=== PATIENT | male | born 1950 | race Caucasian/White ===

== ENCOUNTER 2016-05-02 22:23 | Emergency (ER) | payer OTHER ==
[2016-05-02 22:32] VITALS: BP 125/80; PULSE 78; TEMP 98.3; BMI 25.0
--- NOTE | 2016-05-02 22:42 | PDOC ---
[id number] BACK PAIN Time Seen by Provider: 05/02/16 22:25 - History of Present Illness Initial Comments: This 66-year-old man presents with a history of falling and twisting his back while snow shoveling yesterday; he has a long history of back pain but states that it is much worse since falling yesterday. Patient is unclear exactly what he impacted with the fall but points to the lower midline/left side of the lumbar region. He denies any pain/paresthesias/numbness or weakness in his legs. No numbness in his groin and no difficulty with urination/defecation. He had no LOC/head trauma/neck trauma during his fall. Past History - Past Medical History Allergies/Adverse Reactions: Allergies Allergy/AdvReac Type Severity Reaction Status Date / Time ketorolac tromethamine Allergy Verified 05/02/16 23:14 [From Toradol] Home Medications: Ambulatory Orders NK [No Known Home Medication] 01/26/16 Other medical history: DENIES - Psycho/Social/Smoking Cessation Hx Anxiety: No Suicidal Ideation: No Smoking History: Current every day smoker Have you smoked in the past 12 months: Yes Number of Cigarettes Smoked Daily: 1 Information on smoking cessation initiated: Yes 'Breaking Loose' booklet given: 01/26/16 Hx Alcohol Use: No Drug/Substance Use Hx: No Substance Use Type: None Review of Systems - Review of Systems Able to Perform ROS?: Yes Comments:: 12 point review of systems is negative except for what is noted in the history of present illness *Physical Exam - Vital Signs Last Vital Signs Temp Pulse Resp BP Pulse Ox 98.3 F 78 16 125/80 98 05/02/16 22:27 05/02/16 22:27 05/02/16 22:27 05/02/16 22:27 05/02/16 22:27 - Physical Exam Comments: GENERAL: Adult male, in moderate distress secondary to lower back pain HEAD: Normal with no signs of trauma. EYES: PERRLA, EOMI, sclera anicteric, conjunctiva clear. ENT: Ears normal, nares patent, oropharynx clear without exudates. Dry mucous membranes. NECK: Normal range of motion, supple without lymphadenopathy, JVD, or masses. LUNGS: Breath sounds equal, clear to auscultation bilaterally. No wheezes, and no crackles. HEART:Regular rate and rhythm, normal S1 and S2 without murmur, rub or gallop. ABDOMEN:.normal bowel sounds No guarding,tenderness or rebound.No masses No distention. BACK: Moderate tenderness midline L3/L4 area; moderate tenderness left paraspinal in the lumbar region No pain on straight leg raising EXTREMITIES: Normal range of motion, no edema. No clubbing or cyanosis. No erythema, or tenderness. NEUROLOGICAL: Cranial nerves II through XII grossly intact. Normal speech. No focal neurological deficits. Motor 5/5, no sensory deficits SKIN: Warm, Dry, normal turgor, no rashes or lesions noted. Progress Note - Progress Note Progress Note: Because of patient's fall and point tenderness of his lower back, lumbosacral spine films will be performed to rule out fracture of the vertebrae. LS-spine films show extensive degenerative changes and wedging of the mid lumbar spine; both of those findings were seen on LS-spine film 11/29/15. Clinical presentation most consistent with lumbosacral strain; patient states that he has made an appointment with his general medical doctor as well as the orthopedic surgeon on May 06. Patient has ALLERGY to Toradol(facial swelling), therefore cannot use any anti- inflammatory medications. Patient asked for "a shot" for his pain. Patient will be given Dilaudid 1 mg IM. Patient observed for a short time and had no adverse effects from the IM narcotic. Patient is here alone but has called a taxi for a ride home. He will follow-up with his general doctor and orthopedic surgeon on the as planned. Meanwhile, he will take Tylenol as needed for pain. He should return to the emergency room if he has worsening pain or develops numbness/weakness of his lower extremities. *DC/Admit/Observation/Transfer Diagnosis at time of Disposition: Low back sprain Qualifiers: Encounter type: initial encounter Qualified Code(s): S33.9XXA - Sprain of unspecified parts of lumbar spine and pelvis, initial encounter - Discharge Dispostion Disposition: HOME Condition at time of disposition: Stable - Patient Instructions Printed Discharge Instructions: Low Back Pain Additional Instructions: tylenol as needed for pain avoid strenuous activity for the next week followup with your doctor(Glendy) on May 06 as scheduled return to ER if you persistent severe pain or leg weakness/numbness
[2016-05-02] MEDS ORDERED: HYDROmorphone HCL CARPU-JECT 1 MG/1 ML DISP.SYRIN IVPUSH ONE (23:23)
[2016-05-02] MEDS ORDERED: HYDROmorphone HCL CARPU-JECT 2 MG/1 ML DISP.SYRIN ONE (23:36)
[2016-05-02] MEDS ORDERED: HYDROmorphone HCL CARPU-JECT 1 MG/1 ML DISP.SYRIN IM ONE (23:36)
== END 2016-05-02 23:45 | disposition home or self-care (01) ==
LOC: FER 22:23
PROC: 3E023NZ Introduction of Analgesics, Hypnotics, Sedatives into Muscle, Percutaneous Approach (ICD-10-PCS; principal; 2016-05-02)
DX: M54.5 Low back pain (principal); S33.9XXA Sprain of unspecified parts of lumbar spine and pelvis, initial encounter; W18.30XA Fall on same level, unspecified, initial encounter; Y93.H1 Activity, digging, shoveling and raking; Y92.410 Unspecified street and highway as the place of occurrence of the external cause; F17.210 Nicotine dependence, cigarettes, uncomplicated
CPT/HCPCS: 72100-TC; 96372; 99282-25

== ENCOUNTER 2017-05-13 07:59 | Inpatient (IN) | payer OTHER ==
[2017-05-13 08:14] VITALS: BMI 22.6
--- NOTE | 2017-05-13 09:37 | HP ---
COWS - Scale Resting Pulse: 1= [place] 81-100 Sweatin= Chills/Flushing Restless Observation: 3= Extraneous Movement Pupil Size: 0= Normal to Room Light Bone or Joint Aches: 2= Severe Diffuse Aches Runny Nose/ Eye Tearin= Runny Nose/Eyes GI Upset > 30mins: 1= Stomach Cramp Tremor Observation: 2= Slight Tremor Visible Yawning Observation: 0= None Anxiety or Irritability: 2=Irritable/Anxious Goose Flesh Skin: 0=Smooth Skin COWS Score: 14 Admission ROS BHS - HPI Chief Complaint: I never thought I'd end up here, I'm done, I have to stop Allergies/Adverse Reactions: Allergies Allergy/AdvReac Type Severity Reaction Status Date / Time No Known Allergies Allergy Verified 05/13/17 08:53 History of Present Illness: 67 yo gentleman here for detox from opiates, also using cocaine. Denies seizures , does have black outs. States he has been in detox elsewhere 'lots of times' as well as rehab, was here in 2008. Never on methadone or suboxone - currently not interested in same. Exam Limitations: Clinical Condition - Ebola screening Have you traveled outside of the country in the last 21 days: No (N) Have you had contact with anyone from an Ebola affected area: No Have you been sick,other than usual withdrawal symptoms: No Do you have a fever: No Patient History - Patient Medical History Hx Asthma: No Hx Chronic Obstructive Pulmonary Disease (COPD): No Hx Cardiac Disorders: No Hx Hypertension: No Hx Hypercholesterolemia: No Hx Pacemaker: No HX Cerebrovascular Accident: No Hx Seizures: No Hx Diabetes: No Hx Gastrointestinal Disorders: No Hx Liver Disease: Yes (hep C) Hx Genitourinary Disorders: No Hx Sexually Transmitted Disorders: No Hx Renal Disease (ESRD): No Hx Hepatitis C: Yes (started Mavret in February 2017) Hx Depression: No Hx Suicide Attempt: No Hx Bipolar Disorder: No Hx Schizophrenia: No - Patient Surgical History Past Surgical History: No Hx Neurologic Surgery: No Hx Cataract Extraction: No Hx Cardiac Surgery: No Hx Lung Surgery: No Hx Breast Surgery: No Hx Breast Biopsy: No Hx Abdominal Surgery: No Hx Appendectomy: No Hx Cholecystectomy: No Hx Genitourinary Surgery: No Hx Section: No Hx Orthopedic Surgery: No - PPD History Previous Implant?: No Documented Results: Negative w/o proof Implanted On Prior [facility] Admission?: No PPD to be Administered?: Yes - Reproductive History Patient is a Female of Child Bearing Age (11 -55 yrs old): No (male) - Smoking Cessation Smoking history: Current every day smoker Have you smoked in the past 12 months: Yes Aproximately how many cigarettes per day: 5 Hx Chewing Tobacco Use: No Initiated information on smoking cessation: Yes 'Breaking Loose' booklet given: 05/13/17 (give on floor) - Substance & Tx. History Hx Alcohol Use: No Hx Substance Use: Yes Substance Use Type: Cocaine, Heroin Hx Substance Use Treatment: Yes (detox, rehab) - Substances Abused Heroin Route: Inhalation Frequency: Daily Amount used: 10-12 bags Age of first use: 40 Date of Last Use: 05/13/17 Cocaine Route: Inhalation Frequency: 1-2 times per week Amount used: 1/2 to 1 gram Age of first use: 40 Date of Last Use: 05/10/17 Family Disease History - Family Disease History Family Disease History: Other: Father (, etoh), Mother (age 92 - in [place]) , Brother (one - living - healthy), Sister (four - living - healthy) Admission Physical Exam S - Vital Signs Vital Signs: Vital Signs - 24 hr 05/13/17 08:13 Temperature 97 F L Pulse Rate 94 H Respiratory 18 Rate Blood Pressure 140/90 - Physical General Appearance: Yes: Nourished, Appropriately Dressed, Moderate Distress, Thin, Irritable, Anxious HEENTM: Yes: EOMI, Hearing grossly Normal, Normocephalic, Nasal Congestion, Rhinorrhea, Muffled/Hoarse Voice, Other (white coating on tongue) Respiratory: Yes: Normal Breath Sounds, No Respiratory Distress Neck: Yes: No masses,lesions,Nodules, Supple Breast: Yes: Breast Exam Deferred Cardiology: Yes: Regular Rhythm, Regular Rate Abdominal: Yes: Non Tender, Flat, Soft Genitourinary: Yes: Hesitency, Dysuria Back: Yes: Normal Inspection Musculoskeletal: Yes: full range of Motion, Gait Steady, Back pain, Muscle Pain Extremities: Yes: Normal Inspection, Normal Range of Motion Neurological: Yes: Fully Oriented, Alert, Normal Mood/Affect, Normal Response Integumentary: Yes: Normal Color, Dry, Warm, Other (fissure like dry cracks on both thumbs and left pointer finger (states has had about a month)) Lymphatic: Yes: Within Normal Limits - Diagnostic (1) Opioid dependence with withdrawal Current Visit: Yes Status: Acute (2) Cocaine dependence Current Visit: Yes Status: Acute Qualifiers: Substance use status: uncomplicated Qualified Code(s): F14.20 - Cocaine dependence, uncomplicated (3) Hepatitis C Current Visit: Yes Status: Acute Qualifiers: Viral hepatitis chronicity: chronic Comment: on treatment currently (4) Nicotine dependence Current Visit: Yes Status: Acute Qualifiers: Nicotine product type: cigarettes Substance use status: uncomplicated Qualified Code(s): F17.210 - Nicotine dependence, cigarettes, uncomplicated (5) Dehydration Current Visit: Yes Status: Acute (6) Skin fissure Current Visit: Yes Status: Chronic Comment: both thumbs and left pointer finger Cleared for Admission [facility] - Detox or Rehab [facility] Level of Care: Medically Managed Detox Regimen/Protocol: Methadone [facility] Breath Alcohol Content Breath Alcohol Content: 0 Urine Drug Screen - Results Drug Screen Negative: No Urine Drug Screen Results: CATALINO-Cocaine, OPI-Opiates
[2017-05-13] MEDS ORDERED: MENTHOL/PHENOL 1 EACH UD MM PRN (09:56)
[2017-05-13] MEDS ORDERED: LOPERAMIDE HCL 2 MG CAPSULE PO PRN (09:56)
[2017-05-13] MEDS ORDERED: MAGNESIUM CITRATE 300 ML BOTTLE PO PRN (09:56)
[2017-05-13] MEDS ORDERED: MAGNESIUM HYDROX 2400MG/30ML ORAL SUSPENSION 30 ML CUP PO PRN (09:56)
[2017-05-13] MEDS ORDERED: hydrOXYzine PAMOATE 50 MG CAPSULE (FP) PO PRN (09:56)
[2017-05-13] MEDS ORDERED: MAG HYDROX/AL HYDROX/SIMETH 30 ML UNIT-DOSE CUP PO PRN (09:56)
[2017-05-13] MEDS ORDERED: NICOTINE POLACRILEX 4 MG GUM BUC PRN (09:56)
[2017-05-13] MEDS ORDERED: IBUPROFEN 400 MG TABLET (FP) PO PRN (09:56)
[2017-05-13] MEDS ORDERED: P-EPHED 60MG/TRIPROLIDI 2.5MG TABLET PO PRN (09:56)
[2017-05-13] MEDS ORDERED: guaiFENesin/D-METHORPHAN HB 10 ML UNIT-DOSE CUPS PO PRN (09:56)
[2017-05-13] MEDS ORDERED: METHADONE HCL 10 MG TABLET (FOR DETOX USE ONLY) PO ONE ×2 (11:00→23:00)
[2017-05-13] MEDS: diazePAM 5 MG TABLET PO PRN (12:32)
[2017-05-13] MEDS: PRENATAL VITAMINS W/ FOLIC ACID TABLET (FP) PO SCH (12:34)
[2017-05-13 17:51] LABS: URINE APPEARANCE CLEAR; URINE BILIRUBIN NEGATIVE (<2.0 mg/dL); URINE BLOOD NEGATIVE (NEGATIVE); URINE COLOR LTYELLOW; URINE GLUCOSE (UA) NEGATIVE (NEGATIVE); URINE KETONE NEGATIVE (NEGATIVE); URINE LEUK ESTERASE NEGATIVE (NEGATIVE); URINE NITRITE NEGATIVE (NEGATIVE); URINE PROTEIN NEGATIVE (NEGATIVE); URINE UROBILINOGEN NEGATIVE mg/dL (0.2-1.0)
[2017-05-13] MEDS: PATIENT'S OWN MEDICATION (NON-FORMULARY) (Glecaprevir/Pibrentasvir [Mavyret 100-40 Mg Tabl PO SCH (20:44)
[2017-05-13] MEDS ORDERED: PATIENT'S OWN MEDICATION (NON-FORMULARY) (Glecaprevir/Pibrentasvir [Mavyret 100-40 Mg Tabl PO SCH (22:00)
[2017-05-13] MEDS: THIAMINE HCL 100 MG TABLET (FP) PO SCH (22:48)
[2017-05-13] MEDS: MELATONIN 5 MG TABLETS PO PRN (22:48)
[2017-05-13] MEDS: BACITRACIN 0.9 GM PACKET TP SCH (22:52)
[2017-05-14] MEDS ORDERED: METHADONE HCL 10 MG TABLET (FOR DETOX USE ONLY) PO ONE (10:00)
[2017-05-14] MEDS: PRENATAL VITAMINS W/ FOLIC ACID TABLET (FP) PO SCH (10:29)
[2017-05-14] MEDS: BACITRACIN 0.9 GM PACKET TP SCH ×2 (10:30→22:17)
[2017-05-14] MEDS: diazePAM 5 MG TABLET PO PRN ×2 (10:31→22:21)
--- NOTE | 2017-05-14 10:42 | PN ---
BHS COWS - Scale Resting Pulse: 0= [place] 80 or Below Sweatin=Flushed/Facial Moisture Restless Observation: 1= Difficult to Sit Still Pupil Size: 0= Normal to Room Light Bone or Joint Aches: 2= Severe Diffuse Aches Runny Nose/ Eye Tearin= Nasal Congestion GI Upset > 30mins: 0= None Tremor Observation of Outstretched Hands: 2= Slight Tremor Visible Yawning Observation: 2= >3x During Session Anxiety or Irritability: 2=Irritable/Anxious Goose Flesh Skin: 0=Smooth Skin COWS Score: 12 S Progress Note (SOAP) Subjective: irritable agitation restless sweats Objective: 05/14/17 10:41 Vital Signs Temperature 96.9 F L 05/14/17 06:11 Pulse Rate 79 05/14/17 06:11 Respiratory Rate 16 05/14/17 06:11 Blood Pressure 131/76 05/14/17 06:11 O2 Sat by Pulse Oximetry (%) Laboratory Tests 05/13/17 Unknown Urine Color Ltyellow Urine Appearance Clear Urine pH 6.0 Ur Specific [place] 1.016 Urine Protein Negative Urine Glucose (UA) Negative Urine Ketones Negative Urine Blood Negative Urine Nitrite Negative Urine Bilirubin Negative Urine Urobilinogen Negative Ur Leukocyte Esterase Negative rest of labs pending aaox3 ambulating no acute distress Assessment: 05/14/17 10:42 withdrawal sx Plan: continue detox increase fluids labs pending
[2017-05-14 10:57] LABS: HEMOGLOBIN 13.7 GM/dL (11.7-16.9); MCH 31.7 pg (25.7-33.7); MCHC 33.5 g/dl (32.0-35.9); MEAN CELL VOLUME 94.7 fl (80-96); MEAN PLT VOLUME 8.8 fl (7.5-11.1); PLATELET COUNT 223 K/MM3 (134-434); RBC 4.33 M/mm3 (4.00-5.60); RDW 13.3 % (11.9-15.9); WHITE BLOOD COUNT 6.2 K/mm3 (4.0-10.0)
[2017-05-14 11:07] LABS: CHLORIDE 103 mmol/L (98-107); POTASSIUM 4.1 mmol/L (3.5-5.1); SODIUM 138 mmol/L (136-145)
[2017-05-14 13:04] LABS: ALBUMIN 3.8 g/dl (3.4-5.0); ALK PHOS 156 U/L (45-117); ANION GAP 7 (8-16); BILIRUBIN,TOTAL 0.1 mg/dL (0.2-1.0); BLOOD UREA NITROGEN 12 mg/dL (7-18); CO2 28 mmol/L (21-32); CREATININE 0.7 mg/dL (0.7-1.3); GLUCOSE,RANDOM 104 mg/dL (74-106); SGOT/AST 43 U/L (15-37); SGPT/ALT 20 U/L (12-78); TOT PROT 7.5 g/dl (6.4-8.2)
--- NOTE | 2017-05-14 16:27 | EKG ---
Test Reason : Blood Pressure : / mmHG Vent. Rate : 089 BPM Atrial Rate : 089 BPM P-R Int : 202 ms QRS Dur : 092 ms QT Int : 370 ms P-R-T Axes : 082 057 073 degrees QTc Int : 450 ms NORMAL SINUS RHYTHM WITH FIRST DEGREE AV BLOCK LEFT ATRIAL ENLARGEMENT NONSPECIFIC ST ABNORMALITY ABNORMAL ECG Confirmed by MD EDWARDO, LENARD ([id number]) on 05/14/2017 4:26:53 PM Referred By: Confirmed By:LENARD BROOKE MD
[2017-05-14] MEDS: THIAMINE HCL 100 MG TABLET (FP) PO SCH (22:18)
[2017-05-14] MEDS: MELATONIN 5 MG TABLETS PO PRN (22:19)
[2017-05-14] MEDS: PATIENT'S OWN MEDICATION (NON-FORMULARY) (Glecaprevir/Pibrentasvir [Mavyret 100-40 Mg Tabl PO SCH (22:19)
[2017-05-15] MEDS ORDERED: METHADONE HCL 5 MG TABLET (FOR DETOX USE ONLY) PO ONE (10:00)
[2017-05-15] MEDS: PRENATAL VITAMINS W/ FOLIC ACID TABLET (FP) PO SCH (10:34)
[2017-05-15] MEDS: diazePAM 5 MG TABLET PO PRN ×3 (10:34→22:03)
[2017-05-15] MEDS: BACITRACIN 0.9 GM PACKET TP SCH ×2 (10:34→22:02)
--- NOTE | 2017-05-15 15:47 | PN ---
BHS COWS - Scale Resting Pulse: 1= [place] 81-100 Sweatin= Chills/Flushing Restless Observation: 0= Sits Still Pupil Size: 0= Normal to Room Light Bone or Joint Aches: 0= None Runny Nose/ Eye Tearin= Nasal Congestion GI Upset > 30mins: 0= None Tremor Observation of Outstretched Hands: 2= Slight Tremor Visible Yawning Observation: 2= >3x During Session Anxiety or Irritability: 2=Irritable/Anxious Goose Flesh Skin: 3=Piloerection COWS Score: 12 BHS Progress Note (SOAP) Subjective: Fatigue, Tremors, Anxious, Sweating. Objective: PATIENT A & O X 3. NO ACUTE DISTRESS. 05/15/17 15:45 Vital Signs Temperature 96.6 F L 05/15/17 13:21 Pulse Rate 102 H 05/15/17 13:21 Respiratory Rate 18 05/15/17 13:21 Blood Pressure 122/71 05/15/17 13:21 O2 Sat by Pulse Oximetry (%) Laboratory Tests 05/13/17 05/14/17 05/14/17 Unknown 06:00 06:00 WBC 6.2 RBC 4.33 Hgb 13.7 Hct 41.0 MCV 94.7 MCH 31.7 MCHC 33.5 RDW 13.3 Plt Count 223 MPV 8.8 Sodium 138 Potassium 4.1 Chloride 103 Carbon Dioxide 28 Anion Gap 7 L BUN 12 Creatinine 0.7 Creat Clearance w eGFR > 60 Random Glucose 104 Calcium 9.0 Total Bilirubin 0.1 L AST 43 H ALT 20 Alkaline Phosphatase 156 H Total Protein 7.5 Albumin 3.8 Urine Color Ltyellow Urine Appearance Clear Urine pH 6.0 Ur Specific [place] 1.016 Urine Protein Negative Urine Glucose (UA) Negative Urine Ketones Negative Urine Blood Negative Urine Nitrite Negative Urine Bilirubin Negative Urine Urobilinogen Negative Ur Leukocyte Esterase Negative RPR Titer 05/14/17 06:00 WBC RBC Hgb Hct MCV MCH MCHC RDW Plt Count MPV Sodium Potassium Chloride Carbon Dioxide Anion Gap BUN Creatinine Creat Clearance w eGFR Random Glucose Calcium Total Bilirubin AST ALT Alkaline Phosphatase Total Protein Albumin Urine Color Urine Appearance Urine pH Ur Specific [place] Urine Protein Urine Glucose (UA) Urine Ketones Urine Blood Urine Nitrite Urine Bilirubin Urine Urobilinogen Ur Leukocyte Esterase RPR Titer Nonreactive LABS NOTED. Assessment: 05/15/17 15:45 WITHDRAWAL SYMPTOMS. Plan: CONTINUE DETOX.
[2017-05-15] MEDS: ACETAMINOPHEN 325 MG TABLET (FP) PO PRN (17:20)
[2017-05-15] MEDS: THIAMINE HCL 100 MG TABLET (FP) PO SCH (22:02)
[2017-05-15] MEDS: PATIENT'S OWN MEDICATION (NON-FORMULARY) (Glecaprevir/Pibrentasvir [Mavyret 100-40 Mg Tabl PO SCH (22:03)
[2017-05-15] MEDS: MELATONIN 5 MG TABLETS PO PRN (22:04)
[2017-05-16] MEDS ORDERED: METHADONE HCL 5 MG TABLET (FOR DETOX USE ONLY) PO ONE (10:00)
[2017-05-16] MEDS: PRENATAL VITAMINS W/ FOLIC ACID TABLET (FP) PO SCH (10:26)
[2017-05-16] MEDS: BACITRACIN 0.9 GM PACKET TP SCH ×2 (10:26→22:19)
[2017-05-16] MEDS: diazePAM 5 MG TABLET PO PRN (10:27)
--- NOTE | 2017-05-16 11:22 | PN ---
S Progress Note (SOAP) Subjective: PT REPORTS WITHDRAWAL SX RESOLVING WITH MEDICATION. ALERT O X 3. OOB WITH STEADY GAIT. Objective: 05/16/17 11:22 Vital Signs Temperature 97.9 F 05/16/17 09:14 Pulse Rate 84 05/16/17 09:14 Respiratory Rate 20 05/16/17 09:14 Blood Pressure 118/69 05/16/17 09:14 O2 Sat by Pulse Oximetry (%) Laboratory Last Values WBC 6.2 K/mm3 (4.0-10.0) 05/14/17 06:00 RBC 4.33 M/mm3 (4.00-5.60) 05/14/17 06:00 Hgb 13.7 GM/dL (11.7-16.9) 05/14/17 06:00 Hct 41.0 % (35.4-49) 05/14/17 06:00 MCV 94.7 fl (80-96) 05/14/17 06:00 MCH 31.7 pg (25.7-33.7) 05/14/17 06:00 MCHC 33.5 g/dl (32.0-35.9) 05/14/17 06:00 RDW 13.3 % (11.9-15.9) 05/14/17 06:00 Plt Count 223 K/MM3 (134-434) 05/14/17 06:00 MPV 8.8 fl (7.5-11.1) 05/14/17 06:00 Sodium 138 mmol/L (136-145) 05/14/17 06:00 Potassium 4.1 mmol/L (3.5-5.1) 05/14/17 06:00 Chloride 103 mmol/L (98-107) 05/14/17 06:00 Carbon Dioxide 28 mmol/L (21-32) 05/14/17 06:00 Anion Gap 7 (8-16) L 05/14/17 06:00 BUN 12 mg/dL (7-18) 05/14/17 06:00 Creatinine 0.7 mg/dL (0.7-1.3) 05/14/17 06:00 Creat Clearance w eGFR > 60 (>60) 05/14/17 06:00 Random Glucose 104 mg/dL (74-106) 05/14/17 06:00 Calcium 9.0 mg/dL (8.5-10.1) 05/14/17 06:00 Total Bilirubin 0.1 mg/dL (0.2-1.0) L 05/14/17 06:00 AST 43 U/L (15-37) H 05/14/17 06:00 ALT 20 U/L (12-78) 05/14/17 06:00 Alkaline Phosphatase 156 U/L (45-117) H 05/14/17 06:00 Total Protein 7.5 g/dl (6.4-8.2) 05/14/17 06:00 Albumin 3.8 g/dl (3.4-5.0) 05/14/17 06:00 Urine Color Ltyellow 05/13/17 Unknown Urine Appearance Clear 05/13/17 Unknown Urine pH 6.0 (5.0-8.0) 05/13/17 Unknown Ur Specific [place] 1.016 (1.001-1.035) 05/13/17 Unknown Urine Protein Negative (NEGATIVE) 05/13/17 Unknown Urine Glucose (UA) Negative (NEGATIVE) 05/13/17 Unknown Urine Ketones Negative (NEGATIVE) 05/13/17 Unknown Urine Blood Negative (NEGATIVE) 05/13/17 Unknown Urine Nitrite Negative (NEGATIVE) 05/13/17 Unknown Urine Bilirubin Negative (<2.0 mg/dL) 05/13/17 Unknown Urine Urobilinogen Negative mg/dL (0.2-1.0) 05/13/17 Unknown Ur Leukocyte Esterase Negative (NEGATIVE) 05/13/17 Unknown RPR Titer Nonreactive (NONREACTIVE) 05/14/17 06:00 Assessment: 05/16/17 11:22 DECREASED WITHDRAWAL SX Plan: CONTINUE DETOX
[2017-05-16] MEDS: ACETAMINOPHEN 325 MG TABLET (FP) PO PRN (20:45)
[2017-05-16] MEDS: THIAMINE HCL 100 MG TABLET (FP) PO SCH (22:19)
[2017-05-16] MEDS: PATIENT'S OWN MEDICATION (NON-FORMULARY) (Glecaprevir/Pibrentasvir [Mavyret 100-40 Mg Tabl PO SCH (22:20)
[2017-05-16 22:32] VITALS: BP 152/85; PULSE 104; TEMP 97.5
--- NOTE | 2017-05-16 23:47 | PN ---
BHS Progress Note Note: INFORMED CLIENT SIGNED OUT AMA
--- NOTE | 2017-05-16 23:58 | DS ---
[facility] Detox Discharge Summary Admission Date: 05/13/17 Discharge Date: 05/16/17 - History Present History: Cocaine Dependence, Opioid Dependence Pertinent Past History: HEP C NICOTINE DEPENDENCE - Physical Exam Results Vital Signs: Vital Signs Temperature 97.5 F L 05/16/17 22:00 Pulse Rate 104 H 05/16/17 22:00 Respiratory Rate 20 05/16/17 22:00 Blood Pressure 152/85 05/16/17 22:00 O2 Sat by Pulse Oximetry (%) Pertinent Admission Physical Exam Findings: WITHDRAWAL SX'S - Treatment Hospital Course: Discharged Condition Good (INFORMED CLIENT LEFT UNIT IN STABLE CONDITION) - Medication Discharge Medications: Ambulatory Orders Glecaprevir/Pibrentasvir [Mavyret 100-40 mg Tablet] 1 each PO HS 05/13/17 - Diagnosis (1) Cocaine dependence Status: Chronic Qualifiers: Substance use status: uncomplicated Qualified Code(s): F14.20 - Cocaine dependence, uncomplicated (2) Dehydration Status: Acute (3) Nicotine dependence Status: Acute Qualifiers: Nicotine product type: cigarettes Substance use status: in withdrawal Qualified Code(s): F17.213 - Nicotine dependence, cigarettes, with withdrawal (4) Opioid dependence with withdrawal Status: Chronic (5) Hepatitis C Status: Chronic Qualifiers: Viral hepatitis chronicity: chronic Hepatic coma status: without hepatic coma Qualified Code(s): B18.2 - Chronic viral hepatitis C (6) Skin fissure Status: Chronic - AMA Did Patient Leave Against Medical Advice: Yes
[2017-05-17] MEDS ORDERED: METHADONE HCL 10 MG TABLET (FOR DETOX USE ONLY) PO ONE (10:00)
[2017-05-18] MEDS ORDERED: METHADONE HCL 5 MG TABLET (FOR DETOX USE ONLY) PO ONE (06:00)
== END 2017-05-16 23:05 | disposition left against medical advice (07) | DRG 894 ==
LOC: YASAS 07:59 → Y3N 10:32
PROVIDERS: ADMIT Internal Medicine; ATTEND Internal Medicine
PROC: HZ2ZZZZ Detoxification Services for Substance Abuse Treatment (ICD-10-PCS; principal; 2017-05-13)
DX: F10.230 Alcohol dependence with withdrawal, uncomplicated (principal); F14.20 Cocaine dependence, uncomplicated; F17.213 Nicotine dependence, cigarettes, with withdrawal; B18.2 Chronic viral hepatitis C; R23.4 Changes in skin texture
CPT/HCPCS: 36415; 80053; 81003; 85027; 86593; 93005; 93010

== ENCOUNTER 2017-06-28 08:37 | Emergency (ER) | payer OTHER ==
[2017-06-28 08:47] VITALS: BP 148/101; PULSE 84; TEMP 97.8; BMI 22.4
[2017-06-28] MEDS ORDERED: CEPHALEXIN MONOHYDRATE 500 MG CAPSULE (UD) PO ONE (09:45)
--- NOTE | 2017-06-28 09:46 | PDOC ---
History of Present Illness - General Chief Complaint: Foreign Body (FB) Stated Complaint: FB IN MY ARM Time Seen by Provider: 06/28/17 08:52 - History of Present Illness Initial Comments: 06/28/17 10:25 Chief complaint: Foreign body left arm History of present illness: Patient states that he was fixing his muffler this morning and that he somehow got a foreign body in his left forearm. The site is not painful but he is worried that "it will get into my bloodstream" Review of systems: Denies any distal numbness tingling pain or weakness of the wrist hand or digits. Denies chest pain, shortness of breath, abdominal pain, nausea, vomiting, diarrhea, visual or focal neurologic symptoms, unsteadiness of gait Past medical history: The patient denies any serious medical or surgical illnesses in the past. Specifically denies the use of intravenous drugs or alcohol, although these are noted in his past record. Social history: Patient is a local hazmat driver, however, is staying at a local motel. There is evidence of drug abuse including cocaine and opioids in his past record , though he denies this. Family history: Noncontributory Physical exam: Alert oriented well-developed well-nourished no acute distress. Afebrile, vital signs normal except for mildly elevated blood pressure in the 140/100 range. HEENT clear Neck supple without bruit mass or nodes Chest clear CV regular without murmur rub or gallop Abdomen benign Extremities: Multiple sclerosed veins in the antecubital areas, as well as multiple nodules which suggest intravenous drug use. There is an area of induration of approximately 2 cm in diameter, mildly tender, volar aspect of the mid forearm, left. There is no fluctuance and no suggestion of an abscess. Impression: Intravenous drug abuse, wound infection, rule out foreign body Plan: X-ray reveals what looks like part of a needle in the soft tissues of the forearm. There is no air or fluid visualized. No collection of pus is palpated and the foreign body is much too small to be easily removed without doing undue damage to the tissues. Warm soaks and antibiotics, with follow-up and monitoring of healing. The dangers of drug use or reemphasized. Patient fully ambulatory and in no pain or other distress upon discharge to follow-up as directed Past History - Past Medical History Allergies/Adverse Reactions: Allergies Allergy/AdvReac Type Severity Reaction Status Date / Time No Known Allergies Allergy Verified 06/28/17 08:38 Home Medications: Ambulatory Orders Cephalexin Monohydrate [Keflex] 500 mg PO Q6H #30 capsule 06/28/17 Asthma: No Cardiac Disorders: No CVA: No COPD: No DVT: No Diabetes: No GI Disorders: No Disorders: No HTN: No Hypercholesterolemia: No Kidney Stones: No Liver Disease: Yes (hep C) Seizures: No - Surgical History Abdominal Surgery: No Appendectomy: No Cardiac Surgery: No Cholecystectomy: No Lung Surgery: No Neurologic Surgery: No Orthopedic Surgery: No - Reproductive History Testicular Surgery: No - Suicide/Smoking/Psychosocial Hx Smoking History: Current every day smoker Have you smoked in the past 12 months: Yes Number of Cigarettes Smoked Daily: 5 Information on smoking cessation initiated: Yes 'Breaking Loose' booklet given: 06/28/17 Hx Alcohol Use: No Drug/Substance Use Hx: Yes Substance Use Type: Cocaine, Heroin Hx Substance Use Treatment: Yes (detox, rehab) *Physical Exam - Vital Signs Last Vital Signs Temp Pulse Resp BP Pulse Ox 97.8 F 84 18 148/101 96 06/28/17 08:38 06/28/17 08:38 06/28/17 08:38 06/28/17 08:38 06/28/17 08:38 ED Treatment Course - RADIOLOGY Radiology Studies Ordered: Category Date Time Status FOREARM- LEFT [RAD] Stat Radiology 06/28/17 08:48 Completed *DC/Admit/Observation/Transfer Diagnosis at time of Disposition: Wound infection - Discharge Dispostion Disposition: HOME Condition at time of disposition: Stable Decision to Admit order: No - Prescriptions Prescriptions: Cephalexin Monohydrate [Keflex] 500 mg PO Q6H #30 capsule - Referrals Referrals: Calderon Worthington MD [Staff Physician] - 1 week - Patient Instructions Printed Discharge Instructions: DI for Wound Infection Additional Instructions: Warm compresses 3 or 4 times daily. Antibiotics as directed. If there is increased redness swelling or pain despite antibiotic treatment, the wound may have to be drained. There is a foreign body in the soft tissues of the arm, but removal would be difficult and destructive to the surrounding tissue, and if the infection can be controlled the foreign body can remain in the skin for now , and may be extruded by normal body defenses at a future time. See primary physician for recheck in one week, or sooner if the infection worsens. - Post Discharge Activity
[2017-06-28] MEDS ORDERED: CEPHALEXIN MONOHYDRATE 500 MG CAPSULE (UD) ONE (09:51)
== END 2017-06-28 09:54 | disposition home or self-care (01) ==
LOC: FER 08:37
DX: L08.9 Local infection of the skin and subcutaneous tissue, unspecified (principal); B19.20 Unspecified viral hepatitis C without hepatic coma; F19.10 Other psychoactive substance abuse, uncomplicated; F17.210 Nicotine dependence, cigarettes, uncomplicated
CPT/HCPCS: 73090-TC-LT-FY; 99281-25

== ENCOUNTER 2017-07-19 09:21 | Inpatient (IN) | payer OTHER ==
[2017-07-19 10:59] VITALS: BMI 21.0
--- NOTE | 2017-07-19 11:01 | HP ---
COWS - Scale Resting Pulse: 1= [place] 81-100 Sweatin=Flushed/Facial Moisture Restless Observation: 0= Sits Still Pupil Size: 1= Pupils >than Normal Bone or Joint Aches: 2= Severe Diffuse Aches Runny Nose/ Eye Tearin= Nasal Congestion GI Upset > 30mins: 2= Nausea/Diarrhea Tremor Observation: 2= Slight Tremor Visible Yawning Observation: 0= None Anxiety or Irritability: 2=Irritable/Anxious Goose Flesh Skin: 0=Smooth Skin COWS Score: 13 Admission [facility] Chief Complaint: Patient presents with Heroin withdrawal symptoms. Allergies/Adverse Reactions: Allergies Allergy/AdvReac Type Severity Reaction Status Date / Time No Known Allergies Allergy Verified 07/19/17 10:42 History of Present Illness: Patient presents with Heroin withdrawal symptoms. Patient started sniffing Heroin at age 37. Occasionally injects heroin as well. Uses 10 bags of heroin daily. Also sniffs cocaine up to 50 dollars daily 4x per week. Last time patient used both substances was 8am this morning. Patient completed detox at [facility] 05/2016. Quickly relapse upon discharge within one week. [facility] chronic Low back pain. Treated in ER 07/05/17 and given Percocet for 3 days. Patient denies having pain management MD. Also has history of treated Hep C. Denies SI/HI and suicide attempts. Exam Limitations: No Limitations - Ebola screening Have you traveled outside of the country in the last 21 days: No Have you had contact with anyone from an Ebola affected area: No Do you have a fever: No - Review of Systems Constitutional: Chills, Changes in sleep, Unexplained wgt Loss EENT: reports: Tearing, Nose Congestion Respiratory: reports: No Symptoms reported Cardiac: reports: No Symptoms Reported GI: reports: Diarrhea, Nausea, Poor Fluid Intake, Abdominal cramping : reports: No Symptoms Reported Musculoskeletal: reports: Back Pain, Muscle Pain Integumentary: reports: Flushing, Sweating Neuro: reports: Headache, Tremors Endocrine: reports: Flushing, Unexplained Weight Loss Hematology: reports: No Symptoms Reported Psychiatric: reports: Orientated x3, Anxious, Depressed Patient History - Patient Medical History Hx Anemia: No Hx Asthma: No Hx Chronic Obstructive Pulmonary Disease (COPD): No Hx Cancer: No Hx Cardiac Disorders: No Hx Congestive Heart Failure: No Hx Hypertension: No Hx Hypercholesterolemia: No Hx Pacemaker: No HX Cerebrovascular Accident: No Hx Seizures: No Hx Dementia: No Hx Diabetes: No Hx Gastrointestinal Disorders: No Hx Liver Disease: Yes (hep C) Hx Genitourinary Disorders: No Hx Sexually Transmitted Disorders: No Hx Renal Disease (ESRD): No Hx Thyroid Disease: No Hx Human Immunodeficiency Virus (HIV): No (States being tested a few months ago and negative. Refused testing) Hx Hepatitis C: Yes (started Mavret in February 2017) Hx Depression: No Hx Suicide Attempt: No Hx Bipolar Disorder: No Hx Schizophrenia: No - Patient Surgical History Past Surgical History: No Hx Neurologic Surgery: No Hx Cataract Extraction: No Hx Cardiac Surgery: No Hx Lung Surgery: No Hx Breast Surgery: No Hx Breast Biopsy: No Hx Abdominal Surgery: No Hx Appendectomy: No Hx Cholecystectomy: No Hx Genitourinary Surgery: No Hx Orthopedic Surgery: No Anesthesia Reaction: No - PPD History Previous Implant?: Yes Documented Results: Negative w/o proof Date: 05/15/17 PPD to be Administered?: No - Smoking Cessation Smoking history: Current every day smoker Have you smoked in the past 12 months: Yes Aproximately how many cigarettes per day: 5 Hx Chewing Tobacco Use: No Initiated information on smoking cessation: Yes 'Breaking Loose' booklet given: 07/19/17 - Substance & Tx. History Hx Alcohol Use: No Hx Substance Use: Yes Substance Use Type: Cocaine, Heroin Hx Substance Use Treatment: Yes - Substances Abused Heroin Route: Inhalation Frequency: Daily Amount used: 10 bags Age of first use: 47 Date of Last Use: 07/19/17 Cocaine Route: Inhalation Frequency: 3-6 times per week Amount used: $150-200 Age of first use: 27 Date of Last Use: 07/15/17 Family Disease History - Family Disease History Family Disease History: Other: Father (, etoh), Mother (age 92 - in [place]) , Brother (one - living - healthy), Sister (four - living - healthy) Admission Physical Exam [facility] - Physical General Appearance: Yes: Appropriately Dressed, Thin, Tremorous, Sweating, Anxious HEENTM: Yes: EOMI, Hearing grossly Normal, Normal ENT Inspection, Normocephalic , Normal Voice, CEE, Pharynx Normal, Nasal Congestion Respiratory: Yes: Chest Non-Tender, Lungs Clear, Normal Breath Sounds, No Respiratory Distress, No Accessory Muscle Use Neck: Yes: No masses,lesions,Nodules, Supple Breast: Yes: Breast Exam Deferred Cardiology: Yes: Regular Rhythm, Regular Rate, S1, S2 Abdominal: Yes: Normal Bowel Sounds, Non Tender, Flat, Soft Genitourinary: Yes: Within Normal Limits Back: Yes: Normal Inspection, Muscle Spasm Musculoskeletal: Yes: full range of Motion, Gait Steady, Back pain, Muscle Pain Extremities: Yes: Normal Inspection, Normal Range of Motion, Non-Tender, Tremors Neurological: Yes: hourly shift manager II-XII NML intact, Fully Oriented, Alert, Motor Strength 5/5, Normal Response, Depressed Affect Integumentary: Yes: Normal Color, Warm, Moist, Track Manuel Lymphatic: Yes: Within Normal Limits - Diagnostic (1) Chronic bilateral low back pain Current Visit: Yes Status: Chronic Qualifiers: Sciatica laterality: sciatica laterality unspecified (2) Nicotine dependence Current Visit: Yes Status: Acute Qualifiers: Nicotine product type: cigarettes Substance use status: unspecified nicotine-induced disorder Qualified Code(s): F17.219 - Nicotine dependence, cigarettes, with unspecified nicotine-induced disorders (3) Cocaine dependence Current Visit: Yes Status: Acute Qualifiers: Substance use status: uncomplicated Qualified Code(s): F14.20 - Cocaine dependence, uncomplicated (4) Opioid dependence with withdrawal Current Visit: Yes Status: Acute (5) Depressed affect Current Visit: Yes Status: Acute Cleared for Admission [facility] - Detox or Rehab [facility] Level of Care: Medically Managed Detox Regimen/Protocol: Methadone [facility] Breath Alcohol Content Breath Alcohol Content: 0 Urine Drug Screen - Results Drug Screen Negative: No Urine Drug Screen Results: CATALINO-Cocaine, OPI-Opiates
[2017-07-19] MEDS ORDERED: MAG HYDROX/AL HYDROX/SIMETH 30 ML UNIT-DOSE CUP PO PRN (11:17)
[2017-07-19] MEDS ORDERED: MAGNESIUM HYDROX 2400MG/30ML ORAL SUSPENSION 30 ML CUP PO PRN (11:17)
[2017-07-19] MEDS ORDERED: ACETAMINOPHEN 325 MG TABLET (FP) PO PRN (11:17)
[2017-07-19] MEDS ORDERED: guaiFENesin/D-METHORPHAN HB 10 ML UNIT-DOSE CUPS PO PRN (11:17)
[2017-07-19] MEDS ORDERED: P-EPHED 60MG/TRIPROLIDI 2.5MG TABLET PO PRN (11:17)
[2017-07-19] MEDS ORDERED: LOPERAMIDE HCL 2 MG CAPSULE PO PRN (11:17)
[2017-07-19] MEDS ORDERED: MENTHOL/PHENOL 1 EACH UD MM PRN (11:17)
[2017-07-19] MEDS ORDERED: NICOTINE POLACRILEX 2 MG GUM BUC PRN (11:17)
[2017-07-19] MEDS ORDERED: MAGNESIUM CITRATE 300 ML BOTTLE PO PRN (11:17)
[2017-07-19] MEDS ORDERED: METHADONE HCL 10 MG TABLET (FOR DETOX USE ONLY) PO ONE ×2 (11:45→23:00)
[2017-07-19] MEDS: diazePAM 5 MG TABLET PO PRN ×2 (13:15→22:21)
--- NOTE | 2017-07-19 14:52 | EKG ---
Test Reason : Blood Pressure : / mmHG Vent. Rate : 090 BPM Atrial Rate : 090 BPM P-R Int : 186 ms QRS Dur : 084 ms QT Int : 372 ms P-R-T Axes : 087 020 065 degrees QTc Int : 455 ms POOR DATA QUALITY, INTERPRETATION MAY BE ADVERSELY AFFECTED SINUS RHYTHM WITH PREMATURE ATRIAL COMPLEXES OTHERWISE NORMAL ECG WHEN COMPARED WITH ECG OF 13-MAY-2017 12:27, PREMATURE ATRIAL COMPLEXES ARE NOW PRESENT Confirmed by ANDREW WILLIAM, FUENTES ([id number]) on 07/19/2017 2:52:21 PM Referred By: Confirmed By:FUENTES MORALES MD
--- NOTE | 2017-07-19 16:40 | CONSULT ---
[facility] Psychiatric Consult - Data Date of interview: 07/19/17 Admission source: [facility] Identifying data: Patient is a 67 year old single male, without kids, unemployed , homeless, and supported on SSI benefits. This is one of multiple admissions for patient. Patient admitted to for opiate and cocaine dependence. Substance Abuse History: - Smoking Cessation. Smoking history: Current every day smoker. Have you smoked in the past 12 months: Yes. Aproximately how many cigarettes per day: 5. Hx Chewing Tobacco Use: No. Initiated information on smoking cessation: Yes. 'Breaking Loose' booklet given: 07/19/17. - Substance & Tx. History. Hx Alcohol Use: No. Hx Substance Use: Yes. Substance Use Type : Cocaine, Heroin. Hx Substance Use Treatment: Yes. - Substances Abused. Heroin. Route: Inhalation. Frequency: Daily. Amount used: 10 bags. Age of first use: 47. Date of Last Use: 07/19/17. Cocaine. Route: Inhalation. Frequency: 3-6 times per week. Amount used: $150-200. Age of first use: 27. Date of Last Use: 07/15/17 Medical History: Hep C Psychiatric History: Patient denies h/o psychiatric hospitalization, outpatient care, and suicide attempt. Physical/Sexual Abuse/Trauma History: Denies. Mental Status Exam - Mental Status Exam Alert and Oriented to: Time, Place, Person Cognitive Function: Good Patient Appearance: Well Groomed Mood: Hopeful Affect: Mood Congruent Patient Behavior: Cooperative Speech Pattern: Clear, Appropriate Voice Loudness: Normal Thought Process: Intact, Goal Oriented Thought Disorder: Not Present Hallucinations: Denies Suicidal Ideation: Denies Homicidal Ideation: Denies Insight/Judgement: Poor Sleep: Fair Appetite: Good Muscle strength/Tone: Normal Gait/Station: Normal Psychiatric Findings - Problem List ([place] 1, 2,3) (1) Cocaine dependence Current Visit: Yes Status: Acute Qualifiers: Substance use status: uncomplicated Qualified Code(s): F14.20 - Cocaine dependence, uncomplicated (2) Nicotine dependence Current Visit: Yes Status: Chronic Qualifiers: Nicotine product type: cigarettes Substance use status: unspecified nicotine-induced disorder Qualified Code(s): F17.219 - Nicotine dependence, cigarettes, with unspecified nicotine-induced disorders (3) Opioid dependence with withdrawal Current Visit: Yes Status: Acute - Initial Treatment Plan Initial Treatment Plan: Psychoeducation provided. Detoxification in progress. Observation.
[2017-07-19 17:23] LABS: URINE COLOR YELLOW
[2017-07-19 17:24] LABS: URINE APPEARANCE CLEAR; URINE BILIRUBIN NEGATIVE (<2.0 mg/dL); URINE BLOOD NEGATIVE (NEGATIVE); URINE GLUCOSE (UA) NEGATIVE (NEGATIVE); URINE KETONE NEGATIVE (NEGATIVE); URINE LEUK ESTERASE NEGATIVE (NEGATIVE); URINE NITRITE NEGATIVE (NEGATIVE); URINE PROTEIN NEGATIVE (NEGATIVE); URINE UROBILINOGEN NORMAL mg/dL (0.2-1.0)
[2017-07-19] MEDS: THIAMINE HCL 100 MG TABLET (FP) PO SCH (22:21)
[2017-07-19] MEDS: MELATONIN 5 MG TABLETS PO PRN (22:22)
[2017-07-20] MEDS ORDERED: METHADONE HCL 10 MG TABLET (FOR DETOX USE ONLY) PO ONE (10:00)
[2017-07-20] MEDS: PRENATAL VITAMINS W/ FOLIC ACID TABLET (FP) PO SCH (10:10)
[2017-07-20] MEDS: NICOTINE 21 MG/24 HOURS TOPICAL PATCH TD SCH (10:11)
[2017-07-20] MEDS: diazePAM 5 MG TABLET PO PRN ×2 (10:14→17:36)
[2017-07-20 10:33] LABS: HEMATOCRIT 39.9 % (35.4-49); HEMOGLOBIN 13.6 GM/dL (11.7-16.9); MCH 31.7 pg (25.7-33.7); MEAN CELL VOLUME 93.1 fl (80-96); MEAN PLT VOLUME 9.3 fl (7.5-11.1); PLATELET COUNT 219 K/MM3 (134-434); RBC 4.29 M/mm3 (4.00-5.60); RDW 13.5 % (11.9-15.9)
[2017-07-20 10:41] LABS: CHLORIDE 103 mmol/L (98-107); POTASSIUM 4.3 mmol/L (3.5-5.1); SODIUM 140 mmol/L (136-145)
[2017-07-20 11:31] LABS: ANION GAP 7 (8-16); BLOOD UREA NITROGEN 17 mg/dL (7-18); CALCIUM 9.7 mg/dL (8.5-10.1); CO2 30 mmol/L (21-32); GLUCOSE,RANDOM 74 mg/dL (74-106)
[2017-07-20 11:35] LABS: ALK PHOS 120 U/L (45-117); BILIRUBIN,TOTAL 0.3 mg/dL (0.2-1.0); CREATININE 0.7 mg/dL (0.7-1.3); SGOT/AST 82 U/L (15-37); SGPT/ALT 33 U/L (12-78); TOT PROT 7.5 g/dl (6.4-8.2)
--- NOTE | 2017-07-20 12:03 | PN ---
S COWS - Scale Resting Pulse: 1= [place] 81-100 Sweatin= Chills/Flushing Restless Observation: 1= Difficult to Sit Still Pupil Size: 1= Pupils >than Normal Bone or Joint Aches: 2= Severe Diffuse Aches Runny Nose/ Eye Tearin= Nasal Congestion GI Upset > 30mins: 2= Nausea/Diarrhea Tremor Observation of Outstretched Hands: 1= Tremor [place], Not Seen Yawning Observation: 1= 1-2x During Session Anxiety or Irritability: 1=Feels Anxious/Irritable Goose Flesh Skin: 0=Smooth Skin COWS Score: 12 S Progress Note (SOAP) Subjective: joint pain body ache sweat tremor trouble sleep at night stuffy nose Objective: 07/20/17 12:35 Vital Signs Temperature 98 F 07/20/17 09:03 Pulse Rate 84 07/20/17 09:03 Respiratory Rate 20 07/20/17 09:03 Blood Pressure 132/72 07/20/17 09:03 O2 Sat by Pulse Oximetry (%) Laboratory Last Values WBC 6.0 K/mm3 (4.0-10.0) 07/20/17 06:00 RBC 4.29 M/mm3 (4.00-5.60) 07/20/17 06:00 Hgb 13.6 GM/dL (11.7-16.9) 07/20/17 06:00 Hct 39.9 % (35.4-49) 07/20/17 06:00 MCV 93.1 fl (80-96) 07/20/17 06:00 MCH 31.7 pg (25.7-33.7) 07/20/17 06:00 MCHC 34.0 g/dl (32.0-35.9) 07/20/17 06:00 RDW 13.5 % (11.9-15.9) 07/20/17 06:00 Plt Count 219 K/MM3 (134-434) 07/20/17 06:00 MPV 9.3 fl (7.5-11.1) 07/20/17 06:00 Sodium 140 mmol/L (136-145) 07/20/17 06:00 Potassium 4.3 mmol/L (3.5-5.1) 07/20/17 06:00 Chloride 103 mmol/L (98-107) 07/20/17 06:00 Carbon Dioxide 30 mmol/L (21-32) 07/20/17 06:00 Anion Gap 7 (8-16) L 07/20/17 06:00 BUN 17 mg/dL (7-18) D 07/20/17 06:00 Creatinine 0.7 mg/dL (0.7-1.3) 07/20/17 06:00 Creat Clearance w eGFR > 60 (>60) 07/20/17 06:00 Random Glucose 74 mg/dL (74-106) D 07/20/17 06:00 Calcium 9.7 mg/dL (8.5-10.1) 07/20/17 06:00 Total Bilirubin 0.3 mg/dL (0.2-1.0) D 07/20/17 06:00 AST 82 U/L (15-37) H D 07/20/17 06:00 ALT 33 U/L (12-78) D 07/20/17 06:00 Alkaline Phosphatase 120 U/L (45-117) H D 07/20/17 06:00 Total Protein 7.5 g/dl (6.4-8.2) 07/20/17 06:00 Albumin 4.0 g/dl (3.4-5.0) 07/20/17 06:00 Urine Color Yellow 07/19/17 14:00 Urine Appearance Clear 07/19/17 14:00 Urine pH 5.0 (5.0-8.0) 07/19/17 14:00 Ur Specific [place] 1.014 (1.001-1.035) 07/19/17 14:00 Urine Protein Negative (NEGATIVE) 07/19/17 14:00 Urine Glucose (UA) Negative (NEGATIVE) 07/19/17 14:00 Urine Ketones Negative (NEGATIVE) 07/19/17 14:00 Urine Blood Negative (NEGATIVE) 07/19/17 14:00 Urine Nitrite Negative (NEGATIVE) 07/19/17 14:00 Urine Bilirubin Negative (<2.0 mg/dL) 07/19/17 14:00 Urine Urobilinogen Normal mg/dL (0.2-1.0) 07/19/17 14:00 Ur Leukocyte Esterase Negative (NEGATIVE) 07/19/17 14:00 lab noted Assessment: withdrawal sx Plan: continue detox
[2017-07-20] MEDS: THIAMINE HCL 100 MG TABLET (FP) PO SCH (22:32)
[2017-07-20] MEDS: MELATONIN 5 MG TABLETS PO PRN (22:32)
[2017-07-21] MEDS: diazePAM 5 MG TABLET PO PRN ×4 (05:49→22:33)
[2017-07-21] MEDS ORDERED: METHADONE HCL 5 MG TABLET (FOR DETOX USE ONLY) PO ONE (10:00)
[2017-07-21] MEDS: PRENATAL VITAMINS W/ FOLIC ACID TABLET (FP) PO SCH (11:01)
[2017-07-21] MEDS: NICOTINE 21 MG/24 HOURS TOPICAL PATCH TD SCH (11:04)
--- NOTE | 2017-07-21 13:26 | PN ---
S COWS - Scale Resting Pulse: 2= [place] 101-120 Sweatin= Chills/Flushing Restless Observation: 3= Extraneous Movement Pupil Size: 1= Pupils >than Normal Bone or Joint Aches: 2= Severe Diffuse Aches Runny Nose/ Eye Tearin= Runny Nose/Eyes GI Upset > 30mins: 2= Nausea/Diarrhea Tremor Observation of Outstretched Hands: 2= Slight Tremor Visible Yawning Observation: 1= 1-2x During Session Anxiety or Irritability: 1=Feels Anxious/Irritable Goose Flesh Skin: 0=Smooth Skin COWS Score: 17 S Progress Note (SOAP) Subjective: alert,irritable,anxious,interrupted sleep,tremor,pain in the body and back Objective: 07/21/17 13:23 Vital Signs Temperature 97.7 F 07/21/17 11:20 Pulse Rate 91 H 07/21/17 11:20 Respiratory Rate 18 07/21/17 11:20 Blood Pressure 133/71 07/21/17 11:20 O2 Sat by Pulse Oximetry (%) Laboratory Last Values WBC 6.0 K/mm3 (4.0-10.0) 07/20/17 06:00 RBC 4.29 M/mm3 (4.00-5.60) 07/20/17 06:00 Hgb 13.6 GM/dL (11.7-16.9) 07/20/17 06:00 Hct 39.9 % (35.4-49) 07/20/17 06:00 MCV 93.1 fl (80-96) 07/20/17 06:00 MCH 31.7 pg (25.7-33.7) 07/20/17 06:00 MCHC 34.0 g/dl (32.0-35.9) 07/20/17 06:00 RDW 13.5 % (11.9-15.9) 07/20/17 06:00 Plt Count 219 K/MM3 (134-434) 07/20/17 06:00 MPV 9.3 fl (7.5-11.1) 07/20/17 06:00 Sodium 140 mmol/L (136-145) 07/20/17 06:00 Potassium 4.3 mmol/L (3.5-5.1) 07/20/17 06:00 Chloride 103 mmol/L (98-107) 07/20/17 06:00 Carbon Dioxide 30 mmol/L (21-32) 07/20/17 06:00 Anion Gap 7 (8-16) L 07/20/17 06:00 BUN 17 mg/dL (7-18) D 07/20/17 06:00 Creatinine 0.7 mg/dL (0.7-1.3) 07/20/17 06:00 Creat Clearance w eGFR > 60 (>60) 07/20/17 06:00 Random Glucose 74 mg/dL (74-106) D 07/20/17 06:00 Calcium 9.7 mg/dL (8.5-10.1) 07/20/17 06:00 Total Bilirubin 0.3 mg/dL (0.2-1.0) D 07/20/17 06:00 AST 82 U/L (15-37) H D 07/20/17 06:00 ALT 33 U/L (12-78) D 07/20/17 06:00 Alkaline Phosphatase 120 U/L (45-117) H D 07/20/17 06:00 Total Protein 7.5 g/dl (6.4-8.2) 07/20/17 06:00 Albumin 4.0 g/dl (3.4-5.0) 07/20/17 06:00 Urine Color Yellow 07/19/17 14:00 Urine Appearance Clear 07/19/17 14:00 Urine pH 5.0 (5.0-8.0) 07/19/17 14:00 Ur Specific [place] 1.014 (1.001-1.035) 07/19/17 14:00 Urine Protein Negative (NEGATIVE) 07/19/17 14:00 Urine Glucose (UA) Negative (NEGATIVE) 07/19/17 14:00 Urine Ketones Negative (NEGATIVE) 07/19/17 14:00 Urine Blood Negative (NEGATIVE) 07/19/17 14:00 Urine Nitrite Negative (NEGATIVE) 07/19/17 14:00 Urine Bilirubin Negative (<2.0 mg/dL) 07/19/17 14:00 Urine Urobilinogen Normal mg/dL (0.2-1.0) 07/19/17 14:00 Ur Leukocyte Esterase Negative (NEGATIVE) 07/19/17 14:00 RPR Titer Nonreactive (NONREACTIVE) 07/20/17 06:00 Assessment: 07/21/17 13:25 withdrawal symptom Plan: continue detox
[2017-07-21] MEDS: CYCLOBENZAPRINE HCL 10 MG TABLET (FP) PO PRN (17:55)
[2017-07-21] MEDS: IBUPROFEN 400 MG TABLET (FP) PO PRN (17:55)
[2017-07-21] MEDS: THIAMINE HCL 100 MG TABLET (FP) PO SCH (22:32)
[2017-07-21] MEDS: MELATONIN 5 MG TABLETS PO PRN (22:33)
[2017-07-21] MEDS: cloNIDine HCL 0.1 MG TABLET PO SCH (22:33)
[2017-07-22] MEDS ORDERED: METHADONE HCL 5 MG TABLET (FOR DETOX USE ONLY) PO ONE (10:00)
[2017-07-22] MEDS: cloNIDine HCL 0.1 MG TABLET PO SCH ×2 (10:04→22:11)
[2017-07-22] MEDS: diazePAM 5 MG TABLET PO PRN (10:04)
[2017-07-22] MEDS: PRENATAL VITAMINS W/ FOLIC ACID TABLET (FP) PO SCH (10:04)
[2017-07-22] MEDS: NICOTINE 21 MG/24 HOURS TOPICAL PATCH TD SCH (10:04)
--- NOTE | 2017-07-22 13:20 | PN ---
[facility] Progress Note (SOAP) Subjective: alert,irritable,anxious,interrupted sleep Objective: 07/22/17 13:19 Vital Signs Temperature 100 F H 07/22/17 10:42 Pulse Rate 90 07/22/17 10:42 Respiratory Rate 20 07/22/17 10:42 Blood Pressure 128/64 07/22/17 10:42 O2 Sat by Pulse Oximetry (%) Assessment: 07/22/17 13:19 withdrawal symptom Plan: continue detox
[2017-07-22] MEDS: hydrOXYzine PAMOATE 50 MG CAPSULE (FP) PO PRN (18:00)
[2017-07-22] MEDS: CYCLOBENZAPRINE HCL 10 MG TABLET (FP) PO PRN (18:02)
[2017-07-22] MEDS: IBUPROFEN 400 MG TABLET (FP) PO PRN (18:24)
[2017-07-22] MEDS: THIAMINE HCL 100 MG TABLET (FP) PO SCH (22:11)
[2017-07-22] MEDS: MELATONIN 5 MG TABLETS PO PRN (22:11)
[2017-07-23] MEDS ORDERED: METHADONE HCL 10 MG TABLET (FOR DETOX USE ONLY) PO ONE (10:00)
[2017-07-23] MEDS: NICOTINE 21 MG/24 HOURS TOPICAL PATCH TD SCH (10:27)
[2017-07-23] MEDS: cloNIDine HCL 0.1 MG TABLET PO SCH ×2 (10:27→22:21)
[2017-07-23] MEDS: PRENATAL VITAMINS W/ FOLIC ACID TABLET (FP) PO SCH (10:27)
--- NOTE | 2017-07-23 12:50 | PN ---
[facility] Progress Note (SOAP) Subjective: feeling better less sweat no tremor mild body ache Objective: 07/23/17 12:50 Vital Signs Temperature 98.0 F 07/23/17 09:58 Pulse Rate 100 H 07/23/17 09:58 Respiratory Rate 20 07/23/17 09:58 Blood Pressure 138/64 07/23/17 09:58 O2 Sat by Pulse Oximetry (%) Laboratory Last Values WBC 6.0 K/mm3 (4.0-10.0) 07/20/17 06:00 RBC 4.29 M/mm3 (4.00-5.60) 07/20/17 06:00 Hgb 13.6 GM/dL (11.7-16.9) 07/20/17 06:00 Hct 39.9 % (35.4-49) 07/20/17 06:00 MCV 93.1 fl (80-96) 07/20/17 06:00 MCH 31.7 pg (25.7-33.7) 07/20/17 06:00 MCHC 34.0 g/dl (32.0-35.9) 07/20/17 06:00 RDW 13.5 % (11.9-15.9) 07/20/17 06:00 Plt Count 219 K/MM3 (134-434) 07/20/17 06:00 MPV 9.3 fl (7.5-11.1) 07/20/17 06:00 Sodium 140 mmol/L (136-145) 07/20/17 06:00 Potassium 4.3 mmol/L (3.5-5.1) 07/20/17 06:00 Chloride 103 mmol/L (98-107) 07/20/17 06:00 Carbon Dioxide 30 mmol/L (21-32) 07/20/17 06:00 Anion Gap 7 (8-16) L 07/20/17 06:00 BUN 17 mg/dL (7-18) D 07/20/17 06:00 Creatinine 0.7 mg/dL (0.7-1.3) 07/20/17 06:00 Creat Clearance w eGFR > 60 (>60) 07/20/17 06:00 Random Glucose 74 mg/dL (74-106) D 07/20/17 06:00 Calcium 9.7 mg/dL (8.5-10.1) 07/20/17 06:00 Total Bilirubin 0.3 mg/dL (0.2-1.0) D 07/20/17 06:00 AST 82 U/L (15-37) H D 07/20/17 06:00 ALT 33 U/L (12-78) D 07/20/17 06:00 Alkaline Phosphatase 120 U/L (45-117) H D 07/20/17 06:00 Total Protein 7.5 g/dl (6.4-8.2) 07/20/17 06:00 Albumin 4.0 g/dl (3.4-5.0) 07/20/17 06:00 Urine Color Yellow 07/19/17 14:00 Urine Appearance Clear 07/19/17 14:00 Urine pH 5.0 (5.0-8.0) 07/19/17 14:00 Ur Specific [place] 1.014 (1.001-1.035) 07/19/17 14:00 Urine Protein Negative (NEGATIVE) 07/19/17 14:00 Urine Glucose (UA) Negative (NEGATIVE) 07/19/17 14:00 Urine Ketones Negative (NEGATIVE) 07/19/17 14:00 Urine Blood Negative (NEGATIVE) 07/19/17 14:00 Urine Nitrite Negative (NEGATIVE) 07/19/17 14:00 Urine Bilirubin Negative (<2.0 mg/dL) 07/19/17 14:00 Urine Urobilinogen Normal mg/dL (0.2-1.0) 07/19/17 14:00 Ur Leukocyte Esterase Negative (NEGATIVE) 07/19/17 14:00 RPR Titer Nonreactive (NONREACTIVE) 07/20/17 06:00 lab noted Assessment: 07/23/17 12:51 mild withdrawal sx Plan: medically supervised detox
[2017-07-23] MEDS: IBUPROFEN 400 MG TABLET (FP) PO PRN (13:56)
[2017-07-23] MEDS: CYCLOBENZAPRINE HCL 10 MG TABLET (FP) PO PRN ×2 (13:56→22:30)
[2017-07-23] MEDS: THIAMINE HCL 100 MG TABLET (FP) PO SCH (22:21)
[2017-07-23] MEDS: hydrOXYzine PAMOATE 50 MG CAPSULE (FP) PO PRN (22:21)
[2017-07-23] MEDS: MELATONIN 5 MG TABLETS PO PRN (22:21)
[2017-07-24] MEDS ORDERED: METHADONE HCL 5 MG TABLET (FOR DETOX USE ONLY) PO ONE (06:00)
--- NOTE | 2017-07-24 08:43 | DS ---
[facility] Detox Discharge Summary Admission Date: 07/19/17 Discharge Date: 07/24/17 - History Present History: Opioid Dependence Additional Comments: 67 years old male admitted 07/19/17 for opiate withdrawal sx completed opiate detox regimen tolerated well denies opiate withdrawal sx alert oriented x 3 no acute distress aftercare [facility] patient [facility] brief motivation al intervention on sobriety and relapse prevention discussed opiate misuse related health issues - Physical Exam Results Vital Signs: Vital Signs Temperature 97.7 F 07/24/17 07:41 Pulse Rate 80 07/24/17 07:41 Respiratory Rate 18 07/24/17 07:41 Blood Pressure 125/73 07/24/17 07:41 O2 Sat by Pulse Oximetry (%) Pertinent Admission Physical Exam Findings: opiate withdrawal sx Vital Signs Temperature 97.7 F 07/24/17 07:41 Pulse Rate 80 07/24/17 07:41 Respiratory Rate 18 07/24/17 07:41 Blood Pressure 125/73 07/24/17 07:41 O2 Sat by Pulse Oximetry (%) Laboratory Last Values WBC 6.0 K/mm3 (4.0-10.0) 07/20/17 06:00 RBC 4.29 M/mm3 (4.00-5.60) 07/20/17 06:00 Hgb 13.6 GM/dL (11.7-16.9) 07/20/17 06:00 Hct 39.9 % (35.4-49) 07/20/17 06:00 MCV 93.1 fl (80-96) 07/20/17 06:00 MCH 31.7 pg (25.7-33.7) 07/20/17 06:00 MCHC 34.0 g/dl (32.0-35.9) 07/20/17 06:00 RDW 13.5 % (11.9-15.9) 07/20/17 06:00 Plt Count 219 K/MM3 (134-434) 07/20/17 06:00 MPV 9.3 fl (7.5-11.1) 07/20/17 06:00 Sodium 140 mmol/L (136-145) 07/20/17 06:00 Potassium 4.3 mmol/L (3.5-5.1) 07/20/17 06:00 Chloride 103 mmol/L (98-107) 07/20/17 06:00 Carbon Dioxide 30 mmol/L (21-32) 07/20/17 06:00 Anion Gap 7 (8-16) L 07/20/17 06:00 BUN 17 mg/dL (7-18) D 07/20/17 06:00 Creatinine 0.7 mg/dL (0.7-1.3) 07/20/17 06:00 Creat Clearance w eGFR > 60 (>60) 07/20/17 06:00 Random Glucose 74 mg/dL (74-106) D 07/20/17 06:00 Calcium 9.7 mg/dL (8.5-10.1) 07/20/17 06:00 Total Bilirubin 0.3 mg/dL (0.2-1.0) D 07/20/17 06:00 AST 82 U/L (15-37) H D 07/20/17 06:00 ALT 33 U/L (12-78) D 07/20/17 06:00 Alkaline Phosphatase 120 U/L (45-117) H D 07/20/17 06:00 Total Protein 7.5 g/dl (6.4-8.2) 07/20/17 06:00 Albumin 4.0 g/dl (3.4-5.0) 07/20/17 06:00 Urine Color Yellow 07/19/17 14:00 Urine Appearance Clear 07/19/17 14:00 Urine pH 5.0 (5.0-8.0) 07/19/17 14:00 Ur Specific [place] 1.014 (1.001-1.035) 07/19/17 14:00 Urine Protein Negative (NEGATIVE) 07/19/17 14:00 Urine Glucose (UA) Negative (NEGATIVE) 07/19/17 14:00 Urine Ketones Negative (NEGATIVE) 07/19/17 14:00 Urine Blood Negative (NEGATIVE) 07/19/17 14:00 Urine Nitrite Negative (NEGATIVE) 07/19/17 14:00 Urine Bilirubin Negative (<2.0 mg/dL) 07/19/17 14:00 Urine Urobilinogen Normal mg/dL (0.2-1.0) 07/19/17 14:00 Ur Leukocyte Esterase Negative (NEGATIVE) 07/19/17 14:00 RPR Titer Nonreactive (NONREACTIVE) 07/20/17 06:00 lab noted - Treatment Hospital Course: Detox Protocol Followed, Detoxed Safely, Responded well, Discharged Condition Good, Rehab Referral Accepted Patient has Accepted a Rehab Referral to: [facility] as per counselor - Medication Discharge Medications: Ambulatory Orders NK [No Known Home Medication] 07/19/17 - Diagnosis (1) Hepatitis C Current Visit: No Status: Chronic Qualifiers: Viral hepatitis chronicity: chronic Hepatic coma status: without hepatic coma Qualified Code(s): B18.2 - Chronic viral hepatitis C (2) Opioid dependence with withdrawal Current Visit: Yes Status: Acute (3) Nicotine dependence Current Visit: Yes Status: Acute Qualifiers: Nicotine product type: cigarettes Substance use status: in withdrawal Qualified Code(s): F17.213 - Nicotine dependence, cigarettes, with withdrawal - AMA Did Patient Leave Against Medical Advice: No
[2017-07-24] MEDS: CYCLOBENZAPRINE HCL 10 MG TABLET (FP) PO PRN (09:53)
[2017-07-24] MEDS: IBUPROFEN 400 MG TABLET (FP) PO PRN (09:53)
[2017-07-24] MEDS: NICOTINE 21 MG/24 HOURS TOPICAL PATCH TD SCH (10:13)
[2017-07-24] MEDS: hydrOXYzine PAMOATE 50 MG CAPSULE (FP) PO PRN (10:13)
[2017-07-24] MEDS: cloNIDine HCL 0.1 MG TABLET PO SCH (10:13)
[2017-07-24] MEDS: PRENATAL VITAMINS W/ FOLIC ACID TABLET (FP) PO SCH (10:13)
[2017-07-24 10:22] VITALS: BP 110/63; PULSE 87; TEMP 98.1
== END 2017-07-24 12:50 | disposition home or self-care (01) | DRG 897 ==
LOC: YASAS 09:21 → Y6N 11:37
PROVIDERS: ADMIT Surgery; ATTEND Surgery
PROC: HZ2ZZZZ Detoxification Services for Substance Abuse Treatment (ICD-10-PCS; principal; 2017-07-19)
DX: F19.230 Other psychoactive substance dependence with withdrawal, uncomplicated (principal); F14.20 Cocaine dependence, uncomplicated; F11.23 Opioid dependence with withdrawal; F17.213 Nicotine dependence, cigarettes, with withdrawal; F32.9 Major depressive disorder, single episode, unspecified; B18.2 Chronic viral hepatitis C; M54.5 Low back pain; G89.29 Other chronic pain; E86.0 Dehydration; Z59.0 Homelessness
CPT/HCPCS: 36415; 80053; 81003; 85027; 86593; 93005; 93010; J0735

== ENCOUNTER 2017-07-24 19:40 | Inpatient (IN) | payer OTHER ==
[2017-07-24 20:52] VITALS: BMI 22.1
--- NOTE | 2017-07-24 21:10 | HP ---
[facility] Rehab Assess/Revision - Admission History [facility] Date of Admission to Rehab: 07/24/2017 - Vital signs Vital Signs: Vital Signs Period Temp Pulse Resp BP Sys/Bena Pulse Ox Last 24 Hr 97.7 F 100 18 140/80 - Findings Detox History & Physical reviewed: Yes Concur with findings: Yes Comments/Additional Findings: RETURNS FOR REHAB TODAY AFTER COMPLETING DETOX TODAY
[2017-07-24] MEDS ORDERED: LOPERAMIDE HCL 2 MG CAPSULE PO PRN (21:11)
[2017-07-24] MEDS ORDERED: MAGNESIUM HYDROX 2400MG/30ML ORAL SUSPENSION 30 ML CUP PO PRN (21:11)
[2017-07-24] MEDS ORDERED: P-EPHED 60MG/TRIPROLIDI 2.5MG TABLET PO PRN (21:11)
[2017-07-24] MEDS ORDERED: MAGNESIUM CITRATE 300 ML BOTTLE PO PRN (21:11)
[2017-07-24] MEDS ORDERED: IBUPROFEN 400 MG TABLET (FP) PO PRN (21:11)
[2017-07-24] MEDS ORDERED: MENTHOL/PHENOL 1 EACH UD MM PRN (21:11)
[2017-07-24] MEDS ORDERED: guaiFENesin/D-METHORPHAN HB 10 ML UNIT-DOSE CUPS PO PRN (21:11)
[2017-07-24] MEDS ORDERED: NICOTINE POLACRILEX 2 MG GUM BUC PRN (21:11)
[2017-07-25] MEDS: MELATONIN 5 MG TABLETS PO PRN ×2 (01:20→21:25)
[2017-07-25] MEDS: hydrOXYzine PAMOATE 50 MG CAPSULE (FP) PO PRN ×3 (01:20→21:25)
[2017-07-25] MEDS: ACETAMINOPHEN 325 MG TABLET (FP) PO PRN ×2 (06:06→17:34)
--- NOTE | 2017-07-25 06:28 | HP ---
Psychiatrist Admission - Data Date of interview: 07/25/17 Admission source: [facility] Identifying data: This is the first [facility] admission for this 67 years old single male, unemployed on SSI, homeless Medical History: Significant for low back pain and history of treatment for hepatitis C and surgeryfor peptic ulcer perf. Smokes 5 cigarettes daily Psychiatric History: Denies history of previous psychiatric treatment Physical/Sexual Abuse/Trauma History: Denies history of emotional, physical or sexual abuse as well as DV relationship. No service Additional Comment: Denies history of a few misdemeanor arrests Vital Signs: Vital Signs - 24 hr 07/24/17 20:49 Temperature 97.7 F Pulse Rate 100 H Respiratory 18 Rate Blood Pressure 140/80 Allergies/Adverse Reactions: Allergies Allergy/AdvReac Type Severity Reaction Status Date / Time No Known Allergies Allergy Verified 07/24/17 21:52 Date of last physical exam: 07/24/17 Concur with the findings of this exam: Yes - Substance Abuse/Tx History Hx Alcohol Use: No Hx Substance Use: Yes Substance Use Type: Cocaine (Started using cocaine at age 27, consumes $150-200 worth 3-6 times weekly. Last used on 07/15/17), Heroin (Started using heroin at age 47, consumes 10 bags daily. Last used on 07/19/17) Hx Substance Use Treatment: Yes (2 previous inpt detox @ [facility]) Mental Status Exam - Mental Status Exam Alert and Oriented to: Time, Place, Person Cognitive Function: Fair Patient Appearance: Well Groomed Mood: Anxious Affect: Appropriate Speech Pattern: Clear Voice Loudness: Normal Thought Process: Intact, Goal Oriented Hallucinations: Denies Suicidal Ideation: Denies Homicidal Ideation: Denies Insight/Judgement: Fair Sleep: Poorly Appetite: Good Muscle strength/Tone: Normal Gait/Station: Normal Psychiatric Findings - Problem List ([place] 1, 2,3) (1) Opioid dependence Current Visit: Yes Status: Acute (2) Cocaine dependence Current Visit: No Status: Acute Qualifiers: Substance use status: uncomplicated Qualified Code(s): F14.20 - Cocaine dependence, uncomplicated (3) Nicotine dependence Current Visit: No Status: Acute Qualifiers: (4) Substance-induced anxiety disorder Current Visit: Yes Status: Acute (5) Substance-induced sleep disorder Current Visit: Yes Status: Acute (6) Chronic bilateral low back pain Current Visit: No Status: Chronic Qualifiers: Sciatica laterality: sciatica laterality unspecified - Initial Treatment Plan Initial Treatment Plan: Monitor progress
[2017-07-25] MEDS: PRENATAL VITAMINS W/ FOLIC ACID TABLET (FP) PO SCH (09:51)
[2017-07-25] MEDS: NICOTINE 14 MG/24 HOURS TOPICAL PATCH TD SCH (09:51)
[2017-07-25] MEDS: THIAMINE HCL 100 MG TABLET (FP) PO SCH ×2 (21:23)
[2017-07-26] MEDS: NICOTINE 14 MG/24 HOURS TOPICAL PATCH TD SCH (10:07)
[2017-07-26] MEDS: PRENATAL VITAMINS W/ FOLIC ACID TABLET (FP) PO SCH (10:07)
[2017-07-26] MEDS: ACETAMINOPHEN 325 MG TABLET (FP) PO PRN ×2 (10:09→21:35)
[2017-07-26] MEDS: hydrOXYzine PAMOATE 50 MG CAPSULE (FP) PO PRN (10:09)
--- NOTE | 2017-07-26 14:13 | PN ---
[facility] Progress Note Note: PATIENT PRESENTS WITH LOW BACK PAIN AND URINARY HESITANCY. DENIES BURNING UPON URINATION AND URINARY FREQUENCY. STATES PAIN SHARP AND NON-RADIATING LEVEL 7/ 10. Vital Signs Temperature 98.3 F 07/26/17 07:08 Pulse Rate 88 07/26/17 07:08 Respiratory Rate 18 07/26/17 07:08 Blood Pressure 137/83 07/26/17 07:08 O2 Sat by Pulse Oximetry (%) OBJ: GENERAL: ALERT AND ORIENTED X 3, IN NO ACUTE DISTRESS. SKIN: WARM AND DRY MS: + RIGHT SIDE LOW BACK PAIN, NO CVAT. EXT: FULL ROM, GAIT STEADY A/P: LBP URINARY HESITANCY UA FROM 07/19/17 NEGATIVE ENCOURAGE ORAL FLUIDS START FLOMAX 0.4MG DAILY LIDOCAINE PATCH FOR LBP CONTINUE TO MONITOR CLINICALLY
[2017-07-26] MEDS: THIAMINE HCL 100 MG TABLET (FP) PO SCH (21:36)
[2017-07-26] MEDS: LIDOCAINE PATCH REMOVAL MC SCH (23:14)
[2017-07-27] MEDS: MELATONIN 5 MG TABLETS PO PRN ×2 (00:44→23:59)
[2017-07-27] MEDS: hydrOXYzine PAMOATE 50 MG CAPSULE (FP) PO PRN (00:44)
[2017-07-27] MEDS: LIDOCAINE 5% TOPICAL PATCH TP SCH (10:33)
[2017-07-27] MEDS: TAMSULOSIN HCL 0.4 MG CAP.ER.24H (FP) PO SCH (10:33)
[2017-07-27] MEDS: PRENATAL VITAMINS W/ FOLIC ACID TABLET (FP) PO SCH (10:33)
[2017-07-27] MEDS: ACETAMINOPHEN 325 MG TABLET (FP) PO PRN (10:34)
[2017-07-27] MEDS: NICOTINE 14 MG/24 HOURS TOPICAL PATCH TD SCH (11:00)
--- NOTE | 2017-07-27 15:14 | PN ---
[facility] Progress Note Note: Patient c/o of difficulty sleeping, agitation and headache x 2 days. Denies vision changes, paresthesia or other pains. Vital Signs Temperature 98.3 F 07/26/17 07:08 Pulse Rate 88 07/26/17 07:08 Respiratory Rate 18 07/26/17 07:08 Blood Pressure 137/83 07/26/17 07:08 O2 Sat by Pulse Oximetry (%) Labs reviewed AST elevated, tylenol d/c, Ammonia levels ordered Plan: Patient AOx3, agitated but cooperative in no distress no adventitious breath sounds + headache b/l, negative neuro full ROM ambulating in the unit skin intact, no edema , erythema - Headache - Possible insomnia Plan: Patient to follow up with psych regarding insomnia Ibuprofen 800mg TID increase fluids rest continue to monitor
[2017-07-27] MEDS: THIAMINE HCL 100 MG TABLET (FP) PO SCH (22:22)
[2017-07-27] MEDS: LIDOCAINE PATCH REMOVAL MC SCH (22:22)
[2017-07-28] MEDS: TAMSULOSIN HCL 0.4 MG CAP.ER.24H (FP) PO SCH (07:59)
[2017-07-28] MEDS: LIDOCAINE 5% TOPICAL PATCH TP SCH (10:14)
[2017-07-28] MEDS: PRENATAL VITAMINS W/ FOLIC ACID TABLET (FP) PO SCH (10:14)
[2017-07-28] MEDS: NICOTINE 14 MG/24 HOURS TOPICAL PATCH TD SCH (10:15)
--- NOTE | 2017-07-28 14:07 | PN ---
[facility] Progress Note Note: Ammonia level 55.9. Will start Lactulose 20gm TID and repeat level on 07/31/17. Will continue to monitor clinically.
[2017-07-28] MEDS: THIAMINE HCL 100 MG TABLET (FP) PO SCH (22:07)
[2017-07-28] MEDS: LACTULOSE 20 GM/30 ML UDC (FOR ORAL USE ONLY) PO SCH (22:07)
[2017-07-28] MEDS: MELATONIN 5 MG TABLETS PO PRN (22:07)
[2017-07-28] MEDS: LIDOCAINE PATCH REMOVAL MC SCH (22:08)
[2017-07-28] MEDS: IBUPROFEN 400 MG TABLET (FP) PO PRN (22:09)
[2017-07-29] MEDS: LACTULOSE 20 GM/30 ML UDC (FOR ORAL USE ONLY) PO SCH ×3 (06:49→21:23)
[2017-07-29] MEDS: TAMSULOSIN HCL 0.4 MG CAP.ER.24H (FP) PO SCH (07:49)
[2017-07-29] MEDS: NICOTINE 14 MG/24 HOURS TOPICAL PATCH TD SCH (09:43)
[2017-07-29] MEDS: LIDOCAINE 5% TOPICAL PATCH TP SCH (09:43)
[2017-07-29] MEDS: PRENATAL VITAMINS W/ FOLIC ACID TABLET (FP) PO SCH (09:44)
[2017-07-29] MEDS: IBUPROFEN 400 MG TABLET (FP) PO PRN (21:24)
[2017-07-29] MEDS: THIAMINE HCL 100 MG TABLET (FP) PO SCH (21:25)
[2017-07-29] MEDS: LIDOCAINE PATCH REMOVAL MC SCH (23:23)
[2017-07-30] MEDS: MELATONIN 5 MG TABLETS PO PRN (00:43)
[2017-07-30] MEDS: LACTULOSE 20 GM/30 ML UDC (FOR ORAL USE ONLY) PO SCH ×3 (06:58→21:46)
[2017-07-30] MEDS: TAMSULOSIN HCL 0.4 MG CAP.ER.24H (FP) PO SCH (07:32)
[2017-07-30] MEDS: LIDOCAINE 5% TOPICAL PATCH TP SCH (10:05)
[2017-07-30] MEDS: PRENATAL VITAMINS W/ FOLIC ACID TABLET (FP) PO SCH (10:05)
[2017-07-30] MEDS: NICOTINE 14 MG/24 HOURS TOPICAL PATCH TD SCH (10:05)
[2017-07-30] MEDS: MAG HYDROX/AL HYDROX/SIMETH 30 ML UNIT-DOSE CUP PO PRN (19:42)
[2017-07-30] MEDS: LIDOCAINE PATCH REMOVAL MC SCH (21:46)
[2017-07-30] MEDS: THIAMINE HCL 100 MG TABLET (FP) PO SCH (21:47)
[2017-07-31] MEDS: hydrOXYzine PAMOATE 50 MG CAPSULE (FP) PO PRN ×2 (00:48→21:44)
[2017-07-31] MEDS: MELATONIN 5 MG TABLETS PO PRN ×2 (00:48→21:43)
[2017-07-31] MEDS: LACTULOSE 20 GM/30 ML UDC (FOR ORAL USE ONLY) PO SCH ×3 (06:53→21:43)
[2017-07-31] MEDS: LIDOCAINE 5% TOPICAL PATCH TP SCH (10:57)
[2017-07-31] MEDS: PRENATAL VITAMINS W/ FOLIC ACID TABLET (FP) PO SCH (10:57)
[2017-07-31] MEDS: TAMSULOSIN HCL 0.4 MG CAP.ER.24H (FP) PO SCH (10:57)
[2017-07-31] MEDS: NICOTINE 14 MG/24 HOURS TOPICAL PATCH TD SCH (10:57)
[2017-07-31] MEDS: IBUPROFEN 400 MG TABLET (FP) PO PRN (21:43)
[2017-07-31] MEDS: THIAMINE HCL 100 MG TABLET (FP) PO SCH (21:43)
[2017-07-31] MEDS: LIDOCAINE PATCH REMOVAL MC SCH (21:45)
[2017-08-01] MEDS: LACTULOSE 20 GM/30 ML UDC (FOR ORAL USE ONLY) PO SCH ×4 (06:00→21:43)
[2017-08-01] MEDS: TAMSULOSIN HCL 0.4 MG CAP.ER.24H (FP) PO SCH (08:31)
[2017-08-01] MEDS: NICOTINE 14 MG/24 HOURS TOPICAL PATCH TD SCH (10:31)
[2017-08-01] MEDS: LIDOCAINE 5% TOPICAL PATCH TP SCH (10:31)
[2017-08-01] MEDS: PRENATAL VITAMINS W/ FOLIC ACID TABLET (FP) PO SCH (10:31)
--- NOTE | 2017-08-01 15:08 | PN ---
S Progress Note Note: Vital Signs Temperature 99.3 F 08/01/17 07:09 Pulse Rate 103 H 08/01/17 07:09 Respiratory Rate 20 08/01/17 07:09 Blood Pressure 134/63 08/01/17 07:09 O2 Sat by Pulse Oximetry (%) Laboratory Last Values Ammonia 77.6 umol/L (11-32) H 07/31/17 06:25 asymptomatic elevated ammonia levels lactulose 20 mg QID increase fluids repeat ammonia levels continue to monitor
[2017-08-01] MEDS: MAG HYDROX/AL HYDROX/SIMETH 30 ML UNIT-DOSE CUP PO PRN (19:23)
[2017-08-01] MEDS: IBUPROFEN 400 MG TABLET (FP) PO PRN (21:41)
[2017-08-01] MEDS: THIAMINE HCL 100 MG TABLET (FP) PO SCH (21:41)
[2017-08-01] MEDS: MELATONIN 5 MG TABLETS PO PRN (21:41)
[2017-08-01] MEDS: hydrOXYzine PAMOATE 50 MG CAPSULE (FP) PO PRN (21:42)
[2017-08-01] MEDS: LIDOCAINE PATCH REMOVAL MC SCH (21:42)
[2017-08-02] MEDS: hydrOXYzine PAMOATE 50 MG CAPSULE (FP) PO PRN ×2 (01:27→21:53)
[2017-08-02] MEDS ORDERED: CYCLOBENZAPRINE HCL 5 MG TABLET PO ONE (02:14)
[2017-08-02] MEDS: TAMSULOSIN HCL 0.4 MG CAP.ER.24H (FP) PO SCH (09:00)
[2017-08-02] MEDS: NICOTINE 14 MG/24 HOURS TOPICAL PATCH TD SCH (10:24)
[2017-08-02] MEDS: PRENATAL VITAMINS W/ FOLIC ACID TABLET (FP) PO SCH (10:24)
[2017-08-02] MEDS: LIDOCAINE 5% TOPICAL PATCH TP SCH (10:24)
[2017-08-02] MEDS: LACTULOSE 20 GM/30 ML UDC (FOR ORAL USE ONLY) PO SCH ×4 (10:24→21:53)
--- NOTE | 2017-08-02 14:10 | PN ---
[facility] Progress Note Note: PATIENT PRESENTS WITH LEFT HIP LOWER BACK PAIN. STATES FLEXERIL HELPED THE PAIN ALONG WITH LIDOCAINE PATCH. HE WAS GIVEN ONE TIME DOSE. MEDICALLY STABLE. WILL ORDER FLEXERIL 10MG TID AND CONTINUE LIDOCAINE PATCH ORDERED. CONTINUE TO MONITOR CLINICALLY. AMMONIA LEVEL DECREASED TO 55. WILL REPEAT LEVEL ON .
[2017-08-02] MEDS: CYCLOBENZAPRINE HCL 10 MG TABLET (FP) PO SCH (21:53)
[2017-08-02] MEDS: THIAMINE HCL 100 MG TABLET (FP) PO SCH (21:53)
[2017-08-02] MEDS: MELATONIN 5 MG TABLETS PO PRN (21:53)
[2017-08-02] MEDS: LIDOCAINE PATCH REMOVAL MC SCH (21:54)
[2017-08-03] MEDS: IBUPROFEN 400 MG TABLET (FP) PO PRN (04:12)
[2017-08-03] MEDS: CYCLOBENZAPRINE HCL 10 MG TABLET (FP) PO SCH ×3 (06:40→21:44)
[2017-08-03] MEDS: TAMSULOSIN HCL 0.4 MG CAP.ER.24H (FP) PO SCH (07:56)
[2017-08-03] MEDS: PRENATAL VITAMINS W/ FOLIC ACID TABLET (FP) PO SCH (10:16)
[2017-08-03] MEDS: LIDOCAINE 5% TOPICAL PATCH TP SCH (10:17)
[2017-08-03] MEDS: NICOTINE 14 MG/24 HOURS TOPICAL PATCH TD SCH (10:17)
[2017-08-03] MEDS: LACTULOSE 20 GM/30 ML UDC (FOR ORAL USE ONLY) PO SCH ×4 (10:17→21:44)
[2017-08-03] MEDS: MAG HYDROX/AL HYDROX/SIMETH 30 ML UNIT-DOSE CUP PO PRN ×2 (18:52)
[2017-08-03] MEDS: THIAMINE HCL 100 MG TABLET (FP) PO SCH (21:44)
[2017-08-03] MEDS: LIDOCAINE PATCH REMOVAL MC SCH (21:44)
[2017-08-03] MEDS: hydrOXYzine PAMOATE 50 MG CAPSULE (FP) PO PRN (21:44)
[2017-08-04] MEDS: CYCLOBENZAPRINE HCL 10 MG TABLET (FP) PO SCH ×3 (06:48→22:31)
[2017-08-04] MEDS: TAMSULOSIN HCL 0.4 MG CAP.ER.24H (FP) PO SCH (10:13)
[2017-08-04] MEDS: PRENATAL VITAMINS W/ FOLIC ACID TABLET (FP) PO SCH (10:13)
[2017-08-04] MEDS: LIDOCAINE 5% TOPICAL PATCH TP SCH (10:13)
[2017-08-04] MEDS: LACTULOSE 20 GM/30 ML UDC (FOR ORAL USE ONLY) PO SCH ×4 (10:13→22:31)
[2017-08-04] MEDS: NICOTINE 14 MG/24 HOURS TOPICAL PATCH TD SCH (10:13)
[2017-08-04] MEDS: THIAMINE HCL 100 MG TABLET (FP) PO SCH (22:31)
[2017-08-04] MEDS: LIDOCAINE PATCH REMOVAL MC SCH (22:32)
[2017-08-04] MEDS: MELATONIN 5 MG TABLETS PO PRN (22:32)
[2017-08-05] MEDS: CYCLOBENZAPRINE HCL 10 MG TABLET (FP) PO SCH ×3 (06:17→21:49)
[2017-08-05] MEDS: TAMSULOSIN HCL 0.4 MG CAP.ER.24H (FP) PO SCH (08:23)
[2017-08-05] MEDS: LACTULOSE 20 GM/30 ML UDC (FOR ORAL USE ONLY) PO SCH ×4 (10:23→21:49)
[2017-08-05] MEDS: PRENATAL VITAMINS W/ FOLIC ACID TABLET (FP) PO SCH (10:23)
[2017-08-05] MEDS: LIDOCAINE 5% TOPICAL PATCH TP SCH (10:23)
[2017-08-05] MEDS: NICOTINE 14 MG/24 HOURS TOPICAL PATCH TD SCH (10:23)
[2017-08-05] MEDS: MELATONIN 5 MG TABLETS PO PRN (21:49)
[2017-08-05] MEDS: THIAMINE HCL 100 MG TABLET (FP) PO SCH (21:49)
[2017-08-05] MEDS: hydrOXYzine PAMOATE 50 MG CAPSULE (FP) PO PRN (21:49)
[2017-08-05] MEDS: LIDOCAINE PATCH REMOVAL MC SCH (21:50)
[2017-08-06] MEDS: CYCLOBENZAPRINE HCL 10 MG TABLET (FP) PO SCH ×3 (06:40→21:46)
[2017-08-06] MEDS: TAMSULOSIN HCL 0.4 MG CAP.ER.24H (FP) PO SCH (08:06)
[2017-08-06] MEDS: NICOTINE 14 MG/24 HOURS TOPICAL PATCH TD SCH (10:06)
[2017-08-06] MEDS: LACTULOSE 20 GM/30 ML UDC (FOR ORAL USE ONLY) PO SCH ×4 (10:06→21:45)
[2017-08-06] MEDS: PRENATAL VITAMINS W/ FOLIC ACID TABLET (FP) PO SCH (10:06)
[2017-08-06] MEDS: LIDOCAINE 5% TOPICAL PATCH TP SCH (10:07)
[2017-08-06] MEDS: MAG HYDROX/AL HYDROX/SIMETH 30 ML UNIT-DOSE CUP PO PRN (19:41)
[2017-08-06] MEDS: hydrOXYzine PAMOATE 50 MG CAPSULE (FP) PO PRN (21:45)
[2017-08-06] MEDS: MELATONIN 5 MG TABLETS PO PRN (21:45)
[2017-08-06] MEDS: THIAMINE HCL 100 MG TABLET (FP) PO SCH (21:45)
[2017-08-06] MEDS: LIDOCAINE PATCH REMOVAL MC SCH (21:46)
[2017-08-07] MEDS: CYCLOBENZAPRINE HCL 10 MG TABLET (FP) PO SCH ×3 (06:14→21:55)
[2017-08-07] MEDS: TAMSULOSIN HCL 0.4 MG CAP.ER.24H (FP) PO SCH (07:56)
[2017-08-07] MEDS: LACTULOSE 20 GM/30 ML UDC (FOR ORAL USE ONLY) PO SCH ×4 (11:01→21:55)
[2017-08-07] MEDS: NICOTINE 14 MG/24 HOURS TOPICAL PATCH TD SCH (11:02)
[2017-08-07] MEDS: LIDOCAINE 5% TOPICAL PATCH TP SCH (11:02)
[2017-08-07] MEDS: PRENATAL VITAMINS W/ FOLIC ACID TABLET (FP) PO SCH (11:03)
--- NOTE | 2017-08-07 15:59 | PN ---
[facility] Progress Note Note: PATIENT'S LABS REVIEWED. AMMONIA LEVEL 46.1. WILL CONTINUE LACTULOSE ORDERED. REPEAT LEVEL IN 48 HOURS. CONTINUE TO MONITOR CLINICALLY.
[2017-08-07] MEDS: hydrOXYzine PAMOATE 50 MG CAPSULE (FP) PO PRN (21:55)
[2017-08-07] MEDS: MELATONIN 5 MG TABLETS PO PRN (21:55)
[2017-08-07] MEDS: THIAMINE HCL 100 MG TABLET (FP) PO SCH (21:55)
[2017-08-07] MEDS: LIDOCAINE PATCH REMOVAL MC SCH (21:56)
[2017-08-08] MEDS: MAG HYDROX/AL HYDROX/SIMETH 30 ML UNIT-DOSE CUP PO PRN (02:17)
[2017-08-08] MEDS: CYCLOBENZAPRINE HCL 10 MG TABLET (FP) PO SCH ×3 (06:29→22:15)
[2017-08-08] MEDS: TAMSULOSIN HCL 0.4 MG CAP.ER.24H (FP) PO SCH (07:52)
[2017-08-08] MEDS: NICOTINE 14 MG/24 HOURS TOPICAL PATCH TD SCH (10:45)
[2017-08-08] MEDS: LACTULOSE 20 GM/30 ML UDC (FOR ORAL USE ONLY) PO SCH ×4 (10:45→22:15)
[2017-08-08] MEDS: PRENATAL VITAMINS W/ FOLIC ACID TABLET (FP) PO SCH (10:45)
[2017-08-08] MEDS: IBUPROFEN 400 MG TABLET (FP) PO PRN (10:46)
[2017-08-08] MEDS: LIDOCAINE 5% TOPICAL PATCH TP SCH (10:46)
[2017-08-08] MEDS: THIAMINE HCL 100 MG TABLET (FP) PO SCH (22:15)
[2017-08-08] MEDS: LIDOCAINE PATCH REMOVAL MC SCH (22:15)
[2017-08-08] MEDS: MELATONIN 5 MG TABLETS PO PRN (22:16)
[2017-08-08] MEDS: hydrOXYzine PAMOATE 50 MG CAPSULE (FP) PO PRN (22:16)
[2017-08-09] MEDS: CYCLOBENZAPRINE HCL 10 MG TABLET (FP) PO SCH ×3 (06:25→21:35)
[2017-08-09] MEDS: TAMSULOSIN HCL 0.4 MG CAP.ER.24H (FP) PO SCH (09:35)
[2017-08-09] MEDS: LACTULOSE 20 GM/30 ML UDC (FOR ORAL USE ONLY) PO SCH ×4 (10:20→21:35)
[2017-08-09] MEDS: NICOTINE 14 MG/24 HOURS TOPICAL PATCH TD SCH (10:20)
[2017-08-09] MEDS: PRENATAL VITAMINS W/ FOLIC ACID TABLET (FP) PO SCH (10:20)
[2017-08-09] MEDS: LIDOCAINE 5% TOPICAL PATCH TP SCH (10:20)
[2017-08-09] MEDS: IBUPROFEN 400 MG TABLET (FP) PO PRN (10:21)
[2017-08-09] MEDS: hydrOXYzine PAMOATE 50 MG CAPSULE (FP) PO PRN (21:35)
[2017-08-09] MEDS: MELATONIN 5 MG TABLETS PO PRN (21:35)
[2017-08-09] MEDS: THIAMINE HCL 100 MG TABLET (FP) PO SCH (21:35)
[2017-08-09] MEDS: LIDOCAINE PATCH REMOVAL MC SCH (21:36)
[2017-08-10] MEDS: CYCLOBENZAPRINE HCL 10 MG TABLET (FP) PO SCH ×3 (06:49→21:02)
[2017-08-10] MEDS: TAMSULOSIN HCL 0.4 MG CAP.ER.24H (FP) PO SCH (09:30)
[2017-08-10] MEDS: LACTULOSE 20 GM/30 ML UDC (FOR ORAL USE ONLY) PO SCH ×4 (10:22→21:02)
[2017-08-10] MEDS: NICOTINE 14 MG/24 HOURS TOPICAL PATCH TD SCH (10:22)
[2017-08-10] MEDS: PRENATAL VITAMINS W/ FOLIC ACID TABLET (FP) PO SCH (10:22)
[2017-08-10] MEDS: LIDOCAINE 5% TOPICAL PATCH TP SCH (10:22)
--- NOTE | 2017-08-10 11:08 | PN ---
Psychiatric Progress Note Vital Signs: Vital Signs Period Temp Pulse Resp BP Sys/Bean Pulse Ox Last 24 Hr 98.3 F 96 18-20 129/77 Date of Session: 08/10/17 Chief Complaint:: Discharge Note HPI: Patient addressing Opioid and Cocaine Dependence comorbid with Nicotine Dependence, Substance-Induced Anxiety Disorder and Substance-Induced Sleep Disorder ROS: Chronic bilateral low back pain Current Medications: Active Medications Generic Name Dose Route Start Last Admin Trade Name Freq PRN Reason Stop Dose Admin Al Hydroxide/Mg Hydroxide 30 ml 07/24/17 21:11 08/08/17 02:17 Mylanta Oral Suspension - PO 30 ml Q6H PRN Administration DYSPEPSIA Cyclobenzaprine HCl 10 mg 08/02/17 22:00 08/10/17 06:49 Flexeril - PO 10 mg TID STEPHANIE Administration Eucalyptus/Menthol/Phenol/Sorbitol 1 each 07/24/17 21:11 Cepastat Lozenge - MM Q4H PRN SORE THROAT Guaifenesin 10 ml 07/24/17 21:11 Robitussin Dm - PO Q6H PRN COUGH Hydroxyzine Pamoate 50 mg 07/24/17 21:11 08/09/17 21:35 Vistaril - PO 50 mg Q4H PRN Administration AGITATION Ibuprofen 800 mg 07/27/17 14:48 08/09/17 10:21 Motrin - PO 800 mg TID PRN Administration PAIN LEVEL 6-10 Lactulose 20 gm 08/01/17 18:00 08/10/17 10:22 Cephulac (Oral Use) PO 20 gm QID STEPHANIE Administration Lidocaine 1 patch 07/27/17 10:00 08/10/17 10:22 Lidoderm Patch - TP 1 patch DAILY STEPHANIE Administration Loperamide HCl 4 mg 07/24/17 21:11 Imodium - PO Q6H PRN DIARRHEA Melatonin 5 mg 07/24/17 22:00 08/09/17 21:35 Melatonin PO 5 mg HS PRN Administration INSOMNIA Miscellaneous 1 each 07/26/17 22:00 08/09/17 21:36 Lidoderm Patch Removal MC 1 each DAILY@2200 STEPHANIE Administration Nicotine 14 mg 07/25/17 10:00 08/10/17 10:22 Nicoderm Patch - TD Not Given DAILY STEPHANIE Nicotine Polacrilex 2 mg 07/24/17 21:11 Nicorette Gum - BUC Q2H PRN NICOTINE REPLACEMENT RX Multivit/Folic Acid/Iron 1 tab 07/25/17 10:00 08/10/17 10:22 Vitamins (Sjr) - PO 1 tab DAILY STEPHANIE Administration Pseudoephedrine/Triprolidine 1 combo 07/24/17 21:11 Actifed - PO TID PRN NASAL CONGESTION Tamsulosin HCl 0.4 mg 07/27/17 08:30 08/10/17 09:30 Flomax - PO 0.4 mg DAILY@0830 STEPHANIE Administration Thiamine HCl 100 mg 07/24/17 22:00 08/09/17 21:35 Vitamin B1 - PO 100 mg HS STEPHANIE Administration Current Side Effect: No Lab tests ordered: Yes Lab tests reviewed: Yes Provider note:: Patient will complete this program on 08/11/17. He has met his treatment goals and will continue to address his issues in terminal [facility] residential treatment at [facility]. Told insurance underwriter sales that from his participation in this program, he has learned the importance of making meetings and have a sponsor. He is stable for discharge on 08/11/17 Total face to face time:: 35 Mental Status Exam - Mental Status Exam Alert and Oriented to: Time, Place, Person Cognitive Function: Fair Patient Appearance: Well Groomed Mood: Hopeful, Euthymic Affect: Appropriate Patient Behavior: Cooperative Speech Pattern: Clear Voice Loudness: Normal Thought Process: Intact, Goal Oriented Thought Disorder: Not Present Hallucinations: Denies Suicidal Ideation: Denies Homicidal Ideation: Denies Insight/Judgement: Fair Sleep: Well Appetite: Good Muscle strength/Tone: Normal Gait/Station: Normal Psychiatric Treatment Plan - Problem List (2) Cocaine dependence Qualifiers: Substance use status: uncomplicated Qualified Code(s): F14.20 - Cocaine dependence, uncomplicated (3) Nicotine dependence Qualifiers: (6) Chronic bilateral low back pain Qualifiers: Sciatica laterality: sciatica laterality unspecified Initial treatment plan: Patient will be discharged tomorrow and referred to [facility] for [facility] residential treatment
--- NOTE | 2017-08-10 17:16 | PN ---
S Progress Note Note: Vital Signs Temperature 98.3 F 08/10/17 07:10 Pulse Rate 96 H 08/10/17 07:10 Respiratory Rate 20 08/10/17 07:10 Blood Pressure 129/77 08/10/17 07:10 O2 Sat by Pulse Oximetry (%) Laboratory Last Values Ammonia 28.28 umol/L (11-32) 08/09/17 08:15 Patient currently stable. Schedule for d/c tomorrow. Ammonia levels normal. Patient to follow up with PMD.
[2017-08-10] MEDS: MELATONIN 5 MG TABLETS PO PRN (21:02)
[2017-08-10] MEDS: IBUPROFEN 400 MG TABLET (FP) PO PRN (21:03)
[2017-08-10] MEDS: hydrOXYzine PAMOATE 50 MG CAPSULE (FP) PO PRN (21:03)
[2017-08-10] MEDS: LIDOCAINE PATCH REMOVAL MC SCH (21:04)
[2017-08-10] MEDS: THIAMINE HCL 100 MG TABLET (FP) PO SCH (21:04)
[2017-08-11] MEDS: CYCLOBENZAPRINE HCL 10 MG TABLET (FP) PO SCH (06:18)
[2017-08-11 06:59] VITALS: BP 138/78; PULSE 97; TEMP 98.2
[2017-08-11] MEDS: LIDOCAINE 5% TOPICAL PATCH TP SCH (09:07)
[2017-08-11] MEDS: LACTULOSE 20 GM/30 ML UDC (FOR ORAL USE ONLY) PO SCH (09:07)
[2017-08-11] MEDS: PRENATAL VITAMINS W/ FOLIC ACID TABLET (FP) PO SCH (09:07)
[2017-08-11] MEDS: TAMSULOSIN HCL 0.4 MG CAP.ER.24H (FP) PO SCH (09:07)
[2017-08-11] MEDS: NICOTINE 14 MG/24 HOURS TOPICAL PATCH TD SCH (09:08)
== END 2017-08-11 09:12 | disposition home or self-care (01) | DRG 895 ==
LOC: YASAS 19:40 → Y3W 21:54
PROVIDERS: ADMIT Psychiatry & Neurology Psychiatry; ATTEND Psychiatry & Neurology Psychiatry
PROC: HZ42ZZZ Group Counseling for Substance Abuse Treatment, Cognitive-Behavioral (ICD-10-PCS; principal; 2017-07-24)
DX: F11.20 Opioid dependence, uncomplicated (principal); F14.20 Cocaine dependence, uncomplicated; F19.280 Other psychoactive substance dependence with psychoactive substance-induced anxiety disorder; F19.282 Other psychoactive substance dependence with psychoactive substance-induced sleep disorder; F17.210 Nicotine dependence, cigarettes, uncomplicated; B18.2 Chronic viral hepatitis C; M54.5 Low back pain; G89.29 Other chronic pain; G44.219 Episodic tension-type headache, not intractable; G47.9 Sleep disorder, unspecified; R33.8 Other retention of urine; Z59.0 Homelessness
CPT/HCPCS: 36415; 80053; 81003; 82140; 85027; 86593; 93005; 93010; J0735

== ENCOUNTER 2017-09-18 02:30 | Inpatient (IN) | payer OTHER ==
--- NOTE | 2017-09-18 02:10 | HP ---
COWS - Scale Resting Pulse: 1= [place] 81-100 Sweatin=Flushed/Facial Moisture Restless Observation: 0= Sits Still Pupil Size: 0= Normal to Room Light Bone or Joint Aches: 4=Acute Joint/Muscle Pain Runny Nose/ Eye Tearin= Nasal Congestion GI Upset > 30mins: 3= Vomiting/Diarrhea (VOMITING X 3) Tremor Observation: 2= Slight Tremor Visible Yawning Observation: 1= 1-2x During Session Anxiety or Irritability: 4=Extreme Anxiety Goose Flesh Skin: 0=Smooth Skin COWS Score: 18 Admission [facility] Chief Complaint: Heroin withdrawal symptoms Allergies/Adverse Reactions: Allergies Allergy/AdvReac Type Severity Reaction Status Date / Time No Known Allergies Allergy Verified 07/24/17 21:52 History of Present Illness: 67 years old male with a long history of heroin dependence is seeking admission to detox. Patient has been in previous detox and reports insignificant period of sobriety. He has medical history of anxiety, Hep C (treated) and denies suicide attempt or suicidal ideation at this time. Exam Limitations: No Limitations - Ebola screening Have you traveled outside of the country in the last 21 days: No Have you had contact with anyone from an Ebola affected area: No Have you been sick,other than usual withdrawal symptoms: No Do you have a fever: No - Review of Systems Constitutional: Chills, Loss of Appetite, Malaise, Changes in sleep EENT: reports: No Symptoms Reported, Nose Congestion Respiratory: reports: No Symptoms reported Cardiac: reports: No Symptoms Reported GI: reports: Poor Appetite, Poor Fluid Intake, Abdominal cramping : reports: No Symptoms Reported Musculoskeletal: reports: No Symptoms Reported Integumentary: reports: Dryness Neuro: reports: Tremors Endocrine: reports: No Symptoms Reported Hematology: reports: No Symptoms Reported Psychiatric: reports: Orientated x3, Anxious Other Systems: Reviewed and Negative Patient History - Patient Medical History Hx Anemia: No Hx Asthma: No Hx Chronic Obstructive Pulmonary Disease (COPD): No Hx Cancer: No Hx Cardiac Disorders: No Hx Congestive Heart Failure: No Hx Hypertension: No Hx Hypercholesterolemia: No Hx Pacemaker: No HX Cerebrovascular Accident: No Hx Seizures: No Hx Dementia: No Hx Diabetes: No Hx Gastrointestinal Disorders: No Hx Liver Disease: Yes (hep C) Hx Genitourinary Disorders: No Hx Sexually Transmitted Disorders: No Hx Renal Disease (ESRD): No Hx Thyroid Disease: No Hx Human Immunodeficiency Virus (HIV): No (States being tested a few months ago and negative. Refused testing) Hx Hepatitis C: Yes (started Mavret in February 2017) Hx Depression: No Hx Suicide Attempt: No Hx Bipolar Disorder: No Hx Schizophrenia: No Other Medical History: Anxiety- Not on medication - Patient Surgical History Past Surgical History: No Hx Neurologic Surgery: No Hx Cataract Extraction: No Hx Cardiac Surgery: No Hx Lung Surgery: No Hx Abdominal Surgery: No Hx Appendectomy: No Hx Cholecystectomy: No Hx Genitourinary Surgery: No Hx Section: No Hx Orthopedic Surgery: No Anesthesia Reaction: No - PPD History Documented Results: Negative w/proof Implanted On Prior [facility] Admission?: Yes Date: 05/15/17 Results: 0 mm PPD to be Administered?: No - Reproductive History Patient is a Female of Child Bearing Age (11 -55 yrs old): No (MALE) - Smoking Cessation Smoking history: Current every day smoker Have you smoked in the past 12 months: Yes Aproximately how many cigarettes per day: 5 Hx Chewing Tobacco Use: No Initiated information on smoking cessation: Yes 'Breaking Loose' booklet given: 09/18/17 - Substance & Tx. History Hx Substance Use: Yes Substance Use Type: Cocaine, Heroin, Marijuana, Opiates Hx Substance Use Treatment: Yes ([facility]) - Substances Abused Heroin Route: Inhalation Frequency: Daily Amount used: $100 Age of first use: 37 Date of Last Use: 09/18/17 Cocaine Route: Inhalation Frequency: 3-6 times per week Amount used: $50 Age of first use: 27 Date of Last Use: 09/18/17 Family Disease History - Family Disease History Family Disease History: Other: Father (, etoh), Mother (age 92 - in [place]) , Brother (one - living - healthy), Sister (four - living - healthy) Admission Physical Exam [facility] - Physical General Appearance: Yes: Moderate Distress, Tremorous, Irritable, Sweating, Anxious HEENTM: Yes: EOMI, Normal ENT Inspection, Normocephalic, Normal Voice Respiratory: Yes: Lungs Clear, Normal Breath Sounds, No Respiratory Distress Neck: Yes: Supple Breast: Yes: Breast Exam Deferred Cardiology: Yes: Regular Rhythm, Regular Rate Abdominal: Yes: Normal Bowel Sounds, Soft Genitourinary: Yes: Within Normal Limits Back: Yes: Normal Inspection Musculoskeletal: Yes: Within Normal Limits Extremities: Yes: Tremors Neurological: Yes: Fully Oriented, Normal Mood/Affect Integumentary: Yes: Warm Lymphatic: Yes: Within Normal Limits - Diagnostic (1) Cocaine dependence, uncomplicated Status: Chronic (2) Eczema Status: Chronic (3) Nicotine dependence Status: Chronic Qualifiers: (4) Hepatitis C Status: Chronic Qualifiers: Viral hepatitis chronicity: chronic Hepatic coma status: without hepatic coma Qualified Code(s): B18.2 - Chronic viral hepatitis C Comment: on treatment currently Cleared for Admission S - Detox or Rehab [facility] Level of Care: Medically Managed Detox Regimen/Protocol: Methadone S Breath Alcohol Content Breath Alcohol Content: 0 Vital Signs - Vital Signs Vital Signs Refused: No Temperature: 98.2 F Temperature Source: Oral Pulse Rate: 87 Respiratory Rate: 16 Blood Pressure: 136/76 BP Location: Left Arm Blood Pressure Position: Sitting - Height Height: 6 ft 2 in - Weight Weight: 166 lb Weight Measurement Method: Standing Scale Body Mass Index (BMI): 21.3 - Bowel Function Bowel Movement: Yes Urine Drug Screen - Test Device Lot Number: [id number] Expiration Date: 05/14/19 - Control Is Test Valid: Yes - Results Drug Screen Negative: Yes Urine Drug Screen Results: CATALINO-Cocaine, OPI-Opiates, MDMA-Ecstasy, OXY-Oxycodone
[2017-09-18 02:11] VITALS: BMI 21.3
[~2017-09-18 02:30] MED LIST: ACETAMINOPHEN 325 MG TABLET (FP) PO PRN; IBUPROFEN 400 MG TABLET (FP) PO PRN; LOPERAMIDE HCL 2 MG CAPSULE PO PRN; MAG HYDROX/AL HYDROX/SIMETH 30 ML UNIT-DOSE CUP PO PRN; MAGNESIUM CITRATE 300 ML BOTTLE PO PRN; MAGNESIUM HYDROX 2400MG/30ML ORAL SUSPENSION 30 ML CUP PO PRN; MENTHOL/PHENOL 1 EACH UD MM PRN; METHADONE HCL 10 MG TABLET (FOR DETOX USE ONLY) PO ONE; NICOTINE POLACRILEX 2 MG GUM BC PRN; P-EPHED 60MG/TRIPROLIDI 2.5MG TABLET PO PRN; guaiFENesin/D-METHORPHAN HB 10 ML UNIT-DOSE CUPS PO PRN
[2017-09-18] MEDS: diazePAM 5 MG TABLET PO PRN ×3 (03:33→18:58)
--- NOTE | 2017-09-18 07:40 | CONSULT ---
[facility] Psychiatric Consult - Data Date of interview: 09/18/17 Admission source: [facility] Identifying data: This is 67 years old male, sigle, homeless, unemployed, with no pablic support, with no psychiatric hospitalization history, with a long history of heroin, cocaine, nicotine dependence , positive for Ecstasy today as well, is seeking admission to detox, reporting Alcohol withdrawal symp[toms. Patient has been in previous detox and reports insignificant period of sobriety. Substance Abuse History: Urine Drug Screen Results: CATALINO-Cocaine, OPI-Opiates, MDMA-Ecstasy, OXY-Oxycodone. - Smoking Cessation. Smoking history: Current every day smoker. Have you smoked in the past 12 months: Yes. Aproximately how many cigarettes per day: 5. Hx Chewing Tobacco Use: No. Initiated information on smoking cessation: Yes. 'Breaking Loose' booklet given: . - Substance & Tx. History. Hx Substance Use: Yes. Substance Use Type: Cocaine, Heroin, Marijuana, Opiates. Hx Substance Use Treatment: Yes ([facility]). - Substances Abused. Heroin. Route: Inhalation. Frequency: Daily. Amount used: $100. Age of first use: 37. Date of Last Use: 09/18/17. Cocaine. Route: Inhalation. Frequency: 3-6 times per week. Amount used: $50. Age of first use: 27. Date of Last Use: 09/18/17 Medical History: Eczema, HepC+, LBP, Headache Psychiatric History: Patient reports no psychiatric admissions history, no medications taking prior to admission. Physical/Sexual Abuse/Trauma History: Denies Additional Comment: Urine Drug Screen Results: CATALINO-Cocaine, OPI-Opiates, MDMA- Ecstasy, OXY-Oxycodone. Observation Mental Status Exam - Mental Status Exam Alert and Oriented to: Person Cognitive Function: Fair Patient Appearance: Well Groomed Mood: Apprehensive Affect: Mood Congruent Patient Behavior: Cooperative Speech Pattern: Appropriate Voice Loudness: Normal Thought Process: Goal Oriented Thought Disorder: Being Controlled Hallucinations: Denies Suicidal Ideation: Denies Homicidal Ideation: Denies Insight/Judgement: Fair Sleep: Difficulty falling asleep Appetite: Fair Muscle strength/Tone: Normal Gait/Station: Normal Additional Comments: Urine Drug Screen Results: CATALINO-Cocaine, OPI-Opiates, MDMA- Ecstasy, OXY-Oxycodone. Observation Psychiatric Findings - Problem List ([place] 1, 2,3) (1) Cocaine dependence Current Visit: No Status: Acute Qualifiers: Substance use status: uncomplicated Qualified Code(s): F14.20 - Cocaine dependence, uncomplicated (2) Opioid dependence Current Visit: No Status: Acute (3) Opioid dependence with withdrawal Current Visit: No Status: Acute (4) Substance-induced anxiety disorder Current Visit: No Status: Acute (5) Substance-induced sleep disorder Current Visit: No Status: Acute (6) Uncomplicated opioid dependence Current Visit: No Status: Acute (7) Cocaine dependence, uncomplicated Current Visit: No Status: Chronic (8) Nicotine dependence Current Visit: No Status: Chronic Qualifiers: - Initial Treatment Plan Initial Treatment Plan: Detox Unit Care Protocol. Observation
[2017-09-18] MEDS ORDERED: METHADONE HCL 10 MG TABLET (FOR DETOX USE ONLY) PO ONE ×2 (10:00→23:00)
[2017-09-18] MEDS: PRENATAL VITAMINS W/ FOLIC ACID TABLET (FP) PO SCH (10:36)
[2017-09-18] MEDS: NICOTINE 14 MG/24 HOURS TOPICAL PATCH TD SCH (10:37)
[2017-09-18 11:10] LABS: HEMATOCRIT 38.1 % (35.4-49); MCH 31.8 pg (25.7-33.7); MCHC 34.2 g/dl (32.0-35.9); MEAN PLT VOLUME 8.3 fl (7.5-11.1); PLATELET COUNT 190 K/MM3 (134-434); RBC 4.09 M/mm3 (4.00-5.60); RDW 13.4 % (11.9-15.9); WHITE BLOOD COUNT 6.5 K/mm3 (4.0-10.0)
[2017-09-18 11:38] LABS: ALBUMIN 3.4 g/dl (3.4-5.0); ANION GAP 5 (8-16); BILIRUBIN,TOTAL 0.2 mg/dL (0.2-1.0); BLOOD UREA NITROGEN 19 mg/dL (7-18); CALCIUM 9.2 mg/dL (8.5-10.1); CHLORIDE 105 mmol/L (98-107); CO2 33 mmol/L (21-32); CREATININE 0.9 mg/dL (0.7-1.3); GLUCOSE,RANDOM 96 mg/dL (74-106); POTASSIUM 4.2 mmol/L (3.5-5.1); SGOT/AST 45 U/L (15-37); SGPT/ALT 27 U/L (12-78); SODIUM 143 mmol/L (136-145); TOT PROT 6.4 g/dl (6.4-8.2)
[2017-09-18 11:39] LABS: ALK PHOS 113 U/L (45-117)
[2017-09-18] MEDS ORDERED: PNEUMOC 13-VAL CONJ-DIP CRM/PF 0.5 ML DISP.SYRIN IM ONE (12:00)
--- NOTE | 2017-09-18 12:24 | PN ---
S COWS - Scale Resting Pulse: 0= [place] 80 or Below Sweatin= Chills/Flushing Restless Observation: 3= Extraneous Movement Pupil Size: 1= Pupils >than Normal Bone or Joint Aches: 2= Severe Diffuse Aches Runny Nose/ Eye Tearin= Runny Nose/Eyes GI Upset > 30mins: 2= Nausea/Diarrhea Tremor Observation of Outstretched Hands: 2= Slight Tremor Visible Yawning Observation: 1= 1-2x During Session Anxiety or Irritability: 2=Irritable/Anxious Goose Flesh Skin: 0=Smooth Skin COWS Score: 16 S Progress Note (SOAP) Subjective: alert,irritable,anxious,interrupted sleep,pain in the body and back,tremor Objective: 09/18/17 12:22 Vital Signs Temperature 98.2 F 09/18/17 09:52 Pulse Rate 76 09/18/17 09:52 Respiratory Rate 18 09/18/17 09:52 Blood Pressure 111/61 09/18/17 09:52 O2 Sat by Pulse Oximetry (%) 09/18/17 12:27 Laboratory Last Values WBC 6.5 K/mm3 (4.0-10.0) 09/18/17 07:00 RBC 4.09 M/mm3 (4.00-5.60) 09/18/17 07:00 Hgb 13.0 GM/dL (11.7-16.9) 09/18/17 07:00 Hct 38.1 % (35.4-49) 09/18/17 07:00 MCV 93.0 fl (80-96) 09/18/17 07:00 MCH 31.8 pg (25.7-33.7) 09/18/17 07:00 MCHC 34.2 g/dl (32.0-35.9) 09/18/17 07:00 RDW 13.4 % (11.9-15.9) 09/18/17 07:00 Plt Count 190 K/MM3 (134-434) 09/18/17 07:00 MPV 8.3 fl (7.5-11.1) D 09/18/17 07:00 Sodium 143 mmol/L (136-145) 09/18/17 07:00 Potassium 4.2 mmol/L (3.5-5.1) 09/18/17 07:00 Chloride 105 mmol/L (98-107) 09/18/17 07:00 Carbon Dioxide 33 mmol/L (21-32) H 09/18/17 07:00 Anion Gap 5 (8-16) L 09/18/17 07:00 BUN 19 mg/dL (7-18) H 09/18/17 07:00 Creatinine 0.9 mg/dL (0.7-1.3) 09/18/17 07:00 Creat Clearance w eGFR > 60 (>60) 09/18/17 07:00 Random Glucose 96 mg/dL (74-106) D 09/18/17 07:00 Calcium 9.2 mg/dL (8.5-10.1) 09/18/17 07:00 Total Bilirubin 0.2 mg/dL (0.2-1.0) 09/18/17 07:00 AST 45 U/L (15-37) H D 09/18/17 07:00 ALT 27 U/L (12-78) 09/18/17 07:00 Alkaline Phosphatase 113 U/L (45-117) 09/18/17 07:00 Total Protein 6.4 g/dl (6.4-8.2) 09/18/17 07:00 Albumin 3.4 g/dl (3.4-5.0) 09/18/17 07:00 Assessment: 09/18/17 12:28 withdrawal symptom Plan: continue detox
--- NOTE | 2017-09-18 16:48 | EKG ---
Test Reason : Blood Pressure : / mmHG Vent. Rate : 076 BPM Atrial Rate : 076 BPM P-R Int : 184 ms QRS Dur : 090 ms QT Int : 396 ms P-R-T Axes : 055 036 066 degrees QTc Int : 445 ms NORMAL SINUS RHYTHM NORMAL ECG WHEN COMPARED WITH ECG OF 19-JUL-2017 12:57, PREMATURE ATRIAL COMPLEXES ARE NO LONGER PRESENT Confirmed by OCTAVIO ORR MD ([id number]) on 09/18/2017 4:47:28 PM Referred By: Confirmed By:OCTAVIO ORR MD
[2017-09-18] MEDS: THIAMINE HCL 100 MG TABLET (FP) PO SCH (22:27)
[2017-09-19] MEDS: diazePAM 5 MG TABLET PO PRN ×3 (00:56→22:05)
[2017-09-19] MEDS ORDERED: METHADONE HCL 10 MG TABLET (FOR DETOX USE ONLY) PO ONE (10:00)
[2017-09-19] MEDS: NICOTINE 14 MG/24 HOURS TOPICAL PATCH TD SCH (10:49)
[2017-09-19] MEDS: PRENATAL VITAMINS W/ FOLIC ACID TABLET (FP) PO SCH (10:49)
--- NOTE | 2017-09-19 14:45 | PN ---
[facility] COWS - Scale Resting Pulse: 0= [place] 80 or Below Sweatin= Chills/Flushing Restless Observation: 3= Extraneous Movement Pupil Size: 1= Pupils >than Normal Bone or Joint Aches: 2= Severe Diffuse Aches Runny Nose/ Eye Tearin= Runny Nose/Eyes GI Upset > 30mins: 3= Vomiting/Diarrhea Tremor Observation of Outstretched Hands: 2= Slight Tremor Visible Yawning Observation: 1= 1-2x During Session Anxiety or Irritability: 2=Irritable/Anxious Goose Flesh Skin: 0=Smooth Skin COWS Score: 17 S Progress Note (SOAP) Subjective: alert,irritable,anxious,interrupted sleep,tremor,pain in the body and back Objective: 09/19/17 14:44 Vital Signs Temperature 97.9 F 09/19/17 11:28 Pulse Rate 68 09/19/17 13:24 Respiratory Rate 18 09/19/17 13:24 Blood Pressure 121/94 09/19/17 13:24 O2 Sat by Pulse Oximetry (%) 09/19/17 14:47 ekg repot nsr,normal ecg qt/qtc 396/445 Laboratory Last Values WBC 6.5 K/mm3 (4.0-10.0) 09/18/17 07:00 RBC 4.09 M/mm3 (4.00-5.60) 09/18/17 07:00 Hgb 13.0 GM/dL (11.7-16.9) 09/18/17 07:00 Hct 38.1 % (35.4-49) 09/18/17 07:00 MCV 93.0 fl (80-96) 09/18/17 07:00 MCH 31.8 pg (25.7-33.7) 09/18/17 07:00 MCHC 34.2 g/dl (32.0-35.9) 09/18/17 07:00 RDW 13.4 % (11.9-15.9) 09/18/17 07:00 Plt Count 190 K/MM3 (134-434) 09/18/17 07:00 MPV 8.3 fl (7.5-11.1) D 09/18/17 07:00 Sodium 143 mmol/L (136-145) 09/18/17 07:00 Potassium 4.2 mmol/L (3.5-5.1) 09/18/17 07:00 Chloride 105 mmol/L (98-107) 09/18/17 07:00 Carbon Dioxide 33 mmol/L (21-32) H 09/18/17 07:00 Anion Gap 5 (8-16) L 09/18/17 07:00 BUN 19 mg/dL (7-18) H 09/18/17 07:00 Creatinine 0.9 mg/dL (0.7-1.3) 09/18/17 07:00 Creat Clearance w eGFR > 60 (>60) 09/18/17 07:00 Random Glucose 96 mg/dL (74-106) D 09/18/17 07:00 Calcium 9.2 mg/dL (8.5-10.1) 09/18/17 07:00 Total Bilirubin 0.2 mg/dL (0.2-1.0) 09/18/17 07:00 AST 45 U/L (15-37) H D 09/18/17 07:00 ALT 27 U/L (12-78) 09/18/17 07:00 Alkaline Phosphatase 113 U/L (45-117) 09/18/17 07:00 Total Protein 6.4 g/dl (6.4-8.2) 09/18/17 07:00 Albumin 3.4 g/dl (3.4-5.0) 09/18/17 07:00 RPR Titer Nonreactive (NONREACTIVE) 09/18/17 07:00 Assessment: 09/19/17 14:48 withdrawal symptom Plan: continue detox
[2017-09-19] MEDS: THIAMINE HCL 100 MG TABLET (FP) PO SCH (22:04)
[2017-09-19] MEDS: MELATONIN 5 MG TABLETS PO PRN (22:04)
[2017-09-19 22:21] LABS: URINE APPEARANCE SLCLOUDY; URINE BILIRUBIN NEGATIVE (<2.0 mg/dL); URINE COLOR LTYELLOW; URINE GLUCOSE (UA) NEGATIVE (NEGATIVE); URINE KETONE NEGATIVE (NEGATIVE); URINE LEUK ESTERASE NEGATIVE (NEGATIVE); URINE NITRITE NEGATIVE (NEGATIVE); URINE PROTEIN NEGATIVE (NEGATIVE); URINE UROBILINOGEN NEGATIVE mg/dL (0.2-1.0)
[2017-09-20] MEDS: diazePAM 5 MG TABLET PO PRN ×5 (02:30→22:41)
[2017-09-20] MEDS ORDERED: METHADONE HCL 5 MG TABLET (FOR DETOX USE ONLY) PO ONE (10:00)
[2017-09-20] MEDS: PRENATAL VITAMINS W/ FOLIC ACID TABLET (FP) PO SCH (10:06)
[2017-09-20] MEDS: NICOTINE 14 MG/24 HOURS TOPICAL PATCH TD SCH (10:06)
--- NOTE | 2017-09-20 13:34 | PN ---
[facility] Progress Note (SOAP) Subjective: alert,irritable,anxious,interrupted sleep,tremor pain in the body Objective: 09/20/17 13:33 Vital Signs Temperature 97.9 F 09/20/17 09:31 Pulse Rate 81 09/20/17 09:31 Respiratory Rate 19 09/20/17 09:31 Blood Pressure 111/62 09/20/17 09:31 O2 Sat by Pulse Oximetry (%) Assessment: 09/20/17 13:33 withdrawal symptom Plan: continue detox
[2017-09-20] MEDS: THIAMINE HCL 100 MG TABLET (FP) PO SCH (22:08)
[2017-09-20] MEDS: MELATONIN 5 MG TABLETS PO PRN (22:09)
[2017-09-21] MEDS: diazePAM 5 MG TABLET PO PRN (02:12)
[2017-09-21] MEDS ORDERED: METHADONE HCL 5 MG TABLET (FOR DETOX USE ONLY) PO ONE (10:00)
[2017-09-21] MEDS: PRENATAL VITAMINS W/ FOLIC ACID TABLET (FP) PO SCH (10:30)
[2017-09-21] MEDS: NICOTINE 14 MG/24 HOURS TOPICAL PATCH TD SCH (10:30)
[2017-09-21] MEDS ORDERED: CYCLOBENZAPRINE HCL 10 MG TABLET (FP) PO ONE (11:15)
[2017-09-21] MEDS ORDERED: cloNIDine HCL 0.1 MG TABLET PO ONE (11:15)
[2017-09-21] MEDS: hydrOXYzine PAMOATE 50 MG CAPSULE (FP) PO PRN ×2 (11:43→23:58)
--- NOTE | 2017-09-21 11:56 | PN ---
[facility] Progress Note (SOAP) Subjective: pt requesting vistaril for anxiety/sleep Objective: 09/21/17 11:53 Vital Signs - 24 hr 09/20/17 09/20/17 09/20/17 15:03 18:49 22:32 Temperature 98.4 F 98.2 F 98.2 F Pulse Rate 104 H 90 70 Respiratory 18 18 18 Rate Blood Pressure 119/73 120/70 109/66 09/21/17 09/21/17 09/21/17 00:30 07:20 10:35 Temperature 98.1 F 97.5 F L Pulse Rate 84 88 Respiratory 18 18 18 Rate Blood Pressure 129/68 118/70 Laboratory Tests 09/18/17 09/18/17 09/18/17 07:00 07:00 07:00 WBC 6.5 RBC 4.09 Hgb 13.0 Hct 38.1 MCV 93.0 MCH 31.8 MCHC 34.2 RDW 13.4 Plt Count 190 MPV 8.3 D Sodium 143 Potassium 4.2 Chloride 105 Carbon Dioxide 33 H Anion Gap 5 L BUN 19 H Creatinine 0.9 Creat Clearance w eGFR > 60 Random Glucose 96 D Calcium 9.2 Total Bilirubin 0.2 AST 45 H D ALT 27 Alkaline Phosphatase 113 Total Protein 6.4 Albumin 3.4 Urine Color Urine Appearance Urine pH Ur Specific [place] Urine Protein Urine Glucose (UA) Urine Ketones Urine Blood Urine Nitrite Urine Bilirubin Urine Urobilinogen Ur Leukocyte Esterase RPR Titer Nonreactive 09/19/17 15:12 WBC RBC Hgb Hct MCV MCH MCHC RDW Plt Count MPV Sodium Potassium Chloride Carbon Dioxide Anion Gap BUN Creatinine Creat Clearance w eGFR Random Glucose Calcium Total Bilirubin AST ALT Alkaline Phosphatase Total Protein Albumin Urine Color Ltyellow Urine Appearance Slcloudy Urine pH 6.0 Ur Specific [place] 1.016 Urine Protein Negative Urine Glucose (UA) Negative Urine Ketones Negative Urine Blood Negative Urine Nitrite Negative Urine Bilirubin Negative Urine Urobilinogen Negative Ur Leukocyte Esterase Negative RPR Titer nl VS and labs Assessment: 67 years old male with a long history of heroin dependence on detox protocol Plan: continue detox protocol, vistaril ordered prn
[2017-09-21] MEDS: cloNIDine HCL 0.1 MG TABLET PO SCH (23:22)
[2017-09-21] MEDS: THIAMINE HCL 100 MG TABLET (FP) PO SCH (23:23)
[2017-09-21] MEDS: CYCLOBENZAPRINE HCL 10 MG TABLET (FP) PO PRN (23:58)
[2017-09-22] MEDS ORDERED: METHADONE HCL 10 MG TABLET (FOR DETOX USE ONLY) PO ONE (10:00)
[2017-09-22] MEDS: cloNIDine HCL 0.1 MG TABLET PO SCH ×2 (10:13→22:35)
[2017-09-22] MEDS: hydrOXYzine PAMOATE 50 MG CAPSULE (FP) PO PRN (10:13)
[2017-09-22] MEDS: CYCLOBENZAPRINE HCL 10 MG TABLET (FP) PO PRN (10:13)
[2017-09-22] MEDS: NICOTINE 14 MG/24 HOURS TOPICAL PATCH TD SCH (10:13)
[2017-09-22] MEDS: PRENATAL VITAMINS W/ FOLIC ACID TABLET (FP) PO SCH (10:13)
--- NOTE | 2017-09-22 14:17 | PN ---
[facility] Progress Note (SOAP) Objective: 09/22/17 14:16 pt states doing OK VS stable Vital Signs - 24 hr 09/21/17 09/21/17 09/22/17 17:31 22:41 00:30 Temperature 98.2 F 97.7 F Pulse Rate 85 86 Respiratory 18 18 18 Rate Blood Pressure 113/63 129/73 09/22/17 09/22/17 09/22/17 03:30 06:25 10:00 Temperature 97.7 F 96.1 F L Pulse Rate 79 88 Respiratory 18 16 18 Rate Blood Pressure 132/64 120/62 ass/plan: continue detox protocol to meet with counselor for disposition after detox
[2017-09-22] MEDS: THIAMINE HCL 100 MG TABLET (FP) PO SCH (22:35)
[2017-09-22] MEDS: MELATONIN 5 MG TABLETS PO PRN (22:35)
[2017-09-23] MEDS: METHADONE HCL 5 MG TABLET (FOR DETOX USE ONLY) PO ONE ×2 (05:38→05:40)
[2017-09-23 09:43] VITALS: BP 121/67; PULSE 83; TEMP 97.3
[2017-09-23] MEDS: PRENATAL VITAMINS W/ FOLIC ACID TABLET (FP) PO SCH (11:03)
[2017-09-23] MEDS: cloNIDine HCL 0.1 MG TABLET PO SCH (11:03)
[2017-09-23] MEDS: NICOTINE 14 MG/24 HOURS TOPICAL PATCH TD SCH (11:03)
--- NOTE | 2017-09-23 14:08 | PN ---
S Progress Note (SOAP) Subjective: Denies any complaints Objective: 09/23/17 14:01 A & O x 3 Vital Signs Temperature 97.3 F L 09/23/17 09:42 Pulse Rate 83 09/23/17 09:42 Respiratory Rate 20 09/23/17 09:42 Blood Pressure 121/67 09/23/17 09:42 O2 Sat by Pulse Oximetry (%) Assessment: 09/23/17 14:07 detox safely completed Plan: For discharge
--- NOTE | 2017-09-23 14:13 | DS ---
[facility] Detox Discharge Summary Admission Date: 09/18/17 Discharge Date: 09/23/17 - History Additional Comments: Pt A & O x 3 For discharge. Counselor was asking to have pt stay a day extra for safe discharge. Pt states his cousin is being d/c too and he "cannot let him be on the street by himself", declines offer to stay. States he will go home. Pt in no distress, safely completed detox - Physical Exam Results Vital Signs: Vital Signs Temperature 97.3 F L 09/23/17 09:42 Pulse Rate 83 09/23/17 09:42 Respiratory Rate 20 09/23/17 09:42 Blood Pressure 121/67 09/23/17 09:42 O2 Sat by Pulse Oximetry (%) Pertinent Admission Physical Exam Findings: withdrawal sx - Treatment Hospital Course: Detox Protocol Followed, Detoxed Safely, Responded well, Discharged Condition Good Patient has Accepted a Rehab Referral to: Out patient Meetings - Medication Discharge Medications: Ambulatory Orders NK [No Known Home Medication] 07/19/17 - AMA Did Patient Leave Against Medical Advice: No
== END 2017-09-23 11:17 | disposition home or self-care (01) | DRG 897 ==
LOC: YASAS 02:30 → Y6N 02:34
PROVIDERS: ADMIT Surgery; ATTEND Surgery
PROC: HZ2ZZZZ Detoxification Services for Substance Abuse Treatment (ICD-10-PCS; principal; 2017-09-18)
DX: F19.230 Other psychoactive substance dependence with withdrawal, uncomplicated (principal); F14.20 Cocaine dependence, uncomplicated; F19.280 Other psychoactive substance dependence with psychoactive substance-induced anxiety disorder; F19.282 Other psychoactive substance dependence with psychoactive substance-induced sleep disorder; F11.23 Opioid dependence with withdrawal; F17.210 Nicotine dependence, cigarettes, uncomplicated; F32.9 Major depressive disorder, single episode, unspecified; B18.2 Chronic viral hepatitis C; M41.26 Other idiopathic scoliosis, lumbar region; E86.0 Dehydration; L40.9 Psoriasis, unspecified; M54.5 Low back pain; Z59.0 Homelessness
CPT/HCPCS: 36415; 80053; 81003; 85027; 86593; 93005; 93010; J0735

== ENCOUNTER 2017-11-05 08:22 | Inpatient (IN) | payer OTHER ==
[2017-11-05 09:27] VITALS: BMI 22.8
--- NOTE | 2017-11-05 11:13 | HP ---
COWS - Scale Resting Pulse: 1= [place] 81-100 Sweatin=Flushed/Facial Moisture Restless Observation: 1= Difficult to Sit Still Pupil Size: 0= Normal to Room Light Bone or Joint Aches: 1= Mild Discomfort Runny Nose/ Eye Tearin= Nasal Congestion GI Upset > 30mins: 0= None Tremor Observation: 2= Slight Tremor Visible Yawning Observation: 1= 1-2x During Session Anxiety or Irritability: 2=Irritable/Anxious Goose Flesh Skin: 0=Smooth Skin COWS Score: 11 Admission ROS S - HPI Chief Complaint: "I want to cook pickled meat the pieces and just start again" Allergies/Adverse Reactions: Allergies Allergy/AdvReac Type Severity Reaction Status Date / Time No Known Allergies Allergy Verified 11/05/17 09:18 History of Present Illness: 67 y/o male with a long hx of heroin addiction here today to detox from heroin. Pt is known to the center and was last here in September. Admits to a 40day sober period s/p being in [facility] and [facility], but started to use about 3 days after he got out. Last used heroin last night. Smokes 4 - 6 cigarretes a day but decline nicotine patch nor the gum. Utox positive for fentanyl; pt denies Fentanyl use, states "it may have been cut with the dope" Denies past nor current SI. Denies any medical nor psych hx. Declines psych consult. Exam Limitations: No Limitations - Ebola screening Have you traveled outside of the country in the last 21 days: No Have you had contact with anyone from an Ebola affected area: No Have you been sick,other than usual withdrawal symptoms: No Do you have a fever: No - Review of Systems Constitutional: Changes in sleep EENT: reports: Blurred Vision (wears glasses), Dental Problems (wears full dentures) Respiratory: reports: No Symptoms reported Cardiac: reports: No Symptoms Reported GI: reports: No Symptoms Reported : reports: No Symptoms Reported Musculoskeletal: reports: Other (leg cramping s/p walking for a long time last night) Integumentary: reports: Dryness Neuro: reports: Headache, Tremors Endocrine: reports: No Symptoms Reported Hematology: reports: No Symptoms Reported Psychiatric: reports: Orientated x3, Agitated, Anxious Other Systems: Reviewed and Negative Patient History - Patient Medical History Hx Anemia: No Hx Asthma: No Hx Chronic Obstructive Pulmonary Disease (COPD): No Hx Cancer: No Hx Cardiac Disorders: No Hx Congestive Heart Failure: No Hx Hypertension: No Hx Hypercholesterolemia: No Hx Pacemaker: No HX Cerebrovascular Accident: No Hx Seizures: No Hx Dementia: No Hx Diabetes: No Hx Gastrointestinal Disorders: No Hx Liver Disease: Yes (hep C, states his Hep C result always says 'non-reactive' ) Hx Genitourinary Disorders: No Hx Sexually Transmitted Disorders: No Hx Renal Disease (ESRD): No Hx Thyroid Disease: No Hx Human Immunodeficiency Virus (HIV): No (States being tested a few months ago and negative. Refused testing) Hx Hepatitis C: Yes (started Mavret in February 2017) Hx Depression: Yes (not on any psychotropic medication) Hx Suicide Attempt: No Hx Bipolar Disorder: No Hx Schizophrenia: No - Patient Surgical History Past Surgical History: No Hx Neurologic Surgery: No Hx Cataract Extraction: No Hx Cardiac Surgery: No Hx Lung Surgery: No Hx Breast Surgery: (n/a) Hx Breast Biopsy: (n/a) Hx Abdominal Surgery: Yes (intestinal sx to repair "perforated abd ulcers") Hx Appendectomy: No Hx Cholecystectomy: No Hx Genitourinary Surgery: No Hx Section: No Hx Orthopedic Surgery: No Anesthesia Reaction: No - PPD History Previous Implant?: Yes Documented Results: Negative w/proof Implanted On Prior [facility] Admission?: Yes Date: 05/15/17 Results: 0.0 PPD to be Administered?: No - Reproductive History Patient is a Female of Child Bearing Age (11 -55 yrs old): No Patient : (n/a) - Smoking Cessation Smoking history: Current every day smoker Have you smoked in the past 12 months: Yes Aproximately how many cigarettes per day: 6 Hx Chewing Tobacco Use: No Initiated information on smoking cessation: Yes 'Breaking Loose' booklet given: 11/05/17 - Substances Abused Heroin Route: Inhalation Frequency: Daily Amount used: 10-15 bags Age of first use: 40 Date of Last Use: 11/05/17 Family Disease History - Family Disease History Family Disease History: Other: Father (, etoh, alzheimers), Mother (age 92 - in [place]), Brother (one - living - healthy), Sister (four - living - healthy) Admission Physical Exam BHS - Vital Signs Vital Signs: Vital Signs - 24 hr 09/23/18 09:19 Temperature 98.4 F Pulse Rate 96 H Respiratory 20 Rate Blood Pressure 117/82 - Physical General Appearance: Yes: Mild Distress, Anxious, Other (dishevelled) HEENTM: Yes: Other (wers glasses, top and bottom dentures) Respiratory: Yes: Chest Non-Tender, No Respiratory Distress, No Accessory Muscle Use Neck: Yes: Within Normal Limits, No masses,lesions,Nodules, Trachea in good position Breast: Yes: Breast Exam Deferred Cardiology: Yes: Regular Rate Abdominal: Yes: Non Tender, Soft, Surgical Scar (healed vertical scar) Genitourinary: Yes: Within Normal Limits Back: Yes: Normal Inspection Musculoskeletal: Yes: full range of Motion, Gait Steady Extremities: Yes: Normal Capillary Refill, Normal Inspection, Normal Range of Motion, Tremors Neurological: Yes: Within Normal Limits, Fully Oriented, Alert, Motor Strength 5 /5 Integumentary: Yes: Normal Color, Dry, Warm Lymphatic: Yes: Within Normal Limits - Diagnostic (1) Uncomplicated opioid dependence Current Visit: Yes Status: Acute (2) Nicotine dependence Current Visit: Yes Status: Chronic Qualifiers: (3) History of abdominal surgery Current Visit: Yes Status: Resolved (4) Hx of hepatitis C Current Visit: Yes Status: Suspected (5) Depressed affect Current Visit: Yes Status: Suspected (6) Dry skin Current Visit: Yes Status: Acute Cleared for Admission [facility] - Detox or Rehab [facility] Level of Care: Medically Managed Detox Regimen/Protocol: Methadone [facility] Breath Alcohol Content Breath Alcohol Content: 0 Urine Drug Screen - Results Drug Screen Negative: No Urine Drug Screen Results: OPI-Opiates, FEN-Fentanyl
[2017-11-05] MEDS ORDERED: MAGNESIUM HYDROX 2400MG/30ML ORAL SUSPENSION 30 ML CUP PO PRN (11:45)
[2017-11-05] MEDS ORDERED: LOPERAMIDE HCL 2 MG CAPSULE PO PRN (11:45)
[2017-11-05] MEDS ORDERED: P-EPHED 60MG/TRIPROLIDI 2.5MG TABLET PO PRN (11:45)
[2017-11-05] MEDS ORDERED: MENTHOL/PHENOL 1 EACH UD MM PRN (11:45)
[2017-11-05] MEDS ORDERED: MAGNESIUM CITRATE 300 ML BOTTLE PO PRN (11:45)
[2017-11-05] MEDS ORDERED: ACETAMINOPHEN 325 MG TABLET (FP) PO PRN (11:45)
[2017-11-05] MEDS ORDERED: guaiFENesin/D-METHORPHAN HB 10 ML UNIT-DOSE CUPS PO PRN (11:45)
[2017-11-05] MEDS ORDERED: MAG HYDROX/AL HYDROX/SIMETH 30 ML UNIT-DOSE CUP PO PRN (11:45)
[2017-11-05] MEDS ORDERED: METHADONE HCL 10 MG TABLET (FOR DETOX USE ONLY) PO ONE ×2 (11:45→23:00)
[2017-11-05] MEDS ORDERED: COLLOIDAL OATMEAL 1 BAR EACH TP PRN (11:47)
[2017-11-05] MEDS: diazePAM 5 MG TABLET PO PRN ×2 (12:52→22:17)
[2017-11-05] MEDS ORDERED: AMMONIUM LACTATE 12% LOTION 225 GM BOTTLE TP PRN (13:23)
--- NOTE | 2017-11-05 17:08 | EKG ---
Test Reason : Blood Pressure : / mmHG Vent. Rate : 087 BPM Atrial Rate : 087 BPM P-R Int : 200 ms QRS Dur : 088 ms QT Int : 386 ms P-R-T Axes : 073 033 077 degrees QTc Int : 464 ms NORMAL SINUS RHYTHM MINIMAL VOLTAGE CRITERIA FOR LVH, MAY BE NORMAL VARIANT BORDERLINE ECG WHEN COMPARED WITH ECG OF 18-SEP-2017 02:58, NO SIGNIFICANT CHANGE WAS FOUND Confirmed by MD Watson, Reggie ([id number]) on 11/05/2017 5:08:26 PM Referred By: NIK GARCIA Confirmed By:Reggie Chaudhari MD
[2017-11-05 21:26] LABS: URINE APPEARANCE TURBID; URINE BILIRUBIN NEGATIVE (<2.0 mg/dL); URINE COLOR YELLOW; URINE GLUCOSE (UA) NEGATIVE (NEGATIVE); URINE KETONE NEGATIVE (NEGATIVE); URINE LEUK ESTERASE NEGATIVE (NEGATIVE); URINE NITRITE NEGATIVE (NEGATIVE); URINE PROTEIN NEGATIVE (NEGATIVE); URINE UROBILINOGEN NEGATIVE mg/dL (0.2-1.0)
[2017-11-05] MEDS: THIAMINE HCL 100 MG TABLET (FP) PO SCH (22:14)
[2017-11-05] MEDS: MELATONIN 5 MG TABLETS PO PRN (22:17)
[2017-11-06] MEDS ORDERED: METHADONE HCL 10 MG TABLET (FOR DETOX USE ONLY) PO ONE (10:00)
[2017-11-06 10:10] LABS: HEMATOCRIT 37.4 % (35.4-49); HEMOGLOBIN 12.6 GM/dL (11.7-16.9); MCH 31.3 pg (25.7-33.7); MCHC 33.7 g/dl (32.0-35.9); MEAN CELL VOLUME 92.8 fl (80-96); MEAN PLT VOLUME 8.2 fl (7.5-11.1); PLATELET COUNT 215 K/MM3 (134-434); RBC 4.03 M/mm3 (4.00-5.60); RDW 13.1 % (11.9-15.9)
[2017-11-06] MEDS: PRENATAL VITAMINS W/ FOLIC ACID TABLET (FP) PO SCH (10:37)
[2017-11-06] MEDS: diazePAM 5 MG TABLET PO PRN ×3 (10:37→22:06)
[2017-11-06 10:40] LABS: ALBUMIN 3.4 g/dl (3.4-5.0); ALK PHOS 143 U/L (45-117); ANION GAP 6 MMOL/L (8-16); BILIRUBIN,TOTAL 0.2 mg/dL (0.2-1); BLOOD UREA NITROGEN 27 mg/dL (7-18); CALCIUM 8.6 mg/dL (8.5-10.1); CHLORIDE 102 mmol/L (98-107); CO2 28 mmol/L (21-32); CREATININE 0.7 mg/dL (0.55-1.3); GLUCOSE,RANDOM 78 mg/dL (74-106); POTASSIUM 4.3 mmol/L (3.5-5.1); SGOT/AST 145 U/L (15-37); SGPT/ALT 46 U/L (13-61); SODIUM 136 mmol/L (136-145); TOT PROT 6.9 g/dl (6.4-8.2)
--- NOTE | 2017-11-06 15:53 | PN ---
BHS COWS - Scale Resting Pulse: 1= [place] 81-100 Sweatin=Flushed/Facial Moisture Restless Observation: 1= Difficult to Sit Still Pupil Size: 0= Normal to Room Light Bone or Joint Aches: 1= Mild Discomfort Runny Nose/ Eye Tearin= Nasal Congestion GI Upset > 30mins: 1= Stomach Cramp Tremor Observation of Outstretched Hands: 1= Tremor [place], Not Seen Yawning Observation: 1= 1-2x During Session Anxiety or Irritability: 1=Feels Anxious/Irritable Goose Flesh Skin: 0=Smooth Skin COWS Score: 10 S Progress Note (SOAP) Subjective: shakes sweats diarrhea Objective: 11/06/17 15:48 A & O x 3 Ambulating steadily on unit Vital Signs Temperature 97.6 F 11/06/17 14:03 Pulse Rate 60 11/06/17 14:03 Respiratory Rate 18 11/06/17 14:03 Blood Pressure 119/64 11/06/17 14:03 O2 Sat by Pulse Oximetry (%) Laboratory Last Values WBC 7.0 K/mm3 (4.0-10.0) 11/06/17 07:00 RBC 4.03 M/mm3 (4.00-5.60) 11/06/17 07:00 Hgb 12.6 GM/dL (11.7-16.9) 11/06/17 07:00 Hct 37.4 % (35.4-49) 11/06/17 07:00 MCV 92.8 fl (80-96) 11/06/17 07:00 MCH 31.3 pg (25.7-33.7) 11/06/17 07:00 MCHC 33.7 g/dl (32.0-35.9) 11/06/17 07:00 RDW 13.1 % (11.9-15.9) 11/06/17 07:00 Plt Count 215 K/MM3 (134-434) 11/06/17 07:00 MPV 8.2 fl (7.5-11.1) 11/06/17 07:00 Sodium 136 mmol/L (136-145) 11/06/17 07:00 Potassium 4.3 mmol/L (3.5-5.1) 11/06/17 07:00 Chloride 102 mmol/L (98-107) 11/06/17 07:00 Carbon Dioxide 28 mmol/L (21-32) 11/06/17 07:00 Anion Gap 6 MMOL/L (8-16) L 11/06/17 07:00 BUN 27 mg/dL (7-18) H 11/06/17 07:00 Creatinine 0.7 mg/dL (0.55-1.3) 11/06/17 07:00 Creat Clearance w eGFR > 60 (>60) 11/06/17 07:00 Random Glucose 78 mg/dL (74-106) 11/06/17 07:00 Calcium 8.6 mg/dL (8.5-10.1) 11/06/17 07:00 Total Bilirubin 0.2 mg/dL (0.2-1) 11/06/17 07:00 AST 145 U/L (15-37) H 11/06/17 07:00 ALT 46 U/L (13-61) 11/06/17 07:00 Alkaline Phosphatase 143 U/L (45-117) H 11/06/17 07:00 Total Protein 6.9 g/dl (6.4-8.2) 11/06/17 07:00 Albumin 3.4 g/dl (3.4-5.0) 11/06/17 07:00 Urine Color Yellow 11/05/17 15:20 Urine Appearance Turbid 11/05/17 15:20 Urine pH 5.0 (5.0-8.0) 11/05/17 15:20 Ur Specific [place] 1.016 (1.001-1.035) 11/05/17 15:20 Urine Protein Negative (NEGATIVE) 11/05/17 15:20 Urine Glucose (UA) Negative (NEGATIVE) 11/05/17 15:20 Urine Ketones Negative (NEGATIVE) 11/05/17 15:20 Urine Blood Negative (NEGATIVE) 11/05/17 15:20 Urine Nitrite Negative (NEGATIVE) 11/05/17 15:20 Urine Bilirubin Negative (<2.0 mg/dL) 11/05/17 15:20 Urine Urobilinogen Negative mg/dL (0.2-1.0) 11/05/17 15:20 Ur Leukocyte Esterase Negative (NEGATIVE) 11/05/17 15:20 RPR Titer Nonreactive (NONREACTIVE) 11/06/17 07:00 labs noted elevated AST/Alk phosphate Assessment: 11/06/17 15:53 withdrawal sx ?liver injury (elev ast/alk phos) 11/06/17 16:04 Plan: continue detox increase hydration Repeat blood work in a.m
--- NOTE | 2017-11-06 17:17 | PN ---
S Progress Note Note: Vital Signs Temperature 97.6 F 11/06/17 14:03 Pulse Rate 60 11/06/17 14:03 Respiratory Rate 18 11/06/17 14:03 Blood Pressure 119/64 11/06/17 14:03 O2 Sat by Pulse Oximetry (%) c/o of generalized muscular pain TP [facility] continue to monitor
[2017-11-06] MEDS: METHYL SALICYLATE/MENTHOL OINT 30 GM TUBE TP SCH (17:34)
[2017-11-06] MEDS: IBUPROFEN 400 MG TABLET (FP) PO PRN (17:35)
[2017-11-06] MEDS: THIAMINE HCL 100 MG TABLET (FP) PO SCH (22:06)
[2017-11-06] MEDS: MELATONIN 5 MG TABLETS PO PRN (22:06)
[2017-11-07] MEDS ORDERED: METHADONE HCL 5 MG TABLET (FOR DETOX USE ONLY) PO ONE (10:00)
[2017-11-07] MEDS: PRENATAL VITAMINS W/ FOLIC ACID TABLET (FP) PO SCH (10:32)
[2017-11-07] MEDS: diazePAM 5 MG TABLET PO PRN ×2 (10:33→22:19)
[2017-11-07] MEDS: METHYL SALICYLATE/MENTHOL OINT 30 GM TUBE TP SCH (10:34)
[2017-11-07 11:51] LABS: ALK PHOS 134 U/L (45-117); ANION GAP 9 MMOL/L (8-16); BILIRUBIN,TOTAL 0.2 mg/dL (0.2-1); BLOOD UREA NITROGEN 24 mg/dL (7-18); CALCIUM 8.7 mg/dL (8.5-10.1); CHLORIDE 104 mmol/L (98-107); CO2 28 mmol/L (21-32); CREATININE 0.6 mg/dL (0.55-1.3); GLUCOSE,RANDOM 67 mg/dL (74-106); POTASSIUM 4.4 mmol/L (3.5-5.1); SGOT/AST 116 U/L (15-37); SGPT/ALT 40 U/L (13-61); SODIUM 141 mmol/L (136-145); TOT PROT 6.1 g/dl (6.4-8.2)
--- NOTE | 2017-11-07 12:07 | PN ---
BHS COWS - Scale Resting Pulse: 1= [place] 81-100 Sweatin= No chills or Flushing Restless Observation: 1= Difficult to Sit Still Pupil Size: 5= Only [place] Seen Bone or Joint Aches: 0= None Runny Nose/ Eye Tearin= None GI Upset > 30mins: 1= Stomach Cramp Tremor Observation of Outstretched Hands: 0= None Yawning Observation: 0= None Anxiety or Irritability: 1=Feels Anxious/Irritable Goose Flesh Skin: 0=Smooth Skin COWS Score: 9 S Progress Note (SOAP) Subjective: MILD STOMACH CRAMP, ANXIETY AND PACING IN HALLWAY. Objective: 11/07/17 12:04 Laboratory Tests 11/05/17 11/06/17 11/06/17 15:20 07:00 07:00 WBC 7.0 RBC 4.03 Hgb 12.6 Hct 37.4 MCV 92.8 MCH 31.3 MCHC 33.7 RDW 13.1 Plt Count 215 MPV 8.2 Sodium 136 Potassium 4.3 Chloride 102 Carbon Dioxide 28 Anion Gap 6 L BUN 27 H Creatinine 0.7 Creat Clearance w eGFR > 60 Random Glucose 78 Calcium 8.6 Total Bilirubin 0.2 AST 145 H ALT 46 Alkaline Phosphatase 143 H Total Protein 6.9 Albumin 3.4 Urine Color Yellow Urine Appearance Turbid Urine pH 5.0 Ur Specific [place] 1.016 Urine Protein Negative Urine Glucose (UA) Negative Urine Ketones Negative Urine Blood Negative Urine Nitrite Negative Urine Bilirubin Negative Urine Urobilinogen Negative Ur Leukocyte Esterase Negative RPR Titer 11/06/17 11/07/17 07:00 07:00 WBC RBC Hgb Hct MCV MCH MCHC RDW Plt Count MPV Sodium 141 Potassium 4.4 Chloride 104 Carbon Dioxide 28 Anion Gap 9 BUN 24 H Creatinine 0.6 Creat Clearance w eGFR > 60 Random Glucose 67 L Calcium 8.7 Total Bilirubin 0.2 AST 116 H ALT 40 Alkaline Phosphatase 134 H Total Protein 6.1 L Albumin 3.0 L Urine Color Urine Appearance Urine pH Ur Specific [place] Urine Protein Urine Glucose (UA) Urine Ketones Urine Blood Urine Nitrite Urine Bilirubin Urine Urobilinogen Ur Leukocyte Esterase RPR Titer Nonreactive Vital Signs Temperature 98.6 F 11/07/17 09:48 Pulse Rate 87 11/07/17 09:48 Respiratory Rate 20 11/07/17 09:48 Blood Pressure 119/63 11/07/17 09:48 O2 Sat by Pulse Oximetry (%) ALERT AND ORIENTED SKIN WARM AND DRY CAR S1S2 RESP CTA BL PSYCH +ANXIETY, PACING IN HALLWAY Assessment: 11/07/17 12:06 WITHDRAWAL SYNDROME Plan: DETOX PER PROTOCOL CONTINUE TO MONITOR CLINICALLY
[2017-11-07] MEDS: MELATONIN 5 MG TABLETS PO PRN (22:19)
[2017-11-07] MEDS: THIAMINE HCL 100 MG TABLET (FP) PO SCH (22:19)
[2017-11-08] MEDS ORDERED: METHADONE HCL 5 MG TABLET (FOR DETOX USE ONLY) PO ONE (10:00)
[2017-11-08] MEDS: PRENATAL VITAMINS W/ FOLIC ACID TABLET (FP) PO SCH (10:52)
[2017-11-08] MEDS: METHYL SALICYLATE/MENTHOL OINT 30 GM TUBE TP SCH (10:54)
[2017-11-08] MEDS: IBUPROFEN 400 MG TABLET (FP) PO PRN (10:55)
[2017-11-08] MEDS: diazePAM 5 MG TABLET PO PRN (10:55)
--- NOTE | 2017-11-08 20:49 | PN ---
[facility] Progress Note Note: PATIENT TOLERATING DETOX WELL. NO MEDICAL COMPLAINTS OFFERED. DENIES H/A, BODY ACHES, CHILLS AND N/V/D. Laboratory Tests 11/05/17 11/06/17 11/06/17 15:20 07:00 07:00 WBC 7.0 RBC 4.03 Hgb 12.6 Hct 37.4 MCV 92.8 MCH 31.3 MCHC 33.7 RDW 13.1 Plt Count 215 MPV 8.2 Sodium 136 Potassium 4.3 Chloride 102 Carbon Dioxide 28 Anion Gap 6 L BUN 27 H Creatinine 0.7 Creat Clearance w eGFR > 60 Random Glucose 78 Calcium 8.6 Total Bilirubin 0.2 AST 145 H ALT 46 Alkaline Phosphatase 143 H Total Protein 6.9 Albumin 3.4 Urine Color Yellow Urine Appearance Turbid Urine pH 5.0 Ur Specific [place] 1.016 Urine Protein Negative Urine Glucose (UA) Negative Urine Ketones Negative Urine Blood Negative Urine Nitrite Negative Urine Bilirubin Negative Urine Urobilinogen Negative Ur Leukocyte Esterase Negative RPR Titer 11/06/17 11/07/17 07:00 07:00 WBC RBC Hgb Hct MCV MCH MCHC RDW Plt Count MPV Sodium 141 Potassium 4.4 Chloride 104 Carbon Dioxide 28 Anion Gap 9 BUN 24 H Creatinine 0.6 Creat Clearance w eGFR > 60 Random Glucose 67 L Calcium 8.7 Total Bilirubin 0.2 AST 116 H ALT 40 Alkaline Phosphatase 134 H Total Protein 6.1 L Albumin 3.0 L Urine Color Urine Appearance Urine pH Ur Specific [place] Urine Protein Urine Glucose (UA) Urine Ketones Urine Blood Urine Nitrite Urine Bilirubin Urine Urobilinogen Ur Leukocyte Esterase RPR Titer Nonreactive Vital Signs Temperature 97.6 F 11/08/17 17:18 Pulse Rate 95 H 11/08/17 17:18 Respiratory Rate 18 11/08/17 17:18 Blood Pressure 117/75 11/08/17 17:18 O2 Sat by Pulse Oximetry (%) ALERT AND ORIENTED X 3 SKIN WARM AND DRY CAR S1S2 RESP CTA BL EXT NO EDEMA, FULL ROM A/P: WITHDRAWAL SYNDROME CONTINUE DETOX PER PROTOCOL ENCOURAGED ORAL FLUIDS CONTINUE TO MONITOR CLINICALLY
[2017-11-08] MEDS: MELATONIN 5 MG TABLETS PO PRN (22:09)
[2017-11-08] MEDS: THIAMINE HCL 100 MG TABLET (FP) PO SCH (22:09)
[2017-11-09] MEDS ORDERED: METHADONE HCL 10 MG TABLET (FOR DETOX USE ONLY) PO ONE (10:00)
[2017-11-09] MEDS: PRENATAL VITAMINS W/ FOLIC ACID TABLET (FP) PO SCH (10:50)
[2017-11-09] MEDS: METHYL SALICYLATE/MENTHOL OINT 30 GM TUBE TP SCH (10:50)
[2017-11-09] MEDS: IBUPROFEN 400 MG TABLET (FP) PO PRN ×2 (10:51→17:40)
--- NOTE | 2017-11-09 12:06 | PN ---
[facility] Progress Note Note: Patient tolerating detox well. States he feels anxious at times but is dealing with it on his own. Vital Signs Temperature 99.1 F 11/09/17 09:22 Pulse Rate 82 11/09/17 09:22 Respiratory Rate 18 11/09/17 09:22 Blood Pressure 127/65 11/09/17 09:22 O2 Sat by Pulse Oximetry (%) Laboratory Tests 11/05/17 11/06/17 11/06/17 15:20 07:00 07:00 WBC 7.0 RBC 4.03 Hgb 12.6 Hct 37.4 MCV 92.8 MCH 31.3 MCHC 33.7 RDW 13.1 Plt Count 215 MPV 8.2 Sodium 136 Potassium 4.3 Chloride 102 Carbon Dioxide 28 Anion Gap 6 L BUN 27 H Creatinine 0.7 Creat Clearance w eGFR > 60 Random Glucose 78 Calcium 8.6 Total Bilirubin 0.2 AST 145 H ALT 46 Alkaline Phosphatase 143 H Total Protein 6.9 Albumin 3.4 Urine Color Yellow Urine Appearance Turbid Urine pH 5.0 Ur Specific [place] 1.016 Urine Protein Negative Urine Glucose (UA) Negative Urine Ketones Negative Urine Blood Negative Urine Nitrite Negative Urine Bilirubin Negative Urine Urobilinogen Negative Ur Leukocyte Esterase Negative RPR Titer 11/06/17 11/07/17 07:00 07:00 WBC RBC Hgb Hct MCV MCH MCHC RDW Plt Count MPV Sodium 141 Potassium 4.4 Chloride 104 Carbon Dioxide 28 Anion Gap 9 BUN 24 H Creatinine 0.6 Creat Clearance w eGFR > 60 Random Glucose 67 L Calcium 8.7 Total Bilirubin 0.2 AST 116 H ALT 40 Alkaline Phosphatase 134 H Total Protein 6.1 L Albumin 3.0 L Urine Color Urine Appearance Urine pH Ur Specific [place] Urine Protein Urine Glucose (UA) Urine Ketones Urine Blood Urine Nitrite Urine Bilirubin Urine Urobilinogen Ur Leukocyte Esterase RPR Titer Nonreactive PE: alert and oriented x 3 skin warm and dry car s1s2 resp cta bl a/p: withdrawal syndrome continue detox as per protocol encourage oral fluids continue to monitor
[2017-11-09] MEDS: THIAMINE HCL 100 MG TABLET (FP) PO SCH (22:05)
[2017-11-09] MEDS: MELATONIN 5 MG TABLETS PO PRN (22:39)
[2017-11-10] MEDS ORDERED: METHADONE HCL 5 MG TABLET (FOR DETOX USE ONLY) PO ONE (06:00)
[2017-11-10 09:21] VITALS: BP 120/64; PULSE 91; TEMP 97.6
[2017-11-10] MEDS: PRENATAL VITAMINS W/ FOLIC ACID TABLET (FP) PO SCH (10:38)
[2017-11-10] MEDS: METHYL SALICYLATE/MENTHOL OINT 30 GM TUBE TP SCH (10:38)
[2017-11-10] MEDS: IBUPROFEN 400 MG TABLET (FP) PO PRN (10:39)
--- NOTE | 2017-11-10 12:37 | DS ---
[facility] Detox Discharge Summary Admission Date: 11/05/17 Discharge Date: 11/10/17 - History Present History: Opioid Dependence - Physical Exam Results Vital Signs: Vital Signs Temperature 97.6 F 11/10/17 09:20 Pulse Rate 91 H 11/10/17 09:20 Respiratory Rate 11/10/17 09:20 Blood Pressure 120/64 11/10/17 09:20 O2 Sat by Pulse Oximetry (%) Pertinent Admission Physical Exam Findings: Patient tolerated detox well. Medically stable. In NAD. Denies SI/HI. PE: alert and oriented x 3, skin warm and dry car s1s2 resp cta bl ext no edema, full rom - Treatment Hospital Course: Detox Protocol Followed, Detoxed Safely, Responded well, Discharged Condition Good Patient has Accepted a Rehab Referral to: Patient to follow up with [facility] in [place], [place] - Medication Discharge Medications: Ambulatory Orders NK [No Known Home Medication] 07/19/17 - Diagnosis (1) Opioid dependence with withdrawal Current Visit: Yes Status: Resolved - AMA Did Patient Leave Against Medical Advice: No
== END 2017-11-10 12:45 | disposition home or self-care (01) | DRG 897 ==
LOC: YASAS 08:22 → Y3N 12:01
PROC: HZ2ZZZZ Detoxification Services for Substance Abuse Treatment (ICD-10-PCS; principal; 2017-11-05)
DX: F11.23 Opioid dependence with withdrawal (principal); F17.210 Nicotine dependence, cigarettes, uncomplicated; F32.9 Major depressive disorder, single episode, unspecified; R45.89 Other symptoms and signs involving emotional state; L85.3 Xerosis cutis; B18.2 Chronic viral hepatitis C; R74.8 Abnormal levels of other serum enzymes; Z98.890 Other specified postprocedural states; Z59.0 Homelessness
CPT/HCPCS: 36415; 80053; 81003; 85027; 86593; 93005; 93010

== ENCOUNTER 2017-12-18 20:42 | Inpatient (IN) | payer OTHER ==
[2017-12-18 23:19] VITALS: BMI 21.8
--- NOTE | 2017-12-19 00:52 | HP ---
COWS - Scale Resting Pulse: 2= [place] 101-120 Sweatin=Flushed/Facial Moisture Restless Observation: 1= Difficult to Sit Still Pupil Size: 0= Normal to Room Light Bone or Joint Aches: 4=Acute Joint/Muscle Pain Runny Nose/ Eye Tearin= Nasal Congestion GI Upset > 30mins: 1= Stomach Cramp Tremor Observation: 4= Gross Tremor/Twitching Yawning Observation: 0= None Anxiety or Irritability: 2=Irritable/Anxious Goose Flesh Skin: 0=Smooth Skin COWS Score: 17 Admission [facility] Chief Complaint: Heroin withdrawal symptoms Allergies/Adverse Reactions: Allergies Allergy/AdvReac Type Severity Reaction Status Date / Time No Known Allergies Allergy Verified 11/05/17 09:18 History of Present Illness: 67 years old male with 28 years of heroin dependence is seeking admission to detox. Patient has been admitted to detox multiple times and reports 90 days of sobriety. He has past medical history of Hep. C, dry skin, dehydration and depression. Patient denies suicide attempt and suicidal ideation at this time Exam Limitations: No Limitations - Ebola screening Have you traveled outside of the country in the last 21 days: No (N) Have you had contact with anyone from an Ebola affected area: No Have you been sick,other than usual withdrawal symptoms: No Do you have a fever: No - Review of Systems Constitutional: Chills, Malaise, Changes in sleep EENT: reports: No Symptoms Reported Respiratory: reports: No Symptoms reported Cardiac: reports: No Symptoms Reported GI: reports: Diarrhea (x 3), Poor Appetite, Poor Fluid Intake : reports: No Symptoms Reported Musculoskeletal: reports: Back Pain Integumentary: reports: Dryness Neuro: reports: Tremors Endocrine: reports: No Symptoms Reported Hematology: reports: No Symptoms Reported Psychiatric: reports: Mood/Affect Appropiate, Orientated x3, Anxious Other Systems: Reviewed and Negative Patient History - Patient Medical History Hx Anemia: No Hx Asthma: No Hx Chronic Obstructive Pulmonary Disease (COPD): No Hx Cancer: No Hx Cardiac Disorders: No Hx Congestive Heart Failure: No Hx Hypertension: No Hx Hypercholesterolemia: No Hx Pacemaker: No HX Cerebrovascular Accident: No Hx Seizures: No Hx Dementia: No Hx Diabetes: No Hx Gastrointestinal Disorders: No Hx Liver Disease: Yes (hep C, states his Hep C result always says 'non-reactive' ) Hx Genitourinary Disorders: No Hx Sexually Transmitted Disorders: No Hx Renal Disease (ESRD): No Hx Thyroid Disease: No Hx Human Immunodeficiency Virus (HIV): No (States being tested a few months ago and negative. Refused testing) Hx Hepatitis C: Yes (started Mavret in February 2017) Hx Depression: Yes (not on any psychotropic medication) Hx Suicide Attempt: No Hx Bipolar Disorder: No Hx Schizophrenia: No - Patient Surgical History Past Surgical History: No Hx Neurologic Surgery: No Hx Cataract Extraction: No Hx Cardiac Surgery: No Hx Lung Surgery: No Hx Breast Surgery: (n/a) Hx Breast Biopsy: (n/a) Hx Abdominal Surgery: Yes (intestinal sx to repair "perforated abd ulcers") Hx Appendectomy: No Hx Cholecystectomy: No Hx Genitourinary Surgery: No Hx Section: No Hx Orthopedic Surgery: No Anesthesia Reaction: No - PPD History Previous Implant?: Yes Documented Results: Negative w/proof Implanted On Prior [facility] Admission?: Yes Date: 05/15/17 Results: 0.0 PPD to be Administered?: No - Reproductive History Patient is a Female of Child Bearing Age (11 -55 yrs old): No (Male) - Smoking Cessation Smoking history: Current every day smoker Have you smoked in the past 12 months: Yes Aproximately how many cigarettes per day: 6 Hx Chewing Tobacco Use: No Initiated information on smoking cessation: Yes 'Breaking Loose' booklet given: 12/19/17 - Substance & Tx. History Hx Alcohol Use: No Hx Substance Use: Yes Substance Use Type: Heroin, Opiates Hx Substance Use Treatment: Yes - Substances Abused Heroin Route: Inhalation Frequency: Daily Amount used: 6 BAGS Age of first use: 40 Date of Last Use: 12/18/17 Family Disease History - Family Disease History Family Disease History: Other: Father (, etoh, alzheimers), Mother (age 92 - in [place]), Brother (one - living - healthy), Sister (four - living - healthy) Admission Physical Exam BHS - Vital Signs Vital Signs: Vital Signs - 24 hr 12/18/17 23:09 Temperature 97.7 F Pulse Rate 110 H Respiratory 18 Rate Blood Pressure 135/89 - Physical General Appearance: Yes: Moderate Distress, Tremorous, Irritable, Anxious HEENTM: Yes: EOMI, Normal ENT Inspection, Normocephalic, Normal Voice, CEE Respiratory: Yes: Lungs Clear, Normal Breath Sounds, No Respiratory Distress Neck: Yes: Supple Breast: Yes: Breast Exam Deferred Cardiology: Yes: Regular Rhythm, Regular Rate Abdominal: Yes: Normal Bowel Sounds Genitourinary: Yes: Within Normal Limits Back: Yes: Normal Inspection Musculoskeletal: Yes: Back pain Extremities: Yes: Tremors Neurological: Yes: medical practice assistant II-XII NML intact, Alert, Normal Mood/Affect, Normal Response Integumentary: Yes: Warm Lymphatic: Yes: Adenopathy - Diagnostic (1) Nicotine dependence Current Visit: Yes Status: Chronic Qualifiers: Nicotine product type: cigarettes Substance use status: uncomplicated Qualified Code(s): F17.210 - Nicotine dependence, cigarettes, uncomplicated (2) Hx of hepatitis C Current Visit: Yes Status: Chronic (3) Opioid dependence with withdrawal Current Visit: Yes Status: Chronic (4) Dehydration Current Visit: No Status: Acute (5) Dry skin Current Visit: Yes Status: Acute (6) Depressed affect Current Visit: Yes Status: Suspected Cleared for Admission [facility] - Detox or Rehab [facility] Level of Care: Medically Managed Detox Regimen/Protocol: Methadone [facility] Breath Alcohol Content Breath Alcohol Content: 0 Urine Drug Screen - Results Drug Screen Negative: No Urine Drug Screen Results: OPI-Opiates, OXY-Oxycodone
[2017-12-19] MEDS ORDERED: guaiFENesin/D-METHORPHAN HB 10 ML UNIT-DOSE CUPS PO PRN (01:02)
[2017-12-19] MEDS ORDERED: LOPERAMIDE HCL 2 MG CAPSULE PO PRN (01:02)
[2017-12-19] MEDS ORDERED: MAGNESIUM HYDROX 2400MG/30ML ORAL SUSPENSION 30 ML CUP PO PRN (01:02)
[2017-12-19] MEDS ORDERED: METHADONE HCL 10 MG TABLET (FOR DETOX USE ONLY) PO ONE ×3 (01:02→23:00)
[2017-12-19] MEDS ORDERED: MENTHOL/PHENOL 1 EACH UD MM PRN (01:02)
[2017-12-19] MEDS ORDERED: MAGNESIUM CITRATE 300 ML BOTTLE PO PRN (01:02)
[2017-12-19] MEDS ORDERED: NICOTINE POLACRILEX 2 MG GUM BC PRN (01:02)
[2017-12-19] MEDS ORDERED: P-EPHED 60MG/TRIPROLIDI 2.5MG TABLET PO PRN (01:02)
[2017-12-19] MEDS: diazePAM 5 MG TABLET PO PRN ×5 (02:33→22:22)
[2017-12-19] MEDS: IBUPROFEN 400 MG TABLET (FP) PO PRN ×2 (02:34→22:20)
[2017-12-19] MEDS: PRENATAL VITAMINS W/ FOLIC ACID TABLET (FP) PO SCH (10:25)
[2017-12-19] MEDS: NICOTINE 14 MG/24 HOURS TOPICAL PATCH TD SCH (10:26)
--- NOTE | 2017-12-19 12:17 | PN ---
BHS Progress Note Note: PATIENT ADMITTED EARLY THIS MORNING. ALERT AND ORIENTED X 3. C/O BODY ACHES, INTERRUPTED SLEEP, MILD NAUSEA. Vital Signs Temperature 98.6 F 12/19/17 09:31 Pulse Rate 108 H 12/19/17 09:31 Respiratory Rate 18 12/19/17 09:31 Blood Pressure 138/72 12/19/17 09:31 O2 Sat by Pulse Oximetry (%) PE: SKIN WARM AND MOIST CAR S1S2 RESP CTA BL GI SOFT, BS+, NT EXT FULL ROM, AMB AD RAFAEL ALERT AND ORIENTED X 3 A/P WITHDRAWAL SX CONTINUE DETOX ORDERED ENCOURAGE ORAL FLUIDS CONTINUE TO MONITOR CLINICALLY
[2017-12-19] MEDS ORDERED: TAMSULOSIN HCL 0.4 MG CAP PO ONE (18:57)
--- NOTE | 2017-12-19 18:59 | PN ---
S Progress Note Note: Vital Signs Temperature 99.0 F 12/19/17 18:18 Pulse Rate 104 H 12/19/17 18:18 Respiratory Rate 18 12/19/17 18:18 Blood Pressure 120/73 12/19/17 18:18 O2 Sat by Pulse Oximetry (%) Patient reports difficulty voiding. Denies any pain at this time. one time dose flomax ordered increase PO fluids continue to monitor if patient continues with difficulty voiding will be sent to the ED
[2017-12-19] MEDS: THIAMINE HCL 100 MG TABLET (FP) PO SCH (22:22)
[2017-12-20] MEDS: IBUPROFEN 400 MG TABLET (FP) PO PRN ×2 (08:33→21:00)
[2017-12-20] MEDS ORDERED: METHADONE HCL 10 MG TABLET (FOR DETOX USE ONLY) PO ONE (10:00)
[2017-12-20] MEDS: PRENATAL VITAMINS W/ FOLIC ACID TABLET (FP) PO SCH (10:31)
[2017-12-20] MEDS: NICOTINE 14 MG/24 HOURS TOPICAL PATCH TD SCH (10:32)
[2017-12-20] MEDS: LIDOCAINE 5% TOPICAL PATCH TP SCH (10:32)
[2017-12-20] MEDS: diazePAM 5 MG TABLET PO PRN ×3 (10:32→21:40)
[2017-12-20 10:37] LABS: RDW 14.2 % (11.9-15.9); WHITE BLOOD COUNT 8.1 K/mm3 (4.0-10.0)
[2017-12-20 10:39] LABS: HEMATOCRIT 37.1 % (35.4-49); HEMOGLOBIN 12.5 GM/dL (11.7-16.9); MCH 31.1 pg (25.7-33.7); MCHC 33.7 g/dl (32.0-35.9); MEAN CELL VOLUME 92.3 fl (80-96); PLATELET COUNT 376 K/MM3 (134-434); RBC 4.02 M/mm3 (4.00-5.60)
[2017-12-20 11:05] LABS: ALBUMIN 2.9 g/dl (3.4-5.0); ALK PHOS 97 U/L (45-117); ANION GAP 11 MMOL/L (8-16); BILIRUBIN,TOTAL 0.2 mg/dL (0.2-1); BLOOD UREA NITROGEN 21 mg/dL (7-18); CALCIUM 8.5 mg/dL (8.5-10.1); CHLORIDE 103 mmol/L (98-107); CO2 24 mmol/L (21-32); CREATININE 0.6 mg/dL (0.55-1.3); GLUCOSE,RANDOM 86 mg/dL (74-106); POTASSIUM 4.4 mmol/L (3.5-5.1); SGOT/AST 31 U/L (15-37); SGPT/ALT 23 U/L (13-61); SODIUM 138 mmol/L (136-145); TOT PROT 6.6 g/dl (6.4-8.2)
--- NOTE | 2017-12-20 12:09 | PN ---
BHS COWS - Scale Resting Pulse: 1= [place] 81-100 Sweatin= No chills or Flushing Restless Observation: 1= Difficult to Sit Still Pupil Size: 2= Moderately Dilated Bone or Joint Aches: 2= Severe Diffuse Aches Runny Nose/ Eye Tearin= None GI Upset > 30mins: 0= None Tremor Observation of Outstretched Hands: 0= None Yawning Observation: 1= 1-2x During Session Anxiety or Irritability: 2=Irritable/Anxious Goose Flesh Skin: 0=Smooth Skin COWS Score: 9 BHS Progress Note (SOAP) Subjective: PATIENT PRESENTS WITH ANXIETY/RESTLESSNESS, BODY ACHES/LBP. Objective: 12/20/17 12:07 Laboratory Tests 12/20/17 12/20/17 07:30 07:30 WBC 8.1 RBC 4.02 Hgb 12.5 Hct 37.1 MCV 92.3 MCH 31.1 MCHC 33.7 RDW 14.2 Plt Count 376 D MPV 7.0 L D Sodium 138 Potassium 4.4 Chloride 103 Carbon Dioxide 24 Anion Gap 11 BUN 21 H Creatinine 0.6 Creat Clearance w eGFR > 60 Random Glucose 86 Calcium 8.5 Total Bilirubin 0.2 AST 31 ALT 23 Alkaline Phosphatase 97 Total Protein 6.6 Albumin 2.9 L PE: SKIN WARM AND DRY, + FACIAL FLUSHING CAR S1S2 RESP CTA BL EXT FULL ROM, AMB AD RAFAEL, NO EDEMA ALERT AND ORIENTED X 3 Assessment: 12/20/17 12:08 WITHDRAWAL SX Plan: CONTINUE DETOX ORDERED ENCOURAGE ORAL FLUIDS ADD LIDOCAINE PATCH FOR LBP CONTINUE TO MONITOR CLINICALLY
[2017-12-20 21:27] LABS: URINE APPEARANCE CLEAR; URINE BILIRUBIN NEGATIVE (<2.0 mg/dL); URINE COLOR YELLOW; URINE GLUCOSE (UA) NEGATIVE (NEGATIVE); URINE KETONE NEGATIVE (NEGATIVE); URINE LEUK ESTERASE NEGATIVE (NEGATIVE); URINE NITRITE NEGATIVE (NEGATIVE); URINE PROTEIN NEGATIVE (NEGATIVE); URINE UROBILINOGEN NEGATIVE mg/dL (0.2-1.0)
[2017-12-20] MEDS: THIAMINE HCL 100 MG TABLET (FP) PO SCH (21:40)
[2017-12-20] MEDS: LIDOCAINE PATCH REMOVAL MC SCH (21:58)
[2017-12-20] MEDS ORDERED: LACTULOSE 20 GM/30 ML UDC (FOR ORAL USE ONLY) PO ONE (22:58)
[2017-12-21] MEDS: diazePAM 5 MG TABLET PO PRN ×4 (01:39→19:47)
[2017-12-21] MEDS ORDERED: METHADONE HCL 5 MG TABLET (FOR DETOX USE ONLY) PO ONE (10:00)
[2017-12-21] MEDS: NICOTINE 14 MG/24 HOURS TOPICAL PATCH TD SCH (10:39)
[2017-12-21] MEDS: PRENATAL VITAMINS W/ FOLIC ACID TABLET (FP) PO SCH (10:41)
[2017-12-21] MEDS: LIDOCAINE 5% TOPICAL PATCH TP SCH (10:41)
[2017-12-21] MEDS: MAG HYDROX/AL HYDROX/SIMETH 30 ML UNIT-DOSE CUP PO PRN (13:37)
--- NOTE | 2017-12-21 13:53 | PN ---
BHS COWS - Scale Resting Pulse: 2= [place] 101-120 Sweatin= Chills/Flushing Restless Observation: 3= Extraneous Movement Pupil Size: 0= Normal to Room Light Bone or Joint Aches: 1= Mild Discomfort Runny Nose/ Eye Tearin= None GI Upset > 30mins: 1= Stomach Cramp Tremor Observation of Outstretched Hands: 2= Slight Tremor Visible Yawning Observation: 0= None Anxiety or Irritability: 1=Feels Anxious/Irritable Goose Flesh Skin: 0=Smooth Skin COWS Score: 11 [facility] Progress Note (SOAP) Subjective: Back pain, constipation, interrupted sleep Objective: 12/21/17 13:52 Last Vital Signs Temp Pulse Resp BP Pulse Ox 95.8 F L 101 H 18 120/75 12/21/17 09:17 12/21/17 09:17 12/21/17 09:17 12/21/17 09:17 Laboratory Tests 12/20/17 12/20/17 12/20/17 07:30 07:30 07:30 WBC 8.1 RBC 4.02 Hgb 12.5 Hct 37.1 MCV 92.3 MCH 31.1 MCHC 33.7 RDW 14.2 Plt Count 376 D MPV 7.0 L D Sodium 138 Potassium 4.4 Chloride 103 Carbon Dioxide 24 Anion Gap 11 BUN 21 H Creatinine 0.6 Creat Clearance w eGFR > 60 Random Glucose 86 Calcium 8.5 Total Bilirubin 0.2 AST 31 ALT 23 Alkaline Phosphatase 97 Total Protein 6.6 Albumin 2.9 L Urine Color Urine Appearance Urine pH Ur Specific [place] Urine Protein Urine Glucose (UA) Urine Ketones Urine Blood Urine Nitrite Urine Bilirubin Urine Urobilinogen Ur Leukocyte Esterase RPR Titer Nonreactive 12/20/17 13:50 WBC RBC Hgb Hct MCV MCH MCHC RDW Plt Count MPV Sodium Potassium Chloride Carbon Dioxide Anion Gap BUN Creatinine Creat Clearance w eGFR Random Glucose Calcium Total Bilirubin AST ALT Alkaline Phosphatase Total Protein Albumin Urine Color Yellow Urine Appearance Clear Urine pH 6.0 Ur Specific [place] 1.020 Urine Protein Negative Urine Glucose (UA) Negative Urine Ketones Negative Urine Blood Negative Urine Nitrite Negative Urine Bilirubin Negative Urine Urobilinogen Negative Ur Leukocyte Esterase Negative RPR Titer Labs reviewed: bun 21 Assessment: 12/21/17 13:52 Withdrawal sxs Noted with azotemia Plan: Continue detox Azotemia: encouraged PO water intake
[2017-12-21] MEDS: ACETAMINOPHEN 325 MG TABLET (FP) PO PRN (17:00)
[2017-12-21] MEDS: THIAMINE HCL 100 MG TABLET (FP) PO SCH (22:09)
[2017-12-21] MEDS: LIDOCAINE PATCH REMOVAL MC SCH (22:09)
[2017-12-21] MEDS: IBUPROFEN 400 MG TABLET (FP) PO PRN (22:10)
[2017-12-21] MEDS: METHYL SALICYLATE/MENTHOL OINT 30 GM TUBE TP SCH (22:11)
[2017-12-22] MEDS: IBUPROFEN 400 MG TABLET (FP) PO PRN ×2 (06:54→22:16)
[2017-12-22] MEDS ORDERED: METHADONE HCL 5 MG TABLET (FOR DETOX USE ONLY) PO ONE (10:00)
[2017-12-22] MEDS: PRENATAL VITAMINS W/ FOLIC ACID TABLET (FP) PO SCH (10:40)
[2017-12-22] MEDS: METHYL SALICYLATE/MENTHOL OINT 30 GM TUBE TP SCH ×2 (10:41→22:16)
[2017-12-22] MEDS: NICOTINE 14 MG/24 HOURS TOPICAL PATCH TD SCH (10:41)
[2017-12-22] MEDS: LIDOCAINE 5% TOPICAL PATCH TP SCH (10:41)
--- NOTE | 2017-12-22 16:06 | PN ---
BHS Progress Note (SOAP) Subjective: Patient denies any withdrawal symptoms; appears anxious Objective: 12/22/17 16:05 Last Vital Signs Temp Pulse Resp BP Pulse Ox 98.5 F 108 H 17 134/78 12/22/17 15:45 12/22/17 15:45 12/22/17 15:45 12/22/17 15:45 Laboratory Tests 12/20/17 12/20/17 12/20/17 07:30 07:30 07:30 WBC 8.1 RBC 4.02 Hgb 12.5 Hct 37.1 MCV 92.3 MCH 31.1 MCHC 33.7 RDW 14.2 Plt Count 376 D MPV 7.0 L D Sodium 138 Potassium 4.4 Chloride 103 Carbon Dioxide 24 Anion Gap 11 BUN 21 H Creatinine 0.6 Creat Clearance w eGFR > 60 Random Glucose 86 Calcium 8.5 Total Bilirubin 0.2 AST 31 ALT 23 Alkaline Phosphatase 97 Total Protein 6.6 Albumin 2.9 L Urine Color Urine Appearance Urine pH Ur Specific [place] Urine Protein Urine Glucose (UA) Urine Ketones Urine Blood Urine Nitrite Urine Bilirubin Urine Urobilinogen Ur Leukocyte Esterase RPR Titer Nonreactive 12/20/17 13:50 WBC RBC Hgb Hct MCV MCH MCHC RDW Plt Count MPV Sodium Potassium Chloride Carbon Dioxide Anion Gap BUN Creatinine Creat Clearance w eGFR Random Glucose Calcium Total Bilirubin AST ALT Alkaline Phosphatase Total Protein Albumin Urine Color Yellow Urine Appearance Clear Urine pH 6.0 Ur Specific [place] 1.020 Urine Protein Negative Urine Glucose (UA) Negative Urine Ketones Negative Urine Blood Negative Urine Nitrite Negative Urine Bilirubin Negative Urine Urobilinogen Negative Ur Leukocyte Esterase Negative RPR Titer Labs reviewed Assessment: 12/22/17 16:05 Withdrawal sxs Plan: Continue detox Encouraged PO water intake
[2017-12-22] MEDS: ACETAMINOPHEN 325 MG TABLET (FP) PO PRN (17:34)
[2017-12-22] MEDS: MAG HYDROX/AL HYDROX/SIMETH 30 ML UNIT-DOSE CUP PO PRN (19:06)
[2017-12-22] MEDS: THIAMINE HCL 100 MG TABLET (FP) PO SCH (22:16)
[2017-12-22] MEDS: MELATONIN 5 MG TABLETS PO PRN (22:16)
[2017-12-22] MEDS: LIDOCAINE PATCH REMOVAL MC SCH (22:59)
[2017-12-23] MEDS: ACETAMINOPHEN 325 MG TABLET (FP) PO PRN (01:30)
[2017-12-23] MEDS ORDERED: METHADONE HCL 10 MG TABLET (FOR DETOX USE ONLY) PO ONE (10:00)
[2017-12-23] MEDS: LIDOCAINE 5% TOPICAL PATCH TP SCH (10:44)
[2017-12-23] MEDS: PRENATAL VITAMINS W/ FOLIC ACID TABLET (FP) PO SCH (10:44)
[2017-12-23] MEDS: NICOTINE 14 MG/24 HOURS TOPICAL PATCH TD SCH (10:44)
[2017-12-23] MEDS: METHYL SALICYLATE/MENTHOL OINT 30 GM TUBE TP SCH ×2 (10:45→22:11)
[2017-12-23] MEDS: IBUPROFEN 400 MG TABLET (FP) PO PRN ×2 (10:46→18:26)
--- NOTE | 2017-12-23 12:16 | PN ---
[facility] Progress Note Note: Vital Signs Temperature 97.5 F L 12/23/17 10:56 Pulse Rate 98 H 12/23/17 10:56 Respiratory Rate 18 12/23/17 10:56 Blood Pressure 149/85 12/23/17 10:56 O2 Sat by Pulse Oximetry (%) Laboratory Last Values WBC 8.1 K/mm3 (4.0-10.0) 12/20/17 07:30 RBC 4.02 M/mm3 (4.00-5.60) 12/20/17 07:30 Hgb 12.5 GM/dL (11.7-16.9) 12/20/17 07:30 Hct 37.1 % (35.4-49) 12/20/17 07:30 MCV 92.3 fl (80-96) 12/20/17 07:30 MCH 31.1 pg (25.7-33.7) 12/20/17 07:30 MCHC 33.7 g/dl (32.0-35.9) 12/20/17 07:30 RDW 14.2 % (11.9-15.9) 12/20/17 07:30 Plt Count 376 K/MM3 (134-434) D 12/20/17 07:30 MPV 7.0 fl (7.5-11.1) L D 12/20/17 07:30 Sodium 138 mmol/L (136-145) 12/20/17 07:30 Potassium 4.4 mmol/L (3.5-5.1) 12/20/17 07:30 Chloride 103 mmol/L (98-107) 12/20/17 07:30 Carbon Dioxide 24 mmol/L (21-32) 12/20/17 07:30 Anion Gap 11 MMOL/L (8-16) 12/20/17 07:30 BUN 21 mg/dL (7-18) H 12/20/17 07:30 Creatinine 0.6 mg/dL (0.55-1.3) 12/20/17 07:30 Creat Clearance w eGFR > 60 (>60) 12/20/17 07:30 Random Glucose 86 mg/dL (74-106) 12/20/17 07:30 Calcium 8.5 mg/dL (8.5-10.1) 12/20/17 07:30 Total Bilirubin 0.2 mg/dL (0.2-1) 12/20/17 07:30 AST 31 U/L (15-37) 12/20/17 07:30 ALT 23 U/L (13-61) 12/20/17 07:30 Alkaline Phosphatase 97 U/L (45-117) 12/20/17 07:30 Total Protein 6.6 g/dl (6.4-8.2) 12/20/17 07:30 Albumin 2.9 g/dl (3.4-5.0) L 12/20/17 07:30 Urine Color Yellow 12/20/17 13:50 Urine Appearance Clear 12/20/17 13:50 Urine pH 6.0 (5.0-8.0) 12/20/17 13:50 Ur Specific [place] 1.020 (1.010-1.035) 12/20/17 13:50 Urine Protein Negative (NEGATIVE) 12/20/17 13:50 Urine Glucose (UA) Negative (NEGATIVE) 12/20/17 13:50 Urine Ketones Negative (NEGATIVE) 12/20/17 13:50 Urine Blood Negative (NEGATIVE) 12/20/17 13:50 Urine Nitrite Negative (NEGATIVE) 12/20/17 13:50 Urine Bilirubin Negative (<2.0 mg/dL) 12/20/17 13:50 Urine Urobilinogen Negative mg/dL (0.2-1.0) 12/20/17 13:50 Ur Leukocyte Esterase Negative (NEGATIVE) 12/20/17 13:50 RPR Titer Nonreactive (NONREACTIVE) 12/20/17 07:30 c/o of back pain and fatigue AOX3 no distress no adventitious breath sounds full ROM ambulatory withdrawal sx increase fluids continue detox continue to monitor d/c Aicha
--- NOTE | 2017-12-23 19:03 | PN ---
BHS Progress Note Note: constipated,no bowel movement for 3 days,citroma 300 mls po tonight,close monitoring
[2017-12-23] MEDS ORDERED: MAGNESIUM CITRATE 300 ML BOTTLE PO ONE (19:15)
[2017-12-23] MEDS: THIAMINE HCL 100 MG TABLET (FP) PO SCH (22:10)
[2017-12-23] MEDS: MELATONIN 5 MG TABLETS PO PRN (22:10)
[2017-12-23] MEDS: LIDOCAINE PATCH REMOVAL MC SCH (22:11)
[2017-12-24] MEDS ORDERED: MAGNESIUM CITRATE 300 ML BOTTLE PO ONE (05:02)
[2017-12-24] MEDS: IBUPROFEN 400 MG TABLET (FP) PO PRN (05:46)
[2017-12-24] MEDS ORDERED: METHADONE HCL 5 MG TABLET (FOR DETOX USE ONLY) PO ONE (06:00)
[2017-12-24 09:56] VITALS: BP 134/83; PULSE 93; TEMP 98.3
[2017-12-24] MEDS: METHYL SALICYLATE/MENTHOL OINT 30 GM TUBE TP SCH (10:41)
[2017-12-24] MEDS: PRENATAL VITAMINS W/ FOLIC ACID TABLET (FP) PO SCH (10:41)
[2017-12-24] MEDS: LIDOCAINE 5% TOPICAL PATCH TP SCH (10:41)
[2017-12-24] MEDS: NICOTINE 14 MG/24 HOURS TOPICAL PATCH TD SCH (10:42)
--- NOTE | 2017-12-24 18:17 | DS ---
[facility] Detox Discharge Summary Admission Date: 12/18/17 Discharge Date: 12/24/17 - History Present History: Opioid Dependence Pertinent Past History: Nicotine dependence Hepatitis C - Physical Exam Results Vital Signs: Vital Signs Temperature 98.3 F 12/24/17 09:55 Pulse Rate 93 H 12/24/17 09:55 Respiratory Rate 16 12/24/17 09:55 Blood Pressure 134/83 12/24/17 09:55 O2 Sat by Pulse Oximetry (%) Pertinent Admission Physical Exam Findings: Withdrawal sxs Laboratory Tests 12/20/17 12/20/17 12/20/17 07:30 07:30 07:30 WBC 8.1 RBC 4.02 Hgb 12.5 Hct 37.1 MCV 92.3 MCH 31.1 MCHC 33.7 RDW 14.2 Plt Count 376 D MPV 7.0 L D Sodium 138 Potassium 4.4 Chloride 103 Carbon Dioxide 24 Anion Gap 11 BUN 21 H Creatinine 0.6 Creat Clearance w eGFR > 60 Random Glucose 86 Calcium 8.5 Total Bilirubin 0.2 AST 31 ALT 23 Alkaline Phosphatase 97 Total Protein 6.6 Albumin 2.9 L Urine Color Urine Appearance Urine pH Ur Specific [place] Urine Protein Urine Glucose (UA) Urine Ketones Urine Blood Urine Nitrite Urine Bilirubin Urine Urobilinogen Ur Leukocyte Esterase RPR Titer Nonreactive 12/20/17 13:50 WBC RBC Hgb Hct MCV MCH MCHC RDW Plt Count MPV Sodium Potassium Chloride Carbon Dioxide Anion Gap BUN Creatinine Creat Clearance w eGFR Random Glucose Calcium Total Bilirubin AST ALT Alkaline Phosphatase Total Protein Albumin Urine Color Yellow Urine Appearance Clear Urine pH 6.0 Ur Specific [place] 1.020 Urine Protein Negative Urine Glucose (UA) Negative Urine Ketones Negative Urine Blood Negative Urine Nitrite Negative Urine Bilirubin Negative Urine Urobilinogen Negative Ur Leukocyte Esterase Negative RPR Titer Labs reviewed - Treatment Hospital Course: Detox Protocol Followed, Detoxed Safely, Responded well, Discharged Condition Good - Medication Discharge Medications: Ambulatory Orders NK [No Known Home Medication] 07/19/17 - Diagnosis (1) Opioid dependence with withdrawal Status: Acute (2) Hx of hepatitis C Status: Chronic (3) Nicotine dependence Status: Chronic Qualifiers: Nicotine product type: cigarettes Substance use status: uncomplicated Qualified Code(s): F17.210 - Nicotine dependence, cigarettes, uncomplicated (4) Dehydration Status: Acute - AMA Did Patient Leave Against Medical Advice: No (F/U with your PCP within 1-2 weeks )
== END 2017-12-24 12:15 | disposition home or self-care (01) | DRG 897 ==
LOC: YASAS 20:42 → Y3N 23:53
PROC: HZ2ZZZZ Detoxification Services for Substance Abuse Treatment (ICD-10-PCS; principal; 2017-12-18)
DX: F11.23 Opioid dependence with withdrawal (principal); F17.210 Nicotine dependence, cigarettes, uncomplicated; F32.9 Major depressive disorder, single episode, unspecified; E86.0 Dehydration; B18.2 Chronic viral hepatitis C; K59.00 Constipation, unspecified; L98.8 Other specified disorders of the skin and subcutaneous tissue; R79.89 Other specified abnormal findings of blood chemistry; Z59.0 Homelessness
CPT/HCPCS: 36415; 80053; 81003; 85027; 86593

== ENCOUNTER 2018-03-23 13:14 | Inpatient (IN) | payer OTHER ==
[2018-03-23 13:33] VITALS: BMI 25.5
--- NOTE | 2018-03-23 14:41 | HP ---
COWS - Scale Resting Pulse: 2= [place] 101-120 Sweatin= Chills/Flushing Restless Observation: 3= Extraneous Movement Pupil Size: 1= Pupils >than Normal Bone or Joint Aches: 2= Severe Diffuse Aches Runny Nose/ Eye Tearin= Runny Nose/Eyes GI Upset > 30mins: 2= Nausea/Diarrhea Tremor Observation: 2= Slight Tremor Visible Yawning Observation: 2= >3x During Session Anxiety or Irritability: 2=Irritable/Anxious Goose Flesh Skin: 0=Smooth Skin COWS Score: 19 CIWA Score - Admission Criteria [facility] Guidelines: Admission for Medically Managed Detox: Requires at least one of the followin. CIWA greater than 12 2. Seizures within the past 24 hours 3. Delirium tremens within the past 24 hours 4. Hallucinations within the past 24 hours 5. Acute intervention needed for co occurring medical disorder 6. Acute intervention needed for co occurring psychiatric disorder 7. Severe withdrawal that cannot be handled at a lower level of care (continued vomiting, continued diarrhea, abnormal vital signs) requiring intravenous medication and/or fluids 8. Admission ROS [facility] Chief Complaint: i need help to stop using heroin Allergies/Adverse Reactions: Allergies Allergy/AdvReac Type Severity Reaction Status Date / Time No Known Allergies Allergy Verified 03/23/18 15:00 History of Present Illness: this 68 years old male with heroin dependence,seeking detox,withdrawal symptom, last detox 12/18/17 to 12/24/17 nicotine dependence cellulitis of right facial area for 2 days,no medication plan for out patient program after detox longest period of sobriety 6 months Exam Limitations: No Limitations - Ebola screening Have you traveled outside of the country in the last 21 days: No Have you had contact with anyone from an Ebola affected area: No Have you been sick,other than usual withdrawal symptoms: No Do you have a fever: No - Review of Systems Constitutional: Chills, Loss of Appetite, Malaise, Night Sweats, Changes in sleep, Weakness EENT: reports: Tearing, Nose Congestion, Other (cellulitis of right facial area for 2 days) Respiratory: reports: No Symptoms reported Cardiac: reports: No Symptoms Reported GI: reports: Nausea, Vomiting, Abdominal cramping : reports: No Symptoms Reported Musculoskeletal: reports: Back Pain, Joint Pain, Muscle Pain, Joint Stiffness Integumentary: reports: Dryness Neuro: reports: Headache, Tremors Endocrine: reports: No Symptoms Reported Hematology: reports: No Symptoms Reported Psychiatric: reports: No Sypmtoms Reported, Judgement Intact, Mood/Affect Appropiate, Orientated x3, other Patient History - Patient Medical History Hx Anemia: No Hx Asthma: No Hx Chronic Obstructive Pulmonary Disease (COPD): No Hx Cancer: No Hx Cardiac Disorders: No Hx Congestive Heart Failure: No Hx Hypertension: No Hx Hypercholesterolemia: No Hx Pacemaker: No HX Cerebrovascular Accident: No Hx Seizures: No Hx Dementia: No Hx Diabetes: No Hx Gastrointestinal Disorders: No Hx Liver Disease: Yes (treated) Hx Genitourinary Disorders: No Hx Sexually Transmitted Disorders: No Hx Renal Disease (ESRD): No Hx Thyroid Disease: No Hx Human Immunodeficiency Virus (HIV): No (States being tested a few months ago and negative. Refused testing) Hx Hepatitis C: Yes (started Mavret in February 2017) Hx Depression: Yes (not on any psychotropic medication) Hx Suicide Attempt: No Hx Bipolar Disorder: No Hx Schizophrenia: No Other Medical History: no suicidal,no honicidal - Patient Surgical History Past Surgical History: No Hx Neurologic Surgery: No Hx Cataract Extraction: No Hx Cardiac Surgery: No Hx Lung Surgery: No Hx Breast Surgery: (n/a) Hx Breast Biopsy: (n/a) Hx Abdominal Surgery: Yes (in 2017 ) Hx Appendectomy: No Hx Cholecystectomy: No Hx Genitourinary Surgery: No Hx Section: No Hx Orthopedic Surgery: No Anesthesia Reaction: No - PPD History Previous Implant?: Yes Documented Results: Negative w/proof Implanted On Prior [facility] Admission?: Yes Date: 05/15/17 Results: o mm PPD to be Administered?: No - Smoking Cessation Smoking history: Current every day smoker Have you smoked in the past 12 months: Yes Aproximately how many cigarettes per day: 6 Hx Chewing Tobacco Use: No Initiated information on smoking cessation: Yes 'Breaking Loose' booklet given: 03/23/18 - Substance & Tx. History Hx Alcohol Use: No Hx Substance Use: Yes Substance Use Type: Heroin Hx Substance Use Treatment: Yes ([facility] 12/18/17 to 12/24/17) - Substances Abused Heroin Route: Inhalation Frequency: Daily Amount used: 10 bags Age of first use: 42 Date of Last Use: 02/07/19 Family Disease History - Family Disease History Family Disease History: Other: Father (, etoh, alzheimers), Mother (age 92 - in [place]), Brother (one - living - healthy), Sister (four - living - healthy) Admission Physical Exam [facility] - Vital Signs Vital Signs: Vital Signs - 24 hr 03/23/18 13:27 Temperature 98.7 F Pulse Rate 111 H Respiratory 18 Rate Blood Pressure 116/65 - Physical General Appearance: Yes: Moderate Distress, Irritable, Sweating, Anxious HEENTM: Yes: Normal ENT Inspection, CEE, Pharynx Normal, Other (cellulitis of right facial area) Respiratory: Yes: Lungs Clear, Normal Breath Sounds, No Respiratory Distress Neck: Yes: Within Normal Limits, Supple, Trachea in good position Breast: Yes: Within Normal Limits Cardiology: Yes: Within Normal Limits, Regular Rhythm, Regular Rate, S1, S2 Abdominal: Yes: Within Normal Limits, Normal Bowel Sounds, Non Tender, Soft Genitourinary: Yes: Within Normal Limits Back: Yes: Muscle Spasm Musculoskeletal: Yes: Back pain, Joint Stiffness, Muscle Pain Extremities: Yes: Tremors Neurological: Yes: staff development manager II-XII NML intact, Fully Oriented, Alert, Motor Strength 5/5 Integumentary: Yes: Dry Lymphatic: Yes: Within Normal Limits - Diagnostic (1) Opioid dependence with withdrawal Current Visit: No Status: Acute (2) Dehydration Current Visit: No Status: Acute (3) Hepatitis C Current Visit: Yes Status: Acute (4) Cellulitis Current Visit: Yes Status: Acute (5) Nicotine dependence Current Visit: No Status: Chronic Qualifiers: Nicotine product type: cigarettes Substance use status: uncomplicated Qualified Code(s): F17.210 - Nicotine dependence, cigarettes, uncomplicated Cleared for Admission [facility] - Detox or Rehab [facility] Level of Care: Medically Managed Detox Regimen/Protocol: Methadone [facility] Breath Alcohol Content Breath Alcohol Content: 0.06 Urine Drug Screen - Results Drug Screen Negative: No Urine Drug Screen Results: OPI-Opiates, BZO-Benzodiazepines, OXY-Oxycodone Inpatient Rehab Admission - Rehab Decision to Admit Inpatient rehab admission?: No
[2018-03-23] MEDS ORDERED: MAGNESIUM CITRATE 300 ML BOTTLE PO PRN (15:01)
[2018-03-23] MEDS ORDERED: MENTHOL/PHENOL 1 EACH UD MM PRN (15:01)
[2018-03-23] MEDS ORDERED: IBUPROFEN 400 MG TABLET (FP) PO PRN (15:01)
[2018-03-23] MEDS ORDERED: LOPERAMIDE HCL 2 MG CAPSULE PO PRN (15:01)
[2018-03-23] MEDS ORDERED: MAGNESIUM HYDROX 2400MG/30ML ORAL SUSPENSION 30 ML CUP PO PRN (15:01)
[2018-03-23] MEDS ORDERED: P-EPHED 60MG/TRIPROLIDI 2.5MG TABLET PO PRN (15:01)
[2018-03-23] MEDS ORDERED: ACETAMINOPHEN 325 MG TABLET (FP) PO PRN (15:01)
[2018-03-23] MEDS ORDERED: guaiFENesin/D-METHORPHAN HB 10 ML UNIT-DOSE CUPS PO PRN (15:01)
[2018-03-23] MEDS ORDERED: MAG HYDROX/AL HYDROX/SIMETH 30 ML UNIT-DOSE CUP PO PRN (15:01)
[2018-03-23] MEDS ORDERED: METHADONE HCL 10 MG TABLET (FOR DETOX USE ONLY) PO ONE ×2 (15:30→23:00)
[2018-03-23] MEDS: BACITRACIN 0.9 GM PACKET TP SCH (15:48)
[2018-03-23] MEDS: diazePAM 5 MG TABLET PO PRN ×2 (15:52→20:03)
[2018-03-23] MEDS: CEPHALEXIN MONOHYDRATE 500 MG CAPSULE (UD) PO SCH ×2 (17:36→23:09)
[2018-03-23] MEDS ORDERED: MELATONIN 5 MG TABLETS PO PRN (22:00)
[2018-03-23] MEDS: THIAMINE HCL 100 MG TABLET (FP) PO SCH (22:11)
[2018-03-24] MEDS: diazePAM 5 MG TABLET PO PRN ×6 (00:31→22:25)
[2018-03-24] MEDS: CEPHALEXIN MONOHYDRATE 500 MG CAPSULE (UD) PO SCH ×3 (05:10→17:43)
[2018-03-24] MEDS ORDERED: METHADONE HCL 10 MG TABLET (FOR DETOX USE ONLY) PO ONE (10:00)
[2018-03-24] MEDS: PRENATAL VITAMINS W/ FOLIC ACID TABLET (FP) PO SCH (10:22)
[2018-03-24] MEDS: BACITRACIN 0.9 GM PACKET TP SCH (10:22)
[2018-03-24 11:39] LABS: ALBUMIN 3.2 g/dl (3.4-5.0); ALK PHOS 121 U/L (45-117); ANION GAP 7 MMOL/L (8-16); BILIRUBIN,TOTAL 0.3 mg/dL (0.2-1); BLOOD UREA NITROGEN 24 mg/dL (7-18); CALCIUM 8.5 mg/dL (8.5-10.1); CHLORIDE 106 mmol/L (98-107); CO2 27 mmol/L (21-32); CREATININE 0.6 mg/dL (0.55-1.3); GLUCOSE,RANDOM 113 mg/dL (74-106); SGOT/AST 55 U/L (15-37); SGPT/ALT 24 U/L (13-61); SODIUM 139 mmol/L (136-145); TOT PROT 6.3 g/dl (6.4-8.2)
[2018-03-24 11:51] LABS: HEMATOCRIT 35.6 % (35.4-49); HEMOGLOBIN 12.1 GM/dL (11.7-16.9); MCHC 34.1 g/dl (32.0-35.9); MEAN CELL VOLUME 90.8 fl (80-96); MEAN PLT VOLUME 7.9 fl (7.5-11.1); PLATELET COUNT 272 K/MM3 (134-434); RBC 3.92 M/mm3 (4.00-5.60); RDW 14.6 % (11.9-15.9); WHITE BLOOD COUNT 7.9 K/mm3 (4.0-10.0)
--- NOTE | 2018-03-24 16:59 | PN ---
BHS COWS - Scale Resting Pulse: 1= [place] 81-100 Sweatin=Flushed/Facial Moisture Restless Observation: 0= Sits Still Pupil Size: 0= Normal to Room Light Bone or Joint Aches: 1= Mild Discomfort Runny Nose/ Eye Tearin= Nasal Congestion GI Upset > 30mins: 2= Nausea/Diarrhea Tremor Observation of Outstretched Hands: 2= Slight Tremor Visible Yawning Observation: 1= 1-2x During Session Anxiety or Irritability: 1=Feels Anxious/Irritable Goose Flesh Skin: 0=Smooth Skin COWS Score: 11 S Progress Note (SOAP) Subjective: diarrhea vomiting sweats leg cramp body pain Objective: 03/24/18 16:57 A & O x 3 in bed abscess noted to R side of mouth/cheek Vital Signs Temperature 97.7 F 03/24/18 14:31 Pulse Rate 92 H 03/24/18 14:31 Respiratory Rate 18 03/24/18 14:31 Blood Pressure 135/84 03/24/18 14:31 O2 Sat by Pulse Oximetry (%) Laboratory Last Values WBC 7.9 K/mm3 (4.0-10.0) 03/24/18 07:40 RBC 3.92 M/mm3 (4.00-5.60) L 03/24/18 07:40 Hgb 12.1 GM/dL (11.7-16.9) 03/24/18 07:40 Hct 35.6 % (35.4-49) 03/24/18 07:40 MCV 90.8 fl (80-96) 03/24/18 07:40 MCH 31.0 pg (25.7-33.7) 03/24/18 07:40 MCHC 34.1 g/dl (32.0-35.9) 03/24/18 07:40 RDW 14.6 % (11.9-15.9) 03/24/18 07:40 Plt Count 272 K/MM3 (134-434) D 03/24/18 07:40 MPV 7.9 fl (7.5-11.1) D 03/24/18 07:40 Sodium 139 mmol/L (136-145) 03/24/18 07:40 Potassium 4.0 mmol/L (3.5-5.1) 03/24/18 07:40 Chloride 106 mmol/L (98-107) 03/24/18 07:40 Carbon Dioxide 27 mmol/L (21-32) 03/24/18 07:40 Anion Gap 7 MMOL/L (8-16) L 03/24/18 07:40 BUN 24 mg/dL (7-18) H 03/24/18 07:40 Creatinine 0.6 mg/dL (0.55-1.3) 03/24/18 07:40 Creat Clearance w eGFR > 60 (>60) 03/24/18 07:40 Random Glucose 113 mg/dL (74-106) H 03/24/18 07:40 Calcium 8.5 mg/dL (8.5-10.1) 03/24/18 07:40 Total Bilirubin 0.3 mg/dL (0.2-1) 03/24/18 07:40 AST 55 U/L (15-37) H 03/24/18 07:40 ALT 24 U/L (13-61) 03/24/18 07:40 Alkaline Phosphatase 121 U/L (45-117) H 03/24/18 07:40 Total Protein 6.3 g/dl (6.4-8.2) L 03/24/18 07:40 Albumin 3.2 g/dl (3.4-5.0) L 03/24/18 07:40 RPR Titer Nonreactive (NONREACTIVE) 03/24/18 07:40 labs noted Assessment: 03/24/18 16:58 withdrawal sx abscess to cheek Plan: continue detox continue abx increase hydration
[2018-03-24] MEDS: THIAMINE HCL 100 MG TABLET (FP) PO SCH (22:25)
[2018-03-25] MEDS: CEPHALEXIN MONOHYDRATE 500 MG CAPSULE (UD) PO SCH ×5 (00:21→23:18)
[2018-03-25] MEDS: diazePAM 5 MG TABLET PO PRN ×4 (05:52→22:15)
[2018-03-25] MEDS ORDERED: METHADONE HCL 5 MG TABLET (FOR DETOX USE ONLY) PO ONE (10:00)
[2018-03-25] MEDS: BACITRACIN 0.9 GM PACKET TP SCH (10:24)
[2018-03-25] MEDS: PRENATAL VITAMINS W/ FOLIC ACID TABLET (FP) PO SCH (10:24)
--- NOTE | 2018-03-25 16:54 | PN ---
BHS COWS - Scale Resting Pulse: 1= [place] 81-100 Sweatin= Chills/Flushing Restless Observation: 3= Extraneous Movement Pupil Size: 0= Normal to Room Light Bone or Joint Aches: 1= Mild Discomfort Runny Nose/ Eye Tearin= None GI Upset > 30mins: 1= Stomach Cramp Tremor Observation of Outstretched Hands: 2= Slight Tremor Visible Yawning Observation: 0= None Anxiety or Irritability: 1=Feels Anxious/Irritable Goose Flesh Skin: 0=Smooth Skin COWS Score: 10 BHS Progress Note (SOAP) Subjective: Sweating, interrupted sleep Objective: 03/25/18 16:52 Last Vital Signs Temp Pulse Resp BP Pulse Ox 98.1 F 98 H 18 113/77 03/25/18 13:19 03/25/18 13:19 03/25/18 13:19 03/25/18 13:19 Laboratory Tests 03/24/18 03/24/18 03/24/18 07:40 07:40 07:40 WBC 7.9 RBC 3.92 L Hgb 12.1 Hct 35.6 MCV 90.8 MCH 31.0 MCHC 34.1 RDW 14.6 Plt Count 272 D MPV 7.9 D Sodium 139 Potassium 4.0 Chloride 106 Carbon Dioxide 27 Anion Gap 7 L BUN 24 H Creatinine 0.6 Creat Clearance w eGFR > 60 Random Glucose 113 H Calcium 8.5 Total Bilirubin 0.3 AST 55 H ALT 24 Alkaline Phosphatase 121 H Total Protein 6.3 L Albumin 3.2 L RPR Titer Nonreactive Labs reviewed: bun 24 Assessment: 03/25/18 16:53 Withdrawal symptoms Noted with azotemia Plan: Continue detox Azotemia: encouraged PO water hydration
[2018-03-25] MEDS: THIAMINE HCL 100 MG TABLET (FP) PO SCH (22:15)
[2018-03-25] MEDS: hydrOXYzine PAMOATE 50 MG CAPSULE (FP) PO PRN (22:15)
[2018-03-26] MEDS: CEPHALEXIN MONOHYDRATE 500 MG CAPSULE (UD) PO SCH ×4 (06:12→23:02)
[2018-03-26] MEDS: diazePAM 5 MG TABLET PO PRN ×2 (06:14→10:20)
--- NOTE | 2018-03-26 07:36 | CONSULT ---
[facility] Psychiatric Consult - Data Date of interview: 03/26/18 Admission source: [facility], as per nursing report asking psychiatric evaluation Identifying data: This is a 68 years old male, single, childless, unempl;yrd, living with roommate, on PA supports , with multiple medical issues, with no psychiatyric hospitalization history,with long history of Heroin, Cociane, and Nicotine dependence ,seeking detox, reporting withdrawal symptoms. History of last detox 12/18/17 to 12/24/17. nicotine dependence Substance Abuse History: Smoking history: Current every day smoker. Have you smoked in the past 12 months: Yes. Aproximately how many cigarettes per day: 6. Hx Chewing Tobacco Use: No. Initiated information on smoking cessation: Yes. 'Breaking Loose' booklet given: 03/23/18. - Substance & Tx. History. Hx Alcohol Use: No. Hx Substance Use: Yes. Substance Use Type: Heroin. Hx Substance Use Treatment: Yes ([facility] 12/18/17 to 12/24/17). - Substances Abused. Heroin. Route: Inhalation. Frequency: Daily. Amount used: 10 bags. Age of first use: 42. Date of Last Use: 03/22/18 Medical History: Scolioisis, Eczema, History of Abdominal surgery, Azothemia history, Celluliits history, LBP, Headache history, HepC+, Psychiatric History: Patient reports anxiety and depression, reports severe insomnia, asking for medication help, denies psychiatric hospitalization history , reports nom suicidal, homicidal history. Physical/Sexual Abuse/Trauma History: Denies Additional Comment: Belsomra 10mg po qhs prn for insomnia Mental Status Exam - Mental Status Exam Alert and Oriented to: Person Cognitive Function: Fair Patient Appearance: Unkempt Mood: Sad Affect: Mood Congruent Patient Behavior: Cooperative Speech Pattern: Delayed Voice Loudness: Mildly Soft/Quiet Thought Process: Goal Oriented Thought Disorder: Being Controlled Hallucinations: Denies Suicidal Ideation: Denies Homicidal Ideation: Denies Insight/Judgement: Fair Sleep: Difficulty falling asleep Appetite: Weight loss Muscle strength/Tone: Mild Hypotonicity Gait/Station: Shuffling Additional Comments: Belsomra 10mg po qhs prn for insomnia Psychiatric Findings - Problem List ([place] 1, 2,3) (1) Opioid dependence with withdrawal Current Visit: Yes Status: Acute (2) Nicotine dependence Current Visit: Yes Status: Chronic Qualifiers: Nicotine product type: cigarettes Substance use status: uncomplicated Qualified Code(s): F17.210 - Nicotine dependence, cigarettes, uncomplicated (3) Cocaine dependence Current Visit: No Status: Acute Qualifiers: Substance use status: uncomplicated Qualified Code(s): F14.20 - Cocaine dependence, uncomplicated (4) Sleep difficulties Current Visit: No Status: Acute (5) Substance-induced anxiety disorder Current Visit: No Status: Acute (6) Substance-induced sleep disorder Current Visit: No Status: Acute (7) Cocaine dependence, uncomplicated Current Visit: No Status: Chronic (8) Headache Current Visit: No Status: Acute Qualifiers: Headache type: tension-type Headache chronicity pattern: episodic headache (9) Low back sprain Current Visit: No Status: Acute Qualifiers: Encounter type: initial encounter Qualified Code(s): S33.5XXA - Sprain of ligaments of lumbar spine, initial encounter (10) Sciatica Current Visit: No Status: Acute Qualifiers: Laterality: bilateral Qualified Code(s): M54.31 - Sciatica, right side; M54.32 - Sciatica, left side (11) Drug-induced mood disorder Current Visit: Yes Status: Acute - Initial Treatment Plan Initial Treatment Plan: Belsomra 10mg po qhs prn for insomnia
[2018-03-26] MEDS ORDERED: METHADONE HCL 5 MG TABLET (FOR DETOX USE ONLY) PO ONE (10:00)
[2018-03-26] MEDS: BACITRACIN 0.9 GM PACKET TP SCH (10:20)
[2018-03-26] MEDS: PRENATAL VITAMINS W/ FOLIC ACID TABLET (FP) PO SCH (10:20)
--- NOTE | 2018-03-26 12:09 | PN ---
[facility] Progress Note (SOAP) Subjective: sweats mild shakes irritable agitation interrupted sleep Objective: 03/26/18 12:09 Vital Signs Temperature 97.9 F 03/26/18 10:32 Pulse Rate 90 03/26/18 10:32 Respiratory Rate 18 03/26/18 10:32 Blood Pressure 112/69 03/26/18 10:32 O2 Sat by Pulse Oximetry (%) aaox3 ambulating no acute distress Assessment: 03/26/18 12:09 withdrawal sx Plan: continue detox increase fluids
[2018-03-26] MEDS ORDERED: SUVOREXANT 10 MG TABLET PO PRN (22:00)
[2018-03-26] MEDS: THIAMINE HCL 100 MG TABLET (FP) PO SCH (22:15)
[2018-03-26] MEDS: hydrOXYzine PAMOATE 50 MG CAPSULE (FP) PO PRN (22:16)
[2018-03-27] MEDS: CEPHALEXIN MONOHYDRATE 500 MG CAPSULE (UD) PO SCH ×3 (06:40→17:50)
[2018-03-27] MEDS ORDERED: METHADONE HCL 10 MG TABLET (FOR DETOX USE ONLY) PO ONE (10:00)
[2018-03-27] MEDS: PRENATAL VITAMINS W/ FOLIC ACID TABLET (FP) PO SCH (10:29)
[2018-03-27] MEDS: BACITRACIN 0.9 GM PACKET TP SCH (10:29)
--- NOTE | 2018-03-27 10:46 | PN ---
[facility] Progress Note (SOAP) Subjective: insomnia anxiety tired Objective: 03/27/18 10:45 Vital Signs Temperature 98.2 F 03/27/18 09:54 Pulse Rate 91 H 03/27/18 09:54 Respiratory Rate 18 03/27/18 09:54 Blood Pressure 122/70 03/27/18 09:54 O2 Sat by Pulse Oximetry (%) aaox3 ambulating no acute distress Assessment: 03/27/18 10:46 mild withdrawals Plan: continue detox belsoma is ordered prn for insomnia d/c in am
[2018-03-27] MEDS: hydrOXYzine PAMOATE 50 MG CAPSULE (FP) PO PRN (19:31)
[2018-03-27] MEDS: THIAMINE HCL 100 MG TABLET (FP) PO SCH (22:29)
[2018-03-28] MEDS ORDERED: METHADONE HCL 5 MG TABLET (FOR DETOX USE ONLY) PO ONE (06:00)
[2018-03-28] MEDS: CEPHALEXIN MONOHYDRATE 500 MG CAPSULE (UD) PO SCH ×2 (06:47→10:23)
--- NOTE | 2018-03-28 09:16 | DS ---
[facility] Detox Discharge Summary Admission Date: 03/23/18 Discharge Date: 03/28/18 - History Present History: Cocaine Dependence, Opioid Dependence - Physical Exam Results Vital Signs: Vital Signs Temperature 98.4 F 03/28/18 07:41 Pulse Rate 85 03/28/18 07:41 Respiratory Rate 20 03/28/18 07:41 Blood Pressure 128/68 03/28/18 07:41 O2 Sat by Pulse Oximetry (%) - Treatment Hospital Course: Detox Protocol Followed, Detoxed Safely, Responded well, Discharged Condition Good, Rehab Referral Accepted - Medication Discharge Medications: Ambulatory Orders NK [No Known Home Medication] 07/19/17 - Diagnosis (1) Cellulitis Current Visit: Yes Status: Chronic Qualifiers: Site of cellulitis: unspecified site Qualified Code(s): L03.90 - Cellulitis , unspecified (2) Drug-induced mood disorder Current Visit: Yes Status: Acute (3) Opioid dependence with withdrawal Current Visit: Yes Status: Chronic (4) Depression Current Visit: Yes Status: Chronic (5) Hepatitis C Current Visit: Yes Status: Chronic Qualifiers: Viral hepatitis chronicity: chronic Hepatic coma status: without hepatic coma Qualified Code(s): B18.2 - Chronic viral hepatitis C (6) Nicotine dependence Current Visit: Yes Status: Chronic Qualifiers: Nicotine product type: cigarettes Substance use status: uncomplicated Qualified Code(s): F17.210 - Nicotine dependence, cigarettes, uncomplicated (7) Cocaine dependence Current Visit: Yes Status: Chronic Qualifiers: Substance use status: uncomplicated Qualified Code(s): F14.20 - Cocaine dependence, uncomplicated (8) Dehydration Current Visit: No Status: Acute (9) Dry skin Current Visit: No Status: Acute (10) Excessive cerumen in both ear canals Current Visit: No Status: Acute (11) Headache Current Visit: Yes Status: Chronic Qualifiers: Headache type: tension-type Headache chronicity pattern: episodic headache (12) Low back sprain Current Visit: No Status: Acute Qualifiers: Encounter type: initial encounter Qualified Code(s): S33.5XXA - Sprain of ligaments of lumbar spine, initial encounter (13) Sciatica Current Visit: Yes Status: Chronic Qualifiers: Laterality: bilateral Qualified Code(s): M54.31 - Sciatica, right side; M54.32 - Sciatica, left side (14) Sleep difficulties Current Visit: No Status: Acute (15) Substance-induced anxiety disorder Current Visit: No Status: Acute (16) Substance-induced sleep disorder Current Visit: No Status: Acute (17) Urinary retention Current Visit: No Status: Acute (18) Wound infection Current Visit: No Status: Acute (19) Cocaine dependence, uncomplicated Current Visit: Yes Status: Chronic (20) Eczema Current Visit: No Status: Chronic (21) Hx of hepatitis C Current Visit: No Status: Chronic (22) Scoliosis Current Visit: No Status: Chronic Qualifiers: Scoliosis type: idiopathic Idiopathic scoliosis type: other Spinal region : lumbar Qualified Code(s): M41.26 - Other idiopathic scoliosis, lumbar region (23) Skin fissure Current Visit: No Status: Chronic (24) Depressed affect Current Visit: No Status: Suspected (25) History of abdominal surgery Current Visit: No Status: Resolved - AMA Did Patient Leave Against Medical Advice: No (pt declined rehab )
[2018-03-28 09:49] VITALS: BP 130/65; PULSE 95; TEMP 98.1
[2018-03-28] MEDS: BACITRACIN 0.9 GM PACKET TP SCH (10:23)
[2018-03-28] MEDS: PRENATAL VITAMINS W/ FOLIC ACID TABLET (FP) PO SCH (10:23)
[2018-03-28] MEDS ORDERED: ONDANSETRON *ODT* 4 MG TABLET SL ONE (10:32)
== END 2018-03-28 12:38 | disposition home or self-care (01) | DRG 897 ==
LOC: YASAS 13:14 → Y6N 15:03
PROVIDERS: ADMIT Surgery; ATTEND Surgery
PROC: HZ2ZZZZ Detoxification Services for Substance Abuse Treatment (ICD-10-PCS; principal; 2018-03-23)
DX: F11.23 Opioid dependence with withdrawal (principal); F14.20 Cocaine dependence, uncomplicated; F19.280 Other psychoactive substance dependence with psychoactive substance-induced anxiety disorder; F19.282 Other psychoactive substance dependence with psychoactive substance-induced sleep disorder; L02.01 Cutaneous abscess of face; L03.211 Cellulitis of face; F17.210 Nicotine dependence, cigarettes, uncomplicated; F32.9 Major depressive disorder, single episode, unspecified; F19.24 Other psychoactive substance dependence with psychoactive substance-induced mood disorder; E86.0 Dehydration; B18.2 Chronic viral hepatitis C; L98.8 Other specified disorders of the skin and subcutaneous tissue; H61.23 Impacted cerumen, bilateral; G44.209 Tension-type headache, unspecified, not intractable; M54.31 Sciatica, right side; M54.32 Sciatica, left side; G47.9 Sleep disorder, unspecified; L30.9 Dermatitis, unspecified; M41.26 Other idiopathic scoliosis, lumbar region; R79.89 Other specified abnormal findings of blood chemistry
CPT/HCPCS: 36415; 80053; 85027; 86593; Q0162

== ENCOUNTER 2018-04-20 23:01 | Inpatient (IN) | payer OTHER ==
[2018-04-20] MEDS ORDERED: SODIUM CHLORIDE 1,000 ML IV ONE (23:14)
--- NOTE | 2018-04-20 23:14 | PDOC ---
History of Present Illness - General Chief Complaint: Redness To Affected Area Stated Complaint: FACIAL INFECTION Time Seen by Provider: 04/20/18 23:11 History Source: Patient Exam Limitations: No Limitations - History of Present Illness Initial Comments: 04/20/18 23:16 This is a 68-year-old male who comes in of this is a 68-year-old male who comes in complaining of an infection to the side of his face. Patient said he had a pimple on his cheek over the zygoma area that became infected and now he has a marked swelling of the face in that area. Patient otherwise says he is healthy denies taking any medications and any other medical history. Allergies: None Past Medical History: none Social history: Lives with family. No smoking. No alcohol. No illicit drugs. Surgical history: None General: No fevers or chills, no weakness, no weight loss HEENT: No change in vision. No sore throat,. No ear pain, + facial infection CardioVascular: no chest discomfort. No shortness of breath Respiratory:No cough, or wheezing. Gastrointestinal: no nausea, vomiting, diarrhea or constipation, No rectal bleeding Genitourinary: No dysuria, hematuria, or frequency Musculoskeletal: No joint or muscle pain or swelling Neurologic: No headache, vertigo, dizziness or loss of consciousness Psychiatric: nor depression Skin: No rashes or easy bruising Endocrine: no increased thirst or abnormal weight change Allergic: no skin or latex allergy All other systems reviewed and normal Exam: General: Well-nourished well-developed individual, no acute distress HEENT: Throat: Normal, tonsils normal, no erythema or exudate Neck: Supple, no meningeal signs, no lymphadenopathy There is marked swelling and tenderness over the right zygoa there no palpable collection Eyes::Pupils equal reactive and round, extraocular motion intact Chest: Nontender to palpation Cardiac: S1-S2 normal, regular rate and rhythm, no murmurs rubs or gallops Respiratory: Lungs clear to auscultation bilateral Abdomen: Soft, nondistended, normal bowel sounds, there is no tenderness on palpation diffusely Extremities: Warm, dry, no cyanosis, clubbing, or edema Skin: No rashes Neuro: Alert and oriented x3, CN II - XII intact, nonfocal exam with normal strength, normal sensation, normal reflexes, normal gait, Psych: Normal mood and affect Assessment and plan: This is a 68-year-old male with a sialitis of the right periorbital tissue and zygoma. Workup initiated including blood cultures, CBC, comp, lactic acid, cardiac enzymes and chest x-ray, CAT scan of the face to rule out deep CBC infection. Past History - Past Medical History Allergies/Adverse Reactions: Allergies Allergy/AdvReac Type Severity Reaction Status Date / Time No Known Allergies Allergy Unverified 04/20/18 23:06 Home Medications: Ambulatory Orders NK [No Known Home Medication] 04/20/18 COPD: No - Suicide/Smoking/Psychosocial Hx Smoking History: Unknown if ever smoked Information on smoking cessation initiated: Yes *Physical Exam - Vital Signs Last Vital Signs Temp Pulse Resp BP Pulse Ox 98.8 F 113 H 16 126/89 99 04/20/18 23:03 04/20/18 23:03 04/20/18 23:03 04/20/18 23:03 04/20/18 23:03 Moderate Sedation - Procedure Monitoring Vital Signs: Procedure Monitoring Vital Signs Temperature 98.8 F 04/20/18 23:03 Pulse Rate 113 H 04/20/18 23:03 Respiratory Rate 16 04/20/18 23:03 Blood Pressure 126/89 04/20/18 23:03 O2 Sat by Pulse Oximetry (%) 99 04/20/18 23:03 ED Treatment Course - LABORATORY CBC & Chemistry Diagram: 04/20/18 23:15 04/20/18 23:15 *DC/Admit/Observation/Transfer Diagnosis at time of Disposition: Facial cellulitis - Discharge Dispostion Disposition: HOME Condition at time of disposition: Stable Decision to Admit order: Yes - Referrals - Patient Instructions - Post Discharge Activity
[2018-04-20] MEDS ORDERED: morphine SULFATE 4 MG/ML VIAL IVPUSH ONE (23:22)
[2018-04-20] MEDS ORDERED: morphine SULFATE 4 MG/ML VIAL ONE (23:35)
[2018-04-21] MEDS ORDERED: ACETAMINOPHEN 500 MG TABLET (FP) PO ONE (00:17)
[2018-04-21] MEDS ORDERED: ACETAMINOPHEN 500 MG TABLET (FP) ONE (00:50)
[2018-04-21] MEDS ORDERED: VANCOMYCIN HCL 1,250 MG in DEXTROSE 5%-WATER - 250 ML IVPB SCH (01:00)
[2018-04-21] MEDS ORDERED: VANCOMYCIN 1,250 MG in DEXTROSE 5%-WATER - 250 ML IVPB SCH ×2 (01:00→09:45)
[2018-04-21 01:05] LABS: BASO % 0.4 % (0-2.0); EOS % 1.7 % (0-4.5); HEMOGLOBIN 13.8 GM/dL (11.7-16.9); MCH 31.1 pg (25.7-33.7); MCHC 34.5 g/dl (32.0-35.9); MEAN CELL VOLUME 90.2 fl (80-96); MEAN PLT VOLUME 8.9 fl (7.5-11.1); MONO % 9.2 % (3.8-10.2); NEUT % 72.7 % (42.8-82.8); PLATELET COUNT 212 K/MM3 (134-434); RBC 4.44 M/mm3 (4.00-5.60); RDW 14.2 % (11.9-15.9)
[2018-04-21] MEDS ORDERED: VANCOMYCIN 1,000 MG VIAL (RESTRICTED TO ID ONLY) ONE (01:30)
[2018-04-21] MEDS ORDERED: VANCOMYCIN 1 GM in D5W (PRE-DOCKED) 1,000 MG/250 ML IVPB ONE (01:32)
[2018-04-21] MEDS ORDERED: PIPERACILLIN/TAZOB 3.375 GM 3.375 GM in DEXTROSE 5%-WATER - 50 ML IVPB ONE (01:33)
[2018-04-21 01:45] LABS: BLOOD UREA NITROGEN 10 mg/dL (7-18); CREATININE 0.8 mg/dL (0.55-1.3); GLUCOSE,RANDOM 86 mg/dL (74-106)
[2018-04-21 01:46] LABS: SODIUM 136 mmol/L (136-145)
[2018-04-21 01:47] LABS: ALBUMIN 3.7 g/dl (3.4-5.0); ANION GAP 5 MMOL/L (8-16); CALCIUM 8.6 mg/dL (8.5-10.1); CHLORIDE 105 mmol/L (98-107); CO2 26 mmol/L (21-32); POTASSIUM 3.6 mmol/L (3.5-5.1); TOT PROT 7.6 g/dl (6.4-8.2)
[2018-04-21 01:48] LABS: ALK PHOS 143 U/L (45-117); BILIRUBIN,TOTAL 0.3 mg/dL (0.2-1); SGOT/AST 68 U/L (15-37); SGPT/ALT 13 U/L (13-61)
[2018-04-21 02:13] LABS: INR 1.13 (0.83-1.09); PROTHROMBIN TIME (PATIENT) 13.3 SEC (9.7-13.0)
[2018-04-21] MEDS ORDERED: PIPERACILLIN/TAZOBACTAM 3.375 GM VIAL IVPB ONE (02:15)
[2018-04-21 02:16] LABS: ACTIVATED PTT 32.8 SECONDS (25.2-36.5)
[2018-04-21] MEDS ORDERED: morphine CARPU-JECT 2 MG/1 ML DISP.SYRIN IVPUSH PRN ×2 (03:27→20:42)
[2018-04-21] MEDS ORDERED: SODIUM CHLORIDE 1,000 ML IV SCH (03:30)
[2018-04-21 03:53] VITALS: BMI 24.0
[2018-04-21 08:21] LABS: URINE APPEARANCE CLEAR; URINE COLOR YELLOW
[2018-04-21 08:22] LABS: URINE BILIRUBIN NEGATIVE (NEGATIVE); URINE GLUCOSE (UA) NEGATIVE (NEGATIVE); URINE KETONE NEGATIVE (NEGATIVE); URINE LEUK ESTERASE NEGATIVE (NEGATIVE); URINE NITRITE NEGATIVE (NEGATIVE); URINE PROTEIN NEGATIVE (NEGATIVE); URINE UROBILINOGEN 0.2 (0.2-1.0)
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
--- NOTE | 2018-04-21 09:34 | PN ---
Progress Note (short form) - Note Progress Note: ID CONSULT DICTATED R PERIORBITAL CELLULITIS/ SOFT TISSUE ABSCESS AWAIT CT, CULTURES EMPIRIC VANCOMYCIN/ CEFTRIAXONE PLASTIC SURGERY EVALUATION FOR POSSIBLE I&D
[2018-04-21] MEDS ORDERED: CEFTRIAXONE 2 GM-D5W BAG 2 GM/50 ML BAG IVPB SCH (10:00)
[2018-04-21] MEDS ORDERED: HEPARIN NA (PORCINE) 5,000 UNITS/ML 1ML VIAL SQ SCH (10:00)
[2018-04-21] MEDS ORDERED: IBUPROFEN 800 MG/8 ML IJ IVPB PRN ×2 (14:13→16:13)
--- NOTE | 2018-04-21 17:01 | CONSULT ---
Consult Consult Specialty:: ophthalmology Reason for Consultation:: right periorbital swelling and redness - History of Present Illness Chief Complaint: right eye swelling and redness for past two days - History Source History Provided By: Patient - Alcohol/Substance Use Hx Alcohol Use: Yes - Smoking History Smoking history: Current some day smoker Have you smoked in the past 12 months: Yes Aproximately how many cigarettes per day: 8 Home Medications - Allergies Allergies/Adverse Reactions: Allergies Allergy/AdvReac Type Severity Reaction Status Date / Time No Known Allergies Allergy Unverified 04/20/18 23:06 - Home Medications Home Medications: Ambulatory Orders NK [No Known Home Medication] 04/20/18 Review of Systems - Review of Systems Eyes: reports: Eye Pain Physical Exam Vital Signs: Vital Signs Temperature 99.5 F 04/21/18 14:02 Pulse Rate 94 H 04/21/18 14:02 Respiratory Rate 04/21/18 14:02 Blood Pressure 153/85 04/21/18 14:02 O2 Sat by Pulse Oximetry (%) 97 04/21/18 14:02 Eyes: Yes: WNL (Va 20/30 at near OU. IOP 16 mmHg OU. Dilated fundus exam ( Tropicamide 1% OU at 4:45 pm) was unremarkable. ++edema and erythema with tenderness of periorbital tissue OD), EOM Intact, PERRL Labs: CBC, BMP 04/20/18 23:15 04/20/18 23:15 Imaging - Results Cat Scan: Image Reviewed Problem List - Problems (1) Facial cellulitis Assessment/Plan: No evidence of orbital cellulitis given normal eye movements and IOP. The patient states that his symptoms have been improving since he was started on the iv antibiotics. Continue iv antibiotics and reconsult if any worsening of clinical picture. Code(s): L03.211 - CELLULITIS OF FACE
[2018-04-21 19:31] VITALS: BP 129/66; PULSE 89; TEMP 98.8
--- NOTE | 2018-04-22 06:27 | HOSP ---
Physical Examination Vital Signs: Vital Signs Temperature 98.8 F 04/21/18 18:00 Pulse Rate 89 04/21/18 18:00 Respiratory Rate 17 04/21/18 18:00 Blood Pressure 129/66 04/21/18 18:00 O2 Sat by Pulse Oximetry (%) 98 04/21/18 18:00 Labs: CBC, BMP 04/20/18 23:15 04/20/18 23:15 Hospitalist Encounter Assessment: I was called by nursing that patient left AMA. I was not able to speak with patient before he left.
--- NOTE | 2018-04-22 09:29 | CONS ---
DATE OF CONSULTATION: 04/21/2018 The patient is a 68-year-old male, previously healthy, who was evaluated for right facial abscess. He reports developing a pimple below his right eye. It subsequently became larger and he developed a large area of swelling and erythema in the right infraorbital area. He presented to the hospital, where he was found to have right periorbital cellulitis. He was empirically treated with vancomycin and Zosyn. Patient denies any visual complaints, other than not being able to open his eye. No change in his visual acuity. No associated fever or chills. He denies prior history of serious soft tissue infection requiring hospitalization or history of MRSA. He is nondiabetic. PAST MEDICAL HISTORY: Negative. No known allergies. LABORATORY DATA: White count 11.0, hematocrit 40.0, platelets 212. BUN 10, creatinine 0.8. Urine leukocyte esterase negative. CHEST X-RAY: Negative. PHYSICAL EXAMINATION: General: He is in no acute distress. HEENT: On examination of the face, there is an area of erythema, warmth, and swelling in the right infraorbital area, extending from the lower eyelid to the malar area, approximately 4 cm, and from the bridge of the nose to the zygomatic arch area, approximately 7 cm. The area in indurated. No obvious fluctuance. There is an encrusted lesion present in the middle of the swelling. No expressible pus. The right eye is swollen shut; however, when opened, reveals a clear conjunctiva. Neck: Supple. No palpable nodes. Heart Sounds: S1, S2. Lungs: Clear. Abdomen: Soft, nontender. Extremities: Negative for edema. IMPRESSION: 1. Right periorbital cellulitis. 2. Rule out soft tissue abscess of the face. Await cultures. Empiric antibiotic coverage with vancomycin and ceftriaxone. Surgical evaluation for possible incision and drainage of the area. Analgesics. Will follow. Thank you for the kind referral. MINDI OMALLEY M.D. [id number]
--- NOTE | 2018-04-22 11:57 | EKG ---
Test Reason : Blood Pressure : / mmHG Vent. Rate : 101 BPM Atrial Rate : 101 BPM P-R Int : 184 ms QRS Dur : 082 ms QT Int : 352 ms P-R-T Axes : 052 029 055 degrees QTc Int : 456 ms SINUS TACHYCARDIA OTHERWISE NORMAL ECG NO PREVIOUS ECGS AVAILABLE Confirmed by JEAN PIERRE DAVID MD ([id number]) on 04/22/2018 11:57:06 AM Referred By: MD ROCHA Confirmed By:JEAN PIERRE DAVID MD
== END 2018-04-21 20:35 | disposition left against medical advice (07) | DRG 603 ==
LOC: FER 23:01 → FM/S 04-21 02:20 → OBSVTOIN 04-21 03:15 → MERGE 04-21 03:15
PROVIDERS: ADMIT Internal Medicine; ATTEND Nurse Practitioner Acute Care
DX: L03.213 Periorbital cellulitis (principal); F11.23 Opioid dependence with withdrawal; L02.01 Cutaneous abscess of face; K25.9 Gastric ulcer, unspecified as acute or chronic, without hemorrhage or perforation; Z72.0 Tobacco use; F17.210 Nicotine dependence, cigarettes, uncomplicated
CPT/HCPCS: 36415; 70450-TC; 70486-TC; 71045-TC-FY; 80053; 81003; 82550; 82553; 83605; 84484; 85025; 85610; 85651; 85730; 86140; 87040; 93005; 99283-25; G0378; J1644; J7030

== ENCOUNTER 2018-04-23 15:49 | Inpatient (IN) | payer OTHER ==
[2018-04-23 17:24] VITALS: BMI 25.0
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
[2018-04-23] MEDS ORDERED: NICOTINE POLACRILEX 2 MG GUM BUC PRN (20:30)
[2018-04-23] MEDS ORDERED: MAGNESIUM CITRATE 300 ML BOTTLE PO PRN (20:30)
[2018-04-23] MEDS ORDERED: MAGNESIUM HYDROX 2400MG/30ML ORAL SUSPENSION 30 ML CUP PO PRN (20:30)
[2018-04-23] MEDS ORDERED: IBUPROFEN 400 MG TABLET (FP) PO PRN (20:30)
[2018-04-23] MEDS ORDERED: BISMUTH SUBSALICYLATE 524 MG/30 ML UD PO PRN (20:30)
[2018-04-23] MEDS ORDERED: METHOCARBAMOL 500 MG TABLET PO PRN (20:30)
[2018-04-23] MEDS ORDERED: guaiFENesin 200 MG/10 ML 10 ML UNIT-DOSE CUPS PO PRN (20:30)
[2018-04-23] MEDS ORDERED: MENTHOL/PHENOL 1 EACH UD MM PRN (20:30)
[2018-04-23] MEDS ORDERED: MAG HYDROX/AL HYDROX/SIMETH 30 ML UNIT-DOSE CUP PO PRN (20:30)
[2018-04-23] MEDS ORDERED: cloNIDine HCL 0.1 MG TABLET PO PRN (20:30)
[2018-04-23] MEDS ORDERED: ACETAMINOPHEN 325 MG TABLET (FP) PO PRN ×2 (20:30)
[2018-04-23] MEDS ORDERED: METHADONE HCL 10 MG TABLET (FOR DETOX USE ONLY) PO ONE (23:00)
[2018-04-23] MEDS: MELATONIN 5 MG TABLETS PO PRN (23:11)
[2018-04-23] MEDS: THIAMINE HCL 100 MG TABLET (FP) PO SCH (23:11)
[2018-04-23] MEDS: hydrOXYzine PAMOATE 25 MG CAPSULE (FP) PO PRN (23:15)
[2018-04-24] MEDS ORDERED: METHADONE HCL 10 MG TABLET (FOR DETOX USE ONLY) PO ONE (10:00)
[2018-04-24] MEDS: PRENATAL VITAMINS W/ FOLIC ACID TABLET (FP) PO SCH (10:21)
[2018-04-24] MEDS: NICOTINE 14 MG/24 HOURS TOPICAL PATCH TD SCH (10:22)
[2018-04-24] MEDS: SULFAMETHOXAZOLE PO SCH ×2 (10:23→22:04)
[2018-04-24] MEDS: TRIMETHOPRIM PO SCH ×2 (10:23→22:04)
[2018-04-24] MEDS: [UNRECOGNIZED DRUG - OTHER] PO SCH ×2 (10:23→22:04)
[2018-04-24 12:41] LABS: HEMATOCRIT 36.9 % (35.4-49); HEMOGLOBIN 12.9 GM/dL (11.7-16.9); MCH 31.5 pg (25.7-33.7); MCHC 34.9 g/dl (32.0-35.9); MEAN CELL VOLUME 90.1 fl (80-96); PLATELET COUNT 239 K/MM3 (134-434); RBC 4.09 M/mm3 (4.00-5.60); RDW 14.2 % (11.9-15.9); WHITE BLOOD COUNT 4.7 K/mm3 (4.0-10.0)
--- NOTE | 2018-04-24 13:05 | PN ---
BHS COWS - Scale Resting Pulse: 0= ME 80 or Below Sweatin= Chills/Flushing Restless Observation: 0= Sits Still Pupil Size: 1= Pupils >than Normal Bone or Joint Aches: 1= Mild Discomfort Runny Nose/ Eye Tearin= Nasal Congestion GI Upset > 30mins: 1= Stomach Cramp Tremor Observation of Outstretched Hands: 1= Tremor [place], Not Seen Yawning Observation: 2= >3x During Session Anxiety or Irritability: 2=Irritable/Anxious Goose Flesh Skin: 0=Smooth Skin COWS Score: 10 BHS Progress Note (SOAP) Subjective: body aches tremor sweating irritable agitative patient is in pain management program received oxy hydrocodo morphin on 04/11/18 patient preferred no call to opiate provider Objective: 04/24/18 13:05 Vital Signs Temperature 98.0 F 04/24/18 09:35 Pulse Rate 80 04/24/18 09:35 Respiratory Rate 20 04/24/18 09:35 Blood Pressure 115/63 04/24/18 09:35 O2 Sat by Pulse Oximetry (%) Laboratory Last Values WBC 4.7 K/mm3 (4.0-10.0) 04/24/18 07:00 RBC 4.09 M/mm3 (4.00-5.60) 04/24/18 07:00 Hgb 12.9 GM/dL (11.7-16.9) 04/24/18 07:00 Hct 36.9 % (35.4-49) 04/24/18 07:00 MCV 90.1 fl (80-96) 04/24/18 07:00 MCH 31.5 pg (25.7-33.7) 04/24/18 07:00 MCHC 34.9 g/dl (32.0-35.9) 04/24/18 07:00 RDW 14.2 % (11.9-15.9) 04/24/18 07:00 Plt Count 239 K/MM3 (134-434) 04/24/18 07:00 MPV 8.0 fl (7.5-11.1) D 04/24/18 07:00 lab noted Assessment: 04/24/18 13:05 opiate withdrawal sx Plan: continue detox
[2018-04-24 13:09] LABS: ALBUMIN 3.2 g/dl (3.4-5.0); ALK PHOS 119 U/L (45-117); ANION GAP 8 MMOL/L (8-16); BILIRUBIN,TOTAL 0.1 mg/dL (0.2-1); BLOOD UREA NITROGEN 10 mg/dL (7-18); CALCIUM 8.4 mg/dL (8.5-10.1); CHLORIDE 104 mmol/L (98-107); CO2 23 mmol/L (21-32); CREATININE 0.8 mg/dL (0.55-1.3); GLUCOSE,RANDOM 82 mg/dL (74-106); POTASSIUM 3.8 mmol/L (3.5-5.1); SGOT/AST 42 U/L (15-37); SGPT/ALT 18 U/L (13-61); SODIUM 135 mmol/L (136-145); TOT PROT 6.6 g/dl (6.4-8.2)
[2018-04-24] MEDS ORDERED: diazePAM 5 MG TABLET PO PRN (14:10)
[2018-04-24] MEDS: BACITRACIN 0.9 GM PACKET TP SCH ×3 (14:45→22:02)
[2018-04-24] MEDS: diazePAM 5 MG TABLET PO PRN ×2 (17:17→22:03)
[2018-04-24] MEDS: THIAMINE HCL 100 MG TABLET (FP) PO SCH (22:02)
[2018-04-24] MEDS: hydrOXYzine PAMOATE 25 MG CAPSULE (FP) PO PRN (23:41)
[2018-04-24] MEDS: MELATONIN 5 MG TABLETS PO PRN (23:41)
[2018-04-25] MEDS: diazePAM 5 MG TABLET PO PRN ×3 (02:06→18:55)
[2018-04-25] MEDS ORDERED: METHADONE HCL 10 MG TABLET (FOR DETOX USE ONLY) PO ONE (10:00)
[2018-04-25] MEDS: BACITRACIN 0.9 GM PACKET TP SCH ×4 (10:51→22:00)
[2018-04-25] MEDS: SULFAMETHOXAZOLE PO SCH ×3 (10:52→22:01)
[2018-04-25] MEDS: PRENATAL VITAMINS W/ FOLIC ACID TABLET (FP) PO SCH (10:52)
[2018-04-25] MEDS: [UNRECOGNIZED DRUG - OTHER] PO SCH ×3 (10:52→22:01)
[2018-04-25] MEDS: TRIMETHOPRIM PO SCH ×3 (10:52→22:01)
[2018-04-25] MEDS: NICOTINE 14 MG/24 HOURS TOPICAL PATCH TD SCH (11:16)
--- NOTE | 2018-04-25 11:54 | PN ---
BHS COWS - Scale Resting Pulse: 0= [place] 80 or Below Sweatin= No chills or Flushing Restless Observation: 0= Sits Still Pupil Size: 1= Pupils >than Normal Bone or Joint Aches: 1= Mild Discomfort Runny Nose/ Eye Tearin= Nasal Congestion GI Upset > 30mins: 1= Stomach Cramp Tremor Observation of Outstretched Hands: 1= Tremor [place], Not Seen Yawning Observation: 1= 1-2x During Session Anxiety or Irritability: 1=Feels Anxious/Irritable Goose Flesh Skin: 0=Smooth Skin COWS Score: 7 BHS Progress Note (SOAP) Subjective: body aches joints stiffness stuffy nose restlessness Objective: 04/25/18 11:53 Vital Signs Temperature 95.9 F L 04/25/18 09:14 Pulse Rate 75 04/25/18 09:14 Respiratory Rate 16 04/25/18 09:14 Blood Pressure 106/58 L 04/25/18 09:14 O2 Sat by Pulse Oximetry (%) Laboratory Last Values WBC 4.7 K/mm3 (4.0-10.0) 04/24/18 07:00 RBC 4.09 M/mm3 (4.00-5.60) 04/24/18 07:00 Hgb 12.9 GM/dL (11.7-16.9) 04/24/18 07:00 Hct 36.9 % (35.4-49) 04/24/18 07:00 MCV 90.1 fl (80-96) 04/24/18 07:00 MCH 31.5 pg (25.7-33.7) 04/24/18 07:00 MCHC 34.9 g/dl (32.0-35.9) 04/24/18 07:00 RDW 14.2 % (11.9-15.9) 04/24/18 07:00 Plt Count 239 K/MM3 (134-434) 04/24/18 07:00 MPV 8.0 fl (7.5-11.1) D 04/24/18 07:00 Sodium 135 mmol/L (136-145) L 04/24/18 07:00 Potassium 3.8 mmol/L (3.5-5.1) 04/24/18 07:00 Chloride 104 mmol/L (98-107) 04/24/18 07:00 Carbon Dioxide 23 mmol/L (21-32) 04/24/18 07:00 Anion Gap 8 MMOL/L (8-16) 04/24/18 07:00 BUN 10 mg/dL (7-18) 04/24/18 07:00 Creatinine 0.8 mg/dL (0.55-1.3) 04/24/18 07:00 Creat Clearance w eGFR > 60 (>60) 04/24/18 07:00 Random Glucose 82 mg/dL (74-106) 04/24/18 07:00 Calcium 8.4 mg/dL (8.5-10.1) L 04/24/18 07:00 Total Bilirubin 0.1 mg/dL (0.2-1) L 04/24/18 07:00 AST 42 U/L (15-37) H 04/24/18 07:00 ALT 18 U/L (13-61) 04/24/18 07:00 Alkaline Phosphatase 119 U/L (45-117) H 04/24/18 07:00 Total Protein 6.6 g/dl (6.4-8.2) 04/24/18 07:00 Albumin 3.2 g/dl (3.4-5.0) L 04/24/18 07:00 RPR Titer Nonreactive (NONREACTIVE) 04/24/18 07:00 lab noted Assessment: 04/25/18 11:53 withdrawal sx Plan: continue detox [facility]
[2018-04-25] MEDS: hydrOXYzine PAMOATE 25 MG CAPSULE (FP) PO PRN ×2 (13:38→22:02)
[2018-04-25] MEDS: THIAMINE HCL 100 MG TABLET (FP) PO SCH (22:01)
[2018-04-25] MEDS: MELATONIN 5 MG TABLETS PO PRN (22:01)
[2018-04-26] MEDS: diazePAM 5 MG TABLET PO PRN ×3 (05:00→22:04)
[2018-04-26] MEDS ORDERED: METHADONE HCL 10 MG TABLET (FOR DETOX USE ONLY) PO ONE (10:00)
[2018-04-26] MEDS: PRENATAL VITAMINS W/ FOLIC ACID TABLET (FP) PO SCH (10:33)
[2018-04-26] MEDS: BACITRACIN 0.9 GM PACKET TP SCH ×4 (10:33→22:05)
[2018-04-26] MEDS: NICOTINE 14 MG/24 HOURS TOPICAL PATCH TD SCH (10:33)
[2018-04-26] MEDS: TRIMETHOPRIM PO SCH ×2 (10:34→22:03)
[2018-04-26] MEDS: SULFAMETHOXAZOLE PO SCH ×2 (10:34→22:03)
[2018-04-26] MEDS: [UNRECOGNIZED DRUG - OTHER] PO SCH ×2 (10:34→22:03)
[2018-04-26] MEDS: hydrOXYzine PAMOATE 25 MG CAPSULE (FP) PO PRN (17:33)
--- NOTE | 2018-04-26 17:34 | PN ---
BHS Progress Note (SOAP) Subjective: Fatigue, Body Aches, Restless. Objective: PATIENT A & O X 3, OBSERVED AMBULATING ON UNIT. IN NO ACUTE DISTRESS. 04/26/18 17:34 Vital Signs Temperature 98.4 F 04/26/18 14:01 Pulse Rate 70 04/26/18 14:01 Respiratory Rate 18 04/26/18 14:01 Blood Pressure 122/76 04/26/18 14:01 O2 Sat by Pulse Oximetry (%) Laboratory Tests 04/24/18 04/24/18 04/24/18 07:00 07:00 07:00 WBC 4.7 RBC 4.09 Hgb 12.9 Hct 36.9 MCV 90.1 MCH 31.5 MCHC 34.9 RDW 14.2 Plt Count 239 MPV 8.0 D Sodium 135 L Potassium 3.8 Chloride 104 Carbon Dioxide 23 Anion Gap 8 BUN 10 Creatinine 0.8 Creat Clearance w eGFR > 60 Random Glucose 82 Calcium 8.4 L Total Bilirubin 0.1 L AST 42 H ALT 18 Alkaline Phosphatase 119 H Total Protein 6.6 Albumin 3.2 L RPR Titer Nonreactive LABS NOTED. Assessment: 04/26/18 17:35 WITHDRAWAL SYMPTOMS. Plan: CONTINUE DETOX.
[2018-04-26] MEDS: MELATONIN 5 MG TABLETS PO PRN (22:05)
[2018-04-26] MEDS: THIAMINE HCL 100 MG TABLET (FP) PO SCH (22:05)
[2018-04-27] MEDS ORDERED: METHADONE HCL 5 MG TABLET (FOR DETOX USE ONLY) PO ONE (06:00)
[2018-04-27 09:14] VITALS: BP 116/63; PULSE 93; TEMP 98.1
[2018-04-27] MEDS: PRENATAL VITAMINS W/ FOLIC ACID TABLET (FP) PO SCH (10:28)
[2018-04-27] MEDS: SULFAMETHOXAZOLE PO SCH (10:28)
[2018-04-27] MEDS: [UNRECOGNIZED DRUG - OTHER] PO SCH (10:28)
[2018-04-27] MEDS: TRIMETHOPRIM PO SCH (10:28)
[2018-04-27] MEDS: NICOTINE 14 MG/24 HOURS TOPICAL PATCH TD SCH (10:28)
[2018-04-27] MEDS: BACITRACIN 0.9 GM PACKET TP SCH (10:28)
--- NOTE | 2018-04-27 20:34 | DS ---
[facility] Detox Discharge Summary Admission Date: 04/23/18 Discharge Date: 04/27/18 - History Present History: Opioid Dependence Additional Comments: PATIENT DECLINES AFTERCARE REFERRAL. PATIENT REFERRED TO [facility] ([place], [place]) AND TO [facility] ([place], [place]) FOR AFTERCARE. AT DISCHARGE, PATIENT GIVEN REMAINDER OF ANTIBIOTIC ( BACTRIM DS) BROUGHT WITH AT TIME OF ADMISSION THAT WAS ORIGINALLY PRESCRIBED FOR FACIAL CELLULITIS. PATIENT ADVISED TO COMPLETE FULL COURSE OF ANTIBIOTIC. PATIENT VERBALIZED UNDERSTANDING OF RECOMMENDATION. PATIENT WAS DISCHARGED FROM DETOX UNIT IN STABLE MEDICAL CONDITION. Pertinent Past History: History of Facial Cellulitis, Nicotine Dependence. - Physical Exam Results Vital Signs: Vital Signs Temperature 98.1 F 04/27/18 09:13 Pulse Rate 93 H 04/27/18 09:13 Respiratory Rate 18 04/27/18 09:13 Blood Pressure 116/63 04/27/18 09:13 O2 Sat by Pulse Oximetry (%) Pertinent Admission Physical Exam Findings: WITHDRAWAL SYMPTOMS. Laboratory Tests 04/24/18 04/24/18 04/24/18 07:00 07:00 07:00 WBC 4.7 RBC 4.09 Hgb 12.9 Hct 36.9 MCV 90.1 MCH 31.5 MCHC 34.9 RDW 14.2 Plt Count 239 MPV 8.0 D Sodium 135 L Potassium 3.8 Chloride 104 Carbon Dioxide 23 Anion Gap 8 BUN 10 Creatinine 0.8 Creat Clearance w eGFR > 60 Random Glucose 82 Calcium 8.4 L Total Bilirubin 0.1 L AST 42 H ALT 18 Alkaline Phosphatase 119 H Total Protein 6.6 Albumin 3.2 L RPR Titer Nonreactive LABS NOTED. - Treatment Hospital Course: Detox Protocol Followed, Detoxed Safely, Responded well, Discharged Condition Good Patient has Accepted a Rehab Referral to: PT. [email or web address] ([place], [place]). - Medication Discharge Medications: Ambulatory Orders NK [No Known Home Medication] 07/19/17 Ibuprofen [Motrin -] 600 mg PO TID #21 tablet 04/21/18 Sulfamethoxazole/Trimethoprim [Bactrim DS -] 2 tab PO BID #40 tablet 04/21/18 - Diagnosis (1) Facial cellulitis Status: Acute (2) Nicotine dependence Status: Acute Qualifiers: Nicotine product type: cigarettes Substance use status: uncomplicated Qualified Code(s): F17.210 - Nicotine dependence, cigarettes, uncomplicated (3) Opioid dependence with withdrawal Status: Acute - AMA Did Patient Leave Against Medical Advice: No
== END 2018-04-27 10:35 | disposition home or self-care (01) | DRG 897 ==
LOC: YASAS 15:49 → MERGE 21:43 → Y3N 21:43
PROVIDERS: ADMIT Surgery; ATTEND Surgery
PROC: HZ2ZZZZ Detoxification Services for Substance Abuse Treatment (ICD-10-PCS; principal; 2018-04-23)
DX: F11.23 Opioid dependence with withdrawal (principal); L03.211 Cellulitis of face; F17.210 Nicotine dependence, cigarettes, uncomplicated
CPT/HCPCS: 36415; 80053; 85027; 86593; 99281-25; J0735

== ENCOUNTER 2018-05-07 21:45 | Emergency (ER) | payer OTHER ==
[2018-05-07 22:11] VITALS: BP 140/90; PULSE 92; TEMP 98.3; BMI 23.7
--- NOTE | 2018-05-07 22:35 | PDOC ---
History of Present Illness - General History Source: Patient Exam Limitations: No Limitations - History of Present Illness Initial Comments: 05/07/18 23:12 The patient is a 68 year old male, with no significant past medical history of who presents to the emergency department with several days of L shoulder pain. The patient states his pain is a 10/10 and is exacerbated when he lifts his arm. The patient notes taking aspirin with no relief. The patient denies falling. The patient denies chest pain, shortness of breath, headache or dizziness. The patient denies fever, chills, nausea, vomit, diarrhea or constipation. The patient denies dysuria, frequency, urgency or hematuria. Allergies: NKDA Past surgical history: None reported Social history: Homeless. <Bhargav Jerry - Last Filed: 05/07/18 23:12> <Kizzy Pérez - Last Filed: 05/08/18 04:40> - General Chief Complaint: Redness To Affected Area Stated Complaint: HOMELESS, FACE REDNESS Time Seen by Provider: 05/07/18 22:01 Past History <Bhargav Jerry - Last Filed: 05/07/18 23:12> - Past Medical History Anemia: No Asthma: No Cancer: No Cardiac Disorders: No CVA: No COPD: No CHF: No DVT: No Dementia: No Diabetes: No GI Disorders: No Disorders: No HTN: No Hypercholesterolemia: No Kidney Stones: No Liver Disease: No Psychiatric Problems: Yes (OPIOD ABUSE) Seizures: No Thyroid Disease: No - Surgical History Abdominal Surgery: No Appendectomy: No Cardiac Surgery: No Cholecystectomy: No Lung Surgery: No Neurologic Surgery: No Orthopedic Surgery: No - Reproductive History Testicular Surgery: No - Suicide/Smoking/Psychosocial Hx Smoking History: Current every day smoker Have you smoked in the past 12 months: Yes Number of Cigarettes Smoked Daily: 10 Information on smoking cessation initiated: Yes 'Breaking Loose' booklet given: 04/23/18 Hx Alcohol Use: No Drug/Substance Use Hx: Yes (OPIODS, BENZO, HEROIN) Substance Use Type: Heroin Hx Substance Use Treatment: Yes (Last detox [facility] 03/23/18 -03/28/18) <Kizzy Pérez - Last Filed: 05/08/18 04:40> - Past Medical History Allergies/Adverse Reactions: Allergies Allergy/AdvReac Type Severity Reaction Status Date / Time No Known Allergies Allergy Verified 05/07/18 19:19 Home Medications: Ambulatory Orders NK [No Known Home Medication] 05/07/18 Review of Systems - Review of Systems Able to Perform ROS?: Yes Comments:: 05/07/18 23:12 GENERAL/CONSTITUTIONAL: No fever or chills. No weakness. HEAD, EYES, EARS, NOSE AND THROAT: No change in vision. No ear pain or discharge. No sore throat. CARDIOVASCULAR: No chest pain or shortness of breath. RESPIRATORY: No cough, wheezing, or hemoptysis. GASTROINTESTINAL: No nausea, vomiting, diarrhea or constipation. GENITOURINARY: No dysuria, frequency, or change in urination. MUSCULOSKELETAL: (+) L shoulder pain. No joint swelling or pain. No neck or back pain. SKIN: No rash NEUROLOGIC: No headache, vertigo, loss of consciousness, or change in strength/ sensation. ENDOCRINE: No increased thirst. No abnormal weight change. HEMATOLOGIC/LYMPHATIC: No anemia, easy bleeding, or history of blood clots. ALLERGIC/IMMUNOLOGIC: No hives or skin allergy. All Other Systems: Reviewed and Negative <Bhargav Jerry - Last Filed: 05/07/18 23:12> *Physical Exam - Vital Signs Last Vital Signs Temp Pulse Resp BP Pulse Ox 98.3 F 92 H 20 140/90 98 05/07/18 21:58 05/07/18 21:58 05/07/18 21:58 05/07/18 21:58 05/07/18 21:58 - Physical Exam Comments: 05/07/18 23:13 GENERAL: Awake, alert, and fully oriented, in no acute distress HEAD: No signs of trauma EYES: PERRLA, EOMI, sclera anicteric, conjunctiva clear ENT: Auricles normal inspection, hearing grossly normal, nares patent, oropharynx clear without exudates. Moist mucosa NECK: Normal ROM, supple, no lymphadenopathy, JVD, or masses LUNGS: Breath sounds equal, clear to auscultation bilaterally. No wheezes, and no crackles HEART: Regular rate and rhythm, normal S1 and S2, no murmurs, rubs or gallops ABDOMEN: Soft, nontender, normoactive bowel sounds. No guarding, no rebound. No masses EXTREMITIES: (+) Mild tenderness of L trapezius muscle, pain on active and passive abduction of R arm >45 degrees. (+) tenderness of shoulder joint, rest of upper extremity exam is normal. No deformity or significant edema. No clubbing or cyanosis. NEUROLOGICAL: Cranial nerves II through XII grossly intact. Normal speech, normal gait SKIN: Warm, Dry, normal turgor, no rashes or lesions noted. <Bhargav Jerry - Last Filed: 05/07/18 23:12> - Vital Signs Last Vital Signs Temp Pulse Resp BP Pulse Ox 98.3 F 92 H 20 140/90 98 05/07/18 21:58 05/07/18 21:58 05/07/18 21:58 05/07/18 21:58 05/07/18 21:58 <Kizzy Pérez - Last Filed: 05/08/18 04:40> Medical Decision Making - Medical Decision Making Documentation has been prepared under my direction and personally reviewed by me in its entirety. I attest that this documented accurately reflects all work, treatment, procedures and medical decision making performed by me. As noted above, this 68-year-old man with a history of opioid dependence , evaluated today at [facility] for outpatient detox (walked out prior to full evaluation) presents with chronic left shoulder pain. Patient states that he has pain with movement of the left shoulder as well as some mild tenderness of the left trapezius muscle. No known trauma or overuse associated with the left shoulder. The patient states that he has taken aspirin as well as nonsteroidal anti-inflammatory medications but that they "do not work". He today shortness of breath/chest pain or other symptoms. Exam as noted. The patient walked out prior to full discharge, apparently angry that he was not administered or prescribed stronger pain medication. He had stated to other hospital staff that he was currently "looking for a place to stay " <Kizzy Pérez - Last Filed: 05/08/18 04:40> *DC/Admit/Observation/Transfer - Attestations Scribe Attestion: 05/07/18 23:14 Documentation prepared by Bhargav Jerry, acting as behavioral medical director for Kizzy Pérez MD <Bhargav Jerry - Last Filed: 05/07/18 23:12> <Beto,Kizzy J - Last Filed: 05/08/18 04:40> Diagnosis at time of Disposition: Shoulder pain, left Qualifiers: Chronicity: chronic Qualified Code(s): M25.512 - Pain in left shoulder - Discharge Dispostion Disposition: HOME Condition at time of disposition: Stable
== END 2018-05-07 22:51 | disposition home or self-care (01) ==
LOC: FER 21:45
DX: M25.512 Pain in left shoulder (principal); F14.20 Cocaine dependence, uncomplicated; G89.29 Other chronic pain; Z59.0 Homelessness
CPT/HCPCS: 99281-25

== ENCOUNTER 2018-05-11 11:43 | Inpatient (IN) | payer OTHER ==
[2018-05-11 13:40] VITALS: BMI 23.2
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
[2018-05-11] MEDS ORDERED: NICOTINE POLACRILEX 2 MG GUM BUC PRN (18:42)
[2018-05-11] MEDS ORDERED: MAGNESIUM HYDROX 2400MG/30ML ORAL SUSPENSION 30 ML CUP PO PRN (18:42)
[2018-05-11] MEDS ORDERED: ACETAMINOPHEN 325 MG TABLET (FP) PO PRN (18:42)
[2018-05-11] MEDS ORDERED: MAGNESIUM CITRATE 300 ML BOTTLE PO PRN (18:42)
[2018-05-11] MEDS ORDERED: MAG HYDROX/AL HYDROX/SIMETH 30 ML UNIT-DOSE CUP PO PRN (18:42)
[2018-05-11] MEDS ORDERED: MENTHOL/PHENOL 1 EACH UD MM PRN (18:42)
[2018-05-11] MEDS ORDERED: BISMUTH SUBSALICYLATE 524 MG/30 ML UD PO PRN (18:42)
[2018-05-11] MEDS: cloNIDine HCL 0.1 MG TABLET PO PRN (19:50)
[2018-05-11] MEDS: IBUPROFEN 400 MG TABLET (FP) PO PRN (19:50)
[2018-05-11] MEDS: METHOCARBAMOL 500 MG TABLET PO PRN (19:50)
[2018-05-11] MEDS: hydrOXYzine PAMOATE 25 MG CAPSULE (FP) PO PRN (19:50)
[2018-05-11] MEDS: THIAMINE HCL 100 MG TABLET (FP) PO SCH (22:27)
[2018-05-11] MEDS: MELATONIN 5 MG TABLETS PO PRN (22:27)
[2018-05-11] MEDS ORDERED: METHADONE HCL 10 MG TABLET (FOR DETOX USE ONLY) PO ONE (23:00)
[2018-05-12] MEDS ORDERED: METHADONE HCL 10 MG TABLET (FOR DETOX USE ONLY) PO ONE (10:00)
[2018-05-12] MEDS: PRENATAL VITAMINS W/ FOLIC ACID TABLET (FP) PO SCH (10:37)
[2018-05-12 11:03] LABS: ALBUMIN 3.4 g/dl (3.4-5.0); ALK PHOS 132 U/L (45-117); ANION GAP 7 MMOL/L (8-16); BILIRUBIN,TOTAL 0.4 mg/dL (0.2-1); BLOOD UREA NITROGEN 21 mg/dL (7-18); CALCIUM 8.8 mg/dL (8.5-10.1); CHLORIDE 107 mmol/L (98-107); CO2 27 mmol/L (21-32); CREATININE 0.6 mg/dL (0.55-1.3); GLUCOSE,RANDOM 84 mg/dL (74-106); POTASSIUM 3.9 mmol/L (3.5-5.1); SGOT/AST 50 U/L (15-37); SGPT/ALT 18 U/L (13-61); SODIUM 141 mmol/L (136-145); TOT PROT 6.7 g/dl (6.4-8.2)
--- NOTE | 2018-05-12 12:50 | PN ---
BHS COWS - Scale Resting Pulse: 0= [place] 80 or Below Sweatin=Flushed/Facial Moisture Restless Observation: 0= Sits Still Pupil Size: 0= Normal to Room Light Bone or Joint Aches: 1= Mild Discomfort Runny Nose/ Eye Tearin= None GI Upset > 30mins: 1= Stomach Cramp Tremor Observation of Outstretched Hands: 2= Slight Tremor Visible Yawning Observation: 0= None Anxiety or Irritability: 2=Irritable/Anxious Goose Flesh Skin: 0=Smooth Skin COWS Score: 8 BHS Progress Note (SOAP) Subjective: sweats Anxious Objective: A & O x 3 In bed No acute distress Vital Signs Temperature 98.3 F 05/12/18 09:47 Pulse Rate 84 05/12/18 09:47 Respiratory Rate 18 05/12/18 09:47 Blood Pressure 121/74 05/12/18 09:47 O2 Sat by Pulse Oximetry (%) Laboratory Last Values Sodium 141 mmol/L (136-145) 05/12/18 07:45 Potassium 3.9 mmol/L (3.5-5.1) 05/12/18 07:45 Chloride 107 mmol/L (98-107) 05/12/18 07:45 Carbon Dioxide 27 mmol/L (21-32) 05/12/18 07:45 Anion Gap 7 MMOL/L (8-16) L 05/12/18 07:45 BUN 21 mg/dL (7-18) H 05/12/18 07:45 Creatinine 0.6 mg/dL (0.55-1.3) 05/12/18 07:45 Creat Clearance w eGFR 134.80 (>60) 05/12/18 07:45 Random Glucose 84 mg/dL (74-106) 05/12/18 07:45 Calcium 8.8 mg/dL (8.5-10.1) 05/12/18 07:45 Total Bilirubin 0.4 mg/dL (0.2-1) 05/12/18 07:45 AST 50 U/L (15-37) H 05/12/18 07:45 ALT 18 U/L (13-61) 05/12/18 07:45 Alkaline Phosphatase 132 U/L (45-117) H 05/12/18 07:45 Total Protein 6.7 g/dl (6.4-8.2) 05/12/18 07:45 Albumin 3.4 g/dl (3.4-5.0) 05/12/18 07:45 RPR Titer Nonreactive (NONREACTIVE) 05/12/18 07:45 Labs noted Assessment: 05/12/18 12:56 Withdrawal sx Plan: Continue detox
[2018-05-12] MEDS: hydrOXYzine PAMOATE 25 MG CAPSULE (FP) PO PRN (18:01)
[2018-05-12] MEDS: ACETAMINOPHEN 325 MG TABLET (FP) PO PRN (18:01)
[2018-05-12] MEDS: cloNIDine HCL 0.1 MG TABLET PO PRN (18:01)
[2018-05-12] MEDS: MELATONIN 5 MG TABLETS PO PRN (23:00)
[2018-05-12] MEDS: THIAMINE HCL 100 MG TABLET (FP) PO SCH (23:00)
[2018-05-13] MEDS: IBUPROFEN 400 MG TABLET (FP) PO PRN (03:55)
[2018-05-13] MEDS: hydrOXYzine PAMOATE 25 MG CAPSULE (FP) PO PRN ×3 (03:55→21:45)
[2018-05-13] MEDS ORDERED: METHADONE HCL 10 MG TABLET (FOR DETOX USE ONLY) PO ONE (10:00)
[2018-05-13] MEDS ORDERED: diazePAM 5 MG TABLET PO ONE (10:00)
--- NOTE | 2018-05-13 10:01 | PN ---
BHS COWS - Scale Resting Pulse: 1= [place] 81-100 Sweatin= Chills/Flushing Restless Observation: 1= Difficult to Sit Still Pupil Size: 1= Pupils >than Normal Bone or Joint Aches: 1= Mild Discomfort Runny Nose/ Eye Tearin= None GI Upset > 30mins: 1= Stomach Cramp Tremor Observation of Outstretched Hands: 0= None Yawning Observation: 0= None Anxiety or Irritability: 1=Feels Anxious/Irritable Goose Flesh Skin: 0=Smooth Skin COWS Score: 7 BHS Progress Note (SOAP) Subjective: patient requesting valium as prn supportive regimen for opiate detox that clonidine not working discontinue clonidine begin valium indigestion tremor sweating Objective: 05/13/18 10:08 Vital Signs Temperature 97.7 F 05/13/18 09:56 Pulse Rate 86 05/13/18 09:56 Respiratory Rate 20 05/13/18 09:56 Blood Pressure 156/77 05/13/18 09:56 O2 Sat by Pulse Oximetry (%) Laboratory Last Values Sodium 141 mmol/L (136-145) 05/12/18 07:45 Potassium 3.9 mmol/L (3.5-5.1) 05/12/18 07:45 Chloride 107 mmol/L (98-107) 05/12/18 07:45 Carbon Dioxide 27 mmol/L (21-32) 05/12/18 07:45 Anion Gap 7 MMOL/L (8-16) L 05/12/18 07:45 BUN 21 mg/dL (7-18) H 05/12/18 07:45 Creatinine 0.6 mg/dL (0.55-1.3) 05/12/18 07:45 Creat Clearance w eGFR 134.80 (>60) 05/12/18 07:45 Random Glucose 84 mg/dL (74-106) 05/12/18 07:45 Calcium 8.8 mg/dL (8.5-10.1) 05/12/18 07:45 Total Bilirubin 0.4 mg/dL (0.2-1) 05/12/18 07:45 AST 50 U/L (15-37) H 05/12/18 07:45 ALT 18 U/L (13-61) 05/12/18 07:45 Alkaline Phosphatase 132 U/L (45-117) H 05/12/18 07:45 Total Protein 6.7 g/dl (6.4-8.2) 05/12/18 07:45 Albumin 3.4 g/dl (3.4-5.0) 05/12/18 07:45 RPR Titer Nonreactive (NONREACTIVE) 05/12/18 07:45 lab noted Assessment: 05/13/18 10:10 opiate withdrawal sx Plan: continue detox
[2018-05-13] MEDS: PRENATAL VITAMINS W/ FOLIC ACID TABLET (FP) PO SCH (10:26)
[2018-05-13] MEDS ORDERED: METHADONE HCL 5 MG TABLET PO ONE (10:30)
[2018-05-13] MEDS ORDERED: METHADONE HCL 5 MG TABLET (FOR DETOX USE ONLY) PO ONE (10:45)
[2018-05-13] MEDS ORDERED: LORATADINE 10 MG TABLET PO ONE (15:22)
[2018-05-13] MEDS: MELATONIN 5 MG TABLETS PO PRN (21:45)
[2018-05-13] MEDS: THIAMINE HCL 100 MG TABLET (FP) PO SCH (21:45)
[2018-05-13] MEDS: ACETAMINOPHEN 325 MG TABLET (FP) PO PRN (21:46)
[2018-05-14] MEDS: hydrOXYzine PAMOATE 25 MG CAPSULE (FP) PO PRN ×2 (05:35→17:04)
[2018-05-14] MEDS: IBUPROFEN 400 MG TABLET (FP) PO PRN ×2 (05:35→17:02)
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
[2018-05-14] MEDS ORDERED: METHADONE HCL 10 MG TABLET (FOR DETOX USE ONLY) PO ONE (10:00)
[2018-05-14] MEDS: METHOCARBAMOL 500 MG TABLET PO PRN (10:06)
[2018-05-14] MEDS: PRENATAL VITAMINS W/ FOLIC ACID TABLET (FP) PO SCH (10:06)
--- NOTE | 2018-05-14 14:52 | PN ---
BHS Progress Note (SOAP) Subjective: Anxious. Objective: PATIENT A & O X 3, OBSERVED AMBULATING ON UNIT. IN NO ACUTE DISTRESS. 05/14/18 14:51 Vital Signs Temperature 96.4 F L 05/14/18 13:09 Pulse Rate 82 05/14/18 13:09 Respiratory Rate 18 05/14/18 13:09 Blood Pressure 126/67 05/14/18 13:09 O2 Sat by Pulse Oximetry (%) Laboratory Tests 05/12/18 05/12/18 07:45 07:45 Sodium 141 Potassium 3.9 Chloride 107 Carbon Dioxide 27 Anion Gap 7 L BUN 21 H Creatinine 0.6 Creat Clearance w eGFR 134.80 Random Glucose 84 Calcium 8.8 Total Bilirubin 0.4 AST 50 H ALT 18 Alkaline Phosphatase 132 H Total Protein 6.7 Albumin 3.4 RPR Titer Nonreactive LABS NOTED. Assessment: 05/14/18 14:52 WITHDRAWAL SYMPTOMS. Plan: CONTINUE DETOX. PATIENT SCHEDULED FOR D/C TOMORROW AM.
[2018-05-14] MEDS ORDERED: SUVOREXANT 10 MG TABLET PO PRN (22:00)
[2018-05-14] MEDS: THIAMINE HCL 100 MG TABLET (FP) PO SCH (22:07)
[2018-05-15] MEDS ORDERED: METHADONE HCL 5 MG TABLET (FOR DETOX USE ONLY) PO ONE (06:00)
[2018-05-15] MEDS: IBUPROFEN 400 MG TABLET (FP) PO PRN (06:04)
[2018-05-15] MEDS: hydrOXYzine PAMOATE 25 MG CAPSULE (FP) PO PRN (06:06)
[2018-05-15 09:04] VITALS: BP 125/77; PULSE 85; TEMP 97.7
[2018-05-15] MEDS: PRENATAL VITAMINS W/ FOLIC ACID TABLET (FP) PO SCH (09:24)
[2018-05-15] MEDS: ACETAMINOPHEN 325 MG TABLET (FP) PO PRN (09:24)
--- NOTE | 2018-05-15 16:45 | DS ---
[facility] Detox Discharge Summary Admission Date: 05/11/18 Discharge Date: 05/15/18 - History Present History: Opioid Dependence Additional Comments: PATIENT GOING TO THE [facility] ([place], [place]) FOR HOUSING. PATIENT ALSO REFERRED TO [facility] ([place], [place] ) FOR AFTERCARE. PATIENT ALSO ADVISED TO CONSIDER LOCAL 12-STEP / NA / [facility] OUTPATIENT SUPPORT GROUP MEETINGS FOR AFTERCARE. PATIENT WAS DISCHARGED FROM DETOX UNIT IN STABLE MEDICAL CONDITION. Pertinent Past History: History Of Hep C (Treated), Nicotine Dependence, Low Back Pain. - Physical Exam Results Vital Signs: Vital Signs Temperature 97.7 F 05/15/18 09:03 Pulse Rate 85 05/15/18 09:03 Respiratory Rate 18 05/15/18 09:03 Blood Pressure 125/77 05/15/18 09:03 O2 Sat by Pulse Oximetry (%) Pertinent Admission Physical Exam Findings: WITHDRAWAL SYMPTOMS. Laboratory Tests 05/12/18 05/12/18 07:45 07:45 Sodium 141 Potassium 3.9 Chloride 107 Carbon Dioxide 27 Anion Gap 7 L BUN 21 H Creatinine 0.6 Creat Clearance w eGFR 134.80 Random Glucose 84 Calcium 8.8 Total Bilirubin 0.4 AST 50 H ALT 18 Alkaline Phosphatase 132 H Total Protein 6.7 Albumin 3.4 RPR Titer Nonreactive LABS NOTED. - Treatment Hospital Course: Detox Protocol Followed, Detoxed Safely, Responded well, Discharged Condition Good Patient has Accepted a Rehab Referral to: [facility] ([place], [place]). - Medication Discharge Medications: Ambulatory Orders NK [No Known Home Medication] 05/07/18 - Diagnosis (1) Opioid dependence with withdrawal Status: Acute (2) Substance-induced anxiety disorder Status: Acute (3) Substance-induced sleep disorder Status: Acute (4) Low back pain Status: Chronic Qualifiers: Chronicity: unspecified Back pain laterality: unspecified Sciatica presence: unspecified whether sciatica present Qualified Code(s): M54.5 - Low back pain (5) Nicotine dependence Status: Chronic Qualifiers: Nicotine product type: cigarettes Substance use status: uncomplicated Qualified Code(s): F17.210 - Nicotine dependence, cigarettes, uncomplicated (6) Hx of hepatitis C Status: Resolved - AMA Did Patient Leave Against Medical Advice: No
== END 2018-05-15 11:13 | disposition home or self-care (01) | DRG 897 ==
LOC: YASAS 11:43 → Y3N 18:39
PROVIDERS: ADMIT Surgery; ATTEND Surgery
PROC: HZ2ZZZZ Detoxification Services for Substance Abuse Treatment (ICD-10-PCS; principal; 2018-05-11)
DX: F10.230 Alcohol dependence with withdrawal, uncomplicated (principal); F19.280 Other psychoactive substance dependence with psychoactive substance-induced anxiety disorder; F19.282 Other psychoactive substance dependence with psychoactive substance-induced sleep disorder; F17.210 Nicotine dependence, cigarettes, uncomplicated; M54.5 Low back pain; Z86.19 Personal history of other infectious and parasitic diseases
CPT/HCPCS: 36415; 80053; 86593; J0735

== ENCOUNTER 2018-06-05 09:50 | Inpatient (IN) | payer OTHER ==
[2018-06-05 10:47] VITALS: BMI 24.3
--- NOTE | 2018-06-05 12:35 | HP ---
COWS - Scale Resting Pulse: 0= [place] 80 or Below Sweatin= Chills/Flushing Restless Observation: 3= Extraneous Movement Pupil Size: 1= Pupils >than Normal Bone or Joint Aches: 2= Severe Diffuse Aches Runny Nose/ Eye Tearin= Runny Nose/Eyes GI Upset > 30mins: 2= Nausea/Diarrhea Tremor Observation: 2= Slight Tremor Visible Yawning Observation: 2= >3x During Session Anxiety or Irritability: 2=Irritable/Anxious Goose Flesh Skin: 0=Smooth Skin COWS Score: 17 CIWA Score - Admission Criteria [facility]ASAS Guidelines: Admission for Medically Managed Detox: Requires at least one of the followin. CIWA greater than 12 2. Seizures within the past 24 hours 3. Delirium tremens within the past 24 hours 4. Hallucinations within the past 24 hours 5. Acute intervention needed for co occurring medical disorder 6. Acute intervention needed for co occurring psychiatric disorder 7. Severe withdrawal that cannot be handled at a lower level of care (continued vomiting, continued diarrhea, abnormal vital signs) requiring intravenous medication and/or fluids 8. [facility] - HPI Chief Complaint: i need help to stop using heroin Allergies/Adverse Reactions: Allergies Allergy/AdvReac Type Severity Reaction Status Date / Time No Known Allergies Allergy Verified 06/05/18 10:44 History of Present Illness: this 68 years old male with heroin dependence,withdrawal symptom,seeking detox, had previous admissions in detox,last 05/11/18 to 05/15/18 keep relapsing nicotine dependence 8 cigarette,requesting the patch longest sobriety 6 months plan for relocate after detox anxiety,depression,insomnia Exam Limitations: No Limitations - Ebola screening Have you traveled outside of the country in the last 21 days: No Have you had contact with anyone from an Ebola affected area: No Do you have a fever: No - Review of Systems Constitutional: Chills, Loss of Appetite, Malaise, Night Sweats, Changes in sleep, Weakness, Unintentional Wgt. Loss EENT: reports: Tearing, Nose Congestion Respiratory: reports: No Symptoms reported Cardiac: reports: No Symptoms Reported GI: reports: Nausea, Abdominal cramping : reports: No Symptoms Reported Musculoskeletal: reports: Back Pain, Muscle Pain Neuro: reports: Headache, Tremors Endocrine: reports: No Symptoms Reported Hematology: reports: No Symptoms Reported Psychiatric: reports: No Sypmtoms Reported, Judgement Intact, Mood/Affect Appropiate, Orientated x3, Anxious, Depressed, other (insomnia) Patient History - Patient Medical History Hx Anemia: No Hx Asthma: No Hx Chronic Obstructive Pulmonary Disease (COPD): No Hx Cancer: No Hx Cardiac Disorders: No Hx Congestive Heart Failure: No Hx Hypertension: No Hx Hypercholesterolemia: No Hx Pacemaker: No HX Cerebrovascular Accident: No Hx Seizures: No Hx Dementia: No Hx Diabetes: No Hx Gastrointestinal Disorders: No Hx Liver Disease: No Hx Genitourinary Disorders: No Hx Sexually Transmitted Disorders: No Hx Renal Disease (ESRD): No Hx Thyroid Disease: No Hx Human Immunodeficiency Virus (HIV): No (last 2018 negative) Hx Hepatitis C: No Hx Depression: Yes (anxiety) Hx Suicide Attempt: No Hx Bipolar Disorder: No Hx Schizophrenia: No Other Medical History: no sjuicidal,no homicidal,insomnia - Patient Surgical History Past Surgical History: No Hx Neurologic Surgery: No Hx Cataract Extraction: No Hx Cardiac Surgery: No Hx Lung Surgery: No Hx Breast Surgery: No Hx Breast Biopsy: No Hx Abdominal Surgery: No Hx Appendectomy: No Hx Cholecystectomy: No Hx Genitourinary Surgery: No Hx Section: No Hx Orthopedic Surgery: No Anesthesia Reaction: No - PPD History Previous Implant?: Yes Documented Results: Negative w/proof Date: 04/25/18 Results: o mm PPD to be Administered?: No - Smoking Cessation Smoking history: Current every day smoker Have you smoked in the past 12 months: Yes Aproximately how many cigarettes per day: 8 Hx Chewing Tobacco Use: No Initiated information on smoking cessation: Yes 'Breaking Loose' booklet given: 06/05/18 - Substance & Tx. History Hx Alcohol Use: No Hx Substance Use: Yes Substance Use Type: Heroin Hx Substance Use Treatment: Yes ([facility] 05/11/18 to 05/15/18) - Substances abused Heroin Substance route: Inhalation Frequency: Daily Amount used: 15 bags Age of first use: 40 Date of last use: 06/05/18 Family Disease History - Family Disease History Family Disease History: Other: Father (, etoh, alzheimers), Mother (age 92 - in [place]), Brother (one - living - healthy), Sister (four - living - healthy) Admission Physical Exam BHS - Vital Signs Vital Signs: Vital Signs - 24 hr 06/05/18 06/05/18 10:45 11:10 Temperature 98 F 98 F Pulse Rate 80 80 Respiratory 18 18 Rate Blood Pressure 115/75 115/75 - Physical General Appearance: Yes: Moderate Distress, Tremorous, Irritable, Sweating, Anxious HEENTM: Yes: Normal ENT Inspection, Normocephalic, CEE, Pharynx Normal, Other ( cellulitis of right facial area) Respiratory: Yes: Within Normal Limits, Lungs Clear, Normal Breath Sounds Neck: Yes: Within Normal Limits, Supple, Trachea in good position Breast: Yes: Within Normal Limits Cardiology: Yes: Within Normal Limits, Regular Rhythm, Regular Rate, S1, S2 Abdominal: Yes: Within Normal Limits, Normal Bowel Sounds, Non Tender, Soft Genitourinary: Yes: Within Normal Limits Back: Yes: Normal Inspection, Muscle Spasm Musculoskeletal: Yes: Back pain, Joint Stiffness, Muscle Pain Extremities: Yes: Tremors Neurological: Yes: motor and controls tester II-XII NML intact, Fully Oriented, Alert, Motor Strength 5/5 Integumentary: Yes: Dry Lymphatic: Yes: Within Normal Limits - Diagnostic (1) Opioid dependence with withdrawal Current Visit: Yes Status: Acute (2) Dehydration Current Visit: No Status: Acute (3) Facial cellulitis Current Visit: No Status: Acute (4) Hepatitis C Current Visit: No Status: Chronic Qualifiers: Viral hepatitis chronicity: chronic Hepatic coma status: without hepatic coma Qualified Code(s): B18.2 - Chronic viral hepatitis C (5) Low back pain Current Visit: No Status: Chronic Qualifiers: Chronicity: unspecified Back pain laterality: unspecified Sciatica presence: unspecified whether sciatica present Qualified Code(s): M54.5 - Low back pain Cleared for Admission [facility] - Detox or Rehab [facility] Level of Care: Medically Managed Detox Regimen/Protocol: Methadone Breathalyzer - Breathalyzer Breathalyzer: 0 Urine Drug Screen - Test Device Lot number: [id number] Expiration date: 01/13/20 - Control Is test valid?: Yes - Results Drug screen NEGATIVE: No Urine drug screen results: MOP-Opiates, OXY-Oxycodone Inpatient Rehab Admission - Rehab Decision to Admit Inpatient rehab admission?: No
[2018-06-05] MEDS ORDERED: ACETAMINOPHEN 325 MG TABLET (FP) PO PRN ×2 (12:42)
[2018-06-05] MEDS ORDERED: MENTHOL/PHENOL 1 EACH UD MM PRN (12:42)
[2018-06-05] MEDS ORDERED: BISMUTH SUBSALICYLATE 524 MG/30 ML UD PO PRN (12:42)
[2018-06-05] MEDS ORDERED: MELATONIN 5 MG TABLETS PO PRN (12:42)
[2018-06-05] MEDS ORDERED: MAGNESIUM CITRATE 300 ML BOTTLE PO PRN (12:42)
[2018-06-05] MEDS ORDERED: MAGNESIUM HYDROX 2400MG/30ML ORAL SUSPENSION 30 ML CUP PO PRN (12:42)
[2018-06-05] MEDS ORDERED: MAG HYDROX/AL HYDROX/SIMETH 30 ML UNIT-DOSE CUP PO PRN (12:42)
[2018-06-05] MEDS ORDERED: METHADONE HCL 10 MG TABLET (FOR DETOX USE ONLY) PO ONE ×2 (14:00→23:00)
[2018-06-05] MEDS: NICOTINE 21 MG/24 HOURS TOPICAL PATCH TD SCH (14:01)
[2018-06-05] MEDS: diazePAM 5 MG TABLET PO PRN ×2 (14:06→22:32)
--- NOTE | 2018-06-05 15:05 | CONSULT ---
[facility] Psychiatric Consult - Data Date of interview: 06/05/18 Admission source: [facility] Identifying data: Readmission to [facility] for this 68 y/o male self- reffered for detoxification (heroin). Examined on . Patient is single, no children, unemployed and supported on SSI benefits. Substance Abuse History: Discussed in this session. Mr Trista ospina a history of heroin use (via inhalation) since age 40. History of " a half-dozen " of overdoses. Additional details in the following segment of current [facility] report : Smoking history: Current every day smoker. Have you smoked in the past 12 months: Yes. Aproximately how many cigarettes per day: 8. Hx Chewing Tobacco Use: No. Initiated information on smoking cessation: Yes. 'Breaking Loose' booklet given: 06/05/18. - Substance & Tx. History. Hx Alcohol Use: No. Hx Substance Use: Yes. Substance Use Type: Heroin. Hx Substance Use Treatment: Yes ([facility] 05/11/18 to 05/15/18). - Substances abused. Heroin. Substance route: Inhalation. Frequency: Daily. Amount used: 15 bags. Age of first use: 40. Date of last use: 06/05/18 Medical History: Patient endorses good general health. Psychiatric History: Patient denies history of psychiatric hospitalizations, OPD care or suicide attempts. Physical/Sexual Abuse/Trauma History: Patient denies history of abuse. Additional Comment: Urine drug screen results: MOP-Opiates, OXY-Oxycodone. Noted. Mental Status Exam - Mental Status Exam Alert and Oriented to: Time, Place, Person Cognitive Function: Good Patient Appearance: Well Groomed Mood: Nervous, Withdrawn Affect: Appropriate, Mood Congruent, Normal Range Patient Behavior: Fatigued, Appropriate, Cooperative (superficially cooperative) Speech Pattern: Clear Voice Loudness: Normal Thought Process: Goal Oriented Thought Disorder: Not Present Hallucinations: Denies Suicidal Ideation: Denies Homicidal Ideation: Denies Insight/Judgement: Poor Sleep: Well Appetite: Good Muscle strength/Tone: Normal Gait/Station: Normal Psychiatric Findings - Problem List (Fowler 1, 2,3) (1) Opioid dependence with withdrawal Current Visit: Yes Status: Acute (2) Nicotine dependence Current Visit: Yes Status: Chronic Qualifiers: Nicotine product type: cigarettes Substance use status: uncomplicated Qualified Code(s): F17.210 - Nicotine dependence, cigarettes, uncomplicated (3) Drug-induced mood disorder Current Visit: Yes Status: Chronic - Initial Treatment Plan Initial Treatment Plan: Psychoeducation. Sleep hygiene. Support. NA meetings. Detoxification. Groups. Motivational counseling. Observation.
[2018-06-05] MEDS: AMOX TR/POT CLAV 875MG/125MG TABLETS (FP) PO SCH (18:31)
[2018-06-05] MEDS: THIAMINE HCL 100 MG TABLET (FP) PO SCH (22:30)
[2018-06-05 23:32] LABS: HEMATOCRIT 40.3 % (35.4-49); HEMOGLOBIN 13.5 GM/dL (11.7-16.9); MCH 30.5 pg (25.7-33.7); MCHC 33.5 g/dl (32.0-35.9); MEAN CELL VOLUME 90.9 fl (80-96); MEAN PLT VOLUME 8.1 fl (7.5-11.1); PLATELET COUNT 249 K/MM3 (134-434); RBC 4.43 M/mm3 (4.00-5.60); RDW 14.9 % (11.9-15.9); WHITE BLOOD COUNT 7.2 K/mm3 (4.0-10.0)
[2018-06-06 00:05] LABS: ALBUMIN 3.8 g/dl (3.4-5.0); ALK PHOS 157 U/L (45-117); ANION GAP 6 MMOL/L (8-16); BILIRUBIN,TOTAL 0.4 mg/dL (0.2-1); BLOOD UREA NITROGEN 15 mg/dL (7-18); CALCIUM 9.3 mg/dL (8.5-10.1); CHLORIDE 99 mmol/L (98-107); CO2 28 mmol/L (21-32); CREATININE 0.5 mg/dL (0.55-1.3); GLUCOSE,RANDOM 101 mg/dL (74-106); POTASSIUM 3.9 mmol/L (3.5-5.1); SGOT/AST 55 U/L (15-37); SGPT/ALT 23 U/L (13-61); SODIUM 133 mmol/L (136-145); TOT PROT 7.8 g/dl (6.4-8.2)
[2018-06-06] MEDS: AMOX TR/POT CLAV 875MG/125MG TABLETS (FP) PO SCH ×2 (07:18→18:30)
[2018-06-06] MEDS: diazePAM 5 MG TABLET PO PRN ×3 (07:20→18:53)
[2018-06-06] MEDS ORDERED: METHADONE HCL 10 MG TABLET (FOR DETOX USE ONLY) PO ONE (10:00)
--- NOTE | 2018-06-06 10:05 | PN ---
BHS COWS - Scale Resting Pulse: 1= [place] 81-100 Sweatin= Chills/Flushing Restless Observation: 3= Extraneous Movement Pupil Size: 1= Pupils >than Normal Bone or Joint Aches: 1= Mild Discomfort Runny Nose/ Eye Tearin= Nasal Congestion GI Upset > 30mins: 1= Stomach Cramp Tremor Observation of Outstretched Hands: 1= Tremor [place], Not Seen Yawning Observation: 0= None Anxiety or Irritability: 2=Irritable/Anxious Goose Flesh Skin: 3=Piloerection COWS Score: 15 BHS Progress Note (SOAP) Subjective: pt states doing Ok with detox protocol day #2. Considering methadone program after discharge O: Vital Signs - 24 hr 06/05/18 06/05/18 06/05/18 10:45 11:10 13:59 Temperature 98 F 98 F 97.7 F Pulse Rate 80 80 76 Respiratory 18 18 18 Rate Blood Pressure 115/75 115/75 118/77 06/05/18 06/05/18 06/06/18 16:53 21:32 00:30 Temperature 98.3 F 98.4 F Pulse Rate 62 89 Respiratory 19 16 18 Rate Blood Pressure 116/68 97/71 06/06/18 06/06/18 03:00 03:30 Temperature 98.2 F Pulse Rate 83 Respiratory 18 18 Rate Blood Pressure 120/70 Laboratory Tests 06/05/18 06/05/18 13:10 13:10 WBC 7.2 RBC 4.43 Hgb 13.5 Hct 40.3 MCV 90.9 MCH 30.5 MCHC 33.5 RDW 14.9 Plt Count 249 MPV 8.1 Sodium 133 L Potassium 3.9 Chloride 99 Carbon Dioxide 28 Anion Gap 6 L BUN 15 Creatinine 0.5 L Creat Clearance w eGFR 166.36 Random Glucose 101 Calcium 9.3 Total Bilirubin 0.4 AST 55 H ALT 23 Alkaline Phosphatase 157 H Total Protein 7.8 Albumin 3.8 a/p: continue detox protocol d/w pt to join MAT for continued treatment of OUD
[2018-06-06] MEDS: PRENATAL VITAMINS W/ FOLIC ACID TABLET (FP) PO SCH (10:34)
[2018-06-06] MEDS: cloNIDine HCL 0.1 MG TABLET PO PRN (10:34)
[2018-06-06] MEDS: hydrOXYzine PAMOATE 25 MG CAPSULE (FP) PO PRN (10:34)
[2018-06-06] MEDS: METHOCARBAMOL 500 MG TABLET PO PRN (10:34)
[2018-06-06] MEDS: NICOTINE 21 MG/24 HOURS TOPICAL PATCH TD SCH (10:35)
[2018-06-06] MEDS: THIAMINE HCL 100 MG TABLET (FP) PO SCH (22:26)
[2018-06-07] MEDS: AMOX TR/POT CLAV 875MG/125MG TABLETS (FP) PO SCH ×2 (07:59→17:43)
[2018-06-07] MEDS ORDERED: METHADONE HCL 10 MG TABLET (FOR DETOX USE ONLY) PO ONE (10:00)
[2018-06-07] MEDS: cloNIDine HCL 0.1 MG TABLET PO PRN (10:01)
[2018-06-07] MEDS: hydrOXYzine PAMOATE 25 MG CAPSULE (FP) PO PRN (10:01)
[2018-06-07] MEDS: PRENATAL VITAMINS W/ FOLIC ACID TABLET (FP) PO SCH (10:01)
[2018-06-07] MEDS: NICOTINE 21 MG/24 HOURS TOPICAL PATCH TD SCH (10:02)
[2018-06-07] MEDS: diazePAM 5 MG TABLET PO PRN ×3 (10:02→19:27)
--- NOTE | 2018-06-07 10:57 | PN ---
BHS COWS - Scale Resting Pulse: 1= [place] 81-100 Sweatin=Flushed/Facial Moisture Restless Observation: 0= Sits Still Pupil Size: 0= Normal to Room Light Bone or Joint Aches: 2= Severe Diffuse Aches Runny Nose/ Eye Tearin= Nasal Congestion GI Upset > 30mins: 0= None Tremor Observation of Outstretched Hands: 2= Slight Tremor Visible Yawning Observation: 2= >3x During Session Anxiety or Irritability: 2=Irritable/Anxious Goose Flesh Skin: 0=Smooth Skin COWS Score: 12 BHS Progress Note (SOAP) Subjective: sweats shakes body aches interrupted sleep irritable Objective: 06/07/18 11:13 Vital Signs Temperature 99.3 F 06/07/18 09:02 Pulse Rate 85 06/07/18 09:02 Respiratory Rate 18 06/07/18 09:02 Blood Pressure 126/66 06/07/18 09:02 O2 Sat by Pulse Oximetry (%) Laboratory Tests 06/05/18 06/05/18 06/05/18 13:10 13:10 13:10 WBC 7.2 RBC 4.43 Hgb 13.5 Hct 40.3 MCV 90.9 MCH 30.5 MCHC 33.5 RDW 14.9 Plt Count 249 MPV 8.1 Sodium 133 L Potassium 3.9 Chloride 99 Carbon Dioxide 28 Anion Gap 6 L BUN 15 Creatinine 0.5 L Creat Clearance w eGFR 166.36 Random Glucose 101 Calcium 9.3 Total Bilirubin 0.4 AST 55 H ALT 23 Alkaline Phosphatase 157 H Total Protein 7.8 Albumin 3.8 RPR Titer Nonreactive aaox3 ambulating no acute distress Assessment: 06/07/18 11:14 withdrawal sx Plan: continue detox increase fluids
[2018-06-07] MEDS: IBUPROFEN 400 MG TABLET (FP) PO PRN (14:10)
[2018-06-07] MEDS: THIAMINE HCL 100 MG TABLET (FP) PO SCH (23:43)
[2018-06-08] MEDS: AMOX TR/POT CLAV 875MG/125MG TABLETS (FP) PO SCH ×2 (07:36→17:39)
[2018-06-08] MEDS ORDERED: METHADONE HCL 10 MG TABLET (FOR DETOX USE ONLY) ONE (09:25)
[2018-06-08] MEDS ORDERED: METHADONE HCL 5 MG TABLET (FOR DETOX USE ONLY) ONE (09:25)
[2018-06-08] MEDS: PRENATAL VITAMINS W/ FOLIC ACID TABLET (FP) PO SCH (09:44)
[2018-06-08] MEDS: NICOTINE 21 MG/24 HOURS TOPICAL PATCH TD SCH (09:46)
[2018-06-08] MEDS ORDERED: METHADONE (DETOX) 10 MG, METHADONE (DETOX) 5 MG PO ONE (10:00)
[2018-06-08] MEDS ORDERED: METHADONE HCL 10 MG TABLET (FOR DETOX USE ONLY) PO ONE (10:00)
[2018-06-08] MEDS: diazePAM 5 MG TABLET PO PRN (10:36)
--- NOTE | 2018-06-08 12:05 | PN ---
BHS COWS - Scale Resting Pulse: 0= [place] 80 or Below Sweatin= No chills or Flushing Restless Observation: 1= Difficult to Sit Still Pupil Size: 0= Normal to Room Light Bone or Joint Aches: 0= None Runny Nose/ Eye Tearin= None GI Upset > 30mins: 0= None Tremor Observation of Outstretched Hands: 0= None Yawning Observation: 0= None Anxiety or Irritability: 1=Feels Anxious/Irritable Goose Flesh Skin: 0=Smooth Skin COWS Score: 2 BHS Progress Note (SOAP) Subjective: pt doing well- completing heroin detox protocol O: Vital Signs - 24 hr 06/07/18 06/07/18 06/07/18 14:21 16:59 21:40 Temperature 98.2 F 98.2 F 98.8 F Pulse Rate 86 75 62 Respiratory 18 18 19 Rate Blood Pressure 101/59 L 102/56 L 119/60 06/08/18 06/08/18 06/08/18 03:30 06:00 09:04 Temperature 98.2 F 97.7 F Pulse Rate 80 88 Respiratory 18 18 18 Rate Blood Pressure 124/76 113/57 L Laboratory Tests 06/05/18 06/05/18 06/05/18 13:10 13:10 13:10 WBC 7.2 RBC 4.43 Hgb 13.5 Hct 40.3 MCV 90.9 MCH 30.5 MCHC 33.5 RDW 14.9 Plt Count 249 MPV 8.1 Sodium 133 L Potassium 3.9 Chloride 99 Carbon Dioxide 28 Anion Gap 6 L BUN 15 Creatinine 0.5 L Creat Clearance w eGFR 166.36 Random Glucose 101 Calcium 9.3 Total Bilirubin 0.4 AST 55 H ALT 23 Alkaline Phosphatase 157 H Total Protein 7.8 Albumin 3.8 RPR Titer Nonreactive a/p: conitnue heroin detox protocol: offered pt to continue methadone MAT at . Pt said he would consider this at discharge
[2018-06-08] MEDS: IBUPROFEN 400 MG TABLET (FP) PO PRN (15:34)
[2018-06-08] MEDS: METHOCARBAMOL 500 MG TABLET PO PRN (15:35)
[2018-06-08 17:11] VITALS: BP 111/71; PULSE 96; TEMP 98.4
[2018-06-08] MEDS: hydrOXYzine PAMOATE 25 MG CAPSULE (FP) PO PRN (17:39)
--- NOTE | 2018-06-08 20:58 | DS ---
[facility] Detox Discharge Summary Admission Date: 06/05/18 Discharge Date: 06/08/18 (Pt signed AMA) - History Present History: Opioid Dependence Additional Comments: Pt signed AMA and walked off the unit as per RN. Pt refused to wait and talk to the practitioner. Pertinent Past History: Pt with history of heroine use disorder - Physical Exam Results Vital Signs: Vital Signs Temperature 98.4 F 06/08/18 17:11 Pulse Rate 96 H 06/08/18 17:11 Respiratory Rate 20 06/08/18 17:11 Blood Pressure 111/71 06/08/18 17:11 O2 Sat by Pulse Oximetry (%) Lab Results WBC 7.2 K/mm3 (4.0-10.0) 06/05/18 13:10 RBC 4.43 M/mm3 (4.00-5.60) 06/05/18 13:10 Hgb 13.5 GM/dL (11.7-16.9) 06/05/18 13:10 Hct 40.3 % (35.4-49) 06/05/18 13:10 MCV 90.9 fl (80-96) 06/05/18 13:10 MCHC 33.5 g/dl (32.0-35.9) 06/05/18 13:10 RDW 14.9 % (11.9-15.9) 06/05/18 13:10 Plt Count 249 K/MM3 (134-434) 06/05/18 13:10 Sodium 133 mmol/L (136-145) L 06/05/18 13:10 Potassium 3.9 mmol/L (3.5-5.1) 06/05/18 13:10 Chloride 99 mmol/L (98-107) 06/05/18 13:10 Carbon Dioxide 28 mmol/L (21-32) 06/05/18 13:10 Anion Gap 6 MMOL/L (8-16) L 06/05/18 13:10 BUN 15 mg/dL (7-18) 06/05/18 13:10 Creatinine 0.5 mg/dL (0.55-1.3) L 06/05/18 13:10 Random Glucose 101 mg/dL (74-106) 06/05/18 13:10 Calcium 9.3 mg/dL (8.5-10.1) 06/05/18 13:10 Labs noted. Pertinent Admission Physical Exam Findings: withdrawal symptoms - Treatment Hospital Course: Detox Protocol Followed - Medication Discharge Medications: Ambulatory Orders NK [No Known Home Medication] 05/07/18 - Diagnosis (1) Opioid dependence with withdrawal Status: Acute (2) Nicotine dependence Status: Chronic Qualifiers: Nicotine product type: cigarettes Substance use status: uncomplicated Qualified Code(s): F17.210 - Nicotine dependence, cigarettes, uncomplicated (3) Opioid dependence with withdrawal Status: Chronic - AMA Did Patient Leave Against Medical Advice: Yes
[2018-06-09] MEDS ORDERED: METHADONE HCL 5 MG TABLET (FOR DETOX USE ONLY) PO ONE (06:00)
[2018-06-09] MEDS ORDERED: METHADONE HCL 10 MG TABLET (FOR DETOX USE ONLY) PO ONE (10:00)
[2018-06-10] MEDS ORDERED: METHADONE HCL 5 MG TABLET (FOR DETOX USE ONLY) PO ONE (06:00)
== END 2018-06-08 18:22 | disposition left against medical advice (07) | DRG 894 ==
LOC: YASAS 09:50 → Y6N 12:43
PROVIDERS: ADMIT Surgery; ATTEND Surgery
PROC: HZ2ZZZZ Detoxification Services for Substance Abuse Treatment (ICD-10-PCS; principal; 2018-06-05)
DX: F11.23 Opioid dependence with withdrawal (principal); F17.210 Nicotine dependence, cigarettes, uncomplicated; F19.24 Other psychoactive substance dependence with psychoactive substance-induced mood disorder
CPT/HCPCS: 36415; 80053; 85027; 86593; J0735

== ENCOUNTER 2018-06-12 07:26 | Emergency (ER) | payer OTHER ==
[2018-06-12 07:33] VITALS: BP 137/72; PULSE 101; TEMP 98.3; BMI 24.3
--- NOTE | 2018-06-12 09:15 | PDOC ---
History of Present Illness - General History Source: Patient Exam Limitations: No Limitations - History of Present Illness Initial Comments: 06/12/18 08:46 68 yo male from homeless detention, hx of substance abuse (alcohol, heroin. multiple detox admissions) and facial cellulitis presents to the ED for right sided facial pain, redness, warmth, swelling for 2 days. Pt is an unreliable historian, denies stated hx, also denies prior cellulitis made note on 04/[address] Almeida who prescribed Bactrim. Pt states he popped 2 pimples on his face 2 days ago and the stated s/s have worsened progressively with some mild pus drainage. Pt denies F/C/N/V, CP, SOB, abdominal pain. Denies changes in vision, difficulty swallowing pain inside his mouth. <Bob Alvarado - Last Filed: 06/12/18 08:46> <Cassy Christensen - Last Filed: 06/13/18 07:57> - General Chief Complaint: Lightheaded Stated Complaint: FACIAL PAIN,DIZZINESS Time Seen by Provider: 06/12/18 07:50 Past History - Past Medical History Anemia: No Asthma: No Cancer: No Cardiac Disorders: No CVA: No COPD: No CHF: No DVT: No Dementia: No Diabetes: No GI Disorders: No Disorders: No HTN: No Hypercholesterolemia: No Kidney Stones: No Liver Disease: No Psychiatric Problems: Yes (OPIOD ABUSE) Seizures: No Thyroid Disease: No - Surgical History Abdominal Surgery: No Appendectomy: No Cardiac Surgery: No Cholecystectomy: No Lung Surgery: No Neurologic Surgery: No Orthopedic Surgery: No - Reproductive History Testicular Surgery: No - Suicide/Smoking/Psychosocial Hx Smoking History: Current every day smoker Have you smoked in the past 12 months: Yes Number of Cigarettes Smoked Daily: 8 Information on smoking cessation initiated: No 'Breaking Loose' booklet given: 06/05/18 Hx Alcohol Use: No Drug/Substance Use Hx: No Substance Use Type: Heroin Hx Substance Use Treatment: Yes ([facility] 05/11/18 to 05/15/18) <Bob Alvarado - Last Filed: 06/12/18 08:46> <Cassy Christensen - Last Filed: 06/13/18 07:57> - Past Medical History Allergies/Adverse Reactions: Allergies Allergy/AdvReac Type Severity Reaction Status Date / Time No Known Allergies Allergy Verified 06/12/18 07:33 Home Medications: Ambulatory Orders Clindamycin [Cleocin -] 600 mg PO Q8H #30 capsule 06/12/18 *Physical Exam - Vital Signs Last Vital Signs Temp Pulse Resp BP Pulse Ox 98.3 F 101 H 18 137/72 96 06/12/18 07:29 06/12/18 07:29 06/12/18 07:29 06/12/18 07:29 06/12/18 07:29 <Bob Alvarado - Last Filed: 06/12/18 08:46> - Vital Signs Last Vital Signs Temp Pulse Resp BP Pulse Ox 98.3 F 101 H 18 137/72 96 06/12/18 07:29 06/12/18 07:29 06/12/18 07:29 06/12/18 07:29 06/12/18 07:29 <Cassy Christensen - Last Filed: 06/13/18 07:57> ED Treatment Course - Medications Given in the ED: ED Medications Discontinued Medications Generic Name Dose Route Start Last Admin Trade Name Denilsonq PRN Reason Stop Dose Admin Bacitracin 1 applic 06/12/18 09:18 06/12/18 09:31 Bacitracin - TP 06/12/18 09:19 1 applic ONCE ONE Administration Clindamycin HCl 600 mg 06/12/18 09:16 06/12/18 09:31 Cleocin - PO 06/12/18 09:17 600 mg ONCE ONE Administration Ibuprofen 600 mg 06/12/18 09:18 06/12/18 09:32 Motrin - PO 06/12/18 09:19 600 mg ONCE ONE Administration <Cassy Christensen - Last Filed: 06/13/18 07:57> Medical Decision Making - Medical Decision Making 06/12/18 09:23 bedside US done, no drainable fluid collection noted. No extension into the preseptal orbital region at this time. Pt is a MRSA risk, Clinda given in the ED and will be sent to pharmacy <Bob Alvarado - Last Filed: 06/12/18 08:46> *DC/Admit/Observation/Transfer - Discharge Dispostion Decision to Admit order: No <Bob Alvarado - Last Filed: 06/12/18 08:46> <Cassy Christensengee - Last Filed: 06/13/18 07:57> Diagnosis at time of Disposition: Facial cellulitis - Discharge Dispostion Disposition: HOME Condition at time of disposition: Stable - Prescriptions Prescriptions: Clindamycin [Cleocin -] 600 mg PO Q8H #30 capsule - Referrals Referrals: [facility] [place] [Provider Group] - Patient Instructions Printed Discharge Instructions: DI for Cellulitis -- Adult Additional Instructions: Please see your Primary Doctor or make an appointment with the [facility] referred to you. You must see a Primary Care Doctor within the next 48 hours to assess your cellulitis for progression/extension especially into the eye. Take over the counter Tylenol or Motrin as instructed on the label for pain. Take the antibiotic as prescribed to you until completely finished. Return to the ER immediately for new or concerning symptoms including but not limited to: changes in vision, pain or swelling in your eye, high fevers, increased swelling/pain or redness of the facial cellulitis. Thank you
[2018-06-12] MEDS ORDERED: CLINDAMYCIN HCL 300 MG CAPSULE PO ONE (09:16)
[2018-06-12] MEDS ORDERED: BACITRACIN 15 GM TUBE TOPICAL OINTMENT TP ONE (09:18)
[2018-06-12] MEDS ORDERED: IBUPROFEN 600 MG TABLET (FP) PO ONE ×2 (09:18→09:30)
[2018-06-12] MEDS ORDERED: CLINDAMYCIN HCL 150 MG CAPSULE (FP) ONE (09:29)
[2018-06-12] MEDS ORDERED: BACITRACIN 0.9 GM PACKET ONE (09:30)
--- NOTE | 2018-06-12 09:37 | PDOC ---
Documentation entered by Nathalia Calle SCRIBE, acting as scribe for Cassy Christensen MD. Cassy Christensen MD: This documentation has been prepared by the Luc quiles Amanda, SCRIBE, under my direction and personally reviewed by me in its entirety. I confirm that the documentation accurately reflects all work, treatment, procedures, and medical decision making performed by me. Attending Attestation - Resident Resident Name: Bob Alvarado - ED Attending Attestation I have performed the following: I have examined & evaluated the patient, The case was reviewed & discussed with the resident, I agree w/resident's findings & plan - HPI HPI: 06/12/18 09:32 68 YOM with h/o opioid/heroin abuse, smoker presenting with dizziness and feeling lightheaded, right sided facial pain x 3 days, s/p popping pimple on the right side of his face. - Physicial Exam PE: 06/12/18 09:33 Agree with the resident's HPI and PE as documented in the electronic medical record. NAD, well appearing, PERRL, EOMI, +right face/cheek with warmth, erythema, tenderness, and area of popped pimple overlying crust and scabbing. sparing orbits, no orbital tenderness, no extension of erythema to ocular/orbits. MMM, nl conjunctiva, anicteric; neck supple. lungs clear, RRR, abdomen soft nontender. JASMINE x4, no focal neuro deficits. CN II-XII grossly intact, No peripheral edema. normal color for ethnicity, WWP. - Medical Decision Making 06/12/18 09:34 See HPI for details Vital signs reviewed, wnl. no fever or systemic sx. Prior notes reviewed, including admissions, discharges and consultations. EKG normal sinus rhythm at 85 bpm , no interval abnormalities, narrow QRS, ST and T wave segments and morphology normal. ED course - preseptal and facial cellulitis; no abscess after sono. doubt orbital cellulitis, doubt deep space or facial infection, no systemic sx. no ocular involvement, no neuro deficits, CN II-XII intact. - soft tissue pocus neg for abscess, cobblestoning present to rt face. - clindamycin, mrsa risk; advised to stop using heroin or drugs - infection control, analgesia motrin/tylenol, warm compresses, hydration and PO abx x 10 d course. return precautions provided. Dispo: Pt informed of my clinical impression, treatment recommendations and disposition plan. All questions answered to patient's satisfaction and expressed understanding and comfort with this. Reasons for returning to the ED sooner discussed including new or persistent/worsening symptoms with the patient otherwise, follow up with primary care physician. At the time of discharge, the patient is alert, clinically improved, tolerating po and verbalizes understanding of instructions, satisfied with the care received and felt comfortable with the plan. Patient does not suffer from an acute life- threatening medical condition at this time he is safe for outpatient follow-up.
--- NOTE | 2018-06-12 14:15 | EKG ---
Test Reason : Blood Pressure : / mmHG Vent. Rate : 085 BPM Atrial Rate : 085 BPM P-R Int : 204 ms QRS Dur : 096 ms QT Int : 384 ms P-R-T Axes : 073 042 064 degrees QTc Int : 456 ms NORMAL SINUS RHYTHM with first degree AV block LEFT ATRIAL ENLARGEMENT BORDERLINE ECG Confirmed by MD EDWARDO, LENARD ([id number]) on 06/12/2018 2:14:43 PM Referred By: Confirmed By:LENARD BROOKE MD
== END 2018-06-12 09:37 | disposition home or self-care (01) ==
LOC: JER 07:26
DX: L03.211 Cellulitis of face (principal); F11.10 Opioid abuse, uncomplicated; F10.10 Alcohol abuse, uncomplicated; F17.210 Nicotine dependence, cigarettes, uncomplicated; Z59.0 Homelessness
CPT/HCPCS: 93005; 93010; 99282-25

== ENCOUNTER 2018-09-09 22:55 | Emergency (ER) | payer OTHER | END 2018-09-10 05:13 | disposition home or self-care (01) | LOC: JER 22:55 | PROC: 3E03329 Introduction of Other Anti-infective into Peripheral Vein, Percutaneous Approach (ICD-10-PCS; principal; 2018-09-09) | PROC: 3E033NZ Introduction of Analgesics, Hypnotics, Sedatives into Peripheral Vein, Percutaneous Approach (ICD-10-PCS; 2018-09-09) | DX: L03.213 Periorbital cellulitis (principal) ==

== ENCOUNTER 2018-11-15 15:57 | Emergency (ER) | payer OTHER ==
[2018-11-15 16:03] VITALS: BP 158/91; PULSE 86; TEMP 97.6; BMI 23.2
--- NOTE | 2018-11-15 16:05 | PDOC ---
Attending Attestation - Resident Resident Name: Roscoe Montejo - ED Attending Attestation I have performed the following: I have examined & evaluated the patient, The case was reviewed & discussed with the resident, I agree w/resident's findings & plan, Exceptions are as noted - HPI HPI: 11/15/18 16:54 Patient with frequent cerumen buildup requiring irrigation, presents with a clogged left ear for about 1 week. No fever, URI symptoms, sore throat, cough. Some momentary intermittent vertigo. - Physicial Exam PE: 11/15/18 16:55 PE reveals normal vital signs. Patient alert and oriented in no acute distress There are bilateral cerumen impactions. Neurologic exam is normal. Gait is stable and unimpaired. - Medical Decision Making 11/15/18 16:55 Assessment: Recurrent bilateral cerumen impactions Plan: Ears were irrigated using indirect flow from [employer] water [place]. Cerumen was removed and the patient's symptoms were resolved. There was some irritation of the canals bilaterally, for which antibiotic/hydrocortisone drops were prescribed for 3 days. Instructed to follow-up with ENT if further symptoms. Fully ambulatory and in no pain or other distress at discharge
--- NOTE | 2018-11-15 16:20 | PDOC ---
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 Patient says that today he has been having the feeling of pressure inside his left ear, as well as his hearing being worse in his left ear compared to right. He also says he feels a little unsteady, not to the point of being unable to walk, but just off a little bit. Has had this same problem in the past with too much ear wax in his ears, came to [facility] and got it removed and felt better after. Otherwise denies any other medical complaints or symptoms at this time. Past History - Past Medical History Allergies/Adverse Reactions: Allergies Allergy/AdvReac Type Severity Reaction Status Date / Time No Known Allergies Allergy Verified 11/15/18 15:57 Home Medications: Ambulatory Orders Neomycin/Polymyxn/Hc [Cortisporin Otic Solution -] 10 ml BID #1 dropsbtl 05/01 Anemia: No Asthma: No Cancer: No Cardiac Disorders: No CVA: No COPD: No CHF: No DVT: No Dementia: No Diabetes: No GI Disorders: No Disorders: No HTN: No Hypercholesterolemia: No Kidney Stones: No Liver Disease: No Psychiatric Problems: Yes (OPIOD ABUSE) Seizures: No Thyroid Disease: No - Surgical History Abdominal Surgery: No Appendectomy: No Cardiac Surgery: No Cholecystectomy: No Lung Surgery: No Neurologic Surgery: No Orthopedic Surgery: No - Reproductive History Testicular Surgery: No - Immunization History Td Vaccination: Yes TDAP Vaccination: Yes Immunization Up to Date: Yes - Psycho Social/Smoking Cessation Hx Smoking History: Current every day smoker Have you smoked in the past 12 months: Yes Number of Cigarettes Smoked Daily: 10 Information on smoking cessation initiated: Yes 'Breaking Loose' booklet given: 06/05/18 Hx Alcohol Use: No Drug/Substance Use Hx: No Substance Use Type: Heroin Hx Substance Use Treatment: Yes ([facility] 05/11/18 to 05/15/18) Review of Systems - Review of Systems Constitutional: No: Symptoms Reported HEENTM: Yes: Hearing Loss, Other (pressure inside L ear) Respiratory: No: Symptoms reported Cardiac (ROS): No: Symptoms Reported ABD/GI: No: Symptoms Reported : No: Symptoms Reported Musculoskeletal: No: Symptoms Reported Integumentary: No: Symptoms Reported Neurological: Yes: Dizziness Endocrine: No: Symptoms Reported Hematologic/Lymphatic: No: Symptoms Reported All Other Systems: Reviewed and Negative *Physical Exam - Vital Signs Last Vital Signs Temp Pulse Resp BP Pulse Ox 97.6 F 86 19 158/91 97 11/15/18 15:57 11/15/18 15:57 11/15/18 15:57 11/15/18 15:57 11/15/18 15:57 - Physical Exam General Appearance: Yes: Nourished, Appropriately Dressed. No: Apparent Distress HEENT: positive: EOMI, CEE, Normal ENT Inspection, Normal Voice, Symmetrical, Pharynx Normal, Hearing Grossly Normal. negative: TMs Normal (L ear canal completely impacted with yellow waxy cerumen, unable to visualize TM. R ear canal has large amount of cerumen with some airspace superiorly, unable to visualize TM.), Scleral Icterus (R), Scleral Icterus (L), Pharyngeal Erythema, Tonsillar Exudate, Tonsillar Erythema, Lesions, Manuel Neck: positive: Normal Thyroid, Supple. negative: Tender, Rigid, Lymphadenopathy (R), Lymphadenopathy (L) Respiratory/Chest: positive: Lungs Clear, Normal Breath Sounds. negative: Respiratory Distress, Accessory Muscle Use, Crackles, Rales, Rhonchi Cardiovascular: positive: Regular Rhythm, Regular Rate. negative: Murmur Gastrointestinal/Abdominal: positive: Normal Bowel Sounds, Flat, Soft. negative : Tender, Organomegaly, Guarding, Rebound Musculoskeletal: positive: Normal Inspection. negative: CVA Tenderness Extremity: positive: Normal Capillary Refill, Normal Inspection, Normal Range of Motion. negative: Tender Integumentary: positive: Normal Color, Dry, Warm Neurologic: positive: bankruptcy processor II-XII NML intact, Fully Oriented, Alert, Normal Mood/ Affect, Normal Response, Other (gait normal, seen walking up and down hallway and rising from sitting position without issue). 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 Patient presentation is consistent with cerumen impaction of his left and right ears on exam. Basic neurological testing does not reveal nystagmus, unsteady gait, or any other findings concerning for a central cause of hearing loss, and patient has no other complaints concerning for an acute pathology. Patient's ears irrigated thoroughly with water and peroxide solution, and large chunks of cerumen were extracted. Repeat otic exam shows some erythema but no evidence of further cerumen in ear canals. Patient initially dizzy, likely 2/2 cold caloric effect of irrigation, but recovered back to normal and reported feeling much better and could hear much better in his left ear. Persistent erythema concerning for otitis externa, giving Cortisporin drops to be applied to each each for a week to clear any residual issues from cerumen impaction. Discharge home with meds and PCP follow-up, recommended peroxide drops to ears to prevent further wax buildup. Discharge - Discharge Information Problems reviewed: Yes Clinical Impression/Diagnosis: Cerumen impaction Qualifiers: Laterality: bilateral Qualified Code(s): H61.23 - Impacted cerumen, bilateral Condition: Stable Disposition: HOME - Admission No - Additional Discharge Information Prescriptions: Neomycin/Polymyxn/Hc [Cortisporin Otic Solution -] 10 ml BID #1 dropsbtl - Follow up/Referral - Patient Discharge Instructions Patient Printed Discharge Instructions: DI for Cerumen Impaction Additional Instructions: Today you were evaluated for wax in your ear. We did an examination of your ears , and noted that there was a lot of ear wax in both of your ears, on the left more than the right. We irrigated both of your ears with water and peroxide to help clean out the wax, and on repeat exam of your ears we have successfully removed all of it. You still feel a little dizzy, but this is normal after the amount of irrigation we performed. You still have some irritation in your ears after the wax was removed, so we have provided you with some ear drops to clear an ear infection. Please use 5 drops in each affected ear in the morning and at night until symptoms resolve. At home, please buy some peroxide liquid eardroppers from the pharmacy and apply a few drops to both ears until the wax dislodges and melts away. Please see your primary doctor in the next 3 days for further care. If you experience worsening ability to hear, headache, fever, pain inside your ear, dizziness, nausea, vomiting, difficulty walking, or any other new or concerning symptoms, please return to the emergency room immediately. - Post Discharge Activity
== END 2018-11-15 17:06 | disposition home or self-care (01) ==
LOC: FER 15:57
DX: H61.23 Impacted cerumen, bilateral (principal); F17.210 Nicotine dependence, cigarettes, uncomplicated; F11.10 Opioid abuse, uncomplicated
CPT/HCPCS: 99282-25

== ENCOUNTER 2019-01-13 20:40 | Emergency (ER) | payer OTHER ==
[2019-01-13 20:52] VITALS: TEMP 98.6; BMI 23.8
[2019-01-13] MEDS ORDERED: KETOROLAC TROMETHAMINE 30 MG/1 ML VIAL IM ONE (21:23)
[2019-01-13] MEDS ORDERED: KETOROLAC TROMETHAMINE 30 MG/1 ML VIAL ONE (21:32)
[2019-01-13] MEDS ORDERED: ACETAMINOPHEN 500 MG TABLET (FP) PO ONE (21:36)
[2019-01-13] MEDS ORDERED: LIDOCAINE 5% TOPICAL PATCH TP ONE (21:36)
[2019-01-13] MEDS ORDERED: CYCLOBENZAPRINE HCL 10 MG TABLET (FP) PO ONE (21:38)
[2019-01-13] MEDS ORDERED: ACETAMINOPHEN 325 MG TABLET (FP) ONE (21:38)
[2019-01-13] MEDS ORDERED: CYCLOBENZAPRINE HCL 10 MG TABLET (FP) ONE (21:38)
--- NOTE | 2019-01-13 21:41 | PDOC ---
History of Present Illness - General Chief Complaint: Pain Stated Complaint: BACK PAIN Time Seen by Provider: 01/13/19 21:17 History Source: Patient Exam Limitations: No Limitations - History of Present Illness Initial Comments: 01/13/19 21:32 Patient is a 68-year-old male with Per review of chart history of polysubstance abuse (currently denies) complaining of headache and right buttocks pain radiating down his thigh. Patient states he slipped and fell on the ice about 9 AM this morning, hitting his left face and jarring his hip. States his pain is 8/10, sharp, and buttocks pain is aggravated with sitting, no alleviating factors. Patient states that after the injury he just sat at home watching football but the pain got so severe so has come to the emergency room for evaluation. He denies any nausea, vomiting. PMHX: as above PSOCHX: Polysubstance abuse marijuana, cocaine,(+) cig 15/day ALL: NKDA GENERAL/CONSTITUTIONAL: [No fever or chills. No weakness. No weight change.] HEAD, EYES, EARS, NOSE AND THROAT: [No change in vision. No ear pain or discharge. No sore throat.] CARDIOVASCULAR: [No chest pain or shortness of breath.] RESPIRATORY: [No cough, wheezing, or hemoptysis.] GASTROINTESTINAL: [No nausea, vomiting, diarrhea or constipation. No rectal bleeding.] GENITOURINARY: [No dysuria, frequency, or change in urination.] MUSCULOSKELETAL: [(+) joint or muscle swelling or pain. (+) neck or back pain.] SKIN AND BREASTS: [No rash or easy bruising.] NEUROLOGIC: [(+) headache, (-) vertigo, loss of consciousness, or loss of sensation.] PSYCHIATRIC: [No depression or anxiety.] ENDOCRINE: [No increased thirst. No abnormal weight change.] HEMATOLOGIC/LYMPHATIC: [No anemia, easy bleeding, or history of blood clots.] ALLERGIC/IMMUNOLOGIC: [No hives or skin allergy. No latex allergy.] GENERAL: [The patient is awake, alert, and fully oriented, in mild distress.] HEAD: [Normal with no signs of trauma.] EYES: [Pupils equal, round and reactive to light, extraocular movements intact, sclera anicteric, conjunctiva clear.] ENT: [Ears normal, nares patent, oropharynx clear without exudates. Moist mucous membranes.] NECK: [Normal range of motion, supple without lymphadenopathy, JVD, or masses.] LUNGS: [Breath sounds equal, clear to auscultation bilaterally. No wheezes, and no crackles.] HEART: [Regular rate and rhythm, normal S1 and S2 without murmur, rub.] ABDOMEN: [Soft, nontender, normoactive bowel sounds. No guarding, no rebound. No masses.] BACK: Tenderness to left buttocks EXTREMITIES: [Normal range of motion, no edema. No clubbing or cyanosis. No cords, erythema, or tenderness.] NEUROLOGICAL: [Cranial nerves II through XII grossly intact. Normal speech, antalgic gait.] PSYCH: [Normal mood, normal affect.] SKIN: [Warm, Dry, normal turgor, no rashes or lesions noted.] Past History - Past Medical History Allergies/Adverse Reactions: Allergies Allergy/AdvReac Type Severity Reaction Status Date / Time No Known Allergies Allergy Verified 11/15/18 15:57 Home Medications: Ambulatory Orders Neomycin/Polymyxn/Hc [Cortisporin Otic Solution -] 10 ml BID #1 dropsbtl 05/01 Anemia: No Asthma: No Cancer: No Cardiac Disorders: No CVA: No COPD: No CHF: No DVT: No Dementia: No Diabetes: No GI Disorders: No Disorders: No HTN: No Hypercholesterolemia: No Kidney Stones: No Liver Disease: No Psychiatric Problems: Yes (OPIOD ABUSE) Seizures: No Thyroid Disease: No - Surgical History Abdominal Surgery: No Appendectomy: No Cardiac Surgery: No Cholecystectomy: No Lung Surgery: No Neurologic Surgery: No Orthopedic Surgery: No - Reproductive History Testicular Surgery: No - Immunization History Td Vaccination: Yes TDAP Vaccination: Yes Immunization Up to Date: Yes - Psycho Social/Smoking Cessation Hx Smoking History: Current every day smoker Have you smoked in the past 12 months: Yes Number of Cigarettes Smoked Daily: 10 Information on smoking cessation initiated: No 'Breaking Loose' booklet given: 06/05/18 Hx Alcohol Use: No Drug/Substance Use Hx: No Substance Use Type: Heroin Hx Substance Use Treatment: Yes ([facility] 05/11/18 to 05/15/18) Trauma Specific PMHX - Complaint Specific PMHX Arthritis: No *Physical Exam - Vital Signs Last Vital Signs Temp Pulse Resp BP Pulse Ox 98.6 F 91 H 19 136/82 100 01/13/19 20:43 01/13/19 20:43 01/13/19 20:43 01/13/19 20:43 01/13/19 20:43 ED Treatment Course - RADIOLOGY Radiology Studies Ordered: Category Date Time Status HEAD CT WITHOUT CONTRAST [CT] Stat CT Scan 01/13/19 21:23 Ordered SPINE-LUMBAR SACRAL [RAD] Stat Radiology 01/13/19 21:23 Ordered Medical Decision Making - Medical Decision Making 01/13/19 21:32 Patient is a 68-year-old male with Per review of chart history of polysubstance abuse (currently denies) complaining of headache and right buttocks pain radiating down his thigh. Patient states he slipped and fell on the ice about 9 AM this morning, hitting his left face and jarring his hip. States his pain is 8/10, sharp, and buttocks pain is aggravated with sitting, no alleviating factors. Patient states that after the injury he just sat at home watching football but the pain got so severe so has come to the emergency room for evaluation. He denies any nausea, vomiting. Mechanical fall complaining of a headache status post head injury [address] head and cervical spine , Lumbar spine x-ray Toradol, Flexeril. Patient refusing Toradol stating that it is an anti-inflammatory. That he is in excruciating pain and think he should get something we will treat his pain. Patient was offered Tylenol 1 g p.o. which he took with the Flexeril. However a few minutes later he is requesting something better for pain.. 01/13/19 22:53 Patient Full Name: RYLIE BRICENO Patient Accession No: [id number] Patient : 1950 Reason for Exam: fx Referring Physician: Patient Name: KAITY YOUNGBLOOD THIS IS A PRELIMINARY REPORT FROM [facility] DISPATCH[facility] DATE OF SERVICE: 2019-01-13 21:59:44 IMAGES: [id number] EXAM: CERVICAL SPINE CT W/O CONTR HISTORY: 68-year-old male fall, pain assess for fracture COMPARISON: January 13, 2019 FINDINGS: There is no prevertebral soft tissue swelling. There is no evidence of acute fracture or subluxation. There are no destructive lesions. Exam is limited by motion artifact. Moderate to severe degenerative disc disease and degenerative joint disease of the uncovertebral joints and facets throughout the cervical spine. Moderate multilevel spinal canal narrowing in the middle and lower cervical levels. Moderate to severe multilevel neural foraminal and the middle and lower cervical and upper thoracic levels. Mildly prominent palatine tonsils. Heterogeneous nonspecific density in the thyroid. Patchy masslike infiltrates in the right and left lung apex may be due to chronic atypical pneumonia and lung scarring and other disease including a malignant lung nodule cannot be excluded. Right upper lobe 1.1 x 0.7 x 0.5 cm cm spiculated masslike infiltrate right upper lobe on axial image 68 and coronal image 38 may be benign or malignant. IMPRESSION: No evidence of acute fracture or subluxation. Exam is limited by motion artifact. If clinically indicated follow-up outpatient CT cervical spine without motion artifact may be needed. Moderate to severe degenerative disc disease and degenerative joint disease of the uncovertebral joints and facets throughout the cervical spine. Moderate multilevel spinal canal narrowing in the middle and lower cervical levels. Moderate to severe multilevel neural foraminal and the middle and lower cervical and upper thoracic levels. If clinically indicated follow-up outpatient MRI cervical spine may be needed. Mildly prominent palatine tonsils. Heterogeneous nonspecific density in the thyroid. Patchy masslike infiltrates in the right and left lung apex may be due to chronic atypical pneumonia and lung scarring and other disease including a malignant lung nodule cannot be excluded. Right upper lobe 1.1 x 0.7 x 0.5 cm cm spiculated masslike infiltrate right upper lobe on axial image 68 and coronal image 38 may be benign or malignant. If clinically indicated follow-up outpatient CT chest may be needed. This CT exam was performed using one or more of the following dose reduction techniques: automated exposure control, adjustment of the mA and/or kV according to patient size, use of iterative reconstruction technique. One or more of the following dose reduction techniques were used: automated exposure control, adjustment of the mA and/or kV according to patient size, use of iterative reconstructive technique. THIS DOCUMENT HAS BEEN ELECTRONICALLY SIGNED Calderon Dye MD 01/13/2019 22:44 EST Raya Please call Imaging Insole Channeler [phone] with questions. INTERPRETING RADIOLOGIST: Calderon Dye MD Electronically Signed: Jan 13, 2019 10:45PM EST Patient Full Name: RYLIE BRICENO Patient Accession No: [id number] Patient : 1950 Reason for Exam: Fall Referring Physician: Patient Name: KAITY YOUNGBLOOD THIS IS A PRELIMINARY REPORT FROM [facility] DISPATCH[facility] DATE OF SERVICE: 2019-01-13 21:34:07 IMAGES: [id number] EXAM: X-ray SPINE-LUMBAR SACRAL HISTORY: 68-year-old male fall, pain assess for fracture COMPARISON: January 13, 2019 FINDINGS: Frontal and lateral and cone-down lumbar sacral lateral views. Mild right convex upper lumbar scoliosis. Moderate to severe degenerative disc disease. Moderate to severe degenerative joint disease of the facets. Age-indeterminate endplate compression fracture deformities in the lower thoracic and lumbar levels may be acute superimposed on chronic. IMPRESSION: Age-indeterminate endplate compression fracture deformities in the lower thoracic and lumbar levels may be acute superimposed on chronic. If there is a clinical concern for an acute fracture then follow-up CT Thoracic And Lumbar Spine may be needed. Mild right convex upper lumbar scoliosis. Moderate to severe degenerative disc disease. Moderate to severe degenerative joint disease of the facets. If clinically indicated follow-up outpatient MRI Thoracic And Lumbar Spine may be needed. THIS DOCUMENT HAS BEEN ELECTRONICALLY SIGNED Calderon Dye MD 01/13/2019 22:47 EST M.D. Please call Imaging Insole Channeler [phone] ([phone]) with questions. INTERPRETING RADIOLOGIST: Calderon Dye MD Electronically Signed: Jan 13, 2019 10:48PM EST Patient Full Name: RYLIE BRICENO Patient Accession No: [id number] Patient : 1950 Reason for Exam: pain Referring Physician: Patient Name: KAITY YOUNGBLOOD THIS IS A PRELIMINARY REPORT FROM [facility] I DISPATCH[facility] DATE OF SERVICE: 2019-01-13 22:03:10 IMAGES: [id number] EXAM: HEAD CT WITHOUT CONTRAST HISTORY: 68-year-old male pain COMPARISON: January 13, 2019 FINDINGS: No acute intracranial hemorrhage mass effect or midline shift. The ventricles sulci and basilar cisterns have a normal size and contour. Mild nonspecific periventricular predominant low density throughout the deep white matter is most likely due to mild small vessel ischemic white matter disease. Left maxillary sinus mucous retention cyst or polyp. The remainder of the sinuses and mastoid air cells are clear within the field-of -view. The calvarium is intact. IMPRESSION No acute intracranial hemorrhage mass effect or midline shift. Mild nonspecific periventricular predominant low density throughout the deep white matter is most likely due to mild small vessel ischemic white matter disease. Left maxillary sinus mucous retention cyst or polyp. This CT exam was performed using one or more of the following dose reduction techniques: automated exposure control, adjustment of the mA and/or kV according to patient size, use of iterative reconstruction technique. One or more of the following dose reduction techniques were used: automated exposure control, adjustment of the mA and/or kV according to patient size, use of iterative reconstructive technique. THIS DOCUMENT HAS BEEN ELECTRONICALLY SIGNED Calderon Dye MD 01/13/2019 22:37 EST Sandy. Please call Imaging Insole Channeler [phone]) with questions. INTERPRETING RADIOLOGIST: Calderon Dye MD Electronically Signed: Jan 13, 2019 10:38PM EST 01/14/19 00:08 Patient requesting to have pain medication. Told him I will give him tramadol he is requesting something stronger. Do to the current findings will give patient morphine 4 mg IM for pain 01/14/19 01:48 Patient Full Name: RYLIE BRICENO Patient Accession No: [id number] Patient : 1950 Reason for Exam: FALL Referring Physician: Patient Name: KAITY YOUNGBLOOD THIS IS A PRELIMINARY REPORT FROM [facility] I DISPATCHER DATE OF SERVICE: 2019-01-13 23:36:34 IMAGES: [id number] EXAM: CHEST CT WITHOUT CONTRAST HISTORY: 68-year-old male fall pain Smoking Less Than 1 Pack Of Cigarettes Per Day Every Day For 40+ Years Fall On Ice 14 Hours Ago With Left-Sided Back Pain And Left Gluteal Pain And Headache. COMPARISON: January 13, 2019 FINDINGS: Calcified coronary artery arteriosclerosis. Lack of intravenous contrast limits this exam. Subcentimeter mediastinal and hilar lymph nodes noted. Biapical nonspecific pleural parenchymal reticulonodular infiltrates may be due to chronic lung scarring chronic atypical pneumonia and an underlying malignant lung nodule at the lung apices cannot be excluded. Right apical 1.1 cm spiculated lung nodule in the axial image 19 is nonspecific and may be benign or malignant. Apical predominant centrilobular emphysema. Mild basilar atelectasis and scarring. No pleural effusion. No pneumothorax. Mild to moderate degenerative disc disease. Mild degenerative joint disease of the facets. Mild multilevel spinal canal narrowing and neural foraminal narrowing in the thoracic spine. Moderate right convex lumbar scoliosis. Severe degenerative disc disease and degenerative joint disease of the facets in the lumbar spine. Moderate to severe multilevel spinal canal stenosis in the lumbar spine. Moderate to severe multilevel neural foraminal narrowing in the lumbar spine. IMPRESSION: No acute fracture or traumatic subluxation. Calcified coronary artery arteriosclerosis. Subcentimeter mediastinal and hilar lymph nodes noted. Biapical nonspecific pleural parenchymal reticulonodular infiltrates may be due to chronic lung scarring chronic atypical pneumonia and an underlying malignant lung nodule at the lung apices cannot be excluded. Right apical 1.1 cm spiculated lung nodule in the axial image 19 is nonspecific and may be benign or malignant. If clinically indicated follow up outpatient CT chest may be needed. Apical predominant centrilobular emphysema. Mild basilar atelectasis and scarring. Mild to moderate degenerative disc disease. Mild degenerative joint disease of the facets. Mild multilevel spinal canal narrowing and neural foraminal narrowing in the thoracic spine. Moderate right convex lumbar scoliosis. Severe degenerative disc disease and degenerative joint disease of the facets in the lumbar spine. Moderate to severe multilevel spinal canal stenosis in the lumbar spine. Moderate to severe multilevel neural foraminal narrowing in the lumbar spine. If clinically indicated follow up outpatient MRI lumbar spine may be needed. Moderate calcified arteriosclerosis of the aorta and pelvic vasculature. This CT exam was performed using one or more of the following dose reduction techniques: automated exposure control, adjustment of the mA and/or kV according to patient size, use of iterative reconstruction technique. One or more of the following dose reduction techniques were used: automated exposure control, adjustment of the mA and/or kV according to patient size, use of iterative reconstructive technique. THIS DOCUMENT HAS BEEN ELECTRONICALLY SIGNED Calderon Dye MD 01/14/2019 01:32 JUDI Dos Santos Please call Imaging Insole Channeler [phone] ([phone]) with questions. INTERPRETING RADIOLOGIST: Calderon Dye MD Electronically Signed: Jan 14, 2019 01:33AM EST Patient Full Name: RYLIE BRICENO Patient Accession No: [id number] Patient : 1950 Reason for Exam: FALL Referring Physician: MADDY MERIDA Patient Name: KAITY YOUNGBLOOD THIS IS A PRELIMINARY REPORT FROM [facility]ING [facility]F I DISPATCHER DATE OF SERVICE: 2019-01-13 23:39:53 IMAGES: [id number] EXAM: LUMBAR SPINE CT W/O CONTRAST HISTORY: 68-year-old male fall pain COMPARISON: January 13, 2019 FINDINGS: No acute fracture or traumatic subluxation. Moderate right convex lumbar scoliosis. Severe degenerative disc disease and degenerative joint disease of the facets. Moderate to severe multilevel spinal canal stenosis. Moderate to severe multilevel neural foraminal narrowing. Mild basilar atelectasis and scarring. Moderate calcified arteriosclerosis of the aorta and pelvic vasculature. IMPRESSION: No acute fracture or traumatic subluxation. Moderate right convex lumbar scoliosis. Severe degenerative disc disease and degenerative joint disease of the facets. Moderate to severe multilevel spinal canal stenosis. Moderate to severe multilevel neural foraminal narrowing. If clinically indicated follow up outpatient MRI lumbar spine may be needed. Mild basilar atelectasis and scarring. Moderate calcified arteriosclerosis of the aorta and pelvic vasculature. This CT exam was performed using one or more of the following dose reduction techniques: automated exposure control, adjustment of the mA and/or kV according to patient size, use of iterative reconstruction technique. One or more of the following dose reduction techniques were used: automated exposure control, adjustment of the mA and/or kV according to patient size, use of iterative reconstructive technique. THIS DOCUMENT HAS BEEN ELECTRONICALLY SIGNED Calderon Dye MD 01/14/2019 00:25 EST M.D. Please call Imaging Insole Channeler [phone] ([phone] with questions. INTERPRETING RADIOLOGIST: Calderon Dye MD Electronically Signed: Jan 14, 2019 12:26AM EST The findings of the above radiological studies was discussed with the patient and the need to follow-up with her primary care doctor for a referral to a chemical instrumentation officer. Instructed to take Motrin for his pain. I discussed the physical exam findings, ancillary test results and final diagnoses with the patient. I answered all of the patient's questions. The patient was satisfied with the care received and felt comfortable with the discharge plan and treatment plan. The Patient agrees to follow up with the primary care physician within 24-72 hours. Discharge - Discharge Information Problems reviewed: Yes Clinical Impression/Diagnosis: Sciatica Qualifiers: Laterality: left Qualified Code(s): M54.32 - Sciatica, left side Degenerative joint disease Qualifiers: Osteoarthritis location: spine Spinal region: unspecified Spinal osteoarthritis complication: with radiculopathy Qualified Code(s): M47.20 - Other spondylosis with radiculopathy, site unspecified Condition: Stable Disposition: HOME - Follow up/Referral Referrals: Marc Nelson MD [Staff Physician] - - Patient Discharge Instructions Patient Printed Discharge Instructions: DI for Sciatica, DI for Headache Additional Instructions: Your Discharge Instructions: You must call primary care physician within 24 hours to arrange follow-up. Return to the Emergency Department with any new, persistent or worsening symptoms, for fever, chills, SOB, dizziness or any other concerning changes that may occur. It was identified on CAT scan that you have a long process that needs further evaluation. You must follow-up with a chemical instrumentation officer, you need referral from a primary care doctor. The name of a primary care doctor is provided for your you must follow through immediately. Stop the smoking. - Post Discharge Activity
[2019-01-13] MEDS ORDERED: LIDOCAINE 5% TOPICAL PATCH ONE (21:52)
[2019-01-13] MEDS ORDERED: LIDOCAINE PATCH REMOVAL MC SCH (22:00)
[2019-01-14] MEDS ORDERED: traMADol HCL 50 MG TABLET PO ONE (00:01)
[2019-01-14] MEDS ORDERED: morphine CARPU-JECT 2 MG/1 ML DISP.SYRIN IM ONE (00:07)
[2019-01-14] MEDS ORDERED: MORPHINE SULFATE 2 MG/ML VIAL ONE (00:11)
[2019-01-14 02:04] VITALS: BP 124/78; PULSE 88
== END 2019-01-14 02:04 | disposition home or self-care (01) ==
LOC: JER 20:40
DX: M54.32 Sciatica, left side (principal); M47.20 Other spondylosis with radiculopathy, site unspecified; W00.0XXA Fall on same level due to ice and snow, initial encounter; Y93.89 Activity, other specified; Y92.410 Unspecified street and highway as the place of occurrence of the external cause; F19.10 Other psychoactive substance abuse, uncomplicated
CPT/HCPCS: 70450-TC; 71250-TC; 72100-TC-FY; 72125-TC; 72128-TC; 72131-TC; 96372; 99282-25

== ENCOUNTER 2019-01-14 22:19 | Emergency (ER) | payer OTHER ==
[2019-01-14 22:30] VITALS: BP 139/78; PULSE 99; TEMP 98.8; BMI 23.7
--- NOTE | 2019-01-15 00:22 | PDOC ---
History of Present Illness - General Chief Complaint: Back Pain Stated Complaint: PAIN Time Seen by Provider: 01/14/19 23:57 History Source: Patient - History of Present Illness Initial Comments: 01/15/19 00:25 68 year old male s/p trip and fall c/o lower back pain, radiating to right leg. patient seen in the ED yesterday and Panscanned which shows degenerative disc disease. patient took oxycontin 10 mg few days ago for pain. 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 01/15/19 01:02 Past History - Past Medical History Allergies/Adverse Reactions: Allergies Allergy/AdvReac Type Severity Reaction Status Date / Time No Known Allergies Allergy Verified 11/15/18 15:57 Home Medications: Ambulatory Orders Neomycin/Polymyxn/Hc [Cortisporin Otic Solution -] 10 ml BID #1 dropsbtl 05/01 Lidocaine 5% Patch [Lidoderm -] 1 patch TP DAILY #7 patch 01/15/19 Anemia: No Asthma: No Cancer: No Cardiac Disorders: No CVA: No COPD: No CHF: No DVT: No Dementia: No Diabetes: No GI Disorders: No Disorders: No HTN: No Hypercholesterolemia: No Kidney Stones: No Liver Disease: No Psychiatric Problems: Yes (OPIOD ABUSE) Seizures: No Thyroid Disease: No - Surgical History Abdominal Surgery: No Appendectomy: No Cardiac Surgery: No Cholecystectomy: No Lung Surgery: No Neurologic Surgery: No Orthopedic Surgery: No - Reproductive History Testicular Surgery: No - Immunization History Td Vaccination: Yes TDAP Vaccination: Yes Immunization Up to Date: Yes - Psycho Social/Smoking Cessation Hx Smoking History: Current every day smoker Have you smoked in the past 12 months: Yes Number of Cigarettes Smoked Daily: 10 Information on smoking cessation initiated: Yes 'Breaking Loose' booklet given: 06/05/18 Hx Alcohol Use: No Drug/Substance Use Hx: No Substance Use Type: Heroin Hx Substance Use Treatment: Yes ([facility] 05/11/18 to 05/15/18) Trauma Specific PMHX - Complaint Specific PMHX Arthritis: No *Physical Exam - Vital Signs Last Vital Signs Temp Pulse Resp BP Pulse Ox 98.8 F 99 H 20 139/78 95 01/14/19 22:21 01/14/19 22:21 01/14/19 22:21 01/14/19 22:21 01/14/19 22:21 - Physical Exam General Appearance: Yes: Appropriately Dressed Respiratory/Chest: positive: Lungs Clear, Normal Breath Sounds Integumentary: positive: Normal Color, Dry, Warm Neurologic: positive: Fully Oriented, Alert, Normal Mood/Affect ED Progress Note - Progress Note Progress Note: 01/15/19 00:33 A: lower back pain P: lidocaine patch tramadol one dose Medical Decision Making - Medical Decision Making 01/15/19 00:39 offered toradol patient refused. " i don't like how it makes me feel" patient is requesting morphine. advised to folowo up with ortho/ pain management Discharge - Discharge Information Problems reviewed: Yes Clinical Impression/Diagnosis: Lower back pain Qualifiers: Chronicity: acute Back pain laterality: right Sciatica presence: with sciatica Sciatica laterality: sciatica of right side Qualified Code(s): M54.41 - Lumbago with sciatica, right side Disposition: HOME - Additional Discharge Information Prescriptions: Lidocaine 5% Patch [Lidoderm -] 1 patch TP DAILY #7 patch - Follow up/Referral Referrals: Mo Eduardo MD [Staff Physician] - Call tomorrow - Patient Discharge Instructions Patient Printed Discharge Instructions: DI for Low Back Pain Additional Instructions: use lidocaine patch as prescribed. follow up with an orthopedic doctor and pain management doctor as prescribed. - Post Discharge Activity
[2019-01-15] MEDS ORDERED: LIDOCAINE 5% TOPICAL PATCH TP ONE (00:36)
[2019-01-15] MEDS ORDERED: traMADol HCL 50 MG TABLET PO ONE (00:38)
[2019-01-15] MEDS ORDERED: traMADol HCL 50 MG TABLET ONE (01:13)
[2019-01-15] MEDS ORDERED: LIDOCAINE 5% TOPICAL PATCH ONE (01:14)
[2019-01-15] MEDS ORDERED: LIDOCAINE PATCH REMOVAL MC SCH (22:00)
== END 2019-01-15 02:58 | disposition home or self-care (01) ==
LOC: JER 22:19
DX: M54.41 Lumbago with sciatica, right side (principal); W18.39XA Other fall on same level, initial encounter; Y93.89 Activity, other specified; Y92.89 Other specified places as the place of occurrence of the external cause; Y99.8 Other external cause status; J44.9 Chronic obstructive pulmonary disease, unspecified; F17.210 Nicotine dependence, cigarettes, uncomplicated; F11.20 Opioid dependence, uncomplicated; Z86.19 Personal history of other infectious and parasitic diseases
CPT/HCPCS: 99281-25

== ENCOUNTER 2019-02-03 22:34 | Emergency (ER) | payer OTHER ==
[2019-02-03 22:55] VITALS: TEMP 98.1; BMI 24.1
[2019-02-04] MEDS ORDERED: LIDOCAINE 5% TOPICAL PATCH TP ONE (01:46)
[2019-02-04] MEDS ORDERED: LIDOCAINE 5% TOPICAL PATCH ONE (01:52)
[2019-02-04] MEDS ORDERED: IBUPROFEN 600 MG TABLET (FP) PO ONE ×2 (03:14→03:18)
--- NOTE | 2019-02-04 03:18 | PDOC ---
Documentation entered by Reggie Foster SCRIBE, acting as scribe for Adali Ramey MD. Adali Ramey MD: This documentation has been prepared by the Cristian quiles Daniel, SCRIBE, under my direction and personally reviewed by me in its entirety. I confirm that the documentation accurately reflects all work, treatment, procedures, and medical decision making performed by me. History of Present Illness - General Chief Complaint: Back Pain Stated Complaint: BACK PAIN Time Seen by Provider: 02/04/19 01:16 History Source: Patient Exam Limitations: No Limitations - History of Present Illness Initial Comments: 02/04/19 01:37 The patient is a 69 year old male with a past medical history of back pain s/p fall, polysubstance abuse (cocaine, heroin, denies any recent use), COPD, and Hep C here today for evaluation of back pain. The patient reports that he has had chronic right sided back pain that radiates down his buttocks and right leg since his fall. He states that his pain is sudden, sharp, and worse when standing up and walking. Patient denies any new pain. Patient denies headache, lightheadedness. Denies fever, chills. Denies chest pain, shortness of breath. Denies nausea, vomiting, diarrhea, abdominal pain. Allergies: NKA Past History - Past Medical History Allergies/Adverse Reactions: Allergies Allergy/AdvReac Type Severity Reaction Status Date / Time No Known Allergies Allergy Verified 02/03/19 22:55 Home Medications: Ambulatory Orders Neomycin/Polymyxn/Hc [Cortisporin Otic Solution -] 10 ml BID #1 dropsbtl 05/01 Lidocaine 5% Patch [Lidoderm -] 1 patch TP DAILY #7 patch 01/15/19 Gabapentin [Neurontin] 100 mg PO DAILY #60 capsule 02/04/19 Lidocaine 5% Patch [Lidoderm Patch -] 1 patch TP DAILY #30 patch 02/04/19 Anemia: No Asthma: No Cancer: No Cardiac Disorders: No CVA: No COPD: No CHF: No DVT: No Dementia: No Diabetes: No GI Disorders: No Disorders: No HTN: No Hypercholesterolemia: No Kidney Stones: No Liver Disease: No Psychiatric Problems: Yes (OPIOD ABUSE) Seizures: No Thyroid Disease: No - Surgical History Abdominal Surgery: No Appendectomy: No Cardiac Surgery: No Cholecystectomy: No Lung Surgery: No Neurologic Surgery: No Orthopedic Surgery: No - Reproductive History Testicular Surgery: No - Immunization History Td Vaccination: Yes TDAP Vaccination: Yes Immunization Up to Date: Yes - Psycho Social/Smoking Cessation Hx Smoking History: Current every day smoker Have you smoked in the past 12 months: Yes Number of Cigarettes Smoked Daily: 10 Information on smoking cessation initiated: No 'Breaking Loose' booklet given: 06/05/18 Hx Alcohol Use: No Drug/Substance Use Hx: No Substance Use Type: Heroin Hx Substance Use Treatment: Yes ([facility] 05/11/18 to 05/15/18) Review of Systems - Review of Systems Able to Perform ROS?: Yes Comments:: 02/04/19 01:39 GENERAL/CONSTITUTIONAL: No fever or chills. No weakness. HEAD, EYES, EARS, NOSE AND THROAT: No change in vision. No ear pain or discharge. No sore throat. CARDIOVASCULAR: No chest pain or shortness of breath. RESPIRATORY: No cough, wheezing, or hemoptysis. GASTROINTESTINAL: No nausea, vomiting, diarrhea or constipation. GENITOURINARY: No dysuria, frequency, or change in urination. MUSCULOSKELETAL: +back pain. No joint or muscle swelling or pain. No neck pain. SKIN: No rash NEUROLOGIC: No headache, vertigo, loss of consciousness, or change in strength/ sensation. ENDOCRINE: No increased thirst. No abnormal weight change. HEMATOLOGIC/LYMPHATIC: No anemia, easy bleeding, or history of blood clots. ALLERGIC/IMMUNOLOGIC: No hives or skin allergy. *Physical Exam - Vital Signs Last Vital Signs Temp Pulse Resp BP Pulse Ox 98.1 F 97 H 17 123/71 95 02/03/19 22:52 02/03/19 22:52 02/03/19 22:52 02/03/19 22:52 02/03/19 22:52 - Physical Exam 02/04/19 01:40 GENERAL: Awake, alert, and fully oriented, in no acute distress HEAD: No signs of trauma EYES: PERRLA, EOMI, sclera anicteric, conjunctiva clear ENT: Auricles normal inspection, hearing grossly normal, nares patent, oropharynx clear without exudates. Moist mucosa NECK: Normal ROM, supple, no lymphadenopathy, JVD, or masses LUNGS: Breath sounds equal, clear to auscultation bilaterally. No wheezes, and no crackles HEART: Regular rate and rhythm, normal S1 and S2, no murmurs, rubs or gallops ABDOMEN: Soft, nontender, normoactive bowel sounds. No guarding, no rebound. No masses EXTREMITIES: Normal range of motion, no edema. No clubbing or cyanosis. No cords, erythema, or tenderness NEUROLOGICAL: Cranial nerves II through XII grossly intact. Normal speech, normal gait SKIN: Warm, Dry, normal turgor, no rashes or lesions noted. Medical Decision Making - Medical Decision Making 02/04/19 03:50 Pt is feeling better and her will go home and follow with his PMD Discharge - Discharge Information Problems reviewed: Yes Clinical Impression/Diagnosis: Sciatica Condition: Improved Disposition: HOME - Admission No - Additional Discharge Information Prescriptions: Gabapentin [Neurontin] 100 mg PO DAILY #60 capsule Lidocaine 5% Patch [Lidoderm Patch -] 1 patch TP DAILY #30 patch - Follow up/Referral - Patient Discharge Instructions Patient Printed Discharge Instructions: DI for Sciatica - Post Discharge Activity
[2019-02-04] MEDS ORDERED: GABAPENTIN 100 MG CAPSULE (FP) PO ONE (03:27)
[2019-02-04] MEDS ORDERED: DEXAMETHASONE LIQUID 0.5 MG/5 ML PO ONE (03:28)
[2019-02-04] MEDS ORDERED: DEXAMETHASONE SOD PHOSPHATE 10 MG/1 ML VIAL ONE (03:31)
[2019-02-04] MEDS ORDERED: GABAPENTIN 100 MG CAPSULE (FP) ONE (03:32)
[2019-02-04 03:40] VITALS: BP 117/73; PULSE 91
[2019-02-04] MEDS ORDERED: LIDOCAINE PATCH REMOVAL MC SCH (22:00)
== END 2019-02-04 03:35 | disposition home or self-care (01) ==
LOC: JER 22:34
DX: M54.41 Lumbago with sciatica, right side (principal); W19.XXXA Unspecified fall, initial encounter; Y93.89 Activity, other specified; Y92.89 Other specified places as the place of occurrence of the external cause; Y99.8 Other external cause status; J44.9 Chronic obstructive pulmonary disease, unspecified; B18.2 Chronic viral hepatitis C; F19.10 Other psychoactive substance abuse, uncomplicated; F11.10 Opioid abuse, uncomplicated; F14.10 Cocaine abuse, uncomplicated
CPT/HCPCS: 99282-25

== ENCOUNTER 2019-03-13 23:25 | Emergency (ER) | payer OTHER ==
[2019-03-14 01:13] VITALS: BP 128/74; PULSE 93; TEMP 97.9; BMI 33.0
--- NOTE | 2019-03-14 01:30 | PDOC ---
Attending Attestation - Resident Resident Name: Elisha Lockwood - ED Attending Attestation I have performed the following: I have examined & evaluated the patient, The case was reviewed & discussed with the resident, I agree w/resident's findings & plan
[2019-03-14] MEDS ORDERED: ACETAMINOPHEN 500 MG TABLET (FP) PO ONE (01:42)
[2019-03-14] MEDS ORDERED: LIDOCAINE 5% TOPICAL PATCH TP ONE (01:42)
--- NOTE | 2019-03-14 01:42 | PDOC ---
History of Present Illness - General Chief Complaint: Headache Stated Complaint: HEADACHE/BACK PAIN Time Seen by Provider: 03/14/19 01:27 History Source: Patient Exam Limitations: No Limitations - History of Present Illness Initial Comments: 03/14/19 01:47 69y M with PMH of hep C s/p treatment, COPD (cigarettes) POlysubstance (cocaine , heroin as per chart) patient denies drug abuse presenting to ED for R buttock pain radiating to the R leg. Pt states this has been going on for 2 weeks however pt was seen almost 2 months ago for similar complaint. he had ct scans done at the time which showed DJD. Pt says pain comes and goes without triggers , is sharp and radiates down the leg. Denies trauma, IV drug use, midline back pain, urinary retention/incontinence, numbness/tingling, weakness. Pt states he was taking ASA without relief. Denies trying other meds. Allergies: nkda Past History - Past Medical History Allergies/Adverse Reactions: Allergies Allergy/AdvReac Type Severity Reaction Status Date / Time No Known Allergies Allergy Verified 03/14/19 00:35 Home Medications: Ambulatory Orders Neomycin/Polymyxn/Hc [Cortisporin Otic Solution -] 10 ml BID #1 dropsbtl 05/01 Lidocaine 5% Patch [Lidoderm -] 1 patch TP DAILY #7 patch 01/15/19 Gabapentin [Neurontin] 100 mg PO DAILY #60 capsule 02/04/19 Lidocaine 5% Patch [Lidoderm Patch -] 1 patch TP DAILY #30 patch 02/04/19 Anemia: No Asthma: No Cancer: No Cardiac Disorders: No CVA: No COPD: No CHF: No DVT: No Dementia: No Diabetes: No GI Disorders: No Disorders: No HTN: No Hypercholesterolemia: No Kidney Stones: No Liver Disease: No Psychiatric Problems: Yes (OPIOD ABUSE) Seizures: No Thyroid Disease: No - Surgical History Abdominal Surgery: No Appendectomy: No Cardiac Surgery: No Cholecystectomy: No Lung Surgery: No Neurologic Surgery: No Orthopedic Surgery: No - Reproductive History Testicular Surgery: No - Immunization History Td Vaccination: Yes TDAP Vaccination: Yes Immunization Up to Date: Yes - Psycho Social/Smoking Cessation Hx Smoking History: Never smoked Have you smoked in the past 12 months: Yes Number of Cigarettes Smoked Daily: 10 'Breaking Loose' booklet given: 06/05/18 Hx Alcohol Use: No Drug/Substance Use Hx: No Substance Use Type: Heroin Hx Substance Use Treatment: Yes ([facility] 05/11/18 to 05/15/18) Review of Systems - Review of Systems Constitutional: No: Symptoms Reported HEENTM: No: Symptoms Reported Respiratory: No: Symptoms reported Cardiac (ROS): No: Symptoms Reported ABD/GI: No: Symptoms Reported : No: Symptoms Reported Musculoskeletal: Yes: See HPI Integumentary: No: Symptoms Reported Neurological: No: Symptoms reported *Physical Exam - Vital Signs Last Vital Signs Temp Pulse Resp BP Pulse Ox 97.9 F 93 H 20 128/74 97 03/13/19 23:30 03/13/19 23:30 03/13/19 23:30 03/13/19 23:30 03/13/19 23:30 - Physical Exam General Appearance: Yes: Appropriately Dressed, Thin. No: Apparent Distress HEENT: positive: EOMI, CEE, Normal ENT Inspection Neck: positive: Trachea midline, Supple. negative: Lymphadenopathy (R), Lymphadenopathy (L) Respiratory/Chest: positive: Lungs Clear, Normal Breath Sounds Cardiovascular: positive: Regular Rhythm, Regular Rate, S1, S2 Gastrointestinal/Abdominal: positive: Normal Bowel Sounds, Soft. negative: Tender Musculoskeletal: negative: CVA Tenderness, CVA Tenderness (R), Decreased Range of Motion, Muscle Spasm, Vertebral Tenderness Extremity: positive: Normal Capillary Refill, Pelvis Stable. negative: Swelling , Calf Tenderness Integumentary: positive: Normal Color, Dry, Warm Neurologic: positive: pulp mixer II-XII NML intact, Fully Oriented, Alert, Normal Mood/ Affect, Normal Response, Motor Strength 5/5 Medical Decision Making - Medical Decision Making 03/14/19 01:59 69y M presenting to ED with R buttock pain. no midline tenderness, no back tenderness, no muscle spasms. pt seen ambulating in ED, getting out and into chair without difficulty. Pt seen here recently for similar problems. Pt denies drug use but chart states he has had opiate dependence. Suspect drug seeking. Low suspicion for cauda equina/ cord compression given recent imaging and no red flags. will order lidoderm patch and tylenol. told by nurse that pt got angry about receiving lidoderm patch and walked out of ER. pt eloped. Discharge - Discharge Information Problems reviewed: Yes Clinical Impression/Diagnosis: Back pain Qualifiers: Back pain location: low back pain Chronicity: acute Back pain laterality: right Sciatica presence: unspecified whether sciatica present Qualified Code(s) : M54.5 - Low back pain Condition: Fair Disposition: ELOPED - Follow up/Referral - Patient Discharge Instructions - Post Discharge Activity
[2019-03-14] MEDS ORDERED: LIDOCAINE PATCH REMOVAL MC SCH (22:00)
== END 2019-03-14 01:55 | disposition left against medical advice (07) ==
LOC: JER 23:25
DX: M54.5 Low back pain (principal); J44.9 Chronic obstructive pulmonary disease, unspecified; F19.10 Other psychoactive substance abuse, uncomplicated; Z86.19 Personal history of other infectious and parasitic diseases; Z72.0 Tobacco use
CPT/HCPCS: 99281-25

== ENCOUNTER 2019-09-01 22:26 | Emergency (ER) | payer OTHER ==
[2019-09-01 23:18] VITALS: TEMP 98.1; BMI 24.0
[2019-09-02 00:24] LABS: HEMATOCRIT 42.5 % (35.4-49); HEMOGLOBIN 14.1 GM/dL (11.7-16.9); MCH 31.5 pg (25.7-33.7); MCHC 33.3 g/dl (32.0-35.9); MEAN CELL VOLUME 94.7 fl (80-96); MEAN PLT VOLUME 8.3 fl (7.5-11.1); PLATELET COUNT 216 K/MM3 (134-434); RBC 4.48 M/mm3 (4.00-5.60); RDW 13.5 % (11.9-15.9); WHITE BLOOD COUNT 6.5 K/mm3 (4.0-10.0)
--- NOTE | 2019-09-02 00:35 | PDOC ---
History of Present Illness - General Chief Complaint: Pain, Acute Stated Complaint: LEFT ELBOW PAIN Time Seen by Provider: 09/01/19 22:30 History Source: Patient Exam Limitations: No Limitations - History of Present Illness Initial Comments: 09/02/19 01:30 Pt banged his left elbow 3 times in the past week. Now with elbow pain. No swelling and +FROM. However the area hurts. Pt has no fever and no chills and no creatpitus Past History - Travel History Traveled outside of the country in the last 30 days: No Close contact w/someone who was outside of country & ill: No - Medical History Allergies/Adverse Reactions: Allergies Allergy/AdvReac Type Severity Reaction Status Date / Time No Known Allergies Allergy Verified 07/26/19 22:05 Home Medications: Ambulatory Orders Neomycin/Polymyxn/Hc [Cortisporin Otic Solution -] 10 ml BID #1 dropsbtl 11/15/18 Lidocaine 5% Patch [Lidoderm -] 1 patch TP DAILY #7 patch 01/15/19 Gabapentin [Neurontin] 100 mg PO DAILY #60 capsule 02/04/19 Lidocaine 5% Patch [Lidoderm Patch -] 1 patch TP DAILY #30 patch 02/04/19 Amox-Tr/K Cl [Augmentin - 875Mg Tablet] 1 tab PO BID #10 tablet 07/26/19 Oxycodone HCl/Acetaminophen [Percocet 5/325 -] 1 tab PO Q6H #14 tablet MDD 4 09/02/19 Anemia: No Asthma: No Cancer: No Cardiac Disorders: No CVA: No COPD: No CHF: No DVT: No Dementia: No Diabetes: No GI Disorders: No Disorders: No HTN: No Hypercholesterolemia: No Kidney Stones: No Liver Disease: No Psychiatric Problems: Yes (OPIOD ABUSE) Seizures: No Thyroid Disease: No - Surgical History Abdominal Surgery: No Appendectomy: No Cardiac Surgery: No Cholecystectomy: No Lung Surgery: No Neurologic Surgery: No Orthopedic Surgery: No - Reproductive History Testicular Surgery: No - Immunization History Td Vaccination: Yes TDAP Vaccination: Yes Immunization Up to Date: Yes - Psycho-Social/Smoking History Smoking History: Never smoked Have you smoked in the past 12 months: No Number of Cigarettes Smoked Daily: 10 'Breaking Loose' booklet given: 06/05/18 - Substance Abuse Hx (Audit-C & DAST Scrn) How often the patient has a drink containing alcohol: 2-4 times / month Number of drinks the patient has on a typical day: 1 or 2 How often the patient has six or more drinks on one occasion: Less than monthly Score: In Men: 4 or > Positive; In Women: 3 or > Positive: 3 Screen Result (Pos requires Nsg. Audit-10AR): Negative In the last yr the pt used illegal drug/Rx for NonMed reason: No Score: Yes response is considered Positive: 0 Screen Result (Positive result requires Nsg. DAST-10): Negative Review of Systems - Review of Systems Constitutional: No: Symptoms Reported, See HPI, Chills, Diaphoresis, Fever, Loss of Appetite, Malaise, Night Sweats, Weakness, Weight Stable, Unintentional Wgt. Loss, Unexplained wgt Loss, Other HEENTM: No: Symptoms Reported, See HPI, Eye Pain, Blurred Vision, Tearing, Recent change in vision, Double Vision, Cataracts, Ear Pain, Ocular Prothesis, Ear Discharge, Nose Pain, Nose Congestion, Tinnitus, Nose Bleeding, Hearing Loss, Throat Pain, Throat Swelling, Mouth Pain, Dental Problems, Difficulty Swallowing, Mouth Swelling, Other Respiratory: No: Symptoms reported, See HPI, Cough, Orthopnea, Shortness of Breath, SOB with Exertion, SOB at Rest, Stridor, Wheezing, Productive cough, He moptysis, Other Cardiac (ROS): No: Symptoms Reported, See HPI, Chest Pain, Edema, Irregular Heart Rate, Lightheadedness, Palpitations, Syncope, Chest Tightness, Other ABD/GI: No: Symptoms Reported, See HPI, Abdominal Distended, Abd. Pain w/ defecation, Blood Streaked Bowels, Constipated, Diarrhea, Difficulty Swallowing, Nausea, Poor Appetite, Poor Fluid Intake, Rectal Bleeding, Vomiting, Indigestion, Abdominal cramping, Tarry Stools, Other : No: Symptoms Reported, See HPI, Burning, Dysuria, Discharge, Frequency, Flank Pain, Hematuria, Incontinence, Pain, Urgency, Testicular Mass, Testicular Swelling, Lesions, Testicular Pain, Other Musculoskeletal: No: Symptoms Reported, See HPI, Back Pain, Gout, Joint Pain, Joint Swelling, Muscle Pain, Muscle Weakness, Neck Pain, Joint Stiffness, Other Integumentary: No: Symptoms Reported, See HPI, Bruising, Change in Color, Change in Hair/Nails, Dryness, Erythema, Flushing, Lesions, Lumps, Pallor, Pruritus, Rash, Sweating, Other Neurological: No: Symptoms reported, See HPI, Headache, Numbness, Paresthesia, Pre-Existing Deficit, Seizure, Tingling, Tremors, Weakness, Unsteady Gait, Ataxia, Dizziness, Other *Physical Exam - Vital Signs Last Vital Signs Temp Pulse Resp BP Pulse Ox 98.1 F 96 H 18 123/79 98 09/01/19 23:13 09/01/19 23:13 09/01/19 23:13 09/01/19 23:13 09/01/19 23:13 - Physical Exam General Appearance: Yes: Nourished, Appropriately Dressed, Apparent Distress HEENT: positive: EOMI, CEE, Normal ENT Inspection, Normal Voice, Symmetrical Neck: positive: Trachea midline, Normal Thyroid. negative: Tender Respiratory/Chest: positive: Lungs Clear, Normal Breath Sounds Cardiovascular: positive: Regular Rhythm, Regular Rate, S1, S2 Gastrointestinal/Abdominal: positive: Normal Bowel Sounds, Flat, Soft Musculoskeletal: positive: Normal Inspection. negative: CVA Tenderness Extremity: positive: Normal Capillary Refill, Normal Inspection Integumentary: positive: Normal Color, Dry, Warm ED Treatment Course - LABORATORY CBC & Chemistry Diagram: 09/01/19 23:30 - ADDITIONAL ORDERS Additional order review: 09/01/19 23:30 RBC 4.48 MCV 94.7 MCHC 33.3 RDW 13.5 MPV 8.3 - RADIOLOGY Radiology Studies Ordered: Category Date Time Status ELBOW-LEFT [RAD] Stat Radiology 09/01/19 22:30 Taken - Medications Given in the ED: ED Medications Discontinued Medications Generic Name Dose Route Start Last Admin Trade Name Rafaela PRN Reason Stop Dose Admin Oxycodone/Acetaminophen 2 combo 09/01/19 23:07 09/01/19 23:13 Percocet 5/325 - PO 09/01/19 23:08 2 combo ONCE ONE Administration Medical Decision Making - Medical Decision Making 09/02/19 01:31 Pt with musculoskeletal pain and arthritis. Pt will be treated with percocet. He also can use OTC motrin and tylenol. Stable to go home Follow with Dr. Marinelli Discharge - Discharge Information Problems reviewed: Yes Clinical Impression/Diagnosis: Elbow arthritis, Elbow contusion Condition: Stable Disposition: HOME - Admission No - Additional Discharge Information Prescriptions: Oxycodone HCl/Acetaminophen [Percocet 5/325 -] 1 tab PO Q6H #14 tablet MDD 4 - Follow up/Referral Referrals: Osvaldo Marinelli DO [Staff Physician] - - Patient Discharge Instructions Patient Printed Discharge Instructions: DI for Arthritis - Post Discharge Activity
[2019-09-02 00:45] VITALS: BP 122/69; PULSE 84
[2019-09-02 01:03] LABS: ERYTHROCYTE SEDIMENTATION RATE 11 mm/hr (0-20)
== END 2019-09-02 00:46 | disposition home or self-care (01) ==
LOC: FER 22:26
DX: S50.02XA Contusion of left elbow, initial encounter (principal); M19.022 Primary osteoarthritis, left elbow; W22.8XXA Striking against or struck by other objects, initial encounter
CPT/HCPCS: 36415; 73070-TC-LT-FY; 85027; 85651; 86140; 99284-25

== ENCOUNTER 2019-10-08 21:45 | Emergency (ER) | payer OTHER ==
[2019-10-08 21:53] VITALS: BP 126/78; PULSE 74; TEMP 98.2; BMI 23.1
--- NOTE | 2019-10-08 21:59 | PDOC ---
History of Present Illness - General Chief Complaint: Pain, Acute Stated Complaint: LEFT ELBOW PAIN Time Seen by Provider: 10/08/19 21:57 History Source: Patient Exam Limitations: No Limitations - History of Present Illness Initial Comments: 10/09/19 06:45 recurrent L elbow pain Occurred: reports: last week Severity: reports: moderate Upper Extremity Pain Location: left: elbow Method of Injury: denies: assault, fell, twisted Modifying Factors: worse with: immobilization, pain medication Past History - Medical History Allergies/Adverse Reactions: Allergies Allergy/AdvReac Type Severity Reaction Status Date / Time No Known Allergies Allergy Verified 10/08/19 21:45 Home Medications: Ambulatory Orders Diclofenac Sodium [Voltaren] 4 gm TP TID PRN #100 gm 10/08/19 Anemia: No Asthma: No Cancer: No Cardiac Disorders: No CVA: No COPD: No CHF: No DVT: No Dementia: No Diabetes: No GI Disorders: No Disorders: No HTN: No Hypercholesterolemia: No Kidney Stones: No Liver Disease: No Psychiatric Problems: Yes (OPIOD ABUSE) Seizures: No Thyroid Disease: No - Surgical History Abdominal Surgery: No Appendectomy: No Cardiac Surgery: No Cholecystectomy: No Lung Surgery: No Neurologic Surgery: No Orthopedic Surgery: No - Reproductive History Testicular Surgery: No - Immunization History Td Vaccination: Yes TDAP Vaccination: Yes Immunization Up to Date: Yes - Psycho-Social/Smoking History Smoking History: Current every day smoker Have you smoked in the past 12 months: No Number of Cigarettes Smoked Daily: 10 Information on smoking cessation initiated: Yes 'Breaking Loose' booklet given: 06/05/18 - Substance Abuse Hx (Audit-C & DAST Scrn) How often the patient has a drink containing alcohol: Never Score: In Men: 4 or > Positive; In Women: 3 or > Positive: 0 Screen Result (Pos requires Nsg. Audit-10AR): Negative In the last yr the pt used illegal drug/Rx for NonMed reason: No Score: Yes response is considered Positive: 0 Screen Result (Positive result requires Nsg. DAST-10): Negative Review of Systems - Review of Systems All Other Systems: Reviewed and Negative *Physical Exam - Vital Signs Last Vital Signs Temp Pulse Resp BP Pulse Ox 98.2 F 74 20 126/78 99 10/08/19 21:45 10/08/19 21:45 10/08/19 21:45 10/08/19 21:45 10/08/19 21:45 - Physical Exam General Appearance: Yes: Nourished, Appropriately Dressed HEENT: positive: Normal Voice Respiratory/Chest: positive: Lungs Clear Musculoskeletal: positive: Normal Inspection, Other (laterl epicondylar tenderness, nl rom, no erythema) Extremity: positive: Normal Capillary Refill. negative: Delayed Capillary Refill Integumentary: positive: Normal Color Medical Decision Making - Medical Decision Making 10/09/19 06:46 non traumatic msk pain with unremarkable PE immobilization, ice, nsaids Discharge - Discharge Information Problems reviewed: Yes Clinical Impression/Diagnosis: Tendonitis Condition: Stable - Admission No - Additional Discharge Information Prescriptions: Diclofenac Sodium [Voltaren] 4 gm TP TID PRN #100 gm PRN Reason: Pain - Follow up/Referral - Patient Discharge Instructions Patient Printed Discharge Instructions: Tendonitis (Alternative Therapy), DI for Tendinitis - Post Discharge Activity
[2019-10-08] MEDS ORDERED: NAPROXEN 500 MG TABLET PO ONE (22:08)
[2019-10-08] MEDS ORDERED: NAPROXEN 500 MG TABLET ONE (22:08)
== END 2019-10-08 22:17 ==
LOC: FER 21:45
DX: M67.824 Other specified disorders of tendon, left elbow (principal)
CPT/HCPCS: 99283-25

== ENCOUNTER 2020-01-26 20:30 | Emergency (ER) | payer OTHER ==
[2020-01-26] MEDS ORDERED: NAPROXEN 500 MG TABLET PO ONE (20:41)
[2020-01-26 20:42] VITALS: BP 144/96; PULSE 95; TEMP 98.5; BMI 23.1
[2020-01-26] MEDS ORDERED: DEXAMETHASONE 4 MG TABLET (FP) PO STA (20:42)
[2020-01-26] MEDS ORDERED: CYCLOBENZAPRINE HCL 10 MG TABLET (FP) PO ONE (20:42)
[2020-01-26] MEDS ORDERED: CYCLOBENZAPRINE HCL 10 MG TABLET (FP) ONE (20:44)
[2020-01-26] MEDS ORDERED: DEXAMETHASONE 4 MG TABLET (FP) ONE (20:44)
[2020-01-26] MEDS ORDERED: NAPROXEN 500 MG TABLET ONE (20:44)
== END 2020-01-26 20:54 | disposition home or self-care (01) ==
LOC: FER 20:30
DX: M54.12 Radiculopathy, cervical region (principal)
CPT/HCPCS: 99283-25

== ENCOUNTER 2020-02-15 22:41 | Emergency (ER) | payer OTHER ==
[2020-02-15 22:51] VITALS: BP 130/90; PULSE 97; TEMP 98.8; BMI 23.7
== END 2020-02-15 23:56 | disposition home or self-care (01) ==
LOC: FER 22:41
DX: R39.11 Hesitancy of micturition (principal)
CPT/HCPCS: 81003; 99284-25

== ENCOUNTER 2022-09-28 21:31 | Inpatient (IN) | payer OTHER ==
[2022-09-28 23:29] VITALS: BMI 23.1
[2022-09-29] MEDS ORDERED: LOPERAMIDE HCL 2 MG CAPSULE PO PRN (00:12)
[2022-09-29] MEDS ORDERED: ONDANSETRON *ODT* 4 MG TABLET SL PRN (00:12)
[2022-09-29] MEDS ORDERED: POLYETHYLENE GLYCOL (HEALTHYLAX) 3350 17 GM PACKET PO PRN (00:12)
[2022-09-29] MEDS ORDERED: NALOXONE HCL (KLOXXADO) 8 MG SPRAY NS PRN (00:12)
[2022-09-29] MEDS ORDERED: ACETAMINOPHEN 325 MG TABLET (FP) PO PRN (00:12)
[2022-09-29] MEDS ORDERED: NALOXONE HCL 0.4 MG/ML VIAL IM PRN (00:12)
[2022-09-29] MEDS ORDERED: P-EPHED 60MG/TRIPROLIDI 2.5MG TABLET PO PRN (00:12)
[2022-09-29] MEDS ORDERED: MAGNESIUM HYDROX 2400MG/30ML ORAL SUSPENSION 30 ML CUP PO PRN (00:12)
[2022-09-29] MEDS ORDERED: BENZONATATE 200 MG CAPSULE PO PRN (00:12)
[2022-09-29] MEDS ORDERED: BISMUTH SUBSALICYLATE 524 MG/30 ML PO PRN (00:12)
[2022-09-29] MEDS ORDERED: IBUPROFEN 400 MG TABLET (FP) PO PRN (00:12)
[2022-09-29] MEDS ORDERED: BENZOCAINE/MENTHOL (CHLORASEPTIC ) LOZENGE MM PRN (00:12)
[2022-09-29] MEDS ORDERED: MAG HYDROX/AL HYDROX/SIMETH 30 ML UNIT-DOSE CUP PO PRN (00:12)
[2022-09-29] MEDS ORDERED: IBUPROFEN 600 MG TABLET (FP) PO PRN (00:12)
[2022-09-29] MEDS ORDERED: guaiFENesin 600 MG TABLET.ER (FP) PO PRN (00:12)
[2022-09-29] MEDS ORDERED: NICOTINE POLACRILEX 2 MG GUM BUC PRN (00:12)
[2022-09-29] MEDS: FLUTICASONE PROP 0.05% 16 GM NASAL SPRAY NS SCH ×4 (05:43→22:00)
[2022-09-29] MEDS ORDERED: methaDONE HCL 10 MG TABLET PO SCH (10:15)
[2022-09-29] MEDS: PRENATAL VITAMINS W/ FOLIC ACID TABLET (FP) PO SCH (10:22)
[2022-09-29] MEDS: diazePAM 5 MG TABLET PO SCH ×3 (11:24→22:11)
[2022-09-29] MEDS: THIAMINE HCL 100 MG TABLET (FP) PO SCH (22:12)
[2022-09-29] MEDS: MELATONIN 5 MG TABLETS PO SCH (22:12)
[2022-09-30] MEDS: diazePAM 5 MG TABLET PO SCH ×4 (05:37→22:44)
[2022-09-30] MEDS: FLUTICASONE PROP 0.05% 16 GM NASAL SPRAY NS SCH ×3 (10:27→22:43)
[2022-09-30] MEDS: PRENATAL VITAMINS W/ FOLIC ACID TABLET (FP) PO SCH (10:27)
[2022-09-30 15:18] LABS: HEMATOCRIT 38.9 % (35.4-49); HEMOGLOBIN 13.3 GM/dL (11.7-16.9); MCH 32.5 pg (25.7-33.7); MCHC 34.1 g/dl (32.0-35.9); MEAN CELL VOLUME 95.2 fl (80-96); MEAN PLT VOLUME 7.9 fl (7.5-11.1); PLATELET COUNT 228 10^3/uL (134-434); RBC 4.08 M/mm3 (4.00-5.60); RDW 13.8 % (11.9-15.9); WHITE BLOOD COUNT 6.3 K/mm3 (4.0-10.0)
[2022-09-30 15:22] LABS: POTASSIUM 4.6 mmol/L (3.5-5.1)
[2022-09-30 15:33] LABS: CALCIUM 8.9 mg/dL (8.5-10.1)
[2022-09-30 15:34] LABS: ALBUMIN 3.4 g/dl (3.4-5.0); BLOOD UREA NITROGEN 14.1 mg/dL (7-18)
[2022-09-30 15:37] LABS: CREATININE 0.7 mg/dL (0.55-1.3)
[2022-09-30 15:38] LABS: BILIRUBIN,TOTAL 0.3 mg/dL (0.2-1)
[2022-09-30 15:39] LABS: TOT PROT 6.7 g/dl (6.4-8.2)
[2022-09-30] MEDS: THIAMINE HCL 100 MG TABLET (FP) PO SCH (22:43)
[2022-09-30] MEDS: MELATONIN 5 MG TABLETS PO SCH (22:43)
[2022-10-01] MEDS: diazePAM 5 MG TABLET PO PRN ×2 (01:27→10:18)
[2022-10-01] MEDS: diazePAM 5 MG TABLET PO SCH ×3 (05:20→22:38)
[2022-10-01] MEDS: PRENATAL VITAMINS W/ FOLIC ACID TABLET (FP) PO SCH (10:18)
[2022-10-01] MEDS: FLUTICASONE PROP 0.05% 16 GM NASAL SPRAY NS SCH ×2 (10:20→22:38)
[2022-10-01] MEDS: MELATONIN 5 MG TABLETS PO SCH (22:38)
[2022-10-01] MEDS: THIAMINE HCL 100 MG TABLET (FP) PO SCH (22:38)
[2022-10-02] MEDS: diazePAM 5 MG TABLET PO SCH ×2 (05:37→17:34)
[2022-10-02] MEDS: FLUTICASONE PROP 0.05% 16 GM NASAL SPRAY NS SCH ×2 (10:54→22:16)
[2022-10-02] MEDS: PRENATAL VITAMINS W/ FOLIC ACID TABLET (FP) PO SCH (10:55)
[2022-10-02] MEDS: MELATONIN 5 MG TABLETS PO SCH (22:17)
[2022-10-02] MEDS: THIAMINE HCL 100 MG TABLET (FP) PO SCH (22:17)
[2022-10-03] MEDS ORDERED: diazePAM 5 MG TABLET PO ONE (06:00)
[2022-10-03] MEDS: PRENATAL VITAMINS W/ FOLIC ACID TABLET (FP) PO SCH (09:23)
[2022-10-03] MEDS: FLUTICASONE PROP 0.05% 16 GM NASAL SPRAY NS SCH (09:24)
[2022-10-03 09:56] VITALS: BP 151/78; PULSE 89; RESP 16; TEMP 97.3
== END 2022-10-03 09:28 | disposition home or self-care (01) | DRG 897 ==
LOC: YASAS 21:31 → Y3N 09-29 03:27
PROVIDERS: ADMIT Allergy & Immunology; ATTEND Allergy & Immunology
PROC: HZ2ZZZZ Detoxification Services for Substance Abuse Treatment (ICD-10-PCS; principal; 2022-09-29)
DX: F10.230 Alcohol dependence with withdrawal, uncomplicated (principal); F11.20 Opioid dependence, uncomplicated; F17.210 Nicotine dependence, cigarettes, uncomplicated
CPT/HCPCS: 36415; 80053; 85027; 86780; 87635; 87811

== ENCOUNTER 2022-10-27 16:50 | Inpatient (IN) | payer OTHER ==
[2022-10-27 17:17] VITALS: BMI 23.8
[2022-10-27] MEDS ORDERED: chlordiazePOXIDE HCL 25 MG CAPSULE PO PRN (21:37)
[2022-10-27] MEDS ORDERED: chlordiazePOXIDE HCL 25 MG CAPSULE ONE (22:13)
[2022-10-27] MEDS ORDERED: ACETAMINOPHEN 325 MG TABLET (FP) PO PRN (22:19)
[2022-10-27] MEDS ORDERED: BENZOCAINE/MENTHOL (CHLORASEPTIC ) LOZENGE MM PRN (22:19)
[2022-10-27] MEDS ORDERED: BENZONATATE 200 MG CAPSULE PO PRN (22:19)
[2022-10-27] MEDS ORDERED: BISMUTH SUBSALICYLATE 524 MG/30 ML PO PRN (22:19)
[2022-10-27] MEDS ORDERED: ONDANSETRON *ODT* 4 MG TABLET SL PRN (22:19)
[2022-10-27] MEDS ORDERED: POLYETHYLENE GLYCOL (HEALTHYLAX) 3350 17 GM PACKET PO PRN (22:19)
[2022-10-27] MEDS ORDERED: MAGNESIUM HYDROX 2400MG/30ML ORAL SUSPENSION 30 ML CUP PO PRN (22:19)
[2022-10-27] MEDS ORDERED: IBUPROFEN 400 MG TABLET (FP) PO PRN (22:19)
[2022-10-27] MEDS ORDERED: NALOXONE HCL 0.4 MG/ML VIAL IM PRN (22:19)
[2022-10-27] MEDS ORDERED: NALOXONE HCL (KLOXXADO) 8 MG SPRAY NS PRN (22:19)
[2022-10-27] MEDS ORDERED: MAG HYDROX/AL HYDROX/SIMETH 30 ML UNIT-DOSE CUP PO PRN (22:19)
[2022-10-27] MEDS ORDERED: NICOTINE POLACRILEX 2 MG GUM BUC PRN (22:19)
[2022-10-27] MEDS ORDERED: guaiFENesin 600 MG TABLET.ER (FP) PO PRN (22:19)
[2022-10-27] MEDS ORDERED: P-EPHED 60MG/TRIPROLIDI 2.5MG TABLET PO PRN (22:19)
[2022-10-27] MEDS ORDERED: IBUPROFEN 600 MG TABLET (FP) PO PRN (22:19)
[2022-10-27] MEDS ORDERED: LOPERAMIDE HCL 2 MG CAPSULE PO PRN (22:19)
[2022-10-27] MEDS: chlordiazePOXIDE HCL 25 MG CAPSULE PO SCH (22:23)
[2022-10-28] MEDS: VITAMINS A AND D TOPICAL OINTMENT 60 GM TUBE TP SCH ×3 (01:55→11:53)
[2022-10-28] MEDS: chlordiazePOXIDE HCL 25 MG CAPSULE PO SCH ×2 (05:26→10:29)
[2022-10-28] MEDS: PRENATAL VITAMINS W/ FOLIC ACID TABLET (FP) PO SCH (10:29)
[2022-10-28] MEDS ORDERED: methaDONE HCL 10 MG TABLET PO SCH (10:45)
[2022-10-28] MEDS: diazePAM 5 MG TABLET PO SCH ×3 (11:11→22:13)
[2022-10-28 11:44] LABS: HEMATOCRIT 36.3 % (35.4-49); HEMOGLOBIN 12.7 GM/dL (11.7-16.9); MCH 32.8 pg (25.7-33.7); MEAN CELL VOLUME 93.7 fl (80-96); MEAN PLT VOLUME 7.8 fl (7.5-11.1); PLATELET COUNT 230 10^3/uL (134-434); RBC 3.87 M/mm3 (4.00-5.60); RDW 13.8 % (11.9-15.9); WHITE BLOOD COUNT 8.9 K/mm3 (4.0-10.0)
[2022-10-28 12:00] LABS: POTASSIUM 3.7 mmol/L (3.5-5.1)
[2022-10-28 12:06] LABS: CALCIUM 8.5 mg/dL (8.5-10.1)
[2022-10-28 12:07] LABS: ALBUMIN 3.5 g/dl (3.4-5.0); BLOOD UREA NITROGEN 8.5 mg/dL (7-18)
[2022-10-28 12:09] LABS: BILIRUBIN,TOTAL 0.6 mg/dL (0.2-1); TOT PROT 6.8 g/dl (6.4-8.2)
[2022-10-28 12:10] LABS: CREATININE 0.6 mg/dL (0.55-1.3)
[2022-10-28] MEDS: diazePAM 5 MG TABLET PO PRN (15:59)
[2022-10-28] MEDS: hydrOXYzine PAMOATE 25 MG CAPSULE (FP) PO PRN (17:35)
[2022-10-28] MEDS: THIAMINE HCL 100 MG TABLET (FP) PO SCH (22:13)
[2022-10-28] MEDS: MELATONIN 5 MG TABLETS PO SCH (22:13)
[2022-10-29] MEDS: VITAMINS A AND D TOPICAL OINTMENT 60 GM TUBE TP SCH ×5 (00:39→17:15)
[2022-10-29] MEDS ORDERED: chlordiazePOXIDE HCL 25 MG CAPSULE PO SCH (05:00)
[2022-10-29] MEDS: diazePAM 5 MG TABLET PO SCH ×3 (05:57→22:26)
[2022-10-29] MEDS: PRENATAL VITAMINS W/ FOLIC ACID TABLET (FP) PO SCH (11:15)
[2022-10-29] MEDS: diazePAM 5 MG TABLET PO PRN ×2 (11:17→17:17)
[2022-10-29] MEDS: MELATONIN 5 MG TABLETS PO SCH (22:26)
[2022-10-29] MEDS: THIAMINE HCL 100 MG TABLET (FP) PO SCH (22:26)
[2022-10-30] MEDS ORDERED: chlordiazePOXIDE HCL 10 MG CAPSULE PO PRN
[2022-10-30] MEDS: VITAMINS A AND D TOPICAL OINTMENT 60 GM TUBE TP SCH ×5 (00:55→23:10)
[2022-10-30] MEDS ORDERED: chlordiazePOXIDE HCL 10 MG CAPSULE PO SCH (05:00)
[2022-10-30] MEDS: diazePAM 5 MG TABLET PO PRN ×3 (05:12→18:44)
[2022-10-30] MEDS: diazePAM 5 MG TABLET PO SCH ×2 (10:35→22:06)
[2022-10-30] MEDS: PRENATAL VITAMINS W/ FOLIC ACID TABLET (FP) PO SCH (10:35)
[2022-10-30] MEDS: THIAMINE HCL 100 MG TABLET (FP) PO SCH (22:05)
[2022-10-30] MEDS: FLUTICASONE PROP 0.05% 16 GM NASAL SPRAY NS SCH (22:06)
[2022-10-30] MEDS: MELATONIN 5 MG TABLETS PO SCH (22:06)
[2022-10-31] MEDS ORDERED: chlordiazePOXIDE HCL 10 MG CAPSULE PO SCH (05:00)
[2022-10-31] MEDS: VITAMINS A AND D TOPICAL OINTMENT 60 GM TUBE TP SCH ×4 (05:54→23:29)
[2022-10-31] MEDS ORDERED: diazePAM 5 MG TABLET PO ONE (06:00)
[2022-10-31 09:43] VITALS: RESP 18
[2022-10-31] MEDS: hydrOXYzine PAMOATE 25 MG CAPSULE (FP) PO PRN (10:35)
[2022-10-31] MEDS: PRENATAL VITAMINS W/ FOLIC ACID TABLET (FP) PO SCH (10:35)
[2022-10-31] MEDS: FLUTICASONE PROP 0.05% 16 GM NASAL SPRAY NS SCH ×2 (10:36→22:50)
[2022-10-31] MEDS ORDERED: PNEUMOC 20-VAL CONJ-DIP CRM/PF 0.5 ML SYRINGE IM ONE (12:00)
[2022-10-31] MEDS: THIAMINE HCL 100 MG TABLET (FP) PO SCH (22:50)
[2022-10-31] MEDS: MELATONIN 5 MG TABLETS PO SCH (22:50)
[2022-11-01] MEDS ORDERED: chlordiazePOXIDE HCL 10 MG CAPSULE PO ONE (05:00)
[2022-11-01] MEDS: VITAMINS A AND D TOPICAL OINTMENT 60 GM TUBE TP SCH (05:45)
[2022-11-01 09:52] VITALS: BP 116/81; PULSE 90; TEMP 97.3
[2022-11-01] MEDS: PRENATAL VITAMINS W/ FOLIC ACID TABLET (FP) PO SCH (10:24)
[2022-11-01] MEDS: FLUTICASONE PROP 0.05% 16 GM NASAL SPRAY NS SCH (10:24)
== END 2022-11-01 10:50 | disposition home or self-care (01) | DRG 897 ==
LOC: YASAS 16:50 → Y6N 10-28 01:08
PROVIDERS: ADMIT Allergy & Immunology; ATTEND Allergy & Immunology
PROC: HZ2ZZZZ Detoxification Services for Substance Abuse Treatment (ICD-10-PCS; principal; 2022-10-28)
DX: F10.230 Alcohol dependence with withdrawal, uncomplicated (principal); F11.20 Opioid dependence, uncomplicated; F19.282 Other psychoactive substance dependence with psychoactive substance-induced sleep disorder; F12.20 Cannabis dependence, uncomplicated; F17.210 Nicotine dependence, cigarettes, uncomplicated; F19.24 Other psychoactive substance dependence with psychoactive substance-induced mood disorder; B18.2 Chronic viral hepatitis C; J30.9 Allergic rhinitis, unspecified; M41.9 Scoliosis, unspecified; M54.40 Lumbago with sciatica, unspecified side; G89.29 Other chronic pain
CPT/HCPCS: 26055; 36415; 80053; 85027; 86780; 87635; 90677

== ENCOUNTER 2022-12-31 00:59 | Inpatient (IN) | payer OTHER ==
[2022-12-31] MEDS ORDERED: SODIUM CHLORIDE 2,585 ML IV ONE (01:23)
[2022-12-31] MEDS ORDERED: ACETAMINOPHEN 1000 MG/100 ML BAG IVPB ONE (01:24)
[2022-12-31] MEDS ORDERED: CEFTRIAXONE 1 GM in DEXTROSE 5%-WATER - 100 ML IVPB ONE (01:24)
[2022-12-31] MEDS ORDERED: CEFTRIAXONE 1 GM/50 ML BAG ONE ×2 (01:38→10:05)
[2022-12-31] MEDS ORDERED: ACETAMINOPHEN INJECTION 100 ML IVPB ONE (01:38)
[2022-12-31] MEDS ORDERED: chlordiazePOXIDE HCL 25 MG CAPSULE PO ONE (01:50)
[2022-12-31 02:10] LABS: BASO % 0.1 % (0-2.0); HEMATOCRIT 35.9 % (35.4-49); HEMOGLOBIN 12.5 GM/dL (11.7-16.9); LYMPH % 8.1 % (8-40); MCH 31.3 pg (25.7-33.7); MCHC 34.8 g/dl (32.0-35.9); MEAN CELL VOLUME 89.8 fl (80-96); MEAN PLT VOLUME 7.4 fl (7.5-11.1); NEUT % 82.8 % (42.8-82.8); PLATELET COUNT 265 10^3/uL (134-434); RDW 13.4 % (11.9-15.9); WHITE BLOOD COUNT 15.2 K/mm3 (4.0-10.0)
[2022-12-31 02:12] LABS: VENOUS BASE EXCESS 4.8 mmol/L (-2-2); VENOUS O2 SATURATION 85.2 % (70-80); VENOUS PCO2 40.1 mmHg (38-52); VENOUS PH 7.473 (7.310-7.410)
[2022-12-31 02:16] LABS: INR 1.24 (0.83-1.09); PROTHROMBIN TIME (PATIENT) 14.4 SEC (9.7-13.0)
[2022-12-31] MEDS ORDERED: chlordiazePOXIDE HCL 25 MG CAPSULE ONE (02:16)
[2022-12-31] MEDS ORDERED: AZITHROMYCIN IVPB 500 MG in DEXTROSE 5%-WATER - 250 ML IVPB ONE (02:25)
[2022-12-31 02:36] LABS: POTASSIUM 3.9 mmol/L (3.5-5.1)
[2022-12-31 02:37] LABS: ALBUMIN 3.2 g/dl (3.4-5.0); BLOOD UREA NITROGEN 11.9 mg/dL (7-18); CALCIUM 8.7 mg/dL (8.5-10.1)
[2022-12-31 02:41] LABS: CREATININE 0.6 mg/dL (0.55-1.3)
[2022-12-31 02:43] LABS: BILIRUBIN,TOTAL 0.7 mg/dL (0.2-1)
[2022-12-31] MEDS ORDERED: AZITHROMYCIN IVPB 500 MG/250 ML BAG IVPB ONE (02:50)
[2022-12-31] MEDS ORDERED: SODIUM CHLORIDE 1,000 ML IV SCH (06:15)
[2022-12-31] MEDS ORDERED: MAGNESIUM SULFATE IN WATER 2 GM/50 ML IVPB IVPB ONE ×4 (06:38→12:35)
[2022-12-31] MEDS ORDERED: methaDONE HCL 40 MG DISPERSABLE TABLET PO ONE (10:00)
[2022-12-31] MEDS ORDERED: methaDONE HCL 40 MG DISPERSABLE TABLET ONE (10:04)
[2022-12-31] MEDS: FOLIC ACID 1 MG TABLET (FP) PO SCH (10:27)
[2022-12-31] MEDS: CEFTRIAXONE 1 GM in DEXTROSE 5%-WATER - 50 ML IVPB SCH (10:28)
[2022-12-31] MEDS: ENOXAPARIN NA (PORCINE) 40 MG/0.4 ML DISP.SYRIN SQ SCH (10:28)
[2022-12-31] MEDS: THIAMINE HCL 100 MG TABLET (FP) PO SCH (10:28)
[2022-12-31] MEDS: AZITHROMYCIN IVPB 250 MG in DEXTROSE 5%-WATER - 250 ML IVPB SCH (11:25)
[2022-12-31] MEDS ORDERED: ACETAMINOPHEN 500 MG TABLET (FP) PO ONE (13:42)
[2022-12-31] MEDS ORDERED: ALBUTEROL SO4 0.083% IH SOL 2.5 MG/3 ML VIAL.NEB. NEB PRN (13:46)
[2022-12-31] MEDS ORDERED: ACETAMINOPHEN 500 MG TABLET (FP) ONE (13:48)
[2022-12-31 17:35] LABS: EPI CELLS 5 /uL (0-25.1); HYALINE CASTS 1 /uL (0-3.1); URINE APPEARANCE CLEAR; URINE BACTERIA 1 /uL (0-1359); URINE BILIRUBIN 1+ (NEGATIVE); URINE COLOR DK YELLOW; URINE GLUCOSE (UA) NEGATIVE (NEGATIVE); URINE KETONE TRACE (NEGATIVE); URINE LEUK ESTERASE NEGATIVE (NEGATIVE); URINE NITRITE NEGATIVE (NEGATIVE); URINE PROTEIN 2+ (NEGATIVE); URINE RBC 9 /uL (0-23.9); URINE WBC 9 /uL (0-25.8)
[2022-12-31] MEDS ORDERED: ACETAMINOPHEN 1000 MG/100 ML BAG IVPB PRN (20:33)
[2023-01-01] MEDS: methaDONE HCL 40 MG DISPERSABLE TABLET PO SCH (06:12)
[2023-01-01 08:24] LABS: BASO % 0.3 % (0-2.0); EOS % 0.5 % (0-4.5); HEMATOCRIT 35.6 % (35.4-49); HEMOGLOBIN 11.9 GM/dL (11.7-16.9); MCH 30.9 pg (25.7-33.7); MCHC 33.4 g/dl (32.0-35.9); MEAN CELL VOLUME 92.5 fl (80-96); MEAN PLT VOLUME 7.6 fl (7.5-11.1); MONO % 9.3 % (3.8-10.2); NEUT % 81.9 % (42.8-82.8); PLATELET COUNT 275 10^3/uL (134-434); RBC 3.85 M/mm3 (4.00-5.60); RDW 13.4 % (11.9-15.9); WHITE BLOOD COUNT 13.9 K/mm3 (4.0-10.0)
[2023-01-01 08:43] LABS: ALBUMIN 2.7 g/dl (3.4-5.0); BLOOD UREA NITROGEN 7.2 mg/dL (7-18); CALCIUM 8.3 mg/dL (8.5-10.1); MAGNESIUM 2.3 mg/dL (1.8-2.4); POTASSIUM 3.8 mmol/L (3.5-5.1)
[2023-01-01 08:46] LABS: CREATININE 0.5 mg/dL (0.55-1.3); PHOSPHOROUS 2.8 mg/dL (2.5-4.9)
[2023-01-01 08:49] LABS: BILIRUBIN,TOTAL 0.5 mg/dL (0.2-1); TOT PROT 6.3 g/dl (6.4-8.2)
[2023-01-01] MEDS: THIAMINE HCL 100 MG TABLET (FP) PO SCH (10:19)
[2023-01-01] MEDS: ENOXAPARIN NA (PORCINE) 40 MG/0.4 ML DISP.SYRIN SQ SCH (10:19)
[2023-01-01] MEDS: FOLIC ACID 1 MG TABLET (FP) PO SCH (10:19)
[2023-01-01] MEDS: CEFTRIAXONE 1 GM in DEXTROSE 5%-WATER - 50 ML IVPB SCH (10:20)
[2023-01-01] MEDS: AZITHROMYCIN IVPB 250 MG in DEXTROSE 5%-WATER - 250 ML IVPB SCH (10:21)
[2023-01-01] MEDS ORDERED: chlordiazePOXIDE HCL 25 MG CAPSULE PO PRN (15:04)
[2023-01-01] MEDS ORDERED: diazePAM CARPU-JECT 10 MG/2 ML DISP.SYRIN IVPUSH ONE (15:08)
[2023-01-01] MEDS ORDERED: SODIUM CHLORIDE 1,000 ML IV SCH (15:15)
[2023-01-01] MEDS: chlordiazePOXIDE HCL 25 MG CAPSULE PO SCH ×2 (16:54→22:00)
[2023-01-01] MEDS ORDERED: ACETAMINOPHEN 1000 MG/100 ML BAG IVPB PRN (20:53)
[2023-01-02] MEDS: chlordiazePOXIDE HCL 25 MG CAPSULE PO SCH ×2 (05:35→11:21)
[2023-01-02] MEDS: methaDONE HCL 40 MG DISPERSABLE TABLET PO SCH (05:35)
[2023-01-02] MEDS ORDERED: methaDONE HCL 10 MG TABLET PO SCH (06:00)
[2023-01-02 07:50] LABS: BASO % 0.8 % (0-2.0); EOS % 2.3 % (0-4.5); HEMATOCRIT 34.6 % (35.4-49); HEMOGLOBIN 11.9 GM/dL (11.7-16.9); MCHC 34.4 g/dl (32.0-35.9); MEAN CELL VOLUME 90.2 fl (80-96); MEAN PLT VOLUME 7.6 fl (7.5-11.1); MONO % 10.7 % (3.8-10.2); NEUT % 71.2 % (42.8-82.8); PLATELET COUNT 315 10^3/uL (134-434); RBC 3.83 M/mm3 (4.00-5.60); RDW 13.4 % (11.9-15.9); WHITE BLOOD COUNT 9.3 K/mm3 (4.0-10.0)
[2023-01-02 08:11] LABS: POTASSIUM 3.7 mmol/L (3.5-5.1)
[2023-01-02 08:15] LABS: BLOOD UREA NITROGEN 8.2 mg/dL (7-18); CALCIUM 8.5 mg/dL (8.5-10.1)
[2023-01-02 08:18] LABS: CREATININE 0.4 mg/dL (0.55-1.3)
[2023-01-02] MEDS: FOLIC ACID 1 MG TABLET (FP) PO SCH (09:46)
[2023-01-02] MEDS: THIAMINE HCL 100 MG TABLET (FP) PO SCH (09:46)
[2023-01-02] MEDS: CEFTRIAXONE 1 GM in DEXTROSE 5%-WATER - 50 ML IVPB SCH (09:46)
[2023-01-02] MEDS: ENOXAPARIN NA (PORCINE) 40 MG/0.4 ML DISP.SYRIN SQ SCH (09:47)
[2023-01-02] MEDS ORDERED: SODIUM CHLORIDE 1,000 ML IV SCH (10:27)
[2023-01-02] MEDS: AZITHROMYCIN IVPB 250 MG in DEXTROSE 5%-WATER - 250 ML IVPB SCH (11:20)
[2023-01-02] MEDS ORDERED: LORazepam 1 MG TABLET PO PRN (12:47)
[2023-01-02] MEDS: LORazepam 1 MG TABLET PO SCH ×2 (16:35→22:24)
[2023-01-02] MEDS ORDERED: ALBUTEROL SO4 0.083% IH SOL 2.5 MG/3 ML VIAL.NEB. NEB PRN (17:04)
[2023-01-02] MEDS: SODIUM CHLORIDE 1,000 ML IV SCH (18:15)
[2023-01-03] MEDS ORDERED: chlordiazePOXIDE HCL 25 MG CAPSULE PO SCH (05:00)
[2023-01-03] MEDS: LORazepam 1 MG TABLET PO SCH ×4 (05:21→23:13)
[2023-01-03] MEDS: methaDONE HCL 40 MG DISPERSABLE TABLET PO SCH (05:21)
[2023-01-03] MEDS ORDERED: CEFTRIAXONE 1 GM in DEXTROSE 5%-WATER - 50 ML IVPB SCH (10:00)
[2023-01-03] MEDS ORDERED: AZITHROMYCIN 250 MG TABLET PO SCH (10:00)
[2023-01-03] MEDS ORDERED: AZITHROMYCIN IVPB 250 MG in DEXTROSE 5%-WATER - 250 ML IVPB SCH (10:00)
[2023-01-03] MEDS: ENOXAPARIN NA (PORCINE) 40 MG/0.4 ML DISP.SYRIN SQ SCH (10:29)
[2023-01-03] MEDS: THIAMINE HCL 100 MG TABLET (FP) PO SCH (10:30)
[2023-01-03] MEDS: FOLIC ACID 1 MG TABLET (FP) PO SCH (10:30)
[2023-01-03 10:31] LABS: BASO % 1.2 % (0-2.0); HEMATOCRIT 36.5 % (35.4-49); MCH 30.8 pg (25.7-33.7); MEAN CELL VOLUME 93.3 fl (80-96); MEAN PLT VOLUME 7.5 fl (7.5-11.1); MONO % 10.5 % (3.8-10.2); NEUT % 65.3 % (42.8-82.8); PLATELET COUNT 367 10^3/uL (134-434); RBC 3.91 M/mm3 (4.00-5.60); RDW 13.7 % (11.9-15.9); WHITE BLOOD COUNT 9.6 K/mm3 (4.0-10.0)
[2023-01-03 10:54] LABS: POTASSIUM 4.4 mmol/L (3.5-5.1)
[2023-01-03 10:58] LABS: ALBUMIN 2.7 g/dl (3.4-5.0); CALCIUM 9.2 mg/dL (8.5-10.1); MAGNESIUM 2.1 mg/dL (1.8-2.4)
[2023-01-03 11:00] LABS: PHOSPHOROUS 3.5 mg/dL (2.5-4.9)
[2023-01-03 11:01] LABS: CREATININE 0.6 mg/dL (0.55-1.3)
[2023-01-03 11:03] LABS: BILIRUBIN,TOTAL 0.3 mg/dL (0.2-1); TOT PROT 6.5 g/dl (6.4-8.2)
[2023-01-03] MEDS: SODIUM CHLORIDE 1,000 ML IV SCH (12:17)
[2023-01-03] MEDS ORDERED: PIPERACILLIN/TAZOB 4.5 GM 4.5 GM in DEXTROSE 5%-WATER 100 ML IVPB SCH (15:00)
[2023-01-03] MEDS: PIPERACILLIN/TAZOB 4.5 GM 4.5 GM in DEXTROSE 5%-WATER 100 ML IVPB SCH ×2 (16:22→21:19)
[2023-01-04] MEDS ORDERED: chlordiazePOXIDE HCL 10 MG CAPSULE PO PRN
[2023-01-04] MEDS ORDERED: LORazepam 0.5 MG TABLET PO PRN
[2023-01-04] MEDS: SODIUM CHLORIDE 1,000 ML IV SCH (02:10)
[2023-01-04] MEDS: PIPERACILLIN/TAZOB 4.5 GM 4.5 GM in DEXTROSE 5%-WATER 100 ML IVPB SCH ×2 (02:21→12:20)
[2023-01-04] MEDS ORDERED: chlordiazePOXIDE HCL 10 MG CAPSULE PO SCH (05:00)
[2023-01-04] MEDS: LORazepam 0.5 MG TABLET PO SCH ×4 (05:18→23:06)
[2023-01-04] MEDS: methaDONE HCL 40 MG DISPERSABLE TABLET PO SCH (06:04)
[2023-01-04 10:36] LABS: BASO % 0.5 % (0-2.0); EOS % 6.4 % (0-4.5); LYMPH % 17.5 % (8-40); MCH 30.2 pg (25.7-33.7); MCHC 32.3 g/dl (32.0-35.9); MEAN CELL VOLUME 93.4 fl (80-96); MEAN PLT VOLUME 7.1 fl (7.5-11.1); MONO % 5.4 % (3.8-10.2); NEUT % 70.2 % (42.8-82.8); PLATELET COUNT 394 10^3/uL (134-434); RBC 3.96 M/mm3 (4.00-5.60); RDW 13.7 % (11.9-15.9); WHITE BLOOD COUNT 6.5 K/mm3 (4.0-10.0)
[2023-01-04 10:48] LABS: POTASSIUM 4.7 mmol/L (3.5-5.1)
[2023-01-04 11:14] LABS: ALBUMIN 2.6 g/dl (3.4-5.0); BLOOD UREA NITROGEN 9.3 mg/dL (7-18); CALCIUM 9.1 mg/dL (8.5-10.1); MAGNESIUM 2.3 mg/dL (1.8-2.4)
[2023-01-04 11:17] LABS: CREATININE 0.6 mg/dL (0.55-1.3); PHOSPHOROUS 3.1 mg/dL (2.5-4.9)
[2023-01-04 11:19] LABS: BILIRUBIN,TOTAL 0.4 mg/dL (0.2-1); TOT PROT 6.5 g/dl (6.4-8.2)
[2023-01-04] MEDS: FOLIC ACID 1 MG TABLET (FP) PO SCH (12:19)
[2023-01-04] MEDS: THIAMINE HCL 100 MG TABLET (FP) PO SCH (12:19)
[2023-01-04] MEDS: ENOXAPARIN NA (PORCINE) 40 MG/0.4 ML DISP.SYRIN SQ SCH (12:20)
[2023-01-04] MEDS: PIPERACILLIN/TAZOB 3.375 GM 3.375 GM in DEXTROSE 5%-WATER - 50 ML IVPB SCH (17:35)
[2023-01-05] MEDS: PIPERACILLIN/TAZOB 3.375 GM 3.375 GM in DEXTROSE 5%-WATER - 50 ML IVPB SCH ×3 (02:50→16:59)
[2023-01-05] MEDS ORDERED: chlordiazePOXIDE HCL 10 MG CAPSULE PO SCH (05:00)
[2023-01-05] MEDS: methaDONE HCL 40 MG DISPERSABLE TABLET PO SCH (05:46)
[2023-01-05] MEDS: LORazepam 0.5 MG TABLET PO SCH ×4 (05:47→22:27)
[2023-01-05 09:23] LABS: BASO % 0.7 % (0-2.0); EOS % 6.3 % (0-4.5); HEMATOCRIT 37.6 % (35.4-49); HEMOGLOBIN 12.5 GM/dL (11.7-16.9); LYMPH % 22.1 % (8-40); MCH 30.6 pg (25.7-33.7); MCHC 33.2 g/dl (32.0-35.9); MEAN CELL VOLUME 92.2 fl (80-96); MEAN PLT VOLUME 6.8 fl (7.5-11.1); MONO % 5.4 % (3.8-10.2); NEUT % 65.5 % (42.8-82.8); PLATELET COUNT 451 10^3/uL (134-434); RBC 4.07 M/mm3 (4.00-5.60); RDW 14.1 % (11.9-15.9); WHITE BLOOD COUNT 6.2 K/mm3 (4.0-10.0)
[2023-01-05] MEDS ORDERED: PIPERACILLIN/TAZOBACTAM 3.375 GM VIAL IVPB ONE (09:23)
[2023-01-05] MEDS: ENOXAPARIN NA (PORCINE) 40 MG/0.4 ML DISP.SYRIN SQ SCH (09:50)
[2023-01-05] MEDS: THIAMINE HCL 100 MG TABLET (FP) PO SCH (09:51)
[2023-01-05] MEDS: FOLIC ACID 1 MG TABLET (FP) PO SCH (09:51)
[2023-01-05 10:12] LABS: POTASSIUM 4.5 mmol/L (3.5-5.1)
[2023-01-05 10:38] LABS: BLOOD UREA NITROGEN 12.2 mg/dL (7-18); CALCIUM 9.7 mg/dL (8.5-10.1)
[2023-01-05 10:39] LABS: MAGNESIUM 2.4 mg/dL (1.8-2.4)
[2023-01-05 10:41] LABS: CREATININE 0.8 mg/dL (0.55-1.3); PHOSPHOROUS 3.1 mg/dL (2.5-4.9)
[2023-01-05 10:43] LABS: BILIRUBIN,TOTAL 0.3 mg/dL (0.2-1)
[2023-01-06] MEDS: PIPERACILLIN/TAZOB 3.375 GM 3.375 GM in DEXTROSE 5%-WATER - 50 ML IVPB SCH (01:36)
[2023-01-06] MEDS ORDERED: LORazepam 0.5 MG TABLET PO ONE (05:00)
[2023-01-06] MEDS ORDERED: chlordiazePOXIDE HCL 10 MG CAPSULE PO ONE (05:00)
[2023-01-06] MEDS: methaDONE HCL 40 MG DISPERSABLE TABLET PO SCH (05:54)
[2023-01-06] MEDS ORDERED: SODIUM CHLORIDE 0.9% 500 ML INFUS.BAG IV ONE (10:23)
[2023-01-06] MEDS: ENOXAPARIN NA (PORCINE) 40 MG/0.4 ML DISP.SYRIN SQ SCH (10:32)
[2023-01-06] MEDS: THIAMINE HCL 100 MG TABLET (FP) PO SCH (10:32)
[2023-01-06] MEDS: AMOX TR/POT CLAV 875MG/125MG TABLETS (FP) PO SCH ×2 (10:32→17:15)
[2023-01-06] MEDS: FOLIC ACID 1 MG TABLET (FP) PO SCH (10:32)
[2023-01-06] MEDS ORDERED: SODIUM CHLORIDE 0.9% 250 ML INFUS.BAG IV ONE ×2 (10:45→11:45)
[2023-01-06] MEDS: FLUTICASONE/UMECLIDIN/VILANTER(200-62.5-25 TRELEGY ELLIPTA) INAHLER IH SCH (11:28)
[2023-01-07] MEDS: methaDONE HCL 40 MG DISPERSABLE TABLET PO SCH (06:06)
[2023-01-07] MEDS: AMOX TR/POT CLAV 875MG/125MG TABLETS (FP) PO SCH ×2 (08:35→17:09)
[2023-01-07 09:19] LABS: BASO % 0.7 % (0-2.0); EOS % 5.9 % (0-4.5); HEMATOCRIT 38.9 % (35.4-49); HEMOGLOBIN 12.8 GM/dL (11.7-16.9); LYMPH % 29.6 % (8-40); MCH 30.8 pg (25.7-33.7); MEAN CELL VOLUME 93.3 fl (80-96); MEAN PLT VOLUME 6.8 fl (7.5-11.1); MONO % 7.2 % (3.8-10.2); NEUT % 56.6 % (42.8-82.8); PLATELET COUNT 473 10^3/uL (134-434); RBC 4.17 M/mm3 (4.00-5.60); RDW 14.2 % (11.9-15.9); WHITE BLOOD COUNT 5.6 K/mm3 (4.0-10.0)
[2023-01-07 09:42] LABS: CALCIUM 9.1 mg/dL (8.5-10.1); POTASSIUM 4.5 mmol/L (3.5-5.1)
[2023-01-07] MEDS: THIAMINE HCL 100 MG TABLET (FP) PO SCH (09:43)
[2023-01-07] MEDS: ENOXAPARIN NA (PORCINE) 40 MG/0.4 ML DISP.SYRIN SQ SCH (09:43)
[2023-01-07] MEDS: FOLIC ACID 1 MG TABLET (FP) PO SCH (09:43)
[2023-01-07 09:52] LABS: CREATININE 0.9 mg/dL (0.55-1.3)
[2023-01-07 09:53] LABS: BILIRUBIN,TOTAL 0.2 mg/dL (0.2-1); TOT PROT 7.4 g/dl (6.4-8.2)
[2023-01-07] MEDS: FLUTICASONE/UMECLIDIN/VILANTER(200-62.5-25 TRELEGY ELLIPTA) INAHLER IH SCH (09:56)
[2023-01-07 14:10] LABS: PH,URINE 5.5 (5.0-8.0); URINE APPEARANCE CLEAR; URINE BILIRUBIN NEGATIVE (NEGATIVE); URINE COLOR YELLOW; URINE GLUCOSE (UA) NEGATIVE (NEGATIVE); URINE KETONE NEGATIVE (NEGATIVE); URINE LEUK ESTERASE NEGATIVE (NEGATIVE); URINE NITRITE NEGATIVE (NEGATIVE); URINE PROTEIN NEGATIVE (NEGATIVE); URINE UROBILINOGEN 0.2 mg/dL (0.2-1.0)
[2023-01-07] MEDS ORDERED: LORazepam 1 MG TABLET PO ONE (20:26)
[2023-01-08] MEDS: methaDONE HCL 40 MG DISPERSABLE TABLET PO SCH (05:23)
[2023-01-08] MEDS: AMOX TR/POT CLAV 875MG/125MG TABLETS (FP) PO SCH ×2 (08:29→17:06)
[2023-01-08] MEDS: THIAMINE HCL 100 MG TABLET (FP) PO SCH (09:08)
[2023-01-08] MEDS: FOLIC ACID 1 MG TABLET (FP) PO SCH (09:08)
[2023-01-08] MEDS: ENOXAPARIN NA (PORCINE) 40 MG/0.4 ML DISP.SYRIN SQ SCH (09:08)
[2023-01-08] MEDS: FLUTICASONE/UMECLIDIN/VILANTER(200-62.5-25 TRELEGY ELLIPTA) INAHLER IH SCH (09:09)
[2023-01-08] MEDS: clonazePAM 0.5 MG TABLET PO SCH ×2 (09:34→21:28)
[2023-01-08] MEDS ORDERED: KETOROLAC TROMETHAMINE 30 MG/1 ML VIAL IVPUSH ONE (19:43)
[2023-01-09] MEDS: methaDONE HCL 40 MG DISPERSABLE TABLET PO SCH (05:36)
[2023-01-09] MEDS: AMOX TR/POT CLAV 875MG/125MG TABLETS (FP) PO SCH (09:13)
[2023-01-09] MEDS: THIAMINE HCL 100 MG TABLET (FP) PO SCH (09:16)
[2023-01-09] MEDS: ENOXAPARIN NA (PORCINE) 40 MG/0.4 ML DISP.SYRIN SQ SCH ×2 (09:16→09:19)
[2023-01-09] MEDS: FOLIC ACID 1 MG TABLET (FP) PO SCH (09:16)
[2023-01-09] MEDS: clonazePAM 0.5 MG TABLET PO SCH (09:16)
[2023-01-09] MEDS: FLUTICASONE/UMECLIDIN/VILANTER(200-62.5-25 TRELEGY ELLIPTA) INAHLER IH SCH (10:14)
[2023-01-09 14:32] VITALS: BP 131/67; PULSE 77; RESP 16; TEMP 97.2
== END 2023-01-09 14:49 | disposition other institution (70) | DRG 871 ==
LOC: JER 00:59 → JERBED 03:58 → J4S 15:05 → J5S 01-02 17:01
PROVIDERS: ADMIT Internal Medicine
PROC: HZ2ZZZZ Detoxification Services for Substance Abuse Treatment (ICD-10-PCS; principal; 2022-12-31)
DX: A41.89 Other specified sepsis (principal); J18.9 Pneumonia, unspecified organism; F10.139 Alcohol abuse with withdrawal, unspecified; F11.20 Opioid dependence, uncomplicated; J44.0 Chronic obstructive pulmonary disease with (acute) lower respiratory infection; E86.0 Dehydration; K76.9 Liver disease, unspecified; F17.210 Nicotine dependence, cigarettes, uncomplicated; K70.10 Alcoholic hepatitis without ascites; R80.9 Proteinuria, unspecified; R09.02 Hypoxemia
CPT/HCPCS: 0241U-QW; 36415; 71045-TC-FY; 80048; 80053; 81003; 82550; 82553; 82570; 82803; 83605; 83735; 84100; 84156; 84484; 85025; 85610; 85730; 86850; 86900; 86901; 87040; 87086; 87635; 87899; 93005; 93010; 94010; 94640; 94761; 97116-GP; 97162-GP; 99285-25; G0463-25

== ENCOUNTER 2023-01-10 10:14 | Inpatient (IN) | payer OTHER ==
[2023-01-10 11:08] VITALS: BMI 23.8
[2023-01-10] MEDS ORDERED: LOPERAMIDE HCL 2 MG CAPSULE PO PRN ×2 (11:38→16:19)
[2023-01-10] MEDS ORDERED: MAG HYDROX/AL HYDROX/SIMETH 30 ML UNIT-DOSE CUP PO PRN ×2 (11:38→16:19)
[2023-01-10] MEDS ORDERED: BENZOCAINE/MENTHOL (CHLORASEPTIC ) LOZENGE MM PRN ×2 (11:38→16:19)
[2023-01-10] MEDS ORDERED: MAGNESIUM HYDROX 2400MG/30ML ORAL SUSPENSION 30 ML CUP PO PRN ×2 (11:38→16:19)
[2023-01-10] MEDS ORDERED: IBUPROFEN 600 MG TABLET (FP) PO PRN (11:38)
[2023-01-10] MEDS ORDERED: ACETAMINOPHEN 325 MG TABLET (FP) PO PRN ×2 (11:38→16:19)
[2023-01-10] MEDS ORDERED: chlordiazePOXIDE HCL 25 MG CAPSULE PO PRN (11:38)
[2023-01-10] MEDS ORDERED: ONDANSETRON *ODT* 4 MG TABLET SL PRN (11:38)
[2023-01-10] MEDS ORDERED: POLYETHYLENE GLYCOL (HEALTHYLAX) 3350 17 GM PACKET PO PRN ×2 (11:38→16:19)
[2023-01-10] MEDS ORDERED: guaiFENesin 600 MG TABLET.ER (FP) PO PRN ×2 (11:38→16:19)
[2023-01-10] MEDS ORDERED: IBUPROFEN 400 MG TABLET (FP) PO PRN ×2 (11:38→16:19)
[2023-01-10] MEDS ORDERED: hydrOXYzine PAMOATE 25 MG CAPSULE (FP) PO PRN (11:38)
[2023-01-10] MEDS ORDERED: BISMUTH SUBSALICYLATE 262 MG/15 ML BTL PO PRN (11:38)
[2023-01-10] MEDS ORDERED: NALOXONE HCL (KLOXXADO) 8 MG SPRAY NS PRN ×2 (11:38→16:19)
[2023-01-10] MEDS ORDERED: NALOXONE HCL 0.4 MG/ML VIAL IM PRN ×2 (11:38→16:19)
[2023-01-10] MEDS ORDERED: BENZONATATE 200 MG CAPSULE PO PRN ×2 (11:38→16:19)
[2023-01-10] MEDS ORDERED: DICYCLOMINE HCL 10 MG CAPSULE PO PRN (11:38)
[2023-01-10] MEDS ORDERED: PRENATAL VITAMINS W/ FOLIC ACID TABLET (FP) PO SCH (11:45)
[2023-01-10] MEDS ORDERED: PRENATAL VITAMINS W/ FOLIC ACID TABLET (FP) PO ONE (12:51)
[2023-01-10] MEDS: chlordiazePOXIDE HCL 25 MG CAPSULE PO SCH ×2 (13:01→18:02)
[2023-01-10] MEDS ORDERED: chlordiazePOXIDE HCL 25 MG CAPSULE PO ONE (14:02)
[2023-01-10] MEDS ORDERED: ALBUTEROL SO4 HFA INHALER IH PRN (14:28)
[2023-01-10] MEDS ORDERED: ALBUTEROL SO4 2.5/IPRATROPIUM 0.5 INH SOL 3 ML VIAL.NEB. NEB PRN (14:30)
[2023-01-10] MEDS ORDERED: NICOTINE POLACRILEX 4 MG GUM BUC PRN (16:19)
[2023-01-10] MEDS ORDERED: COLLOIDAL OATMEAL 1 BAR EACH TP PRN (16:19)
[2023-01-10] MEDS: PRENATAL VITAMINS W/ FOLIC ACID TABLET (FP) PO SCH (17:35)
[2023-01-10] MEDS: THIAMINE HCL 100 MG TABLET (FP) PO SCH (21:31)
[2023-01-10] MEDS: MELATONIN 5 MG TABLETS PO SCH (21:31)
[2023-01-10] MEDS: hydrOXYzine PAMOATE 25 MG CAPSULE (FP) PO PRN (21:31)
[2023-01-10] MEDS ORDERED: THIAMINE HCL 100 MG TABLET (FP) PO SCH (22:00)
[2023-01-10] MEDS ORDERED: MELATONIN 5 MG TABLETS PO SCH (22:00)
[2023-01-11] MEDS: methaDONE HCL 40 MG DISPERSABLE TABLET PO SCH (06:16)
[2023-01-11] MEDS: PRENATAL VITAMINS W/ FOLIC ACID TABLET (FP) PO SCH (09:48)
[2023-01-11] MEDS: hydrOXYzine PAMOATE 25 MG CAPSULE (FP) PO PRN ×2 (09:49→21:10)
[2023-01-11 10:42] LABS: HEMATOCRIT 37.5 % (35.4-49); HEMOGLOBIN 12.4 GM/dL (11.7-16.9); MCH 30.9 pg (25.7-33.7); MCHC 33.1 g/dl (32.0-35.9); MEAN CELL VOLUME 93.5 fl (80-96); PLATELET COUNT 468 10^3/uL (134-434); RBC 4.01 M/mm3 (4.00-5.60); RDW 14.2 % (11.9-15.9); WHITE BLOOD COUNT 5.4 K/mm3 (4.0-10.0)
[2023-01-11 11:07] LABS: SYPHILIS W/ RPR CONF NON-REACTIVE (NONREACTIVE)
[2023-01-11 15:15] LABS: CHLORIDE 102 mmol/L (98-107); POTASSIUM 4.8 mmol/L (3.5-5.1); SODIUM 137 mmol/L (136-145)
[2023-01-11 15:27] LABS: GLUCOSE,RANDOM 80 mg/dL (74-106)
[2023-01-11 15:29] LABS: ANION GAP 5 mmol/L (4-13); BLOOD UREA NITROGEN 21.9 mg/dL (7-18); CALCIUM 9.4 mg/dL (8.5-10.1); CO2 31 mmol/L (21-32)
[2023-01-11 15:30] LABS: ALBUMIN 3.3 g/dl (3.4-5.0)
[2023-01-11 15:32] LABS: BILIRUBIN,TOTAL 0.3 mg/dL (0.2-1); CREATININE 0.8 mg/dL (0.55-1.3); SGOT/AST 71 U/L (15-37); SGPT/ALT 68 U/L (13-61)
[2023-01-11 15:33] LABS: ALK PHOS 109 U/L (45-117); TOT PROT 7.3 g/dl (6.4-8.2)
[2023-01-11] MEDS: MELATONIN 5 MG TABLETS PO SCH (21:09)
[2023-01-11] MEDS: THIAMINE HCL 100 MG TABLET (FP) PO SCH (21:09)
[2023-01-12] MEDS ORDERED: chlordiazePOXIDE HCL 25 MG CAPSULE PO SCH (05:00)
[2023-01-12] MEDS: methaDONE HCL 40 MG DISPERSABLE TABLET PO SCH (06:17)
[2023-01-12] MEDS ORDERED: ALBUTEROL SO4 0.083% IH SOL 2.5 MG/3 ML VIAL.NEB. NEB PRN (08:16)
[2023-01-12] MEDS: FOLIC ACID 1 MG TABLET (FP) PO SCH (09:11)
[2023-01-12] MEDS: PRENATAL VITAMINS W/ FOLIC ACID TABLET (FP) PO SCH (09:11)
[2023-01-12] MEDS ORDERED: FLUTICASONE/UMECLIDIN/VILANTER(200-62.5-25 TRELEGY ELLIPTA) INAHLER IH SCH (10:00)
[2023-01-12] MEDS: MELATONIN 5 MG TABLETS PO SCH (21:09)
[2023-01-12] MEDS: THIAMINE HCL 100 MG TABLET (FP) PO SCH (21:09)
[2023-01-12] MEDS: hydrOXYzine PAMOATE 25 MG CAPSULE (FP) PO PRN (21:09)
[2023-01-13] MEDS ORDERED: chlordiazePOXIDE HCL 10 MG CAPSULE PO PRN
[2023-01-13] MEDS ORDERED: chlordiazePOXIDE HCL 10 MG CAPSULE PO SCH (05:00)
[2023-01-13] MEDS: methaDONE HCL 40 MG DISPERSABLE TABLET PO SCH (06:08)
[2023-01-13] MEDS: FOLIC ACID 1 MG TABLET (FP) PO SCH (09:50)
[2023-01-13] MEDS: PRENATAL VITAMINS W/ FOLIC ACID TABLET (FP) PO SCH (09:50)
[2023-01-13] MEDS: hydrOXYzine PAMOATE 25 MG CAPSULE (FP) PO PRN ×2 (09:51→21:15)
[2023-01-13 10:32] LABS: URINE APPEARANCE TURBID; URINE BILIRUBIN NEGATIVE (NEGATIVE); URINE COLOR YELLOW; URINE GLUCOSE (UA) NEGATIVE (NEGATIVE); URINE KETONE NEGATIVE (NEGATIVE); URINE LEUK ESTERASE NEGATIVE (NEGATIVE); URINE NITRITE NEGATIVE (NEGATIVE); URINE PROTEIN NEGATIVE (NEGATIVE); URINE UROBILINOGEN 0.2 mg/dL (0.2-1.0)
[2023-01-13] MEDS: THIAMINE HCL 100 MG TABLET (FP) PO SCH (21:14)
[2023-01-13] MEDS: MELATONIN 5 MG TABLETS PO SCH (21:15)
[2023-01-14] MEDS ORDERED: chlordiazePOXIDE HCL 10 MG CAPSULE PO SCH (05:00)
[2023-01-14] MEDS: methaDONE HCL 40 MG DISPERSABLE TABLET PO SCH (06:11)
[2023-01-14] MEDS: hydrOXYzine PAMOATE 25 MG CAPSULE (FP) PO PRN ×2 (09:37→21:17)
[2023-01-14] MEDS: FOLIC ACID 1 MG TABLET (FP) PO SCH (09:37)
[2023-01-14] MEDS: PRENATAL VITAMINS W/ FOLIC ACID TABLET (FP) PO SCH (09:38)
[2023-01-14] MEDS: THIAMINE HCL 100 MG TABLET (FP) PO SCH (21:17)
[2023-01-14] MEDS: MELATONIN 5 MG TABLETS PO SCH (21:17)
[2023-01-15] MEDS ORDERED: chlordiazePOXIDE HCL 10 MG CAPSULE PO ONE (05:00)
[2023-01-15] MEDS: methaDONE HCL 40 MG DISPERSABLE TABLET PO SCH (06:21)
[2023-01-15] MEDS: hydrOXYzine PAMOATE 25 MG CAPSULE (FP) PO PRN ×2 (09:32→21:42)
[2023-01-15] MEDS: FOLIC ACID 1 MG TABLET (FP) PO SCH (09:32)
[2023-01-15] MEDS: PRENATAL VITAMINS W/ FOLIC ACID TABLET (FP) PO SCH (09:33)
[2023-01-15] MEDS: LACTULOSE 20 GM/30 ML UDC (FOR ORAL USE ONLY) PO SCH ×2 (13:33→21:42)
[2023-01-15] MEDS: THIAMINE HCL 100 MG TABLET (FP) PO SCH (21:42)
[2023-01-15] MEDS: MELATONIN 5 MG TABLETS PO SCH (21:43)
[2023-01-16] MEDS: LACTULOSE 20 GM/30 ML UDC (FOR ORAL USE ONLY) PO SCH ×3 (06:36→21:18)
[2023-01-16] MEDS: methaDONE HCL 40 MG DISPERSABLE TABLET PO SCH (06:36)
[2023-01-16] MEDS: hydrOXYzine PAMOATE 25 MG CAPSULE (FP) PO PRN ×2 (09:48→16:39)
[2023-01-16] MEDS: PRENATAL VITAMINS W/ FOLIC ACID TABLET (FP) PO SCH (09:48)
[2023-01-16] MEDS: FOLIC ACID 1 MG TABLET (FP) PO SCH (09:49)
[2023-01-16] MEDS: IBUPROFEN 600 MG TABLET (FP) PO PRN (09:50)
[2023-01-16] MEDS: MELATONIN 5 MG TABLETS PO SCH (21:18)
[2023-01-16] MEDS: THIAMINE HCL 100 MG TABLET (FP) PO SCH (21:18)
[2023-01-17] MEDS: LACTULOSE 20 GM/30 ML UDC (FOR ORAL USE ONLY) PO SCH ×3 (06:19→21:09)
[2023-01-17] MEDS: methaDONE HCL 40 MG DISPERSABLE TABLET PO SCH (06:19)
[2023-01-17] MEDS: hydrOXYzine PAMOATE 25 MG CAPSULE (FP) PO PRN ×2 (09:54→19:53)
[2023-01-17] MEDS: PRENATAL VITAMINS W/ FOLIC ACID TABLET (FP) PO SCH (09:54)
[2023-01-17] MEDS: FOLIC ACID 1 MG TABLET (FP) PO SCH (09:54)
[2023-01-17] MEDS: MELATONIN 5 MG TABLETS PO SCH (21:09)
[2023-01-17] MEDS: THIAMINE HCL 100 MG TABLET (FP) PO SCH (21:09)
[2023-01-17] MEDS: IBUPROFEN 600 MG TABLET (FP) PO PRN (21:09)
[2023-01-18] MEDS: methaDONE HCL 40 MG DISPERSABLE TABLET PO SCH (06:05)
[2023-01-18] MEDS: LACTULOSE 20 GM/30 ML UDC (FOR ORAL USE ONLY) PO SCH ×3 (06:05→21:01)
[2023-01-18] MEDS: PRENATAL VITAMINS W/ FOLIC ACID TABLET (FP) PO SCH (09:46)
[2023-01-18] MEDS: FOLIC ACID 1 MG TABLET (FP) PO SCH (09:46)
[2023-01-18] MEDS: hydrOXYzine PAMOATE 25 MG CAPSULE (FP) PO PRN (21:01)
[2023-01-18] MEDS: THIAMINE HCL 100 MG TABLET (FP) PO SCH (21:02)
[2023-01-18] MEDS: MELATONIN 5 MG TABLETS PO SCH (21:02)
[2023-01-19] MEDS: methaDONE HCL 40 MG DISPERSABLE TABLET PO SCH (06:10)
[2023-01-19] MEDS: LACTULOSE 20 GM/30 ML UDC (FOR ORAL USE ONLY) PO SCH ×3 (06:10→21:20)
[2023-01-19] MEDS: FOLIC ACID 1 MG TABLET (FP) PO SCH (09:56)
[2023-01-19] MEDS: hydrOXYzine PAMOATE 25 MG CAPSULE (FP) PO PRN ×2 (09:56→21:21)
[2023-01-19] MEDS: PRENATAL VITAMINS W/ FOLIC ACID TABLET (FP) PO SCH (09:56)
[2023-01-19] MEDS: MELATONIN 5 MG TABLETS PO SCH (21:20)
[2023-01-19] MEDS: THIAMINE HCL 100 MG TABLET (FP) PO SCH (21:20)
[2023-01-20] MEDS: methaDONE HCL 40 MG DISPERSABLE TABLET PO SCH (06:18)
[2023-01-20] MEDS: LACTULOSE 20 GM/30 ML UDC (FOR ORAL USE ONLY) PO SCH ×3 (06:18→21:08)
[2023-01-20] MEDS: PRENATAL VITAMINS W/ FOLIC ACID TABLET (FP) PO SCH (09:31)
[2023-01-20] MEDS: FOLIC ACID 1 MG TABLET (FP) PO SCH (09:31)
[2023-01-20] MEDS: hydrOXYzine PAMOATE 25 MG CAPSULE (FP) PO PRN ×2 (09:32→21:09)
[2023-01-20] MEDS: MELATONIN 5 MG TABLETS PO SCH (21:09)
[2023-01-20] MEDS: THIAMINE HCL 100 MG TABLET (FP) PO SCH (21:09)
[2023-01-21] MEDS: methaDONE HCL 40 MG DISPERSABLE TABLET PO SCH (06:14)
[2023-01-21] MEDS: LACTULOSE 20 GM/30 ML UDC (FOR ORAL USE ONLY) PO SCH ×3 (06:14→21:22)
[2023-01-21] MEDS: FOLIC ACID 1 MG TABLET (FP) PO SCH (09:22)
[2023-01-21] MEDS: PRENATAL VITAMINS W/ FOLIC ACID TABLET (FP) PO SCH (09:23)
[2023-01-21] MEDS: IBUPROFEN 600 MG TABLET (FP) PO PRN (10:16)
[2023-01-21] MEDS: hydrOXYzine PAMOATE 25 MG CAPSULE (FP) PO PRN (21:22)
[2023-01-21] MEDS: THIAMINE HCL 100 MG TABLET (FP) PO SCH (21:22)
[2023-01-21] MEDS: MELATONIN 5 MG TABLETS PO SCH (21:22)
[2023-01-22] MEDS: LACTULOSE 20 GM/30 ML UDC (FOR ORAL USE ONLY) PO SCH ×3 (06:05→21:13)
[2023-01-22] MEDS: methaDONE HCL 40 MG DISPERSABLE TABLET PO SCH (06:05)
[2023-01-22] MEDS: FOLIC ACID 1 MG TABLET (FP) PO SCH (10:27)
[2023-01-22] MEDS: IBUPROFEN 600 MG TABLET (FP) PO PRN (10:27)
[2023-01-22] MEDS: hydrOXYzine PAMOATE 25 MG CAPSULE (FP) PO PRN ×2 (10:28→21:13)
[2023-01-22] MEDS: PRENATAL VITAMINS W/ FOLIC ACID TABLET (FP) PO SCH (10:35)
[2023-01-22] MEDS: MELATONIN 5 MG TABLETS PO SCH (21:12)
[2023-01-22] MEDS: THIAMINE HCL 100 MG TABLET (FP) PO SCH (21:12)
[2023-01-23] MEDS: methaDONE HCL 40 MG DISPERSABLE TABLET PO SCH (06:09)
[2023-01-23] MEDS: LACTULOSE 20 GM/30 ML UDC (FOR ORAL USE ONLY) PO SCH (06:09)
[2023-01-23] MEDS: hydrOXYzine PAMOATE 25 MG CAPSULE (FP) PO PRN (06:11)
[2023-01-23 06:44] VITALS: BP 101/64; PULSE 91; RESP 16; TEMP 98.1
[2023-01-23] MEDS: PRENATAL VITAMINS W/ FOLIC ACID TABLET (FP) PO SCH (09:13)
[2023-01-23] MEDS: FOLIC ACID 1 MG TABLET (FP) PO SCH (09:13)
== END 2023-01-23 09:18 | disposition home or self-care (01) | DRG 895 ==
LOC: YASAS 10:14 → Y3N 12:31 → Y3E 16:25
PROVIDERS: ADMIT Allergy & Immunology; ATTEND Psychiatry & Neurology Pain Medicine
PROC: HZ42ZZZ Group Counseling for Substance Abuse Treatment, Cognitive-Behavioral (ICD-10-PCS; principal; 2023-01-10)
DX: F10.20 Alcohol dependence, uncomplicated (principal); F13.20 Sedative, hypnotic or anxiolytic dependence, uncomplicated; F11.20 Opioid dependence, uncomplicated; F19.280 Other psychoactive substance dependence with psychoactive substance-induced anxiety disorder; F19.282 Other psychoactive substance dependence with psychoactive substance-induced sleep disorder; Z59.00 Homelessness unspecified; M54.12 Radiculopathy, cervical region; M47.20 Other spondylosis with radiculopathy, site unspecified; B18.2 Chronic viral hepatitis C; Z87.01 Personal history of pneumonia (recurrent); Z86.19 Personal history of other infectious and parasitic diseases
CPT/HCPCS: 36415; 80053; 80307; 81003; 82140; 85027; 86780; 86803; 87522; 87635; 87811; 93005; 93010

== ENCOUNTER 2023-01-28 09:11 | Inpatient (IN) | payer OTHER ==
[2023-01-28 10:21] VITALS: BMI 25.4
[2023-01-28] MEDS ORDERED: guaiFENesin 600 MG TABLET.ER (FP) PO PRN (12:37)
[2023-01-28] MEDS ORDERED: IBUPROFEN 600 MG TABLET (FP) PO PRN (12:37)
[2023-01-28] MEDS ORDERED: LOPERAMIDE HCL 2 MG CAPSULE PO PRN (12:37)
[2023-01-28] MEDS ORDERED: BENZONATATE 200 MG CAPSULE PO PRN (12:37)
[2023-01-28] MEDS ORDERED: DICYCLOMINE HCL 10 MG CAPSULE PO PRN (12:37)
[2023-01-28] MEDS ORDERED: BISMUTH SUBSALICYLATE 524 MG/30 ML PO PRN (12:37)
[2023-01-28] MEDS ORDERED: NALOXONE HCL 0.4 MG/ML VIAL IM PRN (12:37)
[2023-01-28] MEDS ORDERED: ACETAMINOPHEN 325 MG TABLET (FP) PO PRN (12:37)
[2023-01-28] MEDS ORDERED: IBUPROFEN 400 MG TABLET (FP) PO PRN (12:37)
[2023-01-28] MEDS ORDERED: BENZOCAINE/MENTHOL (CHLORASEPTIC ) LOZENGE MM PRN (12:37)
[2023-01-28] MEDS ORDERED: MAG HYDROX/AL HYDROX/SIMETH 30 ML UNIT-DOSE CUP PO PRN (12:37)
[2023-01-28] MEDS ORDERED: MAGNESIUM HYDROX 2400MG/30ML ORAL SUSPENSION 30 ML CUP PO PRN (12:37)
[2023-01-28] MEDS ORDERED: POLYETHYLENE GLYCOL (HEALTHYLAX) 3350 17 GM PACKET PO PRN (12:37)
[2023-01-28] MEDS ORDERED: NALOXONE HCL (KLOXXADO) 8 MG SPRAY NS PRN (12:37)
[2023-01-28] MEDS ORDERED: ONDANSETRON *ODT* 4 MG TABLET SL PRN (12:37)
[2023-01-28] MEDS ORDERED: ALBUTEROL SO4 HFA INHALER IH PRN (13:13)
[2023-01-28] MEDS: FLUTICASONE/UMECLIDIN/VILANTER(200-62.5-25 TRELEGY ELLIPTA) INAHLER IH SCH (14:48)
[2023-01-28] MEDS: METHOCARBAMOL 500 MG TABLET PO PRN ×2 (15:26→22:49)
[2023-01-28] MEDS: hydrOXYzine PAMOATE 25 MG CAPSULE (FP) PO PRN ×2 (15:26→22:49)
[2023-01-28] MEDS: THIAMINE HCL 100 MG TABLET (FP) PO SCH (22:49)
[2023-01-28] MEDS: MELATONIN 5 MG TABLETS PO SCH (22:49)
[2023-01-29 09:47] LABS: POTASSIUM 4.3 mmol/L (3.5-5.1)
[2023-01-29 09:56] LABS: HEMATOCRIT 35.3 % (35.4-49); HEMOGLOBIN 11.7 GM/dL (11.7-16.9); MCH 30.9 pg (25.7-33.7); MCHC 33.3 g/dl (32.0-35.9); MEAN PLT VOLUME 8.1 fl (7.5-11.1); PLATELET COUNT 177 10^3/uL (134-434); RDW 15.5 % (11.9-15.9); WHITE BLOOD COUNT 6.2 K/mm3 (4.0-10.0)
[2023-01-29 10:01] LABS: CALCIUM 9.3 mg/dL (8.5-10.1)
[2023-01-29 10:02] LABS: ALBUMIN 3.2 g/dl (3.4-5.0); BLOOD UREA NITROGEN 26.9 mg/dL (7-18)
[2023-01-29 10:05] LABS: CREATININE 0.6 mg/dL (0.55-1.3)
[2023-01-29 10:07] LABS: TOT PROT 6.3 g/dl (6.4-8.2)
[2023-01-29 10:08] LABS: BILIRUBIN,TOTAL 0.6 mg/dL (0.2-1)
[2023-01-29] MEDS: PRENATAL VITAMINS W/ FOLIC ACID TABLET (FP) PO SCH (10:33)
[2023-01-29] MEDS: FLUTICASONE/UMECLIDIN/VILANTER(200-62.5-25 TRELEGY ELLIPTA) INAHLER IH SCH (10:33)
[2023-01-29] MEDS: METHOCARBAMOL 500 MG TABLET PO PRN ×2 (10:35→17:20)
[2023-01-29] MEDS: hydrOXYzine PAMOATE 25 MG CAPSULE (FP) PO PRN (10:36)
[2023-01-29] MEDS ORDERED: methaDONE HCL 10 MG TABLET PO ONE (10:59)
[2023-01-29] MEDS: diazePAM 5 MG TABLET PO SCH ×3 (11:20→22:26)
[2023-01-29] MEDS: LACTULOSE 20 GM/30 ML UDC (FOR ORAL USE ONLY) PO SCH ×3 (13:16→22:25)
[2023-01-29] MEDS: MELATONIN 5 MG TABLETS PO SCH (22:25)
[2023-01-29] MEDS: THIAMINE HCL 100 MG TABLET (FP) PO SCH (22:25)
[2023-01-30] MEDS: diazePAM 5 MG TABLET PO SCH ×3 (05:49→22:15)
[2023-01-30] MEDS ORDERED: methaDONE HCL 40 MG DISPERSABLE TABLET PO ONE (10:15)
[2023-01-30] MEDS: FLUTICASONE/UMECLIDIN/VILANTER(200-62.5-25 TRELEGY ELLIPTA) INAHLER IH SCH (10:31)
[2023-01-30] MEDS: PRENATAL VITAMINS W/ FOLIC ACID TABLET (FP) PO SCH (10:31)
[2023-01-30] MEDS: LACTULOSE 20 GM/30 ML UDC (FOR ORAL USE ONLY) PO SCH ×4 (10:31→22:15)
[2023-01-30] MEDS: hydrOXYzine PAMOATE 25 MG CAPSULE (FP) PO PRN (10:32)
[2023-01-30] MEDS: THIAMINE HCL 100 MG TABLET (FP) PO SCH (22:15)
[2023-01-30] MEDS: METHOCARBAMOL 500 MG TABLET PO PRN (22:15)
[2023-01-30] MEDS: MELATONIN 5 MG TABLETS PO SCH (22:15)
[2023-01-31] MEDS: methaDONE HCL 40 MG DISPERSABLE TABLET PO SCH (05:15)
[2023-01-31] MEDS: diazePAM 5 MG TABLET PO SCH ×2 (05:15→17:06)
[2023-01-31] MEDS: hydrOXYzine PAMOATE 25 MG CAPSULE (FP) PO PRN (05:16)
[2023-01-31] MEDS: PRENATAL VITAMINS W/ FOLIC ACID TABLET (FP) PO SCH (09:52)
[2023-01-31] MEDS: LACTULOSE 20 GM/30 ML UDC (FOR ORAL USE ONLY) PO SCH ×4 (09:52→22:00)
[2023-01-31] MEDS: FLUTICASONE/UMECLIDIN/VILANTER(200-62.5-25 TRELEGY ELLIPTA) INAHLER IH SCH (09:53)
[2023-01-31] MEDS ORDERED: diazePAM 5 MG TABLET PO ONE (13:00)
[2023-01-31] MEDS: METHOCARBAMOL 500 MG TABLET PO PRN ×2 (17:07→22:01)
[2023-01-31] MEDS: MELATONIN 5 MG TABLETS PO SCH (22:00)
[2023-01-31] MEDS: THIAMINE HCL 100 MG TABLET (FP) PO SCH (22:00)
[2023-02-01] MEDS: hydrOXYzine PAMOATE 25 MG CAPSULE (FP) PO PRN (05:08)
[2023-02-01] MEDS: methaDONE HCL 40 MG DISPERSABLE TABLET PO SCH (05:09)
[2023-02-01] MEDS ORDERED: diazePAM 5 MG TABLET PO ONE (06:00)
[2023-02-01 09:28] VITALS: RESP 18
[2023-02-01] MEDS: LACTULOSE 20 GM/30 ML UDC (FOR ORAL USE ONLY) PO SCH ×2 (09:40→14:01)
[2023-02-01] MEDS: PRENATAL VITAMINS W/ FOLIC ACID TABLET (FP) PO SCH (09:40)
[2023-02-01] MEDS: FLUTICASONE/UMECLIDIN/VILANTER(200-62.5-25 TRELEGY ELLIPTA) INAHLER IH SCH (09:40)
[2023-02-01 13:09] VITALS: BP 141/66; PULSE 81; TEMP 97.5
== END 2023-02-01 14:10 | disposition home or self-care (01) | DRG 897 ==
LOC: YASAS 09:11 → SUATTDRO 09:11 → Y6N 13:15
PROVIDERS: ADMIT Allergy & Immunology; ATTEND Surgery
PROC: HZ2ZZZZ Detoxification Services for Substance Abuse Treatment (ICD-10-PCS; principal; 2023-01-28)
DX: F10.230 Alcohol dependence with withdrawal, uncomplicated (principal); F11.20 Opioid dependence, uncomplicated; F19.280 Other psychoactive substance dependence with psychoactive substance-induced anxiety disorder; F19.282 Other psychoactive substance dependence with psychoactive substance-induced sleep disorder; I10 Essential (primary) hypertension; J44.9 Chronic obstructive pulmonary disease, unspecified; J45.20 Mild intermittent asthma, uncomplicated; H91.93 Unspecified hearing loss, bilateral; B18.2 Chronic viral hepatitis C; M47.20 Other spondylosis with radiculopathy, site unspecified; R79.89 Other specified abnormal findings of blood chemistry; Z87.01 Personal history of pneumonia (recurrent)
CPT/HCPCS: 36415; 80053; 82140; 84520; 85027; 86780; 87635; 87811; 93005; 93010

== ENCOUNTER 2023-03-04 09:43 | Inpatient (IN) | payer OTHER ==
[2023-03-04 09:59] VITALS: BMI 26.2
[2023-03-04] MEDS ORDERED: MAG HYDROX/AL HYDROX/SIMETH 30 ML UNIT-DOSE CUP PO PRN (10:36)
[2023-03-04] MEDS ORDERED: BENZONATATE 200 MG CAPSULE PO PRN (10:36)
[2023-03-04] MEDS ORDERED: BISMUTH SUBSALICYLATE 524 MG/30 ML PO PRN (10:36)
[2023-03-04] MEDS ORDERED: POLYETHYLENE GLYCOL (HEALTHYLAX) 3350 17 GM PACKET PO PRN (10:36)
[2023-03-04] MEDS ORDERED: ACETAMINOPHEN 325 MG TABLET (FP) PO PRN (10:36)
[2023-03-04] MEDS ORDERED: ONDANSETRON *ODT* 4 MG TABLET SL PRN (10:36)
[2023-03-04] MEDS ORDERED: AMMONIUM LACTATE 12% LOTION 225 GM BOTTLE TP PRN (10:36)
[2023-03-04] MEDS ORDERED: DICYCLOMINE HCL 10 MG CAPSULE PO PRN (10:36)
[2023-03-04] MEDS ORDERED: diazePAM 5 MG TABLET PO PRN (10:36)
[2023-03-04] MEDS ORDERED: guaiFENesin 600 MG TABLET.ER (FP) PO PRN (10:36)
[2023-03-04] MEDS ORDERED: NALOXONE HCL 0.4 MG/ML VIAL IM PRN (10:36)
[2023-03-04] MEDS ORDERED: NALOXONE HCL (KLOXXADO) 8 MG SPRAY NS PRN (10:36)
[2023-03-04] MEDS ORDERED: diazePAM 5 MG TABLET PO ONE (10:36)
[2023-03-04] MEDS ORDERED: MAGNESIUM HYDROX 2400MG/30ML ORAL SUSPENSION 30 ML CUP PO PRN (10:36)
[2023-03-04] MEDS ORDERED: BENZOCAINE/MENTHOL (CHLORASEPTIC ) LOZENGE MM PRN (10:36)
[2023-03-04] MEDS ORDERED: LOPERAMIDE HCL 2 MG CAPSULE PO PRN (10:36)
[2023-03-04] MEDS ORDERED: ALBUTEROL SO4 HFA INHALER IH PRN (10:52)
[2023-03-04] MEDS ORDERED: diazePAM 5 MG TABLET ONE (11:01)
[2023-03-04] MEDS: FLUTICASONE/UMECLIDIN/VILANTER(100-62.5-25 TRELEGY ELLIPTA) INAHLER IH SCH (15:27)
[2023-03-04] MEDS: diazePAM 5 MG TABLET PO SCH ×2 (17:26→22:10)
[2023-03-04] MEDS: MELATONIN 5 MG TABLETS PO SCH (22:10)
[2023-03-04] MEDS: THIAMINE HCL 100 MG TABLET (FP) PO SCH (22:10)
[2023-03-04] MEDS: METHOCARBAMOL 500 MG TABLET PO PRN (22:10)
[2023-03-05] MEDS: diazePAM 5 MG TABLET PO SCH ×4 (05:15→22:32)
[2023-03-05] MEDS: TAMSULOSIN HCL 0.4 MG CAP PO SCH (09:16)
[2023-03-05 10:16] LABS: POTASSIUM 3.9 mmol/L (3.5-5.1)
[2023-03-05 10:18] LABS: BLOOD UREA NITROGEN 22.5 mg/dL (7-18); CALCIUM 8.4 mg/dL (8.5-10.1)
[2023-03-05 10:19] LABS: ALBUMIN 2.7 g/dl (3.4-5.0)
[2023-03-05] MEDS: PRENATAL VITAMINS W/ FOLIC ACID TABLET (FP) PO SCH (10:19)
[2023-03-05] MEDS: FLUTICASONE/UMECLIDIN/VILANTER(100-62.5-25 TRELEGY ELLIPTA) INAHLER IH SCH (10:19)
[2023-03-05] MEDS: methaDONE HCL 40 MG DISPERSABLE TABLET PO SCH (10:20)
[2023-03-05 10:22] LABS: CREATININE 0.5 mg/dL (0.55-1.3)
[2023-03-05 10:23] LABS: BILIRUBIN,TOTAL 0.3 mg/dL (0.2-1)
[2023-03-05 10:24] LABS: TOT PROT 6.3 g/dl (6.4-8.2)
[2023-03-05 10:32] LABS: HEMATOCRIT 34.4 % (35.4-49); HEMOGLOBIN 11.9 GM/dL (11.7-16.9); MCH 31.3 pg (25.7-33.7); MCHC 34.7 g/dl (32.0-35.9); MEAN CELL VOLUME 90.1 fl (80-96); PLATELET COUNT 238 10^3/uL (134-434); RBC 3.82 M/mm3 (4.00-5.60); RDW 14.3 % (11.9-15.9); WHITE BLOOD COUNT 13.4 K/mm3 (4.0-10.0)
[2023-03-05] MEDS: LACTULOSE 20 GM/30 ML UDC (FOR ORAL USE ONLY) PO SCH ×2 (18:00→22:33)
[2023-03-05] MEDS: THIAMINE HCL 100 MG TABLET (FP) PO SCH (22:32)
[2023-03-05] MEDS: MELATONIN 5 MG TABLETS PO SCH (22:32)
[2023-03-06] MEDS: diazePAM 5 MG TABLET PO SCH ×3 (05:23→21:49)
[2023-03-06] MEDS: LACTULOSE 20 GM/30 ML UDC (FOR ORAL USE ONLY) PO SCH ×4 (06:17→21:48)
[2023-03-06] MEDS: TAMSULOSIN HCL 0.4 MG CAP PO SCH (09:23)
[2023-03-06] MEDS: FLUTICASONE/UMECLIDIN/VILANTER(100-62.5-25 TRELEGY ELLIPTA) INAHLER IH SCH (10:09)
[2023-03-06] MEDS: PRENATAL VITAMINS W/ FOLIC ACID TABLET (FP) PO SCH (10:09)
[2023-03-06] MEDS: methaDONE HCL 40 MG DISPERSABLE TABLET PO SCH (10:09)
[2023-03-06] MEDS: METHOCARBAMOL 500 MG TABLET PO PRN ×2 (15:15→21:49)
[2023-03-06] MEDS: THIAMINE HCL 100 MG TABLET (FP) PO SCH (21:49)
[2023-03-06] MEDS: MELATONIN 5 MG TABLETS PO SCH (21:49)
[2023-03-07] MEDS: diazePAM 5 MG TABLET PO SCH ×2 (05:18→17:25)
[2023-03-07] MEDS: LACTULOSE 20 GM/30 ML UDC (FOR ORAL USE ONLY) PO SCH ×4 (06:37→22:12)
[2023-03-07] MEDS ORDERED: P-EPHED 60MG/TRIPROLIDI 2.5MG TABLET PO PRN (08:35)
[2023-03-07] MEDS: methaDONE HCL 40 MG DISPERSABLE TABLET PO SCH (09:20)
[2023-03-07] MEDS: TAMSULOSIN HCL 0.4 MG CAP PO SCH (09:20)
[2023-03-07] MEDS: PRENATAL VITAMINS W/ FOLIC ACID TABLET (FP) PO SCH (09:20)
[2023-03-07] MEDS: FLUTICASONE/UMECLIDIN/VILANTER(100-62.5-25 TRELEGY ELLIPTA) INAHLER IH SCH (09:21)
[2023-03-07 11:38] LABS: PH,URINE 6.5 (5.0-8.0); URINE APPEARANCE CLEAR; URINE BILIRUBIN NEGATIVE (NEGATIVE); URINE COLOR YELLOW; URINE GLUCOSE (UA) NEGATIVE (NEGATIVE); URINE KETONE NEGATIVE (NEGATIVE); URINE LEUK ESTERASE NEGATIVE (NEGATIVE); URINE NITRITE NEGATIVE (NEGATIVE); URINE PROTEIN NEGATIVE (NEGATIVE); URINE UROBILINOGEN 0.2 mg/dL (0.2-1.0)
[2023-03-07] MEDS: THIAMINE HCL 100 MG TABLET (FP) PO SCH (22:12)
[2023-03-07] MEDS: MELATONIN 5 MG TABLETS PO SCH (22:12)
[2023-03-08] MEDS ORDERED: methaDONE HCL 40 MG DISPERSABLE TABLET PO SCH (06:00)
[2023-03-08] MEDS ORDERED: diazePAM 5 MG TABLET PO ONE (06:00)
[2023-03-08] MEDS: LACTULOSE 20 GM/30 ML UDC (FOR ORAL USE ONLY) PO SCH (06:46)
[2023-03-08 09:03] VITALS: BP 118/69; PULSE 93; RESP 18; TEMP 97.8
[2023-03-08] MEDS: PRENATAL VITAMINS W/ FOLIC ACID TABLET (FP) PO SCH (09:18)
[2023-03-08] MEDS: TAMSULOSIN HCL 0.4 MG CAP PO SCH (09:18)
[2023-03-08] MEDS: FLUTICASONE/UMECLIDIN/VILANTER(100-62.5-25 TRELEGY ELLIPTA) INAHLER IH SCH (09:19)
== END 2023-03-08 09:26 | disposition home or self-care (01) | DRG 897 ==
LOC: YASAS 09:43 → Y3N 11:01
PROVIDERS: ADMIT Allergy & Immunology; ATTEND Allergy & Immunology
PROC: HZ2ZZZZ Detoxification Services for Substance Abuse Treatment (ICD-10-PCS; principal; 2023-03-04)
DX: F10.230 Alcohol dependence with withdrawal, uncomplicated (principal); F11.20 Opioid dependence, uncomplicated; E72.20 Disorder of urea cycle metabolism, unspecified; F17.210 Nicotine dependence, cigarettes, uncomplicated; F41.9 Anxiety disorder, unspecified; L30.8 Other specified dermatitis; M15.9 Polyosteoarthritis, unspecified; M25.561 Pain in right knee; M25.562 Pain in left knee; G89.29 Other chronic pain; Z87.09 Personal history of other diseases of the respiratory system
CPT/HCPCS: 0241U-QW; 36415; 80053; 81003; 82140; 85027; 86780; 87635; 87811; 93005; 93010

== ENCOUNTER 2023-04-12 23:11 | Inpatient (IN) | payer OTHER ==
[2023-04-12 23:34] VITALS: BMI 21.8
[2023-04-12] MEDS ORDERED: diazePAM CARPU-JECT 10 MG/2 ML DISP.SYRIN ONE (23:35)
[2023-04-13] MEDS: diazePAM CARPU-JECT 10 MG/2 ML DISP.SYRIN IVPUSH ONE (00:01)
[2023-04-13 00:02] LABS: HEMATOCRIT 40.2 % (35.4-49); HEMOGLOBIN 14.2 GM/dL (11.7-16.9); MCH 31.3 pg (25.7-33.7); MCHC 35.3 g/dl (32.0-35.9); MEAN CELL VOLUME 88.6 fl (80-96); MEAN PLT VOLUME 7.5 fl (7.5-11.1); PLATELET COUNT 147 10^3/uL (134-434); RBC 4.53 M/mm3 (4.00-5.60); WHITE BLOOD COUNT 9.7 K/mm3 (4.0-10.0)
[2023-04-13 00:14] LABS: VENOUS O2 SATURATION 74.5 % (70-80); VENOUS PH 7.468 (7.310-7.410)
[2023-04-13 00:26] LABS: POTASSIUM 3.7 mmol/L (3.5-5.1)
[2023-04-13 00:27] LABS: CALCIUM 8.1 mg/dL (8.5-10.1)
[2023-04-13 00:28] LABS: ALBUMIN 3.1 g/dl (3.4-5.0); BLOOD UREA NITROGEN 18.5 mg/dL (7-18); MAGNESIUM 1.8 mg/dL (1.8-2.4)
[2023-04-13] MEDS ORDERED: AZITHROMYCIN IVPB 500 MG/250 ML BAG IVPB ONE (00:28)
[2023-04-13] MEDS ORDERED: CEFTRIAXONE 1 GM/50 ML BAG ONE ×2 (00:28→09:17)
[2023-04-13 00:31] LABS: CREATININE 0.7 mg/dL (0.55-1.3)
[2023-04-13 00:33] LABS: BILIRUBIN,TOTAL 0.7 mg/dL (0.2-1); TOT PROT 7.2 g/dl (6.4-8.2)
[2023-04-13 00:36] LABS: N-TERMINAL BNP 485.1 pg/ml (5-125)
[2023-04-13] MEDS: SODIUM CHLORIDE 0.9% 500 ML INFUS.BAG IV ONE (01:12)
[2023-04-13] MEDS: AZITHROMYCIN IVPB 500 MG in DEXTROSE 5%-WATER - 250 ML IVPB ONE (01:12)
[2023-04-13 03:15] LABS: ANISOCYTOSIS 0; MACROCYTOSIS 0
[2023-04-13] MEDS ORDERED: ACETAMINOPHEN INJECTION 100 ML IVPB ONE (03:45)
[2023-04-13] MEDS: ACETAMINOPHEN 1000 MG/100 ML BAG IVPB ONE (03:52)
[2023-04-13] MEDS: SODIUM CHLORIDE 1,000 ML IV SCH (03:52)
[2023-04-13 06:14] LABS: POTASSIUM 3.4 mmol/L (3.5-5.1)
[2023-04-13 06:16] LABS: CALCIUM 7.7 mg/dL (8.5-10.1)
[2023-04-13 06:17] LABS: ALBUMIN 2.8 g/dl (3.4-5.0); BLOOD UREA NITROGEN 17.8 mg/dL (7-18); MAGNESIUM 1.7 mg/dL (1.8-2.4)
[2023-04-13 06:20] LABS: CREATININE 0.6 mg/dL (0.55-1.3); PHOSPHOROUS 1.3 mg/dL (2.5-4.9)
[2023-04-13 06:21] LABS: BILIRUBIN,TOTAL 0.6 mg/dL (0.2-1)
[2023-04-13 06:22] LABS: TOT PROT 6.4 g/dl (6.4-8.2)
[2023-04-13 08:27] LABS: HEMATOCRIT 38.9 % (35.4-49); HEMOGLOBIN 13.4 GM/dL (11.7-16.9); MCH 30.9 pg (25.7-33.7); MCHC 34.5 g/dl (32.0-35.9); MEAN CELL VOLUME 89.6 fl (80-96); MEAN PLT VOLUME 8.6 fl (7.5-11.1); PLATELET COUNT 134 10^3/uL (134-434); RBC 4.35 M/mm3 (4.00-5.60); RDW 13.6 % (11.9-15.9); WHITE BLOOD COUNT 7.9 K/mm3 (4.0-10.0)
[2023-04-13 08:59] LABS: ANISOCYTOSIS 1+; MACROCYTOSIS 0
[2023-04-13] MEDS ORDERED: MAGNESIUM OXIDE 400 MG TABLET (FP) ONE (09:17)
[2023-04-13] MEDS ORDERED: methaDONE HCL 40 MG DISPERSABLE TABLET ONE (09:17)
[2023-04-13] MEDS: MAGNESIUM OXIDE 400 MG TABLET (FP) PO ONE (09:30)
[2023-04-13] MEDS: FOLIC ACID 1 MG TABLET (FP) PO SCH (09:30)
[2023-04-13] MEDS: CEFTRIAXONE 1 GM in DEXTROSE 5%-WATER - 50 ML IVPB SCH (09:30)
[2023-04-13] MEDS: THIAMINE HCL 100 MG TABLET (FP) PO SCH (09:30)
[2023-04-13] MEDS: methaDONE HCL 40 MG DISPERSABLE TABLET PO SCH (09:35)
[2023-04-13] MEDS: ENOXAPARIN NA (PORCINE) 40 MG/0.4 ML DISP.SYRIN SQ SCH (09:35)
[2023-04-13] MEDS: OSELTAMIVIR PHOSPHATE 75 MG CAPSULE PO SCH (14:51)
[2023-04-13] MEDS: methylPREDNISolone NA SUCC 40 MG/1 ML VIAL IVPUSH SCH (14:51)
[2023-04-13] MEDS: ALBUTEROL SO4 2.5/IPRATROPIUM 0.5 INH SOL 3 ML VIAL.NEB. NEB SCH (15:08)
[2023-04-13] MEDS: NAPH,MB-DB/K PH,MBDB POWDER PACKET PO SCH (17:30)
[2023-04-14 10:09] LABS: BASO % 0.1 % (0-2.0); HEMATOCRIT 37.9 % (35.4-49); HEMOGLOBIN 13.5 GM/dL (11.7-16.9); LYMPH % 7.8 % (8-40); MCH 31.5 pg (25.7-33.7); MCHC 35.5 g/dl (32.0-35.9); MEAN CELL VOLUME 88.7 fl (80-96); MEAN PLT VOLUME 7.6 fl (7.5-11.1); MONO % 6.1 % (3.8-10.2); PLATELET COUNT 162 10^3/uL (134-434); RBC 4.27 M/mm3 (4.00-5.60); RDW 13.9 % (11.9-15.9); WHITE BLOOD COUNT 5.2 K/mm3 (4.0-10.0)
[2023-04-14 10:25] LABS: POTASSIUM 3.9 mmol/L (3.5-5.1)
[2023-04-14 10:30] LABS: ALBUMIN 2.8 g/dl (3.4-5.0); CALCIUM 8.6 mg/dL (8.5-10.1)
[2023-04-14 10:31] LABS: BLOOD UREA NITROGEN 13.3 mg/dL (7-18)
[2023-04-14 10:33] LABS: CREATININE 0.5 mg/dL (0.55-1.3)
[2023-04-14 10:36] LABS: BILIRUBIN,TOTAL 0.5 mg/dL (0.2-1); TOT PROT 6.5 g/dl (6.4-8.2)
[2023-04-14] MEDS: AZITHROMYCIN IVPB 500 MG/250 ML BAG IVPB SCH (10:53)
[2023-04-14] MEDS ORDERED: LORazepam 1 MG TABLET PO PRN (18:03)
[2023-04-14] MEDS: LORazepam 1 MG TABLET PO SCH (22:04)
[2023-04-15 09:23] LABS: POTASSIUM 3.9 mmol/L (3.5-5.1)
[2023-04-15 09:34] LABS: CALCIUM 9.2 mg/dL (8.5-10.1)
[2023-04-15 09:35] LABS: ALBUMIN 3.1 g/dl (3.4-5.0); BLOOD UREA NITROGEN 16.8 mg/dL (7-18)
[2023-04-15 09:37] LABS: CREATININE 0.6 mg/dL (0.55-1.3)
[2023-04-15 09:38] LABS: BILIRUBIN,TOTAL 0.5 mg/dL (0.2-1); TOT PROT 7.2 g/dl (6.4-8.2)
[2023-04-15 09:51] LABS: BASO % 0.1 % (0-2.0); HEMOGLOBIN 13.8 GM/dL (11.7-16.9); LYMPH % 14.8 % (8-40); MCH 30.3 pg (25.7-33.7); MCHC 33.7 g/dl (32.0-35.9); MEAN CELL VOLUME 89.8 fl (80-96); MEAN PLT VOLUME 7.9 fl (7.5-11.1); MONO % 14.4 % (3.8-10.2); NEUT % 70.7 % (42.8-82.8); PLATELET COUNT 216 10^3/uL (134-434); RBC 4.57 M/mm3 (4.00-5.60); RDW 14.3 % (11.9-15.9)
[2023-04-16] MEDS: LORazepam 1 MG TABLET PO SCH (06:07)
[2023-04-16 08:49] LABS: BASO % 0.2 % (0-2.0); EOS % 0.1 % (0-4.5); HEMATOCRIT 38.7 % (35.4-49); HEMOGLOBIN 13.6 GM/dL (11.7-16.9); LYMPH % 22.4 % (8-40); MCH 31.2 pg (25.7-33.7); MCHC 35.1 g/dl (32.0-35.9); MEAN CELL VOLUME 88.8 fl (80-96); MEAN PLT VOLUME 7.2 fl (7.5-11.1); MONO % 16.3 % (3.8-10.2); PLATELET COUNT 229 10^3/uL (134-434); RBC 4.36 M/mm3 (4.00-5.60); WHITE BLOOD COUNT 9.6 K/mm3 (4.0-10.0)
[2023-04-16 09:14] LABS: POTASSIUM 3.5 mmol/L (3.5-5.1)
[2023-04-16 09:18] LABS: BLOOD UREA NITROGEN 14.2 mg/dL (7-18); CALCIUM 8.5 mg/dL (8.5-10.1); MAGNESIUM 1.9 mg/dL (1.8-2.4)
[2023-04-16 09:22] LABS: CREATININE 0.6 mg/dL (0.55-1.3)
[2023-04-16 09:23] LABS: BILIRUBIN,TOTAL 0.4 mg/dL (0.2-1); TOT PROT 6.8 g/dl (6.4-8.2)
[2023-04-16] MEDS: predniSONE 20 MG TABLET (UD) PO SCH (10:13)
[2023-04-16] MEDS: CEFUROXIME AXETIL 500 MG TABLET PO SCH (11:16)
[2023-04-17] MEDS ORDERED: LORazepam 0.5 MG TABLET PO PRN
[2023-04-17] MEDS: LORazepam 0.5 MG TABLET PO SCH (05:44)
[2023-04-17 09:43] LABS: BASO % 0.2 % (0-2.0); EOS % 0.4 % (0-4.5); HEMATOCRIT 41.4 % (35.4-49); HEMOGLOBIN 13.7 GM/dL (11.7-16.9); LYMPH % 18.7 % (8-40); MCH 29.9 pg (25.7-33.7); MCHC 33.2 g/dl (32.0-35.9); MEAN CELL VOLUME 90.1 fl (80-96); MEAN PLT VOLUME 7.4 fl (7.5-11.1); MONO % 7.7 % (3.8-10.2); PLATELET COUNT 317 10^3/uL (134-434); RBC 4.59 M/mm3 (4.00-5.60); WHITE BLOOD COUNT 11.5 K/mm3 (4.0-10.0)
[2023-04-17 09:55] LABS: POTASSIUM 4.2 mmol/L (3.5-5.1)
[2023-04-17 10:15] LABS: CALCIUM 8.9 mg/dL (8.5-10.1)
[2023-04-17 10:16] LABS: ALBUMIN 3.1 g/dl (3.4-5.0); MAGNESIUM 1.7 mg/dL (1.8-2.4)
[2023-04-17 10:19] LABS: CREATININE 0.6 mg/dL (0.55-1.3)
[2023-04-17 10:21] LABS: BILIRUBIN,TOTAL 0.5 mg/dL (0.2-1); TOT PROT 7.2 g/dl (6.4-8.2)
[2023-04-17] MEDS: AZITHROMYCIN 500 MG TABLET PO SCH (11:46)
[2023-04-17] MEDS: MAGNESIUM OXIDE 400 MG TABLET (FP) PO ONE (14:54)
[2023-04-18] MEDS: LORazepam 0.5 MG TABLET PO ONE ×2 (06:04→06:05)
[2023-04-18] MEDS: TAMSULOSIN HCL 0.4 MG CAP PO SCH (10:00)
[2023-04-18 10:51] LABS: BASO % 0.1 % (0-2.0); EOS % 0.3 % (0-4.5); HEMATOCRIT 42.5 % (35.4-49); HEMOGLOBIN 14.5 GM/dL (11.7-16.9); LYMPH % 10.8 % (8-40); MCH 30.6 pg (25.7-33.7); MEAN CELL VOLUME 90.1 fl (80-96); MEAN PLT VOLUME 7.2 fl (7.5-11.1); MONO % 6.2 % (3.8-10.2); NEUT % 82.6 % (42.8-82.8); PLATELET COUNT 404 10^3/uL (134-434); RBC 4.72 M/mm3 (4.00-5.60); RDW 14.7 % (11.9-15.9); WHITE BLOOD COUNT 13.5 K/mm3 (4.0-10.0)
[2023-04-18 11:52] LABS: POTASSIUM 4.2 mmol/L (3.5-5.1)
[2023-04-18 11:55] LABS: CALCIUM 8.9 mg/dL (8.5-10.1)
[2023-04-18 11:56] LABS: ALBUMIN 3.3 g/dl (3.4-5.0); BLOOD UREA NITROGEN 16.7 mg/dL (7-18)
[2023-04-18 11:59] LABS: CREATININE 0.8 mg/dL (0.55-1.3); MAGNESIUM 1.9 mg/dL (1.8-2.4)
[2023-04-18 12:00] LABS: BILIRUBIN,TOTAL 0.6 mg/dL (0.2-1)
[2023-04-18 12:01] LABS: TOT PROT 7.9 g/dl (6.4-8.2)
[2023-04-19 08:39] LABS: BASO % 0.1 % (0-2.0); EOS % 0.9 % (0-4.5); HEMATOCRIT 37.8 % (35.4-49); HEMOGLOBIN 13.2 GM/dL (11.7-16.9); LYMPH % 14.2 % (8-40); MCH 31.1 pg (25.7-33.7); MCHC 34.8 g/dl (32.0-35.9); MEAN CELL VOLUME 89.5 fl (80-96); MEAN PLT VOLUME 6.8 fl (7.5-11.1); MONO % 4.8 % (3.8-10.2); PLATELET COUNT 381 10^3/uL (134-434); RBC 4.22 M/mm3 (4.00-5.60); RDW 14.4 % (11.9-15.9); WHITE BLOOD COUNT 11.2 K/mm3 (4.0-10.0)
[2023-04-19 09:16] LABS: POTASSIUM 4.5 mmol/L (3.5-5.1)
[2023-04-19 09:19] LABS: CALCIUM 8.7 mg/dL (8.5-10.1)
[2023-04-19 09:20] LABS: ALBUMIN 2.8 g/dl (3.4-5.0); BLOOD UREA NITROGEN 17.7 mg/dL (7-18)
[2023-04-19 09:22] LABS: CREATININE 0.6 mg/dL (0.55-1.3)
[2023-04-19 09:24] LABS: BILIRUBIN,TOTAL 0.5 mg/dL (0.2-1); TOT PROT 6.8 g/dl (6.4-8.2)
[2023-04-19] MEDS: SODIUM CHLORIDE 1,000 ML IV SCH (10:25)
[2023-04-20] MEDS: ACETAMINOPHEN 325 MG TABLET (FP) PO ONE (06:31)
[2023-04-20] MEDS: predniSONE 20 MG TABLET (UD) PO SCH (09:15)
[2023-04-20 09:21] LABS: BASO % 0.1 % (0-2.0); EOS % 0.6 % (0-4.5); HEMATOCRIT 38.5 % (35.4-49); HEMOGLOBIN 12.9 GM/dL (11.7-16.9); LYMPH % 13.5 % (8-40); MCH 30.2 pg (25.7-33.7); MCHC 33.5 g/dl (32.0-35.9); MEAN CELL VOLUME 90.3 fl (80-96); MEAN PLT VOLUME 6.6 fl (7.5-11.1); MONO % 5.9 % (3.8-10.2); NEUT % 79.9 % (42.8-82.8); PLATELET COUNT 414 10^3/uL (134-434); RBC 4.27 M/mm3 (4.00-5.60); RDW 14.3 % (11.9-15.9); WHITE BLOOD COUNT 13.3 K/mm3 (4.0-10.0)
[2023-04-20 09:37] LABS: POTASSIUM 4.3 mmol/L (3.5-5.1)
[2023-04-20 09:45] LABS: CALCIUM 9.1 mg/dL (8.5-10.1)
[2023-04-20 09:46] LABS: ALBUMIN 2.9 g/dl (3.4-5.0); BLOOD UREA NITROGEN 13.6 mg/dL (7-18)
[2023-04-20 09:49] LABS: CREATININE 0.7 mg/dL (0.55-1.3)
[2023-04-20 09:50] LABS: BILIRUBIN,TOTAL 0.5 mg/dL (0.2-1)
[2023-04-20 09:51] LABS: TOT PROT 7.1 g/dl (6.4-8.2)
[2023-04-20] MEDS: ACETAMINOPHEN 325 MG TABLET (FP) PO PRN (21:21)
[2023-04-21 08:05] LABS: BASO % 0.2 % (0-2.0); EOS % 0.5 % (0-4.5); HEMATOCRIT 37.7 % (35.4-49); HEMOGLOBIN 12.6 GM/dL (11.7-16.9); LYMPH % 20.7 % (8-40); MCH 30.3 pg (25.7-33.7); MCHC 33.5 g/dl (32.0-35.9); MEAN CELL VOLUME 90.5 fl (80-96); MEAN PLT VOLUME 6.5 fl (7.5-11.1); MONO % 6.2 % (3.8-10.2); NEUT % 72.4 % (42.8-82.8); PLATELET COUNT 402 10^3/uL (134-434); RBC 4.17 M/mm3 (4.00-5.60); RDW 14.2 % (11.9-15.9); WHITE BLOOD COUNT 9.7 K/mm3 (4.0-10.0)
[2023-04-21 08:17] LABS: POTASSIUM 4.2 mmol/L (3.5-5.1)
[2023-04-21 08:19] LABS: ALBUMIN 2.6 g/dl (3.4-5.0); BLOOD UREA NITROGEN 14.2 mg/dL (7-18)
[2023-04-21 08:23] LABS: CREATININE 0.6 mg/dL (0.55-1.3)
[2023-04-21 08:24] LABS: BILIRUBIN,TOTAL 0.4 mg/dL (0.2-1); TOT PROT 6.8 g/dl (6.4-8.2)
[2023-04-21] MEDS: guaiFENesin/D-METHORPHAN HB 10 ML UNIT-DOSE CUPS PO PRN (09:56)
[2023-04-21] MEDS: hydrOXYzine PAMOATE 25 MG CAPSULE (FP) PO PRN (18:58)
[2023-04-22 09:09] LABS: BASO % 0.2 % (0-2.0); EOS % 0.4 % (0-4.5); HEMATOCRIT 38.1 % (35.4-49); HEMOGLOBIN 12.7 GM/dL (11.7-16.9); LYMPH % 19.3 % (8-40); MCH 30.1 pg (25.7-33.7); MCHC 33.3 g/dl (32.0-35.9); MEAN CELL VOLUME 90.4 fl (80-96); MEAN PLT VOLUME 6.5 fl (7.5-11.1); MONO % 6.6 % (3.8-10.2); NEUT % 73.5 % (42.8-82.8); PLATELET COUNT 414 10^3/uL (134-434); RBC 4.21 M/mm3 (4.00-5.60); RDW 14.4 % (11.9-15.9); WHITE BLOOD COUNT 11.5 K/mm3 (4.0-10.0)
[2023-04-22 09:20] LABS: POTASSIUM 4.1 mmol/L (3.5-5.1)
[2023-04-22 09:25] LABS: ALBUMIN 2.8 g/dl (3.4-5.0); CALCIUM 9.2 mg/dL (8.5-10.1)
[2023-04-22 09:30] LABS: BILIRUBIN,TOTAL 0.5 mg/dL (0.2-1); TOT PROT 6.9 g/dl (6.4-8.2)
[2023-04-22 09:31] LABS: CREATININE 0.6 mg/dL (0.55-1.3)
[2023-04-23 09:08] LABS: BASO % 0.1 % (0-2.0); EOS % 0.5 % (0-4.5); HEMATOCRIT 38.2 % (35.4-49); HEMOGLOBIN 12.6 GM/dL (11.7-16.9); LYMPH % 21.1 % (8-40); MCH 29.7 pg (25.7-33.7); MCHC 32.9 g/dl (32.0-35.9); MEAN CELL VOLUME 90.4 fl (80-96); MEAN PLT VOLUME 6.5 fl (7.5-11.1); MONO % 7.6 % (3.8-10.2); NEUT % 70.7 % (42.8-82.8); PLATELET COUNT 422 10^3/uL (134-434); RBC 4.22 M/mm3 (4.00-5.60); RDW 14.3 % (11.9-15.9); WHITE BLOOD COUNT 11.9 K/mm3 (4.0-10.0)
[2023-04-23 09:22] LABS: POTASSIUM 4.2 mmol/L (3.5-5.1)
[2023-04-23 09:25] LABS: ALBUMIN 2.7 g/dl (3.4-5.0); MAGNESIUM 2.2 mg/dL (1.8-2.4)
[2023-04-23 09:26] LABS: BLOOD UREA NITROGEN 14.1 mg/dL (7-18)
[2023-04-23 09:28] LABS: CREATININE 0.5 mg/dL (0.55-1.3)
[2023-04-23 09:29] LABS: PHOSPHOROUS 3.2 mg/dL (2.5-4.9)
[2023-04-23 09:30] LABS: BILIRUBIN,TOTAL 0.4 mg/dL (0.2-1); TOT PROT 6.7 g/dl (6.4-8.2)
[2023-04-23] MEDS: predniSONE 20 MG TABLET (UD) PO SCH (10:30)
[2023-04-24 22:06] VITALS: RESP 20
[2023-04-25] MEDS: ACETAMINOPHEN 325 MG TABLET (FP) PO ONE (10:02)
[2023-04-25 13:19] VITALS: BP 129/82; PULSE 82; TEMP 98.8
== END 2023-04-25 14:46 | disposition other institution (70) | DRG 193 ==
LOC: JER 23:11 → JERBED 04-13 01:37 → J5S 04-13 13:00
PROVIDERS: ADMIT Internal Medicine; ATTEND Psychiatry & Neurology Pain Medicine
DX: J10.00 Influenza due to other identified influenza virus with unspecified type of pneumonia (principal); J96.01 Acute respiratory failure with hypoxia; E87.1 Hypo-osmolality and hyponatremia; F11.23 Opioid dependence with withdrawal; F10.230 Alcohol dependence with withdrawal, uncomplicated; J18.9 Pneumonia, unspecified organism; N40.0 Benign prostatic hyperplasia without lower urinary tract symptoms; F17.210 Nicotine dependence, cigarettes, uncomplicated; R50.9 Fever, unspecified; R00.0 Tachycardia, unspecified; F41.9 Anxiety disorder, unspecified; M17.0 Bilateral primary osteoarthritis of knee; M19.09 Primary osteoarthritis, other specified site; Z87.11 Personal history of peptic ulcer disease
CPT/HCPCS: 0241U-QW; 36415; 71045-TC-FY; 80053; 80307; 82140; 82803; 83735; 83880; 84100; 85025; 87040; 87635; 93005; 93010; 94010; 94640; 94761; 97116-GP; 97161-GP; 99284-25; J0131

== ENCOUNTER 2023-04-30 09:19 | Inpatient (IN) | payer OTHER ==
[2023-04-30 10:22] VITALS: BMI 26.3
[2023-04-30] MEDS ORDERED: METHOCARBAMOL 500 MG TABLET PO PRN (10:35)
[2023-04-30] MEDS ORDERED: LOPERAMIDE HCL 2 MG CAPSULE PO PRN (10:35)
[2023-04-30] MEDS ORDERED: MAGNESIUM HYDROX 2400MG/30ML ORAL SUSPENSION 30 ML CUP PO PRN (10:35)
[2023-04-30] MEDS ORDERED: guaiFENesin 600 MG TABLET.ER (FP) PO PRN (10:35)
[2023-04-30] MEDS ORDERED: IBUPROFEN 400 MG TABLET (FP) PO PRN (10:35)
[2023-04-30] MEDS ORDERED: NALOXONE HCL (KLOXXADO) 8 MG SPRAY NS PRN (10:35)
[2023-04-30] MEDS ORDERED: NICOTINE POLACRILEX 2 MG GUM BUC PRN (10:35)
[2023-04-30] MEDS ORDERED: MAG HYDROX/AL HYDROX/SIMETH 30 ML UNIT-DOSE CUP PO PRN (10:35)
[2023-04-30] MEDS ORDERED: BENZOCAINE/MENTHOL (CHLORASEPTIC ) LOZENGE MM PRN (10:35)
[2023-04-30] MEDS ORDERED: NALOXONE HCL 0.4 MG/ML VIAL IVPUSH PRN (10:35)
[2023-04-30] MEDS ORDERED: POLYETHYLENE GLYCOL (HEALTHYLAX) 3350 17 GM PACKET PO PRN (10:35)
[2023-04-30] MEDS ORDERED: ALBUTEROL SO4 0.083% IH SOL 2.5 MG/3 ML VIAL.NEB. NEB PRN (10:37)
[2023-04-30] MEDS: hydrOXYzine PAMOATE 25 MG CAPSULE (FP) PO PRN (11:47)
[2023-04-30] MEDS: TAMSULOSIN HCL 0.4 MG CAP PO SCH (13:09)
[2023-04-30] MEDS: BENZONATATE 200 MG CAPSULE PO PRN (13:09)
[2023-04-30] MEDS: propRANOLol HCL 10 MG TABLET PO ONE (13:09)
[2023-04-30] MEDS: predniSONE 10 MG TABLET (UD) PO ONE (15:43)
[2023-04-30] MEDS: MELATONIN 5 MG TABLETS PO SCH (22:16)
[2023-04-30] MEDS: THIAMINE 100 MG TABLET PO SCH (22:16)
[2023-05-01] MEDS: methaDONE HCL 40 MG DISPERSABLE TABLET PO SCH (07:42)
[2023-05-01] MEDS: PRENATAL VITAMINS W/ FOLIC ACID TABLET (FP) PO SCH (09:55)
[2023-05-01] MEDS: predniSONE 10 MG TABLET (UD) PO SCH (10:50)
[2023-05-01] MEDS: TIOTROPIUM BROMIDE 2.5 MCG (SPIRIVA) RESPIMAT INHALER IH SCH (10:50)
[2023-05-01] MEDS: ACETAMINOPHEN 325 MG TABLET (FP) PO PRN (16:35)
[2023-05-02] MEDS ORDERED: methaDONE HCL 10 MG TABLET PO SCH (06:00)
[2023-05-03] MEDS: methaDONE HCL 40 MG DISPERSABLE TABLET PO SCH (06:43)
[2023-05-05] MEDS: guaiFENesin 200 MG/10 ML 10 ML UNIT-DOSE CUPS PO PRN (15:54)
[2023-05-08] MEDS: FLUTICASONE PROP 0.05% 16 GM NASAL SPRAY NS SCH (14:00)
[2023-05-08] MEDS: IBUPROFEN 600 MG TABLET (FP) PO PRN (16:12)
[2023-05-09] MEDS: P-EPHED 60MG/TRIPROLIDI 2.5MG TABLET PO PRN (06:12)
[2023-05-10] MEDS ORDERED: methaDONE HCL 10 MG TABLET PO SCH (06:00)
[2023-05-10] MEDS: FLU VACCINE (FLULAVAL) PF 60 MCG/0.5 ML SYRINGE 2023-2024 IM ONE (10:51)
[2023-05-17] MEDS ORDERED: methaDONE HCL 40 MG DISPERSABLE TABLET PO SCH (15:55)
[2023-05-17] MEDS: SIMETHICONE 80 MG TAB.CHEW (FP) PO PRN (16:43)
[2023-05-18] MEDS: methaDONE 80 MG, methaDONE 20 MG PO SCH (06:16)
[2023-05-20 07:15] VITALS: RESP 18
[2023-05-22 06:59] VITALS: BP 112/69; PULSE 88; TEMP 98.1
== END 2023-05-22 10:40 | disposition home or self-care (01) | DRG 895 ==
LOC: YASAS 09:19 → Y3NR 14:59 → Y5N 18:28
PROVIDERS: ADMIT Allergy & Immunology; ATTEND Psychiatry & Neurology Pain Medicine
PROC: HZ42ZZZ Group Counseling for Substance Abuse Treatment, Cognitive-Behavioral (ICD-10-PCS; principal; 2023-04-30)
DX: F10.20 Alcohol dependence, uncomplicated (principal); F11.20 Opioid dependence, uncomplicated; Z59.00 Homelessness unspecified; F17.210 Nicotine dependence, cigarettes, uncomplicated; Z87.09 Personal history of other diseases of the respiratory system; Z87.01 Personal history of pneumonia (recurrent); Z87.19 Personal history of other diseases of the digestive system
CPT/HCPCS: 0241U-QW; 71045-TC-FY; 80305; 90686; G0008

== ENCOUNTER 2023-06-08 10:21 | Inpatient (IN) | payer OTHER ==
[2023-06-08 10:49] VITALS: BMI 28.8
[2023-06-08] MEDS ORDERED: ONDANSETRON *ODT* 4 MG TABLET SL PRN (12:48)
[2023-06-08] MEDS ORDERED: diazePAM 5 MG TABLET PO PRN ×2 (12:48→13:53)
[2023-06-08] MEDS ORDERED: DICYCLOMINE HCL 10 MG CAPSULE PO PRN (12:48)
[2023-06-08] MEDS ORDERED: MAG HYDROX/AL HYDROX/SIMETH 30 ML UNIT-DOSE CUP PO PRN (12:48)
[2023-06-08] MEDS ORDERED: IBUPROFEN 400 MG TABLET (FP) PO PRN (12:48)
[2023-06-08] MEDS ORDERED: NALOXONE HCL (KLOXXADO) 8 MG SPRAY NS PRN (12:48)
[2023-06-08] MEDS ORDERED: LOPERAMIDE HCL 2 MG CAPSULE PO PRN (12:48)
[2023-06-08] MEDS ORDERED: NALOXONE HCL 0.4 MG/ML VIAL IM PRN (12:48)
[2023-06-08] MEDS ORDERED: MAGNESIUM HYDROX 2400MG/30ML ORAL SUSPENSION 30 ML CUP PO PRN (12:48)
[2023-06-08] MEDS ORDERED: BENZONATATE 200 MG CAPSULE PO PRN (12:48)
[2023-06-08] MEDS ORDERED: POLYETHYLENE GLYCOL (HEALTHYLAX) 3350 17 GM PACKET PO PRN (12:48)
[2023-06-08] MEDS ORDERED: BISMUTH SUBSALICYLATE 524 MG/30 ML PO PRN (12:48)
[2023-06-08] MEDS ORDERED: BENZOCAINE/MENTHOL (CHLORASEPTIC ) LOZENGE MM PRN (12:48)
[2023-06-08] MEDS ORDERED: ALBUTEROL SO4 HFA INHALER IH PRN (12:50)
[2023-06-08] MEDS: PRENATAL VITAMINS W/ FOLIC ACID TABLET (FP) PO SCH (13:19)
[2023-06-08] MEDS: diazePAM 5 MG TABLET PO SCH (17:39)
[2023-06-08] MEDS: MELATONIN 5 MG TABLETS PO SCH (22:19)
[2023-06-08] MEDS: GABAPENTIN 100 MG CAPSULE PO SCH (22:19)
[2023-06-08] MEDS: THIAMINE 100 MG TABLET PO SCH (22:19)
[2023-06-08] MEDS: METHOCARBAMOL 500 MG TABLET PO PRN (22:19)
[2023-06-08] MEDS: IBUPROFEN 600 MG TABLET (FP) PO PRN (22:20)
[2023-06-09] MEDS: methaDONE 80 MG, methaDONE 20 MG PO SCH (05:57)
[2023-06-09] MEDS ORDERED: methaDONE HCL 40 MG DISPERSABLE TABLET PO SCH (10:00)
[2023-06-09 11:48] LABS: CHLORIDE 106 mmol/L (98-107); POTASSIUM 4.1 mmol/L (3.5-5.1); SODIUM 136 mmol/L (136-145)
[2023-06-09 11:48] LABS: HEMATOCRIT 37.1 % (35.4-49); HEMOGLOBIN 12.4 GM/dL (11.7-16.9); MCH 30.1 pg (25.7-33.7); MCHC 33.3 g/dl (32.0-35.9); MEAN CELL VOLUME 90.3 fl (80-96); MEAN PLT VOLUME 7.9 fl (7.5-11.1); PLATELET COUNT 195 10^3/uL (134-434); RBC 4.11 M/mm3 (4.00-5.60); RDW 14.9 % (11.9-15.9); WHITE BLOOD COUNT 4.6 K/mm3 (4.0-10.0)
[2023-06-09 12:03] LABS: ALBUMIN 3.1 g/dl (3.4-5.0); ANION GAP 1 mmol/L (4-13); CALCIUM 8.7 mg/dL (8.5-10.1); CO2 29 mmol/L (21-32)
[2023-06-09 12:04] LABS: BLOOD UREA NITROGEN 21.3 mg/dL (7-18); GLUCOSE,RANDOM 95 mg/dL (74-106)
[2023-06-09 12:06] LABS: CREATININE 0.5 mg/dL (0.55-1.3); SGOT/AST 41 U/L (15-37); SGPT/ALT 22 U/L (13-61)
[2023-06-09 12:07] LABS: BILIRUBIN,TOTAL 0.2 mg/dL (0.2-1); TOT PROT 6.1 g/dl (6.4-8.2)
[2023-06-09 12:09] LABS: ALK PHOS 113 U/L (45-117)
[2023-06-10] MEDS: guaiFENesin 600 MG TABLET.ER (FP) PO PRN (04:44)
[2023-06-10] MEDS: diazePAM 5 MG TABLET PO SCH (06:05)
[2023-06-10] MEDS: ACETAMINOPHEN 325 MG TABLET (FP) PO PRN (18:13)
[2023-06-11] MEDS: diazePAM 5 MG TABLET PO SCH (05:55)
[2023-06-11] MEDS: hydrOXYzine PAMOATE 25 MG CAPSULE (FP) PO PRN (21:49)
[2023-06-12] MEDS: diazePAM 5 MG TABLET PO ONE (05:29)
[2023-06-12 06:13] VITALS: BP 102/65
[2023-06-12 09:14] VITALS: PULSE 84; RESP 18; TEMP 97.1
== END 2023-06-12 10:40 | disposition other institution (70) | DRG 897 ==
LOC: YASAS 10:21 → Y6N 11:42
PROVIDERS: ADMIT Allergy & Immunology; ATTEND Surgery
PROC: HZ2ZZZZ Detoxification Services for Substance Abuse Treatment (ICD-10-PCS; principal; 2023-06-08)
DX: F10.230 Alcohol dependence with withdrawal, uncomplicated (principal); F11.20 Opioid dependence, uncomplicated; F14.20 Cocaine dependence, uncomplicated; F13.230 Sedative, hypnotic or anxiolytic dependence with withdrawal, uncomplicated; F17.210 Nicotine dependence, cigarettes, uncomplicated; J45.20 Mild intermittent asthma, uncomplicated; M79.2 Neuralgia and neuritis, unspecified; B18.2 Chronic viral hepatitis C
CPT/HCPCS: 36415; 80053; 80307; 85027; 86780; 93005; 93010

== ENCOUNTER 2023-06-12 11:47 | Inpatient (IN) | payer OTHER ==
[2023-06-12 12:27] VITALS: BMI 29.0
[2023-06-12] MEDS ORDERED: DOCUSATE SODIUM 100 MG CAPSULE (FP) PO PRN (12:35)
[2023-06-12] MEDS ORDERED: BENZOCAINE/MENTHOL (CHLORASEPTIC ) LOZENGE MM PRN (12:35)
[2023-06-12] MEDS ORDERED: MAG HYDROX/AL HYDROX/SIMETH 30 ML UNIT-DOSE CUP PO PRN (12:35)
[2023-06-12] MEDS ORDERED: LOPERAMIDE HCL 2 MG CAPSULE PO PRN (12:35)
[2023-06-12] MEDS ORDERED: NALOXONE HCL 0.4 MG/ML VIAL IVPUSH PRN (12:35)
[2023-06-12] MEDS ORDERED: IBUPROFEN 400 MG TABLET (FP) PO PRN (12:35)
[2023-06-12] MEDS ORDERED: guaiFENesin 600 MG TABLET.ER (FP) PO PRN (12:35)
[2023-06-12] MEDS ORDERED: POLYETHYLENE GLYCOL (HEALTHYLAX) 3350 17 GM PACKET PO PRN (12:35)
[2023-06-12] MEDS ORDERED: NALOXONE (NYS OPIOID OVERDOSE PROGRAM) 4 MG/0.1 ML SPRAY NS PRN (12:35)
[2023-06-12] MEDS ORDERED: BENZONATATE 200 MG CAPSULE PO PRN (12:35)
[2023-06-12] MEDS ORDERED: P-EPHED 60MG/TRIPROLIDI 2.5MG TABLET PO PRN (12:35)
[2023-06-12] MEDS ORDERED: MAGNESIUM HYDROX 2400MG/30ML ORAL SUSPENSION 30 ML CUP PO PRN (12:35)
[2023-06-12] MEDS ORDERED: ALBUTEROL SO4 HFA INHALER IH PRN (12:36)
[2023-06-12] MEDS: GABAPENTIN 100 MG CAPSULE PO SCH (21:45)
[2023-06-12] MEDS: MELATONIN 5 MG TABLETS PO SCH (21:45)
[2023-06-12] MEDS: THIAMINE 100 MG TABLET PO SCH (21:45)
[2023-06-13] MEDS ORDERED: methaDONE HCL 40 MG DISPERSABLE TABLET PO SCH (06:45)
[2023-06-13] MEDS: methaDONE 80 MG, methaDONE 20 MG PO SCH (06:53)
[2023-06-13] MEDS: PRENATAL VITAMINS W/ FOLIC ACID TABLET (FP) PO SCH (09:35)
[2023-06-13] MEDS: ACETAMINOPHEN 325 MG TABLET (FP) PO PRN (14:26)
[2023-06-15] MEDS: IBUPROFEN 600 MG TABLET (FP) PO PRN (16:21)
[2023-06-15] MEDS: GABAPENTIN 100 MG CAPSULE PO SCH (21:12)
[2023-06-16] MEDS: OXYMETAZOLINE 0.05% NASAL SOLUTION 15 ML BOTTLE NS PRN (06:26)
[2023-06-21] MEDS: methaDONE 80 MG, methaDONE 10 MG PO SCH (05:49)
[2023-06-21] MEDS ORDERED: methaDONE HCL 40 MG DISPERSABLE TABLET PO SCH (06:00)
[2023-06-21 07:03] VITALS: BP 125/71; PULSE 91; RESP 18; TEMP 97.3
== END 2023-06-21 09:40 | disposition left against medical advice (07) | DRG 894 ==
LOC: YASAS 11:47 → Y5N 16:01 → Y3W 16:10
PROVIDERS: ADMIT Allergy & Immunology; ATTEND Psychiatry & Neurology Pain Medicine
PROC: HZ42ZZZ Group Counseling for Substance Abuse Treatment, Cognitive-Behavioral (ICD-10-PCS; principal; 2023-06-12)
DX: F10.20 Alcohol dependence, uncomplicated (principal); F11.20 Opioid dependence, uncomplicated; F14.10 Cocaine abuse, uncomplicated; F12.10 Cannabis abuse, uncomplicated; J44.9 Chronic obstructive pulmonary disease, unspecified; J45.20 Mild intermittent asthma, uncomplicated; M54.50 Low back pain, unspecified; G89.29 Other chronic pain; N40.0 Benign prostatic hyperplasia without lower urinary tract symptoms; M17.12 Unilateral primary osteoarthritis, left knee; M19.021 Primary osteoarthritis, right elbow; Z99.89 Dependence on other enabling machines and devices; F91.8 Other conduct disorders; Z91.199 Patient's noncompliance with other medical treatment and regimen due to unspecified reason
CPT/HCPCS: 80305; 87811

== ENCOUNTER 2023-06-27 10:00 | Inpatient (IN) | payer OTHER ==
[2023-06-27 10:24] VITALS: BMI 28.2
[2023-06-27] MEDS ORDERED: DICYCLOMINE HCL 10 MG CAPSULE PO PRN (12:10)
[2023-06-27] MEDS ORDERED: IBUPROFEN 600 MG TABLET (FP) PO PRN (12:10)
[2023-06-27] MEDS ORDERED: METHOCARBAMOL 500 MG TABLET PO PRN (12:10)
[2023-06-27] MEDS ORDERED: BISMUTH SUBSALICYLATE 262 MG/15 ML BTL PO PRN (12:10)
[2023-06-27] MEDS ORDERED: NALOXONE HCL 0.4 MG/ML VIAL IM PRN (12:10)
[2023-06-27] MEDS ORDERED: MAGNESIUM HYDROX 2400MG/30ML ORAL SUSPENSION 30 ML CUP PO PRN (12:10)
[2023-06-27] MEDS ORDERED: NALOXONE HCL (KLOXXADO) 8 MG SPRAY NS PRN (12:10)
[2023-06-27] MEDS ORDERED: guaiFENesin 600 MG TABLET.ER (FP) PO PRN (12:10)
[2023-06-27] MEDS ORDERED: ONDANSETRON *ODT* 4 MG TABLET SL PRN (12:10)
[2023-06-27] MEDS ORDERED: BENZONATATE 200 MG CAPSULE PO PRN (12:10)
[2023-06-27] MEDS ORDERED: LOPERAMIDE HCL 2 MG CAPSULE PO PRN (12:10)
[2023-06-27] MEDS ORDERED: MAG HYDROX/AL HYDROX/SIMETH 30 ML UNIT-DOSE CUP PO PRN (12:10)
[2023-06-27] MEDS ORDERED: BENZOCAINE/MENTHOL (CHLORASEPTIC ) LOZENGE MM PRN (12:10)
[2023-06-27] MEDS ORDERED: hydrOXYzine PAMOATE 25 MG CAPSULE (FP) PO PRN (12:10)
[2023-06-27] MEDS ORDERED: POLYETHYLENE GLYCOL (HEALTHYLAX) 3350 17 GM PACKET PO PRN (12:10)
[2023-06-27] MEDS ORDERED: IBUPROFEN 400 MG TABLET (FP) PO PRN (12:10)
[2023-06-27] MEDS: MELATONIN 5 MG TABLETS PO SCH (22:24)
[2023-06-27] MEDS: THIAMINE 100 MG TABLET PO SCH (22:24)
[2023-06-27] MEDS: ACETAMINOPHEN 325 MG TABLET (FP) PO PRN (22:25)
[2023-06-28 09:23] VITALS: BP 122/75; PULSE 86; RESP 18; TEMP 97.1
[2023-06-28] MEDS: PRENATAL VITAMINS W/ FOLIC ACID TABLET (FP) PO SCH (09:37)
[2023-06-28] MEDS ORDERED: methaDONE HCL 10 MG TABLET PO ONE (09:43)
[2023-06-28] MEDS ORDERED: ALBUTEROL SO4 HFA INHALER IH PRN (09:48)
[2023-06-28] MEDS: methaDONE 80 MG, methaDONE 10 MG PO ONE (10:55)
[2023-06-28 11:39] LABS: HEMATOCRIT 37.7 % (35.4-49); MCH 30.8 pg (25.7-33.7); MCHC 34.5 g/dl (32.0-35.9); MEAN CELL VOLUME 89.5 fl (80-96); MEAN PLT VOLUME 8.7 fl (7.5-11.1); PLATELET COUNT 227 10^3/uL (134-434); RBC 4.21 M/mm3 (4.00-5.60); RDW 15.3 % (11.9-15.9); WHITE BLOOD COUNT 6.6 K/mm3 (4.0-10.0)
[2023-06-28 12:00] LABS: POTASSIUM 4.6 mmol/L (3.5-5.1)
[2023-06-28 12:07] LABS: BLOOD UREA NITROGEN 11.9 mg/dL (7-18)
[2023-06-28 12:08] LABS: ALBUMIN 3.6 g/dl (3.4-5.0); CALCIUM 9.6 mg/dL (8.5-10.1)
[2023-06-28 12:10] LABS: CREATININE 0.6 mg/dL (0.55-1.3)
[2023-06-28 12:12] LABS: TOT PROT 6.8 g/dl (6.4-8.2)
[2023-06-28 12:21] LABS: BILIRUBIN,TOTAL 0.9 mg/dL (0.2-1)
[2023-06-29] MEDS ORDERED: methaDONE 80 MG, methaDONE 10 MG PO SCH (06:00)
[2023-06-29] MEDS ORDERED: methaDONE HCL 10 MG TABLET PO SCH (06:00)
== END 2023-06-28 13:25 | disposition home or self-care (01) | DRG 897 ==
LOC: YASAS 10:00 → Y6N 11:49
PROVIDERS: ADMIT Allergy & Immunology; ATTEND Surgery
PROC: HZ2ZZZZ Detoxification Services for Substance Abuse Treatment (ICD-10-PCS; principal; 2023-06-27)
DX: F11.20 Opioid dependence, uncomplicated (principal); F13.20 Sedative, hypnotic or anxiolytic dependence, uncomplicated; J45.20 Mild intermittent asthma, uncomplicated; B19.20 Unspecified viral hepatitis C without hepatic coma
CPT/HCPCS: 36415; 80053; 80305; 80307; 85027; 86780

== ENCOUNTER 2023-08-04 10:19 | Inpatient (IN) | payer OTHER ==
[2023-08-04 10:49] VITALS: BMI 29.9
[2023-08-04] MEDS ORDERED: ONDANSETRON *ODT* 4 MG TABLET SL PRN (11:10)
[2023-08-04] MEDS ORDERED: NALOXONE (NARCAN) HCL 4 MG/0.1 ML SPRAY NS PRN (11:10)
[2023-08-04] MEDS ORDERED: BISMUTH SUBSALICYLATE 262 MG/15 ML BTL PO PRN (11:10)
[2023-08-04] MEDS ORDERED: ACETAMINOPHEN 325 MG TABLET (FP) PO PRN (11:10)
[2023-08-04] MEDS ORDERED: guaiFENesin 600 MG TABLET.ER (FP) PO PRN (11:10)
[2023-08-04] MEDS ORDERED: BENZONATATE 200 MG CAPSULE PO PRN (11:10)
[2023-08-04] MEDS ORDERED: MAG HYDROX/AL HYDROX/SIMETH 30 ML UNIT-DOSE CUP PO PRN (11:10)
[2023-08-04] MEDS ORDERED: MAGNESIUM HYDROX 2400MG/30ML ORAL SUSPENSION 30 ML CUP PO PRN (11:10)
[2023-08-04] MEDS ORDERED: POLYETHYLENE GLYCOL (HEALTHYLAX) 3350 17 GM PACKET PO PRN (11:10)
[2023-08-04] MEDS ORDERED: BENZOCAINE/MENTHOL (CHLORASEPTIC ) LOZENGE MM PRN (11:10)
[2023-08-04] MEDS ORDERED: NICOTINE POLACRILEX 2 MG GUM BUC PRN (11:10)
[2023-08-04] MEDS ORDERED: IBUPROFEN 400 MG TABLET (FP) PO PRN (11:10)
[2023-08-04] MEDS ORDERED: LOPERAMIDE HCL 2 MG CAPSULE PO PRN (11:10)
[2023-08-04] MEDS ORDERED: NICOTINE POLACRILEX 2 MG LOZENGE BC PRN (11:10)
[2023-08-04] MEDS ORDERED: IBUPROFEN 600 MG TABLET (FP) PO PRN (11:10)
[2023-08-04] MEDS ORDERED: NALOXONE HCL 0.4 MG/ML VIAL IM PRN (11:10)
[2023-08-04] MEDS ORDERED: P-EPHED 60MG/TRIPROLIDI 2.5MG TABLET PO PRN (11:10)
[2023-08-04] MEDS ORDERED: ALBUTEROL SO4 HFA INHALER IH PRN (11:10)
[2023-08-04] MEDS: THIAMINE 100 MG TABLET PO SCH (22:06)
[2023-08-04] MEDS: diazePAM 5 MG TABLET PO SCH (22:06)
[2023-08-04] MEDS: MELATONIN 5 MG TABLETS PO SCH (22:06)
[2023-08-05] MEDS: diazePAM 5 MG TABLET PO SCH (05:35)
[2023-08-05 06:01] VITALS: RESP 16
[2023-08-05] MEDS: diazePAM 5 MG TABLET PO PRN (10:31)
[2023-08-05] MEDS: PRENATAL VITAMINS W/ FOLIC ACID TABLET (FP) PO SCH (10:32)
[2023-08-05 12:22] VITALS: BP 130/71; PULSE 76; TEMP 97.9
[2023-08-05] MEDS ORDERED: methaDONE HCL 40 MG DISPERSABLE TABLET PO SCH (12:30)
[2023-08-05] MEDS: methaDONE 80 MG, methaDONE 10 MG PO SCH (12:44)
[2023-08-06] MEDS ORDERED: diazePAM 5 MG TABLET PO SCH (06:00)
[2023-08-07] MEDS ORDERED: diazePAM 5 MG TABLET PO ONE (06:00)
== END 2023-08-05 14:16 | disposition left against medical advice (07) | DRG 894 ==
LOC: YASAS 10:19 → Y3N 11:54
PROVIDERS: ADMIT Allergy & Immunology; ATTEND Surgery
PROC: HZ2ZZZZ Detoxification Services for Substance Abuse Treatment (ICD-10-PCS; principal; 2023-08-04)
DX: F10.230 Alcohol dependence with withdrawal, uncomplicated (principal); F11.20 Opioid dependence, uncomplicated; F12.10 Cannabis abuse, uncomplicated; F17.210 Nicotine dependence, cigarettes, uncomplicated; J44.9 Chronic obstructive pulmonary disease, unspecified; J45.20 Mild intermittent asthma, uncomplicated; N40.0 Benign prostatic hyperplasia without lower urinary tract symptoms; F91.8 Other conduct disorders; Z91.199 Patient's noncompliance with other medical treatment and regimen due to unspecified reason
CPT/HCPCS: 80305; 80307

== ENCOUNTER 2023-10-09 22:41 | Emergency (ER) | payer OTHER ==
[2023-10-09 22:57] VITALS: BP 133/86; PULSE 92; RESP 18; TEMP 98.4; BMI 30.2
[2023-10-10] MEDS ORDERED: KETOROLAC TROMETHAMINE 60 MG/2 ML VIAL ONE (00:25)
[2023-10-10] MEDS: KETOROLAC TROMETHAMINE 60 MG/2 ML VIAL IM ONE (00:40)
[2023-10-10] MEDS: ACETAMINOPHEN 500 MG TABLET (FP) PO ONE (00:53)
[2023-10-10] MEDS ORDERED: ACETAMINOPHEN 500 MG TABLET (FP) ONE (00:54)
== END 2023-10-10 01:46 | disposition home or self-care (01) ==
LOC: FER 22:41
PROC: 3E0133Z Introduction of Anti-inflammatory into Subcutaneous Tissue, Percutaneous Approach (ICD-10-PCS; principal; 2023-10-10)
DX: G44.209 Tension-type headache, unspecified, not intractable (principal); M79.10 Myalgia, unspecified site
CPT/HCPCS: 99284-25

== ENCOUNTER 2023-12-22 11:16 | Inpatient (IN) | payer OTHER ==
[2023-12-22] MEDS ORDERED: ALBUTEROL SO4 2.5/IPRATROPIUM 0.5 INH SOL 3 ML VIAL.NEB. NEB ONE ×2 (12:08→16:04)
[2023-12-22] MEDS ORDERED: methylPREDNISolone NA SUCC 125 MG/2 ML VIAL ONE (12:09)
[2023-12-22] MEDS: methylPREDNISolone NA SUCC 125 MG/2 ML VIAL IVPUSH ONE (12:18)
[2023-12-22] MEDS: ALBUTEROL SO4 2.5/IPRATROPIUM 0.5 INH SOL 3 ML VIAL.NEB. NEB SCH ×3 (12:18→23:56)
[2023-12-22 12:20] LABS: VENOUS BASE EXCESS -1.2 mmol/L (-2-2); VENOUS O2 SATURATION 70.1 % (70-80); VENOUS PCO2 57.4 mmHg (38-52); VENOUS PH 7.283 (7.310-7.410)
[2023-12-22 12:22] LABS: BASO % 0.3 % (0-2.0); EOS % 0.3 % (0-4.5); HEMATOCRIT 38.4 % (35.4-49); HEMOGLOBIN 12.7 GM/dL (11.7-16.9); LYMPH % 12.6 % (8-40); MCH 30.4 pg (25.7-33.7); MCHC 33.1 g/dl (32.0-35.9); MEAN CELL VOLUME 91.8 fl (80-96); MEAN PLT VOLUME 7.4 fl (7.5-11.1); MONO % 7.1 % (3.8-10.2); NEUT % 79.7 % (42.8-82.8); PLATELET COUNT 187 10^3/uL (134-434); RBC 4.19 M/mm3 (4.00-5.60); RDW 13.5 % (11.9-15.9); WHITE BLOOD COUNT 11.7 K/mm3 (4.0-10.0)
[2023-12-22 12:26] LABS: INR 1.05 (0.83-1.09); PROTHROMBIN TIME (PATIENT) 12.1 SEC (9.7-13.0)
[2023-12-22 12:29] LABS: ACTIVATED PTT 33.8 SECONDS (25.2-36.5)
[2023-12-22 12:34] LABS: POTASSIUM 4.2 mmol/L (3.5-5.1)
[2023-12-22 12:35] LABS: CALCIUM 9.1 mg/dL (8.5-10.1)
[2023-12-22 12:37] LABS: ALBUMIN 3.7 g/dl (3.4-5.0); BLOOD UREA NITROGEN 16.1 mg/dL (7-18)
[2023-12-22 12:39] LABS: CREATININE 0.7 mg/dL (0.55-1.3)
[2023-12-22 12:41] LABS: BILIRUBIN,TOTAL 0.4 mg/dL (0.2-1); TOT PROT 7.6 g/dl (6.4-8.2)
[2023-12-22 12:44] LABS: N-TERMINAL BNP 232.6 pg/ml (5-125)
[2023-12-22] MEDS ORDERED: PIPERACILLIN/TAZOB 4.5 GM 4.5 GM/100 ML BAG IVPB ONE (13:02)
[2023-12-22] MEDS ORDERED: VANCOMYCIN 1 GRAM (PRE-DOCKED) 1,000 MG/250 ML BAG IVPB ONE (13:03)
[2023-12-22] MEDS ORDERED: AZITHROMYCIN IVPB 500 MG/250 ML BAG IVPB ONE (13:03)
[2023-12-22] MEDS: PIPERACILLIN/TAZOB 4.5 GM 4.5 GM in DEXTROSE 5%-WATER 100 ML IVPB ONE (13:15)
[2023-12-22] MEDS: AZITHROMYCIN IVPB 500 MG in DEXTROSE 5%-WATER - 250 ML IVPB ONE (13:29)
[2023-12-22] MEDS: VANCOMYCIN 1,000 MG in DEXTROSE 5%-WATER - 250 ML IVPB ONE (15:18)
[2023-12-22] MEDS ORDERED: FUROSEMIDE 40 MG/4 ML INJECTABLE VIAL ONE (16:04)
[2023-12-22] MEDS: FUROSEMIDE 40 MG/4 ML INJECTABLE VIAL IVPUSH ONE (16:11)
[2023-12-22 18:44] LABS: PH,URINE 5.5 (5.0-8.0); URINE APPEARANCE CLEAR; URINE BILIRUBIN NEGATIVE (NEGATIVE); URINE COLOR YELLOW; URINE GLUCOSE (UA) NEGATIVE (NEGATIVE); URINE KETONE NEGATIVE (NEGATIVE); URINE LEUK ESTERASE NEGATIVE (NEGATIVE); URINE NITRITE NEGATIVE (NEGATIVE); URINE PROTEIN NEGATIVE (NEGATIVE); URINE UROBILINOGEN 0.2 mg/dL (0.2-1.0)
[2023-12-22] MEDS: LORazepam 2 MG TABLET PO PRN (21:11)
[2023-12-22] MEDS: HEPARIN NA (PORCINE) 5,000 UNITS/ML 1ML VIAL SQ SCH (21:12)
[2023-12-22] MEDS ORDERED: ALBUTEROL SO4 2.5/IPRATROPIUM 0.5 INH SOL 3 ML VIAL.NEB. NEB SCH (22:10)
[2023-12-23 07:53] LABS: BASO % 0.2 % (0-2.0); HEMATOCRIT 38.4 % (35.4-49); HEMOGLOBIN 12.7 GM/dL (11.7-16.9); LYMPH % 8.6 % (8-40); MCHC 33.2 g/dl (32.0-35.9); MEAN CELL VOLUME 93.3 fl (80-96); MEAN PLT VOLUME 8.6 fl (7.5-11.1); MONO % 7.2 % (3.8-10.2); PLATELET COUNT 99 10^3/uL (134-434); RBC 4.11 M/mm3 (4.00-5.60); WHITE BLOOD COUNT 11.7 K/mm3 (4.0-10.0)
[2023-12-23 08:08] LABS: POTASSIUM 4.5 mmol/L (3.5-5.1)
[2023-12-23 08:10] LABS: ALBUMIN 3.4 g/dl (3.4-5.0)
[2023-12-23 08:11] LABS: BLOOD UREA NITROGEN 18.6 mg/dL (7-18); MAGNESIUM 2.2 mg/dL (1.8-2.4)
[2023-12-23 08:14] LABS: CREATININE 0.7 mg/dL (0.55-1.3)
[2023-12-23 08:15] LABS: BILIRUBIN,TOTAL 0.4 mg/dL (0.2-1); TOT PROT 6.9 g/dl (6.4-8.2)
[2023-12-23] MEDS ORDERED: CEFTRIAXONE 1 GM in DEXTROSE 5%-WATER - 50 ML IVPB SCH (10:00)
[2023-12-23] MEDS ORDERED: AZITHROMYCIN IVPB 500 MG/250 ML BAG IVPB SCH (10:00)
[2023-12-23] MEDS: FUROSEMIDE 40 MG/4 ML INJECTABLE VIAL IVPUSH SCH (11:33)
[2023-12-23] MEDS: methylPREDNISolone NA SUCC 40 MG/1 ML VIAL IVPUSH SCH (11:33)
[2023-12-23] MEDS ORDERED: CEFTRIAXONE 1 G/50 ML PREMIX 50 ML IVPB SCH (15:23)
[2023-12-23] MEDS: CEFTRIAXONE 1 G/50 ML PREMIX 50 ML IVPB SCH (16:21)
[2023-12-23] MEDS: LORazepam 1 MG TABLET PO PRN (17:56)
[2023-12-23] MEDS: methaDONE 40 MG, methaDONE 20 MG PO ONE (18:27)
[2023-12-23] MEDS: DOXYCYCLINE INJECTION 100 MG in DEXTROSE 5%-WATER 100 ML IVPB SCH (22:42)
[2023-12-24 07:32] LABS: BASO % 0.2 % (0-2.0); EOS % 0.3 % (0-4.5); HEMATOCRIT 37.8 % (35.4-49); HEMOGLOBIN 12.5 GM/dL (11.7-16.9); LYMPH % 19.1 % (8-40); MCH 30.5 pg (25.7-33.7); MCHC 33.2 g/dl (32.0-35.9); MEAN CELL VOLUME 91.9 fl (80-96); MEAN PLT VOLUME 7.8 fl (7.5-11.1); MONO % 8.2 % (3.8-10.2); NEUT % 72.2 % (42.8-82.8); PLATELET COUNT 213 10^3/uL (134-434); RBC 4.11 M/mm3 (4.00-5.60); RDW 13.4 % (11.9-15.9)
[2023-12-24 08:12] LABS: CALCIUM 8.8 mg/dL (8.5-10.1)
[2023-12-24 08:13] LABS: ALBUMIN 3.4 g/dl (3.4-5.0); BLOOD UREA NITROGEN 16.2 mg/dL (7-18); MAGNESIUM 2.1 mg/dL (1.8-2.4)
[2023-12-24 08:16] LABS: CREATININE 0.6 mg/dL (0.55-1.3)
[2023-12-24 08:18] LABS: BILIRUBIN,TOTAL 0.3 mg/dL (0.2-1); TOT PROT 6.9 g/dl (6.4-8.2)
[2023-12-24] MEDS: LORazepam 1 MG TABLET PO PRN (15:21)
[2023-12-24] MEDS: methaDONE 40 MG, methaDONE 20 MG PO ONE (17:50)
[2023-12-25 08:23] LABS: BASO % 0.4 % (0-2.0); EOS % 0.5 % (0-4.5); HEMATOCRIT 39.6 % (35.4-49); HEMOGLOBIN 13.4 GM/dL (11.7-16.9); LYMPH % 24.7 % (8-40); MCH 30.7 pg (25.7-33.7); MCHC 33.9 g/dl (32.0-35.9); MEAN CELL VOLUME 90.5 fl (80-96); NEUT % 65.4 % (42.8-82.8); PLATELET COUNT 239 10^3/uL (134-434); RBC 4.38 M/mm3 (4.00-5.60); RDW 13.7 % (11.9-15.9); WHITE BLOOD COUNT 12.4 K/mm3 (4.0-10.0)
[2023-12-25 08:57] LABS: POTASSIUM 4.3 mmol/L (3.5-5.1)
[2023-12-25 09:13] LABS: ALBUMIN 3.6 g/dl (3.4-5.0); BLOOD UREA NITROGEN 19.9 mg/dL (7-18); CALCIUM 9.3 mg/dL (8.5-10.1); MAGNESIUM 2.3 mg/dL (1.8-2.4)
[2023-12-25 09:16] LABS: CREATININE 0.7 mg/dL (0.55-1.3)
[2023-12-25 09:18] LABS: BILIRUBIN,TOTAL 0.3 mg/dL (0.2-1); TOT PROT 7.4 g/dl (6.4-8.2)
[2023-12-25] MEDS ORDERED: methaDONE 40 MG, methaDONE 20 MG PO SCH (13:45)
[2023-12-25] MEDS ORDERED: methaDONE 40 MG, methaDONE 20 MG PO ONE (13:45)
[2023-12-25] MEDS: methaDONE 40 MG, methaDONE 20 MG PO ONE (14:05)
[2023-12-25 14:48] VITALS: BMI 31.6
[2023-12-25] MEDS: ACETAMINOPHEN 325 MG TABLET (FP) PO PRN (16:52)
[2023-12-25] MEDS: LORazepam 1 MG TABLET PO SCH (18:31)
[2023-12-26] MEDS ORDERED: methaDONE HCL 10 MG TABLET PO SCH (06:00)
[2023-12-26] MEDS: methaDONE 40 MG, methaDONE 20 MG PO SCH (06:35)
[2023-12-26 08:29] LABS: BASO % 0.3 % (0-2.0); EOS % 0.8 % (0-4.5); HEMATOCRIT 41.4 % (35.4-49); HEMOGLOBIN 13.8 GM/dL (11.7-16.9); LYMPH % 24.9 % (8-40); MCH 30.4 pg (25.7-33.7); MCHC 33.3 g/dl (32.0-35.9); MEAN CELL VOLUME 91.4 fl (80-96); MEAN PLT VOLUME 7.6 fl (7.5-11.1); MONO % 10.1 % (3.8-10.2); NEUT % 63.9 % (42.8-82.8); PLATELET COUNT 253 10^3/uL (134-434); RBC 4.53 M/mm3 (4.00-5.60); RDW 13.6 % (11.9-15.9); WHITE BLOOD COUNT 12.2 K/mm3 (4.0-10.0)
[2023-12-26 08:30] LABS: POTASSIUM 4.5 mmol/L (3.5-5.1)
[2023-12-26 08:37] LABS: CALCIUM 9.5 mg/dL (8.5-10.1)
[2023-12-26 08:38] LABS: ALBUMIN 3.7 g/dl (3.4-5.0)
[2023-12-26 08:39] LABS: BLOOD UREA NITROGEN 22.2 mg/dL (7-18)
[2023-12-26 08:41] LABS: CREATININE 0.7 mg/dL (0.55-1.3)
[2023-12-26 08:43] LABS: BILIRUBIN,TOTAL 0.4 mg/dL (0.2-1); TOT PROT 7.4 g/dl (6.4-8.2)
[2023-12-26] MEDS: LORazepam 1 MG TABLET PO PRN (14:52)
[2023-12-26] MEDS: DOXYCYCLINE HYCLATE 100 MG CAPSULE PO SCH (18:27)
[2023-12-27] MEDS: LORazepam 1 MG TABLET PO SCH (05:56)
[2023-12-28] MEDS: LORazepam 0.5 MG TABLET PO SCH (05:13)
[2023-12-28] MEDS: LORazepam 0.5 MG TABLET PO PRN (14:41)
[2023-12-28 15:17] VITALS: BP 124/82; PULSE 90; RESP 18; TEMP 99
[2023-12-29] MEDS ORDERED: LORazepam 0.5 MG TABLET PO ONE (05:00)
== END 2023-12-28 15:24 | disposition other institution (70) | DRG 193 ==
LOC: JER 11:16 → JERBED 13:14 → J4W 20:55
PROVIDERS: ADMIT Internal Medicine; ATTEND Internal Medicine
DX: J18.9 Pneumonia, unspecified organism (principal); J96.01 Acute respiratory failure with hypoxia; J96.02 Acute respiratory failure with hypercapnia; J44.0 Chronic obstructive pulmonary disease with (acute) lower respiratory infection; F10.239 Alcohol dependence with withdrawal, unspecified; F11.20 Opioid dependence, uncomplicated; E87.1 Hypo-osmolality and hyponatremia; F17.210 Nicotine dependence, cigarettes, uncomplicated; E66.9 Obesity, unspecified; Z68.31 Body mass index [BMI] 31.0-31.9, adult
CPT/HCPCS: 0241U-QW; 36415; 71045-TC-FY; 71250-TC; 80053; 80061; 81003; 82803; 82962; 83036; 83605; 83735; 83880; 84443; 84484; 85025; 85610; 85730; 86850; 86900; 86901; 87040; 87086; 93005; 93010; 93306-TC; 94640; 94660; 97116-GP; 97161-GP; 99285-25; J1644

== ENCOUNTER 2023-12-28 16:16 | Inpatient (IN) | payer OTHER ==
[~2023-12-28 16:16] MED LIST changes: -ACETAMINOPHEN 325 MG TABLET (FP) PO PRN; +BENZOCAINE/MENTHOL (CHLORASEPTIC ) LOZENGE MM PRN; +BENZONATATE 200 MG CAPSULE PO PRN; -IBUPROFEN 400 MG TABLET (FP) PO PRN; -MAG HYDROX/AL HYDROX/SIMETH 30 ML UNIT-DOSE CUP PO PRN; -MAGNESIUM CITRATE 300 ML BOTTLE PO PRN; -MENTHOL/PHENOL 1 EACH UD MM PRN; -METHADONE HCL 10 MG TABLET (FOR DETOX USE ONLY) PO ONE; +NALOXONE (NARCAN) HCL 4 MG/0.1 ML SPRAY NS PRN; -NICOTINE POLACRILEX 2 MG GUM BC PRN; -P-EPHED 60MG/TRIPROLIDI 2.5MG TABLET PO PRN; +POLYETHYLENE GLYCOL (HEALTHYLAX) 3350 17 GM PACKET PO PRN; +guaiFENesin 600 MG TABLET.ER (FP) PO PRN; -guaiFENesin/D-METHORPHAN HB 10 ML UNIT-DOSE CUPS PO PRN
[2023-12-28 16:40] VITALS: BMI 29.0
[2023-12-28] MEDS: ALBUTEROL SO4 2.5/IPRATROPIUM 0.5 INH SOL 3 ML VIAL.NEB. NEB SCH (20:00)
[2023-12-28] MEDS: PRENATAL VITAMINS W/ FOLIC ACID TABLET (FP) PO SCH (21:17)
[2023-12-28] MEDS: MELATONIN 5 MG TABLETS PO SCH (21:19)
[2023-12-28] MEDS: THIAMINE 100 MG TABLET PO SCH (21:19)
[2023-12-28] MEDS: ACETAMINOPHEN 325 MG TABLET (FP) PO PRN (22:26)
[2023-12-28] MEDS: hydrOXYzine PAMOATE 25 MG CAPSULE (FP) PO PRN (22:26)
[2023-12-29] MEDS ORDERED: methaDONE HCL 40 MG DISPERSABLE TABLET PO SCH (06:00)
[2023-12-29] MEDS: methaDONE 40 MG, methaDONE 20 MG PO SCH (06:52)
[2023-12-29] MEDS: predniSONE 20 MG TABLET (UD) PO ONE (10:13)
[2023-12-29] MEDS: TUBERCULIN PPD 5 TU/0.1ML VIAL ID ONE (10:16)
[2023-12-29] MEDS ORDERED: ALBUTEROL SO4 2.5/IPRATROPIUM 0.5 INH SOL 3 ML VIAL.NEB. NEB PRN (15:41)
[2023-12-29] MEDS: IBUPROFEN 600 MG TABLET (FP) PO PRN (17:51)
[2023-12-29] MEDS: SUVOREXANT 10 MG TABLET PO PRN (21:19)
[2023-12-30] MEDS: predniSONE 10 MG TABLET (UD) PO ONE (10:33)
[2023-12-31] MEDS: predniSONE 20 MG TABLET (UD) PO ONE (09:43)
[2024-01-01] MEDS: predniSONE 10 MG TABLET (UD) PO SCH (09:46)
[2024-01-01] MEDS ORDERED: methaDONE HCL 40 MG DISPERSABLE TABLET PO SCH (16:24)
[2024-01-01] MEDS: diazePAM 5 MG TABLET PO SCH (17:33)
[2024-01-01] MEDS: MELATONIN 5 MG TABLETS PO SCH (21:18)
[2024-01-02] MEDS: methaDONE 40 MG, methaDONE 10 MG PO SCH (06:08)
[2024-01-02] MEDS: diazePAM 5 MG TABLET PO PRN (09:48)
[2024-01-05] MEDS: IBUPROFEN 400 MG TABLET (FP) PO PRN (21:14)
[2024-01-08] MEDS ORDERED: methaDONE HCL 40 MG DISPERSABLE TABLET PO SCH (10:25)
[2024-01-09] MEDS: methaDONE HCL 40 MG DISPERSABLE TABLET PO SCH (06:13)
[2024-01-12] MEDS ORDERED: ONDANSETRON *ODT* 4 MG TABLET SL PRN (10:40)
[2024-01-12] MEDS ORDERED: BISMUTH SUBSALICYLATE 262 MG/15 ML BTL PO PRN (10:40)
[2024-01-12] MEDS ORDERED: BENZONATATE 200 MG CAPSULE PO PRN (10:40)
[2024-01-12] MEDS ORDERED: guaiFENesin 600 MG TABLET.ER (FP) PO PRN (10:40)
[2024-01-12] MEDS ORDERED: METHOCARBAMOL 500 MG TABLET PO PRN (10:40)
[2024-01-12] MEDS ORDERED: DICYCLOMINE HCL 10 MG CAPSULE PO PRN (10:40)
[2024-01-13] MEDS ORDERED: methaDONE HCL 10 MG TABLET PO ONE (06:00)
[2024-01-14] MEDS: methaDONE HCL 10 MG TABLET PO ONE (06:19)
[2024-01-15] MEDS ORDERED: methaDONE HCL 10 MG TABLET PO ONE (06:00)
[2024-01-16] MEDS: methaDONE HCL 10 MG TABLET PO ONE (06:08)
[2024-01-18] MEDS: methaDONE HCL 10 MG TABLET PO ONE (05:19)
[2024-01-19] MEDS: MAG HYDROX/AL HYDROX/SIMETH 30 ML UNIT-DOSE CUP PO PRN (03:45)
[2024-01-22] MEDS: predniSONE 5 MG TABLET (UD) PO SCH (10:04)
[2024-01-24 06:59] VITALS: BP 133/72; PULSE 93; RESP 18; TEMP 96.4
[2024-01-24] MEDS: NALOXONE (NYS OPIOID OVERDOSE PROGRAM) 4 MG/0.1 ML SPRAY NS SCH (10:28)
== END 2024-01-24 11:35 | disposition home or self-care (01) | DRG 895 ==
LOC: YASAS 16:16 → Y5N 19:51
PROVIDERS: ADMIT Allergy & Immunology; ATTEND Psychiatry & Neurology Pain Medicine
PROC: HZ42ZZZ Group Counseling for Substance Abuse Treatment, Cognitive-Behavioral (ICD-10-PCS; principal; 2023-12-28)
DX: F11.20 Opioid dependence, uncomplicated (principal); F14.20 Cocaine dependence, uncomplicated; Z59.00 Homelessness unspecified; F10.20 Alcohol dependence, uncomplicated; F17.210 Nicotine dependence, cigarettes, uncomplicated; F19.94 Other psychoactive substance use, unspecified with psychoactive substance-induced mood disorder; F19.982 Other psychoactive substance use, unspecified with psychoactive substance-induced sleep disorder; J44.9 Chronic obstructive pulmonary disease, unspecified; M54.59 Other low back pain; G89.29 Other chronic pain; M19.90 Unspecified osteoarthritis, unspecified site; M19.09 Primary osteoarthritis, other specified site; N40.0 Benign prostatic hyperplasia without lower urinary tract symptoms; Z86.19 Personal history of other infectious and parasitic diseases
CPT/HCPCS: 36415; 80305; 80307; 86803; 87522; 93005; 93010; 94640

== ENCOUNTER 2024-02-17 08:16 | Inpatient (IN) | payer OTHER ==
[2024-02-17 08:56] VITALS: BMI 32.1
[2024-02-17] MEDS ORDERED: methaDONE HCL 10 MG TABLET (FOR DETOX USE ONLY) PO PRN (09:05)
[2024-02-17] MEDS ORDERED: LOPERAMIDE HCL 2 MG CAPSULE PO PRN (09:07)
[2024-02-17] MEDS ORDERED: ACETAMINOPHEN 325 MG TABLET (FP) PO PRN (09:07)
[2024-02-17] MEDS ORDERED: BISMUTH SUBSALICYLATE 524 MG/30 ML PO PRN (09:07)
[2024-02-17] MEDS ORDERED: NICOTINE POLACRILEX 2 MG GUM BUC PRN (09:07)
[2024-02-17] MEDS ORDERED: POLYETHYLENE GLYCOL (HEALTHYLAX) 3350 17 GM PACKET PO PRN (09:07)
[2024-02-17] MEDS ORDERED: P-EPHED 60MG/TRIPROLIDI 2.5MG TABLET PO PRN (09:07)
[2024-02-17] MEDS ORDERED: NICOTINE POLACRILEX 2 MG LOZENGE BC PRN (09:07)
[2024-02-17] MEDS ORDERED: BENZOCAINE/MENTHOL (CHLORASEPTIC ) LOZENGE MM PRN (09:07)
[2024-02-17] MEDS ORDERED: MAGNESIUM HYDROX 2400MG/30ML ORAL SUSPENSION 30 ML CUP PO PRN (09:07)
[2024-02-17] MEDS ORDERED: NALOXONE (NARCAN) HCL 4 MG/0.1 ML SPRAY NS PRN (09:07)
[2024-02-17] MEDS ORDERED: guaiFENesin 600 MG TABLET.ER (FP) PO PRN (09:07)
[2024-02-17] MEDS ORDERED: BENZONATATE 200 MG CAPSULE PO PRN (09:07)
[2024-02-17] MEDS ORDERED: ONDANSETRON *ODT* 4 MG TABLET SL PRN (09:07)
[2024-02-17] MEDS ORDERED: PRENATAL VITAMINS W/ FOLIC ACID TABLET (FP) PO ONE (09:41)
[2024-02-17] MEDS ORDERED: IBUPROFEN 400 MG TABLET (FP) PO ONE (09:41)
[2024-02-17] MEDS: PRENATAL VITAMINS W/ FOLIC ACID TABLET (FP) PO SCH (09:45)
[2024-02-17] MEDS: IBUPROFEN 400 MG TABLET (FP) PO PRN (09:45)
[2024-02-17] MEDS ORDERED: diazePAM 5 MG TABLET ONE (09:49)
[2024-02-17] MEDS: diazePAM 5 MG TABLET PO PRN (09:52)
[2024-02-17] MEDS: methaDONE HCL 10 MG TABLET (FOR DETOX USE ONLY) PO ONE (13:15)
[2024-02-17] MEDS: THIAMINE 100 MG TABLET PO SCH (22:38)
[2024-02-17] MEDS: MELATONIN 5 MG TABLETS PO SCH (22:38)
[2024-02-18] MEDS: MAG HYDROX/AL HYDROX/SIMETH 30 ML UNIT-DOSE CUP PO PRN (09:53)
[2024-02-18] MEDS ORDERED: ALBUTEROL SO4 HFA INHALER IH PRN (10:43)
[2024-02-18] MEDS: cloNIDine HCL 0.1 MG TABLET PO PRN (13:27)
[2024-02-19] MEDS: methaDONE HCL 10 MG TABLET (FOR DETOX USE ONLY) PO ONE (09:21)
[2024-02-20] MEDS: diazePAM 5 MG TABLET PO SCH (10:32)
[2024-02-20] MEDS: IBUPROFEN 600 MG TABLET (FP) PO PRN (14:05)
[2024-02-21] MEDS: methaDONE HCL 10 MG TABLET (FOR DETOX USE ONLY) PO ONE (09:07)
[2024-02-21] MEDS: NALOXONE (NYS OPIOID OVERDOSE PROGRAM) 4 MG/0.1 ML SPRAY NS SCH (16:53)
[2024-02-22 08:38] VITALS: BP 122/62; PULSE 96; RESP 18; TEMP 97.8
== END 2024-02-22 09:15 | disposition other institution (70) | DRG 897 ==
LOC: YASAS 08:16 → Y6N 09:48
PROVIDERS: ADMIT Neuromusculoskeletal Medicine & OMM; ATTEND Family Medicine Addiction Medicine
PROC: HZ2ZZZZ Detoxification Services for Substance Abuse Treatment (ICD-10-PCS; principal; 2024-02-17)
DX: F11.23 Opioid dependence with withdrawal (principal); F10.230 Alcohol dependence with withdrawal, uncomplicated; F14.10 Cocaine abuse, uncomplicated; F12.10 Cannabis abuse, uncomplicated; F17.210 Nicotine dependence, cigarettes, uncomplicated; I10 Essential (primary) hypertension
CPT/HCPCS: 0241U-QW; 71046-TC-FY; 80305; 80307; 87811

== ENCOUNTER 2024-04-22 09:55 | Inpatient (IN) | payer OTHER ==
[2024-04-22 10:34] VITALS: BMI 32.1
[2024-04-22] MEDS ORDERED: POLYETHYLENE GLYCOL (HEALTHYLAX) 3350 17 GM PACKET PO PRN (11:13)
[2024-04-22] MEDS ORDERED: ONDANSETRON *ODT* 4 MG TABLET SL PRN (11:13)
[2024-04-22] MEDS ORDERED: LOPERAMIDE HCL 2 MG CAPSULE PO PRN (11:13)
[2024-04-22] MEDS ORDERED: BENZOCAINE/MENTHOL (CHLORASEPTIC ) LOZENGE MM PRN (11:13)
[2024-04-22] MEDS ORDERED: BISMUTH SUBSALICYLATE 524 MG/30 ML PO PRN (11:13)
[2024-04-22] MEDS ORDERED: DICYCLOMINE HCL 10 MG CAPSULE PO PRN (11:13)
[2024-04-22] MEDS ORDERED: MAGNESIUM HYDROX 2400MG/30ML ORAL SUSPENSION 30 ML CUP PO PRN (11:13)
[2024-04-22] MEDS ORDERED: guaiFENesin 600 MG TABLET.ER (FP) PO PRN (11:13)
[2024-04-22] MEDS ORDERED: NALOXONE (NARCAN) HCL 4 MG/0.1 ML SPRAY NS PRN (11:13)
[2024-04-22] MEDS ORDERED: BENZONATATE 200 MG CAPSULE PO PRN (11:13)
[2024-04-22] MEDS ORDERED: MAG HYDROX/AL HYDROX/SIMETH 30 ML UNIT-DOSE CUP PO PRN (11:13)
[2024-04-22] MEDS ORDERED: diazePAM 5 MG TABLET ONE (11:36)
[2024-04-22] MEDS: diazePAM 5 MG TABLET PO SCH (11:39)
[2024-04-22] MEDS: ACETAMINOPHEN 325 MG TABLET (FP) PO PRN (17:30)
[2024-04-22] MEDS ORDERED: P-EPHED 60MG/TRIPROLIDI 2.5MG TABLET PO PRN (20:23)
[2024-04-22] MEDS: THIAMINE 100 MG TABLET PO SCH (22:56)
[2024-04-22] MEDS: MELATONIN 5 MG TABLETS PO SCH (22:58)
[2024-04-22] MEDS: IBUPROFEN 400 MG TABLET (FP) PO PRN (22:59)
[2024-04-23] MEDS: methaDONE HCL 40 MG DISPERSABLE TABLET PO SCH (05:51)
[2024-04-23] MEDS: PRENATAL VITAMINS W/ FOLIC ACID TABLET (FP) PO SCH (10:23)
[2024-04-23] MEDS: FLU VACCINE (FLULAVAL) PF 45 MCG/0.5 ML SYRINGE 2024-2025 IM ONE (11:59)
[2024-04-23] MEDS: FLUTICASONE PROP 0.05% 16 GM NASAL SPRAY NS SCH (13:41)
[2024-04-23] MEDS: MIRTAZAPINE 15 MG TABLET (FP) PO SCH (22:17)
[2024-04-24] MEDS: diazePAM 5 MG TABLET PO SCH (06:06)
[2024-04-24] MEDS: diazePAM 5 MG TABLET PO PRN (10:16)
[2024-04-24] MEDS: METHOCARBAMOL 500 MG TABLET PO PRN (10:16)
[2024-04-24] MEDS: IBUPROFEN 600 MG TABLET (FP) PO PRN (13:15)
[2024-04-25] MEDS: diazePAM 5 MG TABLET PO SCH (06:22)
[2024-04-25] MEDS: hydrOXYzine PAMOATE 25 MG CAPSULE (FP) PO PRN (13:55)
[2024-04-26] MEDS: diazePAM 5 MG TABLET PO ONE (06:32)
[2024-04-27] MEDS: diazePAM 5 MG TABLET PO ONE (05:59)
[2024-04-27 07:24] VITALS: PULSE 81
[2024-04-27 08:57] VITALS: BP 130/78; RESP 18; TEMP 97.1
== END 2024-04-27 10:08 | disposition home or self-care (01) | DRG 897 ==
LOC: YASAS 09:55 → Y6N 11:40
PROVIDERS: ADMIT Allergy & Immunology; ATTEND Allergy & Immunology
PROC: HZ2ZZZZ Detoxification Services for Substance Abuse Treatment (ICD-10-PCS; principal; 2024-04-22)
DX: F10.230 Alcohol dependence with withdrawal, uncomplicated (principal); F11.20 Opioid dependence, uncomplicated; F19.282 Other psychoactive substance dependence with psychoactive substance-induced sleep disorder; Z59.00 Homelessness unspecified; F13.230 Sedative, hypnotic or anxiolytic dependence with withdrawal, uncomplicated; F17.210 Nicotine dependence, cigarettes, uncomplicated; J44.9 Chronic obstructive pulmonary disease, unspecified; N40.0 Benign prostatic hyperplasia without lower urinary tract symptoms; Z87.01 Personal history of pneumonia (recurrent); Z87.11 Personal history of peptic ulcer disease; Z56.0 Unemployment, unspecified
CPT/HCPCS: 80305; 80307; 90656; G0008

== ENCOUNTER 2024-07-27 17:57 | Inpatient (IN) | payer OTHER ==
[2024-07-27 18:47] VITALS: BMI 34.7
[2024-07-27] MEDS ORDERED: guaiFENesin 600 MG TABLET.ER (FP) PO PRN (19:46)
[2024-07-27] MEDS ORDERED: ONDANSETRON *ODT* 4 MG TABLET SL PRN (19:46)
[2024-07-27] MEDS ORDERED: IBUPROFEN 600 MG TABLET (FP) PO PRN (19:46)
[2024-07-27] MEDS ORDERED: DICYCLOMINE HCL 10 MG CAPSULE PO PRN (19:46)
[2024-07-27] MEDS ORDERED: IBUPROFEN 400 MG TABLET (FP) PO PRN (19:46)
[2024-07-27] MEDS ORDERED: NALOXONE (NARCAN) HCL 4 MG/0.1 ML SPRAY NS PRN (19:46)
[2024-07-27] MEDS ORDERED: BISMUTH SUBSALICYLATE 524 MG/30 ML PO PRN (19:46)
[2024-07-27] MEDS ORDERED: BENZONATATE 200 MG CAPSULE PO PRN (19:46)
[2024-07-27] MEDS ORDERED: BENZOCAINE/MENTHOL (CHLORASEPTIC ) LOZENGE MM PRN (19:46)
[2024-07-27] MEDS ORDERED: MAG HYDROX/AL HYDROX/SIMETH 30 ML UNIT-DOSE CUP PO PRN (19:46)
[2024-07-27] MEDS ORDERED: LOPERAMIDE HCL 2 MG CAPSULE PO PRN (19:46)
[2024-07-27] MEDS ORDERED: MAGNESIUM HYDROX 2400MG/30ML ORAL SUSPENSION 30 ML CUP PO PRN (19:46)
[2024-07-27] MEDS ORDERED: POLYETHYLENE GLYCOL (HEALTHYLAX) 3350 17 GM PACKET PO PRN (19:46)
[2024-07-27] MEDS: ACETAMINOPHEN 325 MG TABLET (FP) PO PRN (20:59)
[2024-07-27] MEDS: hydrOXYzine PAMOATE 25 MG CAPSULE (FP) PO PRN (20:59)
[2024-07-27] MEDS: THIAMINE 100 MG TABLET PO SCH (21:00)
[2024-07-27] MEDS: MELATONIN 5 MG TABLETS PO SCH (21:02)
[2024-07-28 09:57] LABS: HEMATOCRIT 44.4 % (40.1-51.0); HEMOGLOBIN 14.5 g/dL (13.7-17.5); MCHC 32.7 g/dl (32.3-36.5); MEAN CELL VOLUME 92.9 fl (79.0-92.2); MEAN PLT VOLUME 9.6 fl (9.4-12.4); PLATELET COUNT 256 x10^3/uL (163-337)
[2024-07-28 09:59] LABS: CHLORIDE 102 mmol/L (98-107); POTASSIUM 4.6 mmol/L (3.5-5.1); SODIUM 137 mmol/L (136-145)
[2024-07-28 10:02] LABS: ALBUMIN 3.2 g/dl (3.4-5.0); ANION GAP 4 mmol/L (4-13); CALCIUM 9.1 mg/dL (8.5-10.1); CO2 31 mmol/L (21-32); GLUCOSE,RANDOM 99 mg/dL (74-106)
[2024-07-28 10:05] LABS: SGOT/AST 50 U/L (15-37); SGPT/ALT 42 U/L (13-61)
[2024-07-28 10:06] LABS: CREATININE 0.7 mg/dL (0.55-1.3)
[2024-07-28 10:07] LABS: BILIRUBIN,TOTAL 0.7 mg/dL (0.2-1); TOT PROT 6.1 g/dl (6.4-8.2)
[2024-07-28 10:08] LABS: ALK PHOS 105 U/L (45-117)
[2024-07-28] MEDS ORDERED: ALBUTEROL SO4 HFA INHALER IH PRN (10:46)
[2024-07-28] MEDS: PRENATAL VITAMINS W/ FOLIC ACID TABLET (FP) PO SCH (10:55)
[2024-07-28] MEDS: diazePAM 5 MG TABLET PO SCH (11:09)
[2024-07-28] MEDS: methaDONE HCL 40 MG DISPERSABLE TABLET PO ONE (11:45)
[2024-07-28] MEDS: TAMSULOSIN HCL 0.4 MG CAP PO SCH (22:25)
[2024-07-29] MEDS: methaDONE HCL 40 MG DISPERSABLE TABLET PO SCH (08:10)
[2024-07-29] MEDS: diazePAM 5 MG TABLET PO PRN (14:21)
[2024-07-30] MEDS: diazePAM 5 MG TABLET PO SCH (05:52)
[2024-07-30] MEDS: METHOCARBAMOL 500 MG TABLET PO PRN (10:25)
[2024-07-31] MEDS: diazePAM 5 MG TABLET PO SCH (06:22)
[2024-08-01] MEDS: diazePAM 5 MG TABLET PO ONE (05:47)
[2024-08-01 06:11] VITALS: TEMP 97.9
[2024-08-01 08:34] VITALS: BP 125/81; PULSE 101; RESP 18
== END 2024-08-01 10:08 | disposition home or self-care (01) | DRG 897 ==
LOC: YASAS 17:57 → Y3N 20:22
PROVIDERS: ADMIT Family Medicine; ATTEND Family Medicine Addiction Medicine
PROC: HZ2ZZZZ Detoxification Services for Substance Abuse Treatment (ICD-10-PCS; principal; 2024-07-27)
DX: F10.230 Alcohol dependence with withdrawal, uncomplicated (principal); F11.20 Opioid dependence, uncomplicated; Z59.00 Homelessness unspecified; F13.230 Sedative, hypnotic or anxiolytic dependence with withdrawal, uncomplicated; M17.0 Bilateral primary osteoarthritis of knee; M54.50 Low back pain, unspecified; G89.29 Other chronic pain; N40.0 Benign prostatic hyperplasia without lower urinary tract symptoms
CPT/HCPCS: 36415; 80053; 80305; 80307; 85027; 86780; 93005; 93010

== ENCOUNTER 2024-08-01 14:06 | Emergency (ER) | payer OTHER ==
[2024-08-01 14:26] VITALS: TEMP 98.2; BMI 21.8
[2024-08-01] MEDS: LACTATED RINGERS SOLUTION 1000 ML INFUS.BAG IV ONE (15:08)
[2024-08-01 15:12] LABS: ABSOLUTE IMMATURE GRANULOCYTES 0.11 x10^3/uL (0.0-0.031); BASOPHILS # 0.03 x10^3/uL (0.01-0.08); EOSINOPHIL % 0.8 % (0.8-7.0); EOSINOPHILS # 0.11 x10^3/uL (0.04-0.54); HEMOGLOBIN 13.6 g/dL (13.7-17.5); MCHC 31.6 g/dl (32.3-36.5); MEAN CELL VOLUME 95.3 fl (79.0-92.2); MEAN PLT VOLUME 9.1 fl (9.4-12.4); MONOCYTE # 0.85 x10^3/uL (0.30-0.82); MONOCYTE % 6.4 % (5.3-12.2); PLATELET COUNT 202 x10^3/uL (163-337)
[2024-08-01 15:46] LABS: POTASSIUM 4.6 mmol/L (3.5-5.1)
[2024-08-01 15:48] LABS: CALCIUM 9.7 mg/dL (8.5-10.1)
[2024-08-01 15:49] LABS: ALBUMIN 3.5 g/dl (3.4-5.0); BLOOD UREA NITROGEN 19.6 mg/dL (7-18)
[2024-08-01 15:52] LABS: CREATININE 0.6 mg/dL (0.55-1.3)
[2024-08-01 15:54] LABS: BILIRUBIN,TOTAL 0.4 mg/dL (0.2-1); TOT PROT 6.8 g/dl (6.4-8.2)
[2024-08-01] MEDS ORDERED: AZITHROMYCIN 500 MG TABLET ONE (16:14)
[2024-08-01] MEDS: AZITHROMYCIN 250 MG TABLET PO ONE (16:22)
[2024-08-01 16:37] VITALS: BP 124/80
[2024-08-01 16:40] VITALS: PULSE 98; RESP 18
== END 2024-08-01 17:51 | disposition home or self-care (01) ==
LOC: JER 14:06
DX: T67.5XXA Heat exhaustion, unspecified, initial encounter (principal); J15.9 Unspecified bacterial pneumonia; R53.1 Weakness; R00.0 Tachycardia, unspecified; X30.XXXA Exposure to excessive natural heat, initial encounter
CPT/HCPCS: 36415; 71045-TC-FY; 80053; 83735; 84484; 85025; 93005; 93010; 99285-25

== ENCOUNTER 2024-10-12 22:39 | Emergency (ER) | payer OTHER ==
[2024-10-12 23:14] VITALS: BMI 22.1
[2024-10-13 05:09] VITALS: TEMP 97.6
[2024-10-13] MEDS ORDERED: ALBUTEROL SO4 2.5/IPRATROPIUM 0.5 INH SOL 3 ML VIAL.NEB. NEB ONE (06:38)
[2024-10-13] MEDS: ALBUTEROL SO4 2.5/IPRATROPIUM 0.5 INH SOL 3 ML VIAL.NEB. NEB ONE (06:41)
[2024-10-13] MEDS ORDERED: THIAMINE HCL 200 MG/2 ML VIAL IVPB ONE (07:29)
[2024-10-13] MEDS ORDERED: MAGNESIUM OXIDE 400 MG TABLET (FP) ONE (08:04)
[2024-10-13] MEDS: SODIUM CHLORIDE 0.9% 500 ML INFUS.BAG IV ONE (08:13)
[2024-10-13] MEDS: MAGNESIUM OXIDE 400 MG TABLET (FP) PO ONE (08:13)
[2024-10-13 08:23] LABS: ABSOLUTE IMMATURE GRANULOCYTES 0.01 x10^3/uL (0.0-0.031); BASOPHILS # 0.06 x10^3/uL (0.01-0.08); EOSINOPHIL % 6.0 % (0.8-7.0); EOSINOPHILS # 0.36 x10^3/uL (0.04-0.54); MCHC 32.4 g/dl (32.3-36.5); MEAN CELL VOLUME 94.3 fl (79.0-92.2); MEAN PLT VOLUME 9.7 fl (9.4-12.4); MONOCYTE # 0.65 x10^3/uL (0.30-0.82); MONOCYTE % 10.9 % (5.3-12.2); RDW 13.2 % (12.2-16.6)
[2024-10-13] MEDS: THIAMINE HCL IVPB ONE (08:51)
[2024-10-13] MEDS: SODIUM CHLORIDE IVPB ONE (08:51)
[2024-10-13 08:53] LABS: GLUCOSE,RANDOM 105.0 mg/dL (74-106); N-TERMINAL BNP 137.6 pg/mL (0-299.9); TOT PROT 6.9 g/dl (6.4-8.2)
[2024-10-13 08:54] LABS: CO2 28.0 mmol/L (21-32)
[2024-10-13 08:54] LABS: TOT PROT 6.9 g/dl (6.4-8.2)
[2024-10-13 08:56] LABS: ALK PHOS 100.0 U/L (40-150)
[2024-10-13 08:57] LABS: ALK PHOS 99.0 U/L (40-150)
[2024-10-13 08:59] LABS: CREATININE 0.67 mg/dL (0.55-1.3); SGOT/AST 64.0 U/L (5-34); SGPT/ALT 31.0 U/L (0-55)
[2024-10-13 09:00] LABS: SGOT/AST 63.0 U/L (5-34); SGPT/ALT 31.0 U/L (0-55)
[2024-10-13 10:37] LABS: COCAINE, UR NEGATIVE (NEGATIVE)
[2024-10-13 10:38] LABS: METHADONE, UR POSITIVE (NEGATIVE); OPIATES, URI NEGATIVE (NEGATIVE); PHENCYCLIDINE,URINE NEGATIVE (NEGATIVE); URINE AMPHETAMINES NEGATIVE (NEGATIVE); URINE BARBITURATES NEGATIVE (NEGATIVE); URINE BENZODIAZEPINES POSITIVE (NEGATIVE)
[2024-10-13] MEDS ORDERED: AZITHROMYCIN 500 MG TABLET ONE (11:37)
[2024-10-13] MEDS: AZITHROMYCIN 250 MG TABLET PO ONE (11:42)
[2024-10-13 11:56] VITALS: BP 150/90; PULSE 88; RESP 20
[2024-10-13] MEDS ORDERED: AMOX TR/POT CLAV 875MG/125MG TABLETS (FP) PO SCH (17:30)
[2024-10-14] MEDS ORDERED: AZITHROMYCIN 250 MG TABLET PO ONE (11:08)
== END 2024-10-13 12:05 | disposition home or self-care (01) ==
LOC: JER 22:39
PROC: 3E033GC Introduction of Other Therapeutic Substance into Peripheral Vein, Percutaneous Approach (ICD-10-PCS; principal; 2024-10-13)
PROC: 3E0F7GC Introduction of Other Therapeutic Substance into Respiratory Tract, Via Natural or Artificial Opening (ICD-10-PCS; 2024-10-13)
DX: F10.929 Alcohol use, unspecified with intoxication, unspecified (principal); Y90.9 Presence of alcohol in blood, level not specified; J18.9 Pneumonia, unspecified organism; R25.1 Tremor, unspecified; R26.81 Unsteadiness on feet; R45.1 Restlessness and agitation
CPT/HCPCS: 36415; 70450-TC; 71045-TC-FY; 80053; 80076; 80307; 82746; 83735; 83880; 84100; 84484; 85025; 99285-25